=== PATIENT | female | born 1950 | race Caucasian/White ===

== ENCOUNTER 2017-09-18 09:45 | Outpatient (RCR) | payer MEDICARE, OTHER, SELFPAY ==
--- NOTE | 2017-08-26 16:11 | PT.OTN ---
Current Diagnoses Pain in right shoulder (08/27/17) Pain in unspecified shoulder (08/27/17) Pain in arm, unspecified (08/27/17) Transition note: On August 26, 2017 our therapy services consisting of Speech, Occupational, and Physical Therapy transitioned from the [employer] electronic documentation system to a new [employer] electronic documentation system.?? All documentation prior to August 26 can be found under [employer] saved data. From August 26 forward all medical record documentation will be in [employer] 6.1.
--- NOTE | 2017-08-29 12:21 | PT.OTN ---
Current Diagnoses Pain in right shoulder (08/29/17) Pain in unspecified shoulder (08/29/17) Pain in arm, unspecified (08/29/17) Physical Therapy Treatment Note PT-OP-A Visit Information Start: 08/29/17 12:01 Freq: Status: Active Protocol: Activity Type Activity Date Activity User E-Sign Co-Sign Detail Recorded Client Recorded Date Recorded By Document 08/29/17 09:02 GGD [email or web address] 08/29/17 12:16 [facility] 08/29/17 09:02 Out-Patient Physical Therapy Visit Information [Visit Information] -Visit Type Treatment Note -Visit Start Time 09:00 -Visit Stop Time 09:42 -Total Visit Minutes 42 -Visit Number 4 -Number of WOODWIND REEDS CUTTER Visits 1 [Evaluation Information] -Evaluation Date 08/05/17 PT-OP-C Subjective Start: 08/29/17 12:01 Freq: Status: Active Protocol: Activity Type Activity Date Activity User E-Sign Co-Sign Detail Recorded Client Recorded Date Recorded By Document 08/29/17 09:02 GGD [email or web address] 08/29/17 12:16 [facility] 08/29/17 09:02 OP-PT Subjective [Patient Comments] -Patient Comments Pt states that she having muscle tightness in top of shoulder that she feels that is causing bad head aches and increase in pain. She been canceling due to pain. PT-OP-Q Treatments Start: 08/29/17 12:01 Freq: Status: Active Protocol: Activity Type Activity Date Activity User E-Sign Co-Sign Detail Recorded Client Recorded Date Recorded By Document 08/29/17 09:02 GGD [email or web address] 08/29/17 12:16 [facility] 08/29/17 09:02 Therapeutic Exercises [Supine Exercises] 2 -Supine Exercise Name Supine punch -Side bilateral -Resistance 2# -Equipment Used hand weight -Reps/Minutes 10 1 -Supine Exercise Name AA Flexion -Side bilateral -Equipment Used wand -Reps/Minutes 10 [Sidelying Exercises] 1 -Sidelying Exercise Name Roll and reach -Side bilateral -Reps/Minutes 5 [Sitting Exercises] 5 -Sitting Exercise Name scap squeezes -Side bilateral -Reps/Minutes 5 x 5 sec hold 4 -Sitting Exercise Name Levator scap stretch -Side bilateral -Reps/Minutes 2 3 -Sitting Exercise Name upper trap stretch -Side bilateral -Reps/Minutes 2 2 -Sitting Exercise Name [place] flexion -Side left -Equipment Used wall [place] -Reps/Minutes 10 1 -Sitting Exercise Name [place] scap Abd -Side left -Equipment Used wall [place] -Reps/Minutes 10 Manual Therapy Treatment [Soft Tissue Mobilization] 1 -Body Location Upper trap and levator scap -Mobilization Type Myofascial Release Rolling Sustained Pressure -Intensity/Depth Moderate -Body Position Supine PT-OP-T Assessment and Plan Start: 08/29/17 12:01 Freq: Status: Active Protocol: Activity Type Activity Date Activity User E-Sign Co-Sign Detail Recorded Client Recorded Date Recorded By Document 08/29/17 09:02 GGD [email or web address] 08/29/17 12:16 GGD 08/29/17 09:02 Physical Therapy Assessment [Assessment Summary] -Assessment Pt had decrease in pain after STM. Her shoulder ROM is improving. Pt encouraged to keep appointment even when having increase in pain. Physical Therapy Plan [Frequency and Duration] -Frequency of Treatment 2x/Week -Duration of Treatment 8 weeks -Plan of Care Start Date 08/05/17 -Plan of Care End Date 09/29/17 [Next Visit Focus/Plan] -Next Visit Plan Progress under current plan of care. Increase shoulder strengthening, active ROM, posture and stretching.
--- NOTE | 2017-09-01 11:30 | PT.OTN ---
Current Diagnoses Pain in right shoulder (09/01/17) Pain in unspecified shoulder (09/01/17) Pain in arm, unspecified (09/01/17) Physical Therapy Treatment Note PT-OP-A Visit Information Start: 08/29/17 12:01 Freq: Status: Active Protocol: Activity Type Activity Date Activity User E-Sign Co-Sign Detail Recorded Client Recorded Date Recorded By Document 09/01/17 10:35 [facility] [id number] 09/01/17 11:30 [facility] 09/01/17 10:35 Out-Patient Physical Therapy Visit Information [Visit Information] -Visit Type Treatment Note -Visit Start Time 10:30 -Visit Stop Time 11:15 -Total Visit Minutes 45 -Visit Number 5 -Number of MASONRY CONTRACTOR Visits 0 PT-OP-C Subjective Start: 08/29/17 12:01 Freq: Status: Active Protocol: Activity Type Activity Date Activity User E-Sign Co-Sign Detail Recorded Client Recorded Date Recorded By Document 09/01/17 10:35 [facility] [id number] 09/01/17 11:30 [facility] 09/01/17 10:35 OP-PT Subjective [Patient Comments] -Patient Comments Reports her exercises make her more sore & reports pain lasts a couple hours after. PT-OP-Q Treatments Start: 08/29/17 12:01 Freq: Status: Active Protocol: Activity Type Activity Date Activity User E-Sign Co-Sign Detail Recorded Client Recorded Date Recorded By Document 09/01/17 10:35 [facility] [id number] 09/01/17 11:30 [facility] 09/01/17 10:35 Therapeutic Exercises [Sidelying Exercises] 1 -Sidelying Exercise Name Roll and reach -Reps/Minutes 10 [Sitting Exercises] 5 -Sitting Exercise Name scap squeezes -Side bilateral -Reps/Minutes 5 x 5 sec hold 4 -Sitting Exercise Name Levator scap stretch -Side bilateral -Reps/Minutes 2x30 sec 3 -Sitting Exercise Name upper trap stretch -Side bilateral -Reps/Minutes 2x 30 sec 2 -Sitting Exercise Name [place] flexion -Side left -Equipment Used wall [place] -Reps/Minutes 10 1 -Sitting Exercise Name [place] scap Abd -Side left -Equipment Used wall [place] -Reps/Minutes 10 [Standing Exercises] 1 -Standing Exercise Name wall roll up w/ shoulder ext -Reps/Minutes 10 Manual Therapy Treatment [Soft Tissue Mobilization] 1 -Body Location Upper trap and levator scap & c spine paraspinals -Mobilization Type Myofascial Release Rolling Sustained Pressure -Intensity/Depth Moderate -Body Position Supine [Joint Mobilizations] 1 -Joint GH -Direction distraction, inf, post -Grade II -Body Position Supine PT-OP-T Assessment and Plan Start: 08/29/17 12:01 Freq: Status: Active Protocol: Activity Type Activity Date Activity User E-Sign Co-Sign Detail Recorded Client Recorded Date Recorded By Document 09/01/17 10:35 [facility] [id number] 09/01/17 11:30 [facility] 09/01/17 10:35 Physical Therapy Assessment [Assessment Summary] -Assessment Pt had improved PROM without pain after joint mobilizations. Pt had pain only with pullys and wall posture after mult reps. Dec pain after proper form for roll & reach re- taught. Physical Therapy Plan [Frequency and Duration] -Frequency of Treatment 2x/Week -Duration of Treatment 8 weeks -Plan of Care Start Date 08/05/17 -Plan of Care End Date 09/29/17 [Next Visit Focus/Plan] -Next Visit Plan Shoulder strengthening with Tbands
--- NOTE | 2017-09-08 11:17 | PT.OTN ---
Current Diagnoses Pain in right shoulder (09/08/17) Pain in unspecified shoulder (09/08/17) Pain in arm, unspecified (09/08/17) Physical Therapy Treatment Note PT-OP-A Visit Information Start: 08/29/17 12:01 Freq: Status: Active Protocol: Document 09/08/17 10:35 [facility] (Rec: 09/08/17 11:16 [facility] [id number]) Out-Patient Physical Therapy Visit Information Visit Information Visit Type Treatment Note Visit Start Time 10:30 Visit Stop Time 11:15 Total Visit Minutes 45 Visit Number 6 Number of SHEET HEATER HELPER Visits 0 PT-OP-C Subjective Start: 08/29/17 12:01 Freq: Status: Active Protocol: Document 09/08/17 10:35 [facility] (Rec: 09/08/17 11:16 [facility] [id number]) OP-PT Subjective Patient Comments Patient Comments Pt reports she was sore from shoulder to elbow after last session. PT-OP-Q Treatments Start: 08/29/17 12:01 Freq: Status: Active Protocol: Document 09/08/17 10:35 [facility] (Rec: 09/08/17 11:16 [facility] [id number]) Therapeutic Exercises Sitting Exercises 5 Sitting Exercise Name scap squeezes Side bilateral Reps/Minutes 5 x 5 sec hold 2 Sitting Exercise Name [place] flexion Side left Equipment Used wall [place] Reps/Minutes 10 1 Sitting Exercise Name [place] scap Abd Side left Equipment Used wall [place] Reps/Minutes 10 Standing Exercises 2 Standing Exercise Name B ext w/tband Resistance L1 Reps/Minutes 20 Manual Therapy Treatment Soft Tissue Mobilization 2 Body Location infraspinatus & rhomboids Mobilization Type Rolling Intensity/Depth Moderate Body Position Sidelying 1 Body Location Upper trap and levator scap & c spine paraspinals Mobilization Type Myofascial Release Rolling Sustained Pressure Intensity/Depth Superficial Body Position Supine Self-Care/Home Management Treatment Education Other Education self massage w/home theracane PT-OP-T Assessment and Plan Start: 08/29/17 12:01 Freq: Status: Active Protocol: Document 09/08/17 10:35 [facility] (Rec: 09/08/17 11:16 [facility] [id number]) Physical Therapy Assessment Assessment Summary Assessment Pt able to tolerate shoulder ext with tband. Dec pressure used w/STM to prevent inc soreness. Physical Therapy Plan Frequency and Duration Frequency of Treatment 2x/Week Duration of Treatment 8 weeks Plan of Care Start Date 08/05/17 Plan of Care End Date 09/29/17 Next Visit Focus/Plan Next Visit Plan Cont to advance scapular strengthening.
--- NOTE | 2017-09-16 16:31 | PT.OTN ---
Current Diagnoses Pain in right shoulder (09/16/17) Pain in unspecified shoulder (09/16/17) Pain in arm, unspecified (09/16/17) Physical Therapy Treatment Note PT-OP-A Visit Information Start: 08/29/17 12:01 Freq: Status: Active Protocol: Document 09/16/17 11:15 GGD (Rec: 09/16/17 16:31 GGD [email or web address]) Out-Patient Physical Therapy Visit Information Visit Information Visit Type Treatment Note Visit Start Time 11:15 Visit Stop Time 11:55 Total Visit Minutes 40 Visit Number 7 Number of SHELLS INSPECTOR Visits 1 PT-OP-C Subjective Start: 08/29/17 12:01 Freq: Status: Active Protocol: Document 09/16/17 11:15 [facility]GD (Rec: 09/16/17 16:31 GGD [email or web address]) OP-PT Subjective Patient Comments Patient Comments Pt states that the pain has not change and having to cancel appointments due to pain levels. Patient Reported Progress Same PT-OP-Q Treatments Start: 08/29/17 12:01 Freq: Status: Active Protocol: Document 09/16/17 11:15 GGD (Rec: 09/16/17 16:31 GGD [email or web address]) Therapeutic Exercises Sitting Exercises 5 Sitting Exercise Name scap squeezes Side bilateral Reps/Minutes 5 x 5 sec hold 2 Sitting Exercise Name [place] flexion Side left Equipment Used wall [place] Reps/Minutes 10 1 Sitting Exercise Name [place] scap Abd Side left Equipment Used wall [place] Reps/Minutes 10 Standing Exercises 3 Standing Exercise Name Rows Side bilateral Resistance Level 1 Reps/Minutes 20 2 Standing Exercise Name B ext w/tband Resistance L1 Reps/Minutes 20 Manual Therapy Treatment Soft Tissue Mobilization 2 Body Location infraspinatus & rhomboids Mobilization Type Rolling Intensity/Depth Moderate Body Position Sidelying 1 Body Location Upper trap and levator scap & c spine paraspinals Mobilization Type Myofascial Release Rolling Sustained Pressure Intensity/Depth Superficial Body Position Supine PT-OP-T Assessment and Plan Start: 08/29/17 12:01 Freq: Status: Active Protocol: Document 09/16/17 11:15 GGD (Rec: 09/16/17 16:31 GGD [email or web address]) Physical Therapy Assessment Assessment Summary Assessment Pt had decrease pain and muscle tension with treatment. She had improve shoulder flexion ROM. Physical Therapy Plan Frequency and Duration Frequency of Treatment 2x/Week Duration of Treatment 8 weeks Plan of Care Start Date 08/05/17 Plan of Care End Date 09/29/17 Next Visit Focus/Plan Next Visit Plan Progress under current plan of care. Increase shoulder strengthening, posture and stretching.
--- NOTE | 2017-09-18 13:44 | PT.OTN ---
Current Diagnoses Pain in right shoulder (09/18/17) Pain in unspecified shoulder (09/18/17) Pain in arm, unspecified (09/18/17) Physical Therapy Treatment Note PT-OP-A Visit Information Start: 08/29/17 12:01 Freq: Status: Active Protocol: Document 09/18/17 09:43 [facility] (Rec: 09/18/17 10:08 [facility] [id number]) Out-Patient Physical Therapy Visit Information Visit Information Visit Type Treatment Note Visit Start Time 09:45 Visit Stop Time 10:30 Total Visit Minutes 45 Visit Number 8 Number of SALESPERSON DRIVER Visits 0 Evaluation Information Evaluation Date 08/05/17 PT-OP-C Subjective Start: 08/29/17 12:01 Freq: Status: Active Protocol: Document 09/18/17 09:43 [facility] (Rec: 09/18/17 10:08 [facility] [id number]) OP-PT Subjective Patient Comments Patient Comments Saw neurologist got medication helping migraines. shoulder pain persists but ROM improved . Soft tissue work helpful short term for pain. PT-OP-Q Treatments Start: 08/29/17 12:01 Freq: Status: Active Protocol: Document 09/18/17 09:43 [facility] (Rec: 09/18/17 10:08 [facility] [id number]) Therapeutic Exercises Sidelying Exercises 2 Sidelying Exercise Name shoulder abduction Side bilateral 1 Sidelying Exercise Name Roll and reach Side bilateral Reps/Minutes 5 Comments manual guidance Sitting Exercises 2 Sitting Exercise Name [place] flexion Side left Equipment Used wall [place] Reps/Minutes 10 1 Sitting Exercise Name [place] scap Abd Side left Equipment Used wall [place] Reps/Minutes 10 Standing Exercises 4 Standing Exercise Name Shld ER, ad, IR Resistance L1 TB Reps/Minutes 10 3 Standing Exercise Name Rows Side bilateral Resistance Level 1 Reps/Minutes 20 2 Standing Exercise Name B ext w/tband Resistance L1 Reps/Minutes 20 1 Standing Exercise Name wall posture Reps/Minutes 5 Manual Therapy Treatment Soft Tissue Mobilization 1 Body Location Upper trap and levator scap & c spine paraspinals Mobilization Type Myofascial Release Rolling Sustained Pressure Intensity/Depth Superficial Body Position Supine Taping 1 Body Location left anterior chest, axilla Treatment Focus edema reduction Type of Tape Kinesio Tape Comments 2 fan strips base at supraclavicular fossa crossing to axilla PT-OP-T Assessment and Plan Start: 08/29/17 12:01 Freq: Status: Active Protocol: Document 09/18/17 09:43 [facility] (Rec: 09/18/17 10:08 [facility] [id number]) Physical Therapy Assessment Assessment Summary Assessment Patient tolerated taping well, requires frequent cues for postural alignment and correct form with exercises. Physical Therapy Plan Frequency and Duration Frequency of Treatment 2x/Week Duration of Treatment 8 weeks Plan of Care Start Date 08/05/17 Plan of Care End Date 09/29/17 Next Visit Focus/Plan Next Note Type Treatment Note Next Visit Plan Assess response to kinesiotape , continue PT per POC. Please Sign and Return: I have reviewed this Plan of Care and certify that the skilled therapy services above are required to meet the patient???s needs. Physician Signature Date Printed Name and Credentials Clinical Instructor Signature Printed Name and Credentials
--- NOTE | 2017-12-23 11:38 | PT.OPDS ---
Current Diagnoses Pain in right shoulder (09/18/17) Pain in unspecified shoulder (09/18/17) Pain in arm, unspecified (09/18/17) Provider Visit Care Team Role Provider Type Freddy Dalton MD Family Provider Physician Primary Care Provider Specialty: Family Practice Address: [facility] [place], [address] Email: [email or web address] Elena Garsia MD Attending Provider Physician Specialty: General Surgery Address: [address] [place] [address], [address] Email: [email or web address] Visit Number Visit Number 8 Discharge Summary PT-OP-C Subjective Start: 08/29/17 12:01 Freq: Status: Active Protocol: Document 09/18/17 09:43 [facility] (Rec: 09/18/17 10:08 [facility] [id number]) OP-PT Subjective Patient Comments Patient Comments Saw neurologist got medication helping migraines. shoulder pain persists but ROM improved . Soft tissue work helpful short term for pain. PT-OP-T Assessment and Plan Start: 08/29/17 12:01 Freq: Status: Active Protocol: Document 12/23/17 11:36 [facility]AK (Rec: 12/23/17 11:37 [facility] [id number]) Physical Therapy Plan Discharge Physical Therapy Discharge Reasons No Longer Attending PT Discharge Comments Not seen since 09/17/17 prior to PT on vacation then out with extended illness. Phone calls to check on patient status not returned. Patient will be discharged. Unable to perform discharge reassesment
== END 2017-09-19 10:51 ==
LOC: PHYS 09:45
PROVIDERS: Family Provider Family Medicine; PCP Family Medicine; Visit Provider Surgery
DX: M79.603 Pain in arm, unspecified (principal); M25.519 Pain in unspecified shoulder; M25.511 Pain in right shoulder
CPT/HCPCS: 97110; 97140

== ENCOUNTER → 2017-10-06 11:46 | Outpatient (CLI) | payer MEDICARE, OTHER, SELFPAY ==
--- NOTE | 2017-10-06 | DI.MRI.S_ITS ---
PROCEDURE: MR HEAD/BRAIN WO/W CON INDICATIONS: CHRONIC MIGRAINE WITHOUT AURA TECHNIQUE: Noncontrast axial T1 spin echo, axial T2 fast spin echo, sagittal and axial FLAIR, coronal T2 fast spin echo, axial gradient echo, axial diffusion and ADC through the brain. After the administration of contrast, axial and coronal T1 spin echo with fat saturation through the brain. COMPARISON: [facility], CT, HEAD WITHOUT CONTRAST, 11/01/2014, 18:13. [facility], CT, HEAD WITHOUT CONTRAST, 11/25/2014, 11:09. FINDINGS: Image quality: Excellent. CSF spaces: Basal cisterns are patent. No extra-axial fluid collections. Ventricles stable, with ex vacuo dilatation of the left lateral ventricle. Brain: No midline shift. No intracranial masses. No abnormal intracranial enhancement. There is cerebral volume loss for age. There is periventricular white matter chronic small vessel ischemic change. The brainstem appears normal. Diffusion-weighted images demonstrate no acute ischemic insults. There is a remote left frontal lobe infarction seen, as previously demonstrated. There is brain parenchymal volume loss and gliotic change. Mild hemosiderin deposition can be seen along the margins of infarction. Normal intravascular flow voids are present. Skull and face: Calvarial marrow is normal in signal. Orbits appear normal. Note is made of bilateral lens replacements. Sinuses: Sinuses and mastoids appear clear. IMPRESSION: No acute abnormality is seen. 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 Dictated by: Pj Mcdaniels M.D. on 10/06/2017 at 12:27 Approved by: Pj Mcdaniels M.D. on 10/06/2017 at 12:29
== END ==
PROVIDERS: Family Provider Family Medicine; PCP Family Medicine; Visit Provider Psychiatry & Neurology Neurology
DX: G43.709 Chronic migraine without aura, not intractable, without status migrainosus (principal)
CPT/HCPCS: 70553; A9579

== ENCOUNTER → 2017-11-14 13:15 | Outpatient (CLI) | payer MEDICARE, OTHER, SELFPAY | PROVIDERS: Family Provider Family Medicine; PCP Family Medicine; Visit Provider Family Medicine | DX: Z78.0 Asymptomatic menopausal state (principal) | CPT/HCPCS: 77080 ==

== ENCOUNTER 2018-03-27 18:17 | Inpatient (IN) | payer MEDICARE, OTHER, SELFPAY ==
[2018-03-27] VITALS (18 sets, daily range): BP systolic 98–137; BP diastolic 61–96; PULSE 72–92; RESP 7–22; TEMP 36.3–36.6; O2SAT 90–98; BMI 32.5
--- NOTE | 2018-03-27 | DI.RAD.S_ITS ---
PROCEDURE: XR ANKLE LT 2V INDICATIONS: POST REDUCTION TECHNIQUE: 3 views of the ankle were acquired. COMPARISON: [facility], , XR ANKLE LT MIN 3V, 03/27/2018, 18:30. FINDINGS: Bones: There is improved alignment of the tri-malleolar ankle fracture. There is significant residual posterior dislocation of the talus, measured at roughly 27 mm. There is roughly 8 mm of lateral subluxation of the talus. Soft tissues: No tibiotalar joint effusion. Achilles tendon appears normal. IMPRESSION: Decreased, moderate displacement of trimalleolar ankle fracture. Dictated by: Lukas Corral M.D. on 03/27/2018 at 20:33 Approved by: Lukas Corral M.D. on 03/27/2018 at 20:34
--- NOTE | 2018-03-27 18:22 | DI.RAD.S_ITS ---
PROCEDURE: XR ANKLE LT MIN 3V INDICATIONS: fall pain TECHNIQUE: 3 views of the ankle were acquired. COMPARISON: None. FINDINGS: Bones: Moderate lateral talar subluxation. Moderately displaced medial malleolar fracture. Moderately displaced and angulated distal fibular fracture, which is comminuted. Moderately displaced posterior malleolar fracture. Soft tissues: No tibiotalar joint effusion. Achilles tendon appears normal. IMPRESSION: Moderately displaced trimalleolar ankle fracture dislocation. Dictated by: Lukas Corral M.D. on 03/27/2018 at 18:49 Approved by: Lukas Corral M.D. on 03/27/2018 at 18:50
--- NOTE | 2018-03-27 18:31 | ED_ITS ---
HPI - Extremity Injury (Lower) General Chief Complaint: Extremity Injury, Lower Stated Complaint: left ankle fracture Time Seen by Provider: 03/27/18 18:22 Source: patient and EMS Mode of arrival: EMS History of Present Illness HPI Narrative: patient is a 68-year-old female who presents with left ankle pain. She tripped over a rug and her home when she fell. She denies numbness or tingling she is able to move her toes. No knee or hip pain. No other injury. She received fentanyl by EMS for pain control Related Data Home Medications Medication Instructions Recorded Confirmed gabapentin [Neurontin] 1,200 mg PO TID #0 08/07/17 03/28/18 metformin [Glucophage XR] 500 mg PO QDAY #0 08/07/17 03/28/18 Previous Rx's Medication Instructions Recorded hydrocodone-acetaminophen [[place]] 1 tab PO Q6HP PRN #30 tab 02/07/16 Allergies Allergy/AdvReac Type Severity Reaction Status Date / Time cefazolin [From Anc] Allergy Verified 03/27/18 19:12 Review of Systems Review of Systems GENERAL: Denies chills,fever HEENT: Denies throat pain RESPIRATORY: Denies dyspnea, cough, wheezing CARDIOVASCULAR: Denies chest pain, palpitations GASTROINTESTINAL: Denies nausea, vomiting MUSCULOSKELETAL: See HPI SKIN: No rash, no laceration, no pruritus NEUROLOGIC: Denies weakness, dizziness, headache, numbness 8 point review of systems is negative except for those stated above and HPI [facility] Medical History Breast cancer (Acute) Family History: Reviewed 03/27/18 by Donis Euceda MD Social History household members: spouse Smoking Status: Former smoker Exam Initial Vital Signs Initial Vital Signs: Vital Signs Temperature 97.8 F 03/27/18 18:22 Pulse Rate 80 03/27/18 18:22 Respiratory Rate 18 03/27/18 18:22 Blood Pressure 120/76 03/27/18 18:22 Pulse Oximetry 93 03/27/18 18:22 GENERAL: Overweight female awake alert oriented CARDIOVASCULAR: peripheral pulses in tact, cap refill <2 sec RESPIRATORY: No respiratory distress, speaks in full sentences without difficulty EXTREMITIES: Normal range of motion, no clubbing or edema. Neurovascularly intact Left lower extremity: Obvious deformity at ankle is peripheral pulses intact no knee pain or deformity pelvis is stable. no open fracture. Neurovascularly intact NEUROLOGICAL: Cranial nerves II through XII grossly intact. Normal speech, gait not tested SKIN: Warm, dry, no petechiae, no rashes or lesions. Procedures Orthopedic Fracture Reduction Fracture #1: Time Out Performed: Yes Side: left Fracture Reduction Location: tibia and fibula Analgesia: procedural sedation Technique: direct manipulation Post Reduction X-rays Demonstrate: other (Not acceptable reduction) Post-reduction neuro exam: intact and no change Post-reduction vascular exam: intact and no change Splint Applied: Yes Patient Tolerated Procedure: Well Procedural Sedation Patient Age: Patient is 5yrs or older Indication: fracture/dislocation reduction ASA Class: II Mallampati Airway Classification: Class I Time of Last PO Intake: 12:00 Preparation: pulse oximeter, capnometry used, supplemental O2 applied, suction/ airway equipment at bedside and IV secured IV Etomidate dose (mg): 10 Time of Sedation (Min): 15 ED Sedation Level: Moderate (Concious) Patient Tolerated Procedure: Well Complications: none Course Orders Ordered: ED Orders 03/27/18 18:22 XR ankle LT min 3V Stat 03/27/18 21:03 Basic Metabolic Panel Stat Complete Blood Count AUTO DIFF Stat 03/28/18 00:00 Consult to Physical Therapy Evaluate & Treat Consult to Respiratory Therapy Evaluate & Treat Hydrocodone Bitart/Acetaminophen ([place] 5/325) 1 tab PO Q6H PRN PRN Reason: Pain, Moderate (4-6) Last Admin: 03/28/18 01:45 Dose: 1 tab Aspirin (Aspirin Ec) 81 mg PO BID [facility] Gabapentin (Neurontin) 1,200 mg PO TID [facility] Hydroxyzine Pamoate (Vistaril) 25 mg PO Q6HR PRN PRN Reason: Spasms Lactated Ringer's (Lactated Ringers) 1,000 mls @ 125 mls/hr IV CONT ANG Last Admin: 03/28/18 01:46 Dose: 125 mls/hr Metformin HCl (Glucophage Xr) 500 mg PO DAILY ANG Ondansetron HCl (Zofran Odt) 4 mg PO Q4HR PRN PRN Reason: Nausea Ondansetron HCl (Zofran) 4 mg IV Q4HR PRN PRN Reason: Nausea And Vomiting Discontinued Medications Bupivacaine HCl/Epinephrine Bitart (Sensorcaine 0.5% W/ Epi (Pf)) 30 ml INJ NOW ONE Stop: 03/27/18 23:06 Last Admin: 03/27/18 23:07 Dose: 20 ml Diphtheria/Tetanus/Acell Pertussis (Adacel) 0.5 ml IM .ONCE ONE Stop: 03/27/18 21:07 Last Admin: 03/27/18 21:08 Dose: 0.5 ml Etomidate (Amidate) 10 mg IV NOW ONE Stop: 03/27/18 19:34 Last Admin: 03/27/18 20:06 Dose: 10 mg Fentanyl (Sublimaze) 50 mcg IV Q5MIN PRN PRN Reason: Pain, Moderate (4-6) Stop: 03/28/18 00:00 Hydromorphone HCl (Dilaudid) 1 mg IV NOW ONE Stop: 03/27/18 20:10 Last Admin: 03/27/18 20:13 Dose: 1 mg Hydromorphone HCl (Dilaudid) 1 mg IV NOW ONE Stop: 03/27/18 20:16 Last Admin: 03/27/18 20:18 Dose: 1 mg Hydromorphone HCl (Dilaudid) 0.5 mg IV NOW ONE Stop: 03/27/18 21:08 Last Admin: 03/27/18 21:09 Dose: 0.5 mg Hydromorphone HCl (Dilaudid) 0.5 mg IV Q5MIN PRN PRN Reason: Pain, Moderate (4-6) Sodium Chloride (Normal Saline 0.9%) 1,000 mls @ 1,000 mls/hr IV BOLUS ONE Stop: 03/27/18 20:32 Last Infusion: 03/27/18 21:34 Dose: 0 mls/hr Admin: 03/27/18 19:50 Dose: 1,000 mls/hr Lactated Ringer's (Lactated Ringers) 1,000 mls @ 42 mls/hr IV CONT ANG Last Admin: 03/27/18 22:02 Dose: 42 mls/hr Clindamycin Phosphate (Cleocin) 900 mg in 50 mls @ 50 mls/hr IV NOW ONE Stop: 03/28/18 00:04 Last Infusion: 03/27/18 22:10 Dose: 0 mls/hr Admin: 03/27/18 22:00 Dose: 50 mls/hr Ondansetron HCl (Zofran) 4 mg IV NOW PRN PRN Reason: Nausea And Vomiting Oxycodone/Acetaminophen (Percocet 5/325) 1 tab PO Q30MIN PRN PRN Reason: Mild or moderate pain Propofol (Diprivan) 100 mg IV NOW ONE Stop: 03/27/18 19:05 Last Admin: 03/27/18 20:06 Dose: Vital Signs - 8 hr 03/27/18 19:00 03/27/18 19:12 03/27/18 19:52 Temperature 97.8 F 97.8 F Pulse Rate 80 80 88 Respiratory Rate 18 18 19 Blood Pressure 101/72 Blood Pressure [Left Arm] 131/94 H Pulse Oximetry 93 93 93 03/27/18 19:58 03/27/18 20:01 03/27/18 20:08 Temperature Pulse Rate 83 76 74 Respiratory Rate 20 19 17 Blood Pressure Blood Pressure [Left Arm] 123/78 121/71 Pulse Oximetry 97 98 97 03/27/18 20:10 03/27/18 20:15 03/27/18 20:20 Temperature Pulse Rate 72 84 77 Respiratory Rate 17 22 19 Blood Pressure Blood Pressure [Left Arm] 126/91 H 136/80 98/63 Pulse Oximetry 96 94 95 03/27/18 20:30 03/27/18 21:00 03/27/18 21:44 Temperature 97.7 F Pulse Rate 72 79 83 Respiratory Rate 10 L 9 L 15 Blood Pressure 125/73 Blood Pressure [Left Arm] 113/61 114/68 Pulse Oximetry 95 90 L 90 L 03/27/18 23:32 03/27/18 23:37 03/27/18 23:42 Temperature 97.3 F L Pulse Rate 92 H 91 H 87 Respiratory Rate 10 L 9 L 9 L Blood Pressure 137/77 124/94 H 130/96 H Blood Pressure [Left Arm] Pulse Oximetry 94 95 94 03/27/18 23:47 03/27/18 23:55 03/28/18 00:25 Temperature 97.3 F L 97.2 F L Pulse Rate 86 83 Respiratory Rate 10 L 7 L 8 L Blood Pressure 130/79 103/79 Blood Pressure [Left Arm] Pulse Oximetry 96 96 96 03/28/18 00:55 03/28/18 02:00 Temperature 97.4 F L 97.4 F L Pulse Rate 85 83 Respiratory Rate 7 L 8 L Blood Pressure 98/73 114/64 Blood Pressure [Left Arm] Pulse Oximetry 95 99 MDM - Extremity Injury (Lower) Lab Data Result diagrams: 03/28/18 02:01 03/28/18 02:01 Lab Results 03/28/18 03/28/18 Range/Units 02:01 02:01 WBC 7.5 (4.5-11.0) X10^3/uL RBC 4.07 (4.0-5.2) X10^6/uL Hgb 12.4 (12.0-16.0) g/dL Hct 37.0 (36-46) % MCV 91.0 (80-100) fL MCH 30.5 (26-34) PG MCHC 33.5 (30-36) % RDW 14.7 (11.6-14.8) % Plt Count 384 (150-400) X10^3/uL Neut % (Auto) 63.1 (50-75) % Lymph % (Auto) 28.5 (25-40) % [place] % (Auto) 5.4 (3-14) % Eos % (Auto) 2.5 (2-4) % Baso % (Auto) 0.5 (0-2) % Neut # (Auto) 4700 (6672-0430) /uL Sodium 144 (137-145) mmol/L Potassium 3.7 (3.4-5.1) mmol/L Chloride 101 (98-107) mmol/L Carbon Dioxide 30 (22-32) mmol/L BUN 27 H (7-17) mg/dL Creatinine 1.10 H (0.52-1.04) mg/dL Estimated GFR 49.7 L (>60) mL/min BUN/Creatinine Ratio 24.5 H (6-22) Glucose 130 H (80-110) mg/dL Calcium 8.4 (8.4-10.2) mg/dL Point of Care Testing Test Results Not applicable Glucose POC 123 Imaging Data Ankle x-ray#1: Radiologist's impression: [address] [address] XRay Report Signed Patient: MarcoArabellaval TAYR#: [id number] : 2Acct:[id number] Age/Sex: 68 / FDate of Service: 03/27/18 Loc: ED Accession Number: [id number] Procedure: XR ankle LT min 3V Ordering Provider: Ketty Arvizu D.O. PROCEDURE: XR ANKLE LT MIN 3V INDICATIONS: fall pain TECHNIQUE: 3 views of the ankle were acquired. COMPARISON: None. FINDINGS: Bones: Moderate lateral talar subluxation. Moderately displaced medial malleolar fracture. Moderately displaced and angulated distal fibular fracture, which is comminuted. Moderately displaced posterior malleolar fracture. Soft tissues: No tibiotalar joint effusion. Achilles tendon appears normal. IMPRESSION: Moderately displaced trimalleolar ankle fracture dislocation. Dictated by: Lukas Corral M.D. on 03/27/2018 at 18:49 Approved by: Lukas Corral M.D. on 03/27/2018 at 18:50 Ankle x-ray#2: Radiologist's impression: [place] [address] XRay Report Signed Patient: Wilber Lara JMR#: [id number] : 2Acct:[id number] Age/Sex: 68 / FDate of Service: 03/27/18 Loc: ED Accession Number: [id number] Procedure: XR ankle LT 2V Ordering Provider: Ketty Arvizu D.O. PROCEDURE: XR ANKLE LT 2V INDICATIONS: POST REDUCTION TECHNIQUE: 3 views of the ankle were acquired. COMPARISON: [facility], , XR ANKLE LT MIN 3V, 03/27/2018, 18:30. FINDINGS: Bones: There is improved alignment of the tri-malleolar ankle fracture. There is significant residual posterior dislocation of the talus, measured at roughly 27 mm. There is roughly 8 mm of lateral subluxation of the talus. Soft tissues: No tibiotalar joint effusion. Achilles tendon appears normal. IMPRESSION: Decreased, moderate displacement of trimalleolar ankle fracture. Dictated by: Lukas Corral M.D. on 03/27/2018 at 20:33 Approved by: Lukas Corral M.D. on 03/27/2018 at 20:34 MDM Narrative Medical decision making narrative: The patient did not have a successful reduction. I have called and spoken with Dr. Euceda who has reviewed x-rays. She will be going to the OR this evening. Dr. Euceda in the ED. Discharge Plan Departure Patient Disposition: Admitted as Observation Clinical Impression: Ankle fracture, left Discharge Date/Time: 03/27/18 21:34 Interventions: ED Discharge Assessment Last Done: 03/27/18 21:33 Admit Date/Time: 03/27/18 21:17 Admit Provider: Donis Euceda
[2018-03-27] MEDS: SODIUM CHLORIDE 0.9% 1,000 ML 1000 ML IV (19:50)
[2018-03-27] MEDS: ETOMIDATE 2 MG/ML VIAL 10 MG IV (20:06)
[2018-03-27] MEDS: HYDROMORPHONE 2 MG INJ 1 MG IV ×2 (20:13→20:18)
--- NOTE | 2018-03-27 20:24 | RT ---
Assisted with concious sedation on patient. Jaw thrust used after sedation in effect. ETCO2 running 35-44 for most of sedation till patient more awake and moaning and blowing down her CO2 to low 30's. SPO2 running 98% on 2 lnc. Patient awake and interactive at end of sedation.
--- NOTE | 2018-03-27 20:33 | PC.NURSE ---
Pt tolerated sedation well. needed jaw lift to maintain airway. 2 attempts were made to reduce ankle injury. 1mg of dilaudid given twice for the second attempt to reduce. Provider placed splint, cap refill < 2sec on toes.
[2018-03-27] MEDS: TET,DIPH,PERTUSS(ACELL),VAC/PF 0.5 ML SYRINGE IM (21:08)
[2018-03-27] MEDS: HYDROMORPHONE 1 MG INJ 0.5 MG IV (21:09)
--- NOTE | 2018-03-27 21:20 | PC.NURSE ---
Pt alert and calm, talking to Ortho provider at bedside.
--- NOTE | 2018-03-27 21:34 | PM.PREOP ---
Pre-operative Note Interval Note Pre-op Check: Yes History & Physical Reviewed by Physician Changes: No
--- NOTE | 2018-03-27 21:34 | PC.NURSE ---
NS to continue in OR
--- NOTE | 2018-03-27 21:34 | PM.HP.1 ---
History of Present Illness Date Patient Seen: 03/27/18 Time Patient Seen: 21:35 Chief complaint: left ankle fracture Narrative: 68-year-old female status post ground level fall with twisting injury to her left ankle. Brought to [facility] Emergency room where she was noted to have a severely displaced trimalleolar ankle fracture dislocation. Attempts at closed reduction were unsuccessful in terms of maintaining the position of the ankle mortise and the talus directly under the tibia. Consultation requested. Patient History Medical History Breast cancer (Acute) Family & Social History Family History: Reviewed 03/27/18 by Donis Euceda MD Safety & Behavioral: Feels Safe in Current Yes Environment Tobacco & Substance use: Smoking Status Never smoker alcohol intake frequency 3 or more drinks per day Substance Use Type does not use Meds Home Medications Medication Instructions Recorded Confirmed Type hydrocodone-acetaminophen [[place]] 1 tab PO Q6HP PRN #30 tab 02/07/16 Rx gabapentin [Neurontin] 1,200 mg PO TID #0 08/07/17 History metformin [Glucophage XR] 500 mg PO QDAY #0 08/07/17 History Allergies Allergy/AdvReac Type Severity Reaction Status Date / Time cefazolin [From Ancef] Allergy Verified 03/27/18 19:12 Review of Systems Review of Systems All systems reviewed & are unremarkable except as noted in HPI and below Exam Vital Signs (past 8 hours): - 03/27/18 18:22 03/27/18 19:00 03/27/18 19:12 Temperature 97.8 F 97.8 F 97.8 F Pulse Rate 80 80 80 Respiratory Rate 18 18 18 Blood Pressure 101/72 Blood Pressure [Left Arm] 120/76 Pulse Oximetry 93 93 93 03/27/18 19:52 03/27/18 19:58 03/27/18 20:01 Temperature Pulse Rate 88 83 76 Respiratory Rate 19 20 19 Blood Pressure Blood Pressure [Left Arm] 131/94 H 123/78 Pulse Oximetry 93 97 98 03/27/18 20:08 03/27/18 20:10 03/27/18 20:15 Temperature Pulse Rate 74 72 84 Respiratory Rate 17 17 22 Blood Pressure Blood Pressure [Left Arm] 121/71 126/91 H 136/80 Pulse Oximetry 97 96 94 03/27/18 20:20 03/27/18 20:30 03/27/18 21:00 Temperature Pulse Rate 77 72 79 Respiratory Rate 19 10 L 9 L Blood Pressure Blood Pressure [Left Arm] 98/63 113/61 114/68 Pulse Oximetry 95 95 90 L Oxygen Delivery Method Room Air Oxygen Flow Rate 2 Narrative Exam Narrative: Generally healthy 68-year-old female and minimal distress due to left ankle pain/injury. No other apparent injury. The left ankle is elevated in a posterior splint. Patient is afebrile and awake alert and conversant. HEENT normocephalic atraumatic, lungs clear auscultation, heart regular rate and rhythm, abdomen benign, extremities benign with the exception of left lower extremity which is in a well-padded posterior splint toes exposed demonstrating intact sensation and circulation movement of all toes is intact. Objective Labs Labs: X-rays demonstrate displaced trimalleolar ankle fracture dislocation with significant comminution of the distal fibula Assessment & Plan Plan: Assessment/Plan Narrative: 68-year-old female with a displaced trimalleolar ankle fracture dislocation which is not fully reducible nor is the reduction maintained able in the emergency room. Discussed nature of condition, differential diagnosis, prognosis, and options. Recommend ORIF this evening. The patient understands, agrees, and gives informed consent. Time Spent With Patient Time with patient: 25 - 35 minutes
[2018-03-27] MEDS: CLINDAMYCIN 900 MG/50 ML PIGGYBACK 50 MG IV (22:00)
[2018-03-27] MEDS: LACTATED RINGERS 1,000 ML 42 ML IV (22:02)
--- NOTE | 2018-03-27 22:21 | SUR.OPER ---
Supine on padded OR bed, head on pillow, arms secured on padded arm boards at <90 degrees abduction, legs uncrossed, safety belt at thigh, tape over blanket over right leg.
[2018-03-27] MEDS: BUPIVACAINE 0.5% W/ EPI (PF) VIAL 30 ML INJ (23:07)
--- NOTE | 2018-03-27 23:43 | PM.OP.1 ---
Operative Date/Time/Diagnoses Date of procedure: 03/27/18 Time of procedure: 23:43 Pre-op diagnosis: Left trimalleolar ankle fracture dislocation Post-op diagnosis: same Procedure & Clinicians Procedure: ORIF left trimalleolar ankle fracture dislocation (CPT code 21760) Same procedure as scheduled: Yes Indications: 68-year-old female status post fall with moderately comminuted and displaced trimalleolar left ankle fracture with dislocation of the talus. Attempted closed reduction in the emergency room was unsuccessful and on stable and therefore immediate orthopedic consultation was requested. We discussed the nature of condition, treatment options, risks, and benefits and the patient gives informed consent to proceed with ORIF. Surgeon: Donis Euceda Click Yes if Unassisted: Yes Anesthesia Type: General Operative Notes Closure Type: primary Specimen(s): none sent Implants & Drains: Eight 8 hole 1/3 tubular plate and malleolar screws Estimated Blood Loss (mL): 5 Blood products transfused: none Tourniquet time (min): 60 Procedure in detail: Patient brought to the operating room and after satisfactory induction of general anesthetic and administration of intravenous antibiotics, a tourniquet was placed high on the left thigh and left lower extremity was prepped and draped in the usual sterile fashion. Leg was exsanguinated with an Esmarch bandage. Tourniquet inflated to 325 mm of mercury. Longitudinal incision created over the distal fibula and carried sharply through the skin and subcutaneous tissues down to the periosteal level. Fracture was identified and debrided. Moderate comminution of a high distal fibular fracture was noted with a large anterior and anteromedial butterfly fragment. Stable anatomical reduction obtained with towel clip reduction clamps then an 8 hole 1/3 tubular plate was affixed to the lateral cortex of the fibula with a single interfragmentary bicortical lag screw placed through the midportion of the plate. Intraoperative fluoroscopic images demonstrated satisfactory reduction of the fibular fracture and placement of hardware as well as reduction of the ankle mortise, posterior malleolar fragment, and near anatomical reduction of the medial malleolus. The lateral plate was then further fixed to the distal fibula with bicortical screws in the standard fashion. Medial incision then created in the medial malleolar fracture was debrided then reduced anatomically and held in place with a towel clip reduction clamp while 2 malleolar screws were placed from distal to proximal. Intraoperative fluoroscopic images in AP lateral and mortise planes demonstrated satisfactory anatomical reduction of fractures and ankle mortise, and satisfactory placement of hardware. The wounds were then irrigated and closed in 2 layers of 2 0 Vicryl and the skin closed with yvette. The wounds were infiltrated with Marcaine then sterile dressings and a well-padded posterior splint were applied. Tourniquet deflated, anesthetic admitted, and patient taken to post anesthetic recovery in satisfactory condition. Complications: none Condition: stable Disposition: PACU Plan for aftercare: Routine postoperative fracture care with rest and elevation. Nonweightbearing left lower extremity. Probable discharge home in the morning and follow up in 7-10 days for wound check as well as repeat x-rays to assure satisfactory maintenance of the reduction. Because of the nature of the fracture and fixation I recommend cast stabilization for 6 weeks postop.
[2018-03-28] VITALS (7 sets, daily range): BP systolic 98–131; BP diastolic 64–79; PULSE 75–100; RESP 7–20; TEMP 36.2–37.2; O2SAT 91–99; BMI 32.5
--- NOTE | 2018-03-28 | DI.RAD.S_ITS ---
PROCEDURE: XR ANKLE LT MIN 3V INDICATIONS: postop left ankle ORIF TECHNIQUE: 3 views of the ankle were acquired. COMPARISON: [facility], CR, XR ANKLE LT MIN 3V, 03/27/2018, 18:30. FINDINGS: Bones: Patient is status post ORIF of trimalleolar left ankle fracture dislocation. There is anatomic alignment of fracture fragments following ORIF. There is normal association of the distal tibia and the talus. Soft tissues: No tibiotalar joint effusion. Achilles tendon appears normal. IMPRESSION: Status post ORIF of left ankle fracture dislocation. Dictated by: Lata León MD, PhD on 03/28/2018 at 12:11 Approved by: Lata León MD, PhD on 03/28/2018 at 12:13
[2018-03-28] MEDS: HYDROCODONE/ACET 5/325 TABLET 1 TAB PO ×3 (01:45→19:03)
[2018-03-28] MEDS: LACTATED RINGERS 1,000 ML 125 ML IV (01:46)
[2018-03-28 02:14] LABS: Add Manual Diff / Slide Review NO; Basophils Percent Auto 0.5 % (0-2); Eosinophils Percent Auto 2.5 % (2-4); Hemoglobin 12.4 g/dL (12.0-16.0); Lymphocytes Percent Auto 28.5 % (25-40); Mean Corpuscular HGB Conc 33.5 % (30-36); Mean Corpuscular Hemoglobin 30.5 PG (26-34); Monocytes Percent Auto 5.4 % (3-14); Neutrophils Absolute Auto 4700 /uL (3000-5900); Neutrophils Percent Auto 63.1 % (50-75); Platelet Count 384 X10^3/uL (150-400); Red Blood Cell Count 4.07 X10^6/uL (4.0-5.2); Red Cell Distribution Width 14.7 % (11.6-14.8); White Blood Cell Count 7.5 X10^3/uL (4.5-11.0)
[2018-03-28 02:22] LABS: BUN Creatinine Ratio 24.5 (6-22); Blood Urea Nitrogen 27 mg/dL (7-17); Calcium 8.4 mg/dL (8.4-10.2); Carbon Dioxide 30 mmol/L (22-32); Chloride 101 mmol/L (98-107); Estimated Glomerular Filt Rate 49.7 mL/min (>60); Glucose 130 mg/dL (80-110); HEMOLYSIS < 15 (0-50); Potassium 3.7 mmol/L (3.4-5.1); Sodium 144 mmol/L (137-145)
--- NOTE | 2018-03-28 04:29 | PC.NURSE ---
Pt arrived on unit at approx 0000. She was on 4L O2 NC due to slow to rouse and de sat to high 80's. O2 currently at high 90's on 1L NC. Other VS all stable. C/o pain 11/04 and received one 5/325 mg Norce with good relief, able to sleep. Denies nausea.
[2018-03-28] MEDS: GABAPENTIN 600 MG TABLET 1200 MG PO ×3 (09:24→21:47)
[2018-03-28] MEDS: METFORMIN XR 500 MG TABLET PO (09:24)
[2018-03-28] MEDS: ASPIRIN EC 81 MG TABLET PO ×2 (09:24→21:47)
--- NOTE | 2018-03-28 10:00 | PT.IIE ---
Surgery Performed Operation Date: 03/27/18 21:25 Actual Procedures p ORIF Ankle Fracture(Left) - Donis Euceda MD Medical History (Last Reviewed 03/27/18 @ 21:35 by Donis Euceda MD) Breast cancer (Acute) Physical Therapy Inpatient Evaluation/Re-Eval M1 PT/OT-IP Prior Functional Status Start: 03/28/18 11:38 Freq: NEEDED Status: Active Protocol: Document 03/28/18 10:00 RCC (Rec: 03/28/18 11:50 [facility] [id number]) Medical Review Prior Functional Status Medical History Reviewed Yes Mobility and Gait indep. community ambulator without device Activities of Daily Living and IADL's indep. I/ADLs Social History Household Members spouse Living Arrangements House Number of Floors (Floors) Two Floors Number of Stairs To Enter/Railing? power lift chair up/down stairs available Home Environment High Toilet Walk in Shower Home Equipment Front Wheel Walker Straight Cane Additional Social History Comment is able to assist upon d/c. Home is disabled accessible). Pt with fall, sustained a L trimalleolar fx and talar dislocation, unable to be reduced closed. Underwent ORIF L ankle on 03/27/18. Orders for NWB LLE M2 PT-IP Current Condition Start: 03/28/18 11:38 Freq: NEEDED Status: Active Protocol: Document 03/28/18 10:00 RCC (Rec: 03/28/18 11:50 [facility] [id number]) Physical Therapy Current Condition Current Condition Evaluation Date 03/28/18 Treatment Diagnosis L ankle ORIF, impaired mobility Precautions Other Precautions NWB LLE Weight Bearing Status Weight Bearing Status Non-Weight Bearing M3 PT-IP Subjective Start: 03/28/18 11:38 Freq: NEEDED Status: Active Protocol: Document 03/28/18 10:00 RCC (Rec: 03/28/18 11:50 [facility] [id number]) Subjective Physical Therapy Visit Type Type Initial Evaluation Visit Start Time 09:30 Visit Stop Time 10:00 Total Visit Minutes 30 Notes in room during session Number of STRIPPING SHOVEL OILER Visits 0 Physical Therapy Visit Comments Patient Comments pt wants to be able to go home today. Patient Goals to go home. Therapy Pain Assessment Pain Present Pain Present Pain Reported Location Left Ankle Intensity 8 Scale Used Numeric (1 - 10) M4 PT-IP Mobility and Gait Start: 03/28/18 11:38 Freq: NEEDED Status: Active Protocol: Document 03/28/18 10:00 [facility] (Rec: 03/28/18 11:50 [facility] [id number]) PT-Bed Mobility Assessment Supine to Sit Supine to Sit Standby Assistance Scooting Scooting to Edge of Bed Standby Assistance PT-Transfer Assessment Sit to and From Stand Sit to and from Stand Contact Guard Assistance Equipment Transfer Assistive Device Gait Belt Front Wheeled Walker Transfers Transfer Destination Chair Transfer Technique Stand Pivot Transfer Ability Level of Assist Minimal Assistance 1 Person Assistance Use of Upper Extremities Comments Mobility Comments poor compliance with NWB LLE, multiple cues and reminders NWB. Attempted crutches after rest transfer to chair with FWW, unable to move at all with crutches. Gait Assessment Comments Gait Comments unable PT-Balance Assessment Sitting Balance and Reactions Static Sitting Balance Ability Good Dynamic Sitting Balance Ability Good Standing Balance and Reactions Static Standing Balance Ability Poor Dynamic Standing Balance Ability Poor Device Used FWW M5 PT-IP Objective Assessments Start: 03/28/18 11:38 Freq: NEEDED Status: Active Protocol: Document 03/28/18 10:00 [facility] (Rec: 03/28/18 11:50 [facility] [id number]) Orientation Orientation/Cognition Level of Alertness Alert Orientation Name Age Birthday Month Date Year Day of Week Place Situation Gross Range of Motion Lower Extremity ROM Assessment Left Impaired Strength Lower Extremity Strength Assessment Left Impaired Hip L hip flexion 3+/5 Sensation Assessment Sensation Gross Sensation WNL M6 PT-IP Treatment Start: 03/28/18 11:38 Freq: NEEDED Status: Active Protocol: Document 03/28/18 10:00 [facility] (Rec: 03/28/18 11:50 [facility] [id number]) Physical Therapy Treatment Education Education Provided Precautions Weight Bearing Status Safety Other Treatments Other Treatment Performed given DME list for w/c options (renting vs. loan vs. purchase) M7 PT-IP Assessment and Plan Start: 03/28/18 11:38 Freq: NEEDED Status: Active Protocol: Document 03/28/18 10:00 RCC (Rec: 03/28/18 11:50 [facility] [id number]) PT Summary Assessment and Plan Potential Rehabilitation Potential Good Status of Condition at Evaluation Stable Summary Impairments Pain ROM Strength Balance Transfers Gait Activity Tolerance Assessment Summary POD #1 L ankle ORIF. Pt unable to safely transfer or mobilize without assistance, and required multiple reminders and cues to maintain NWB LLE (pt compliance variable). Pt is not cleared to d/c home at this time due to impaired mobility and safety concerns with poor compliance to NWB. Will need to see pt later this date for another session to determine safety for d/c home vs. at least one more day of PT. Pt will need a manual w/c prior to d/c for home use, recommended elevating leg rest for the LLE. Goals Bed Mobility Goal Standby Assistance Transfer Goal Standby Assistance Gait Goal Standby Assistance Front Wheel Walker Gait Distance 5 Days to Meet Goals 2 Frequency of Treatment Frequency Of Treatment Twice a Day Treatment Plan Physical Therapy Treatment Plan Bed Mobility Training Transfer Training Gait Training Other Recommendations and Next Treatment transfers with FWW, cont. to Focus reinforce NWB LLE Recommendations To Nursing Amount of Assist Needed 1 Person Assist Discharge Recommendations PT Discharge Recommendations Home with Assistance Home Health Other Discharge Recommendations PT and OT Equipment Needed for Home Before manual w/c Discharge
--- NOTE | 2018-03-28 10:42 | P.DS_ITS ---
History of Present Illness Date Patient Seen: 03/28/18 Time Patient Seen: 10:37 Chief complaint: left ankle fracture Narrative: Alert, oriented no acute distress resting in bed. Patient brought to the hospital last night after fall at home fracturing dislocating her left ankle. She was seen by Dr. Euceda and taken the OR last night for ORIF of left trimalleolar fracture. She has remained stable postoperatively. She has not been out of bed yet with physical therapy. Has been getting Erie 1 tablet without complete pain relief. Discharge Providers Date of admission: 03/27/18 21:17 Primary care physician: Freddy Dalton MD Consults: 03/28/18 00:00 Consult to Physical Therapy Evaluate & Treat Comment: Physician Instructions: post op ORIF ankle protocol Consult to Respiratory Therapy Evaluate & Treat Comment: Physician Instructions: Evaluate and treat Discharge provider: Bartolome Brown PA-C Discharge Date: 03/28/18 Summary Discharge Diagnosis: Status post left ankle trimalleolar fracture/dislocation ORIF Hospital Course: Patient brought into the hospital on 03/27/2018 after fall at home 5 causing fracture dislocation of left ankle. Attempt was done to relocate the ankle in the ER without completely take 6s. Dr. Euceda was called to see patient and taken to the OR. Patient underwent ORIF of trimalleolar fracture. She remained stable overnight. She was ready for discharge home once she was cleared by physical therapy. Status at Discharge Cognitive/behavioral status at discharge: Alert, oriented no acute distress. Functional status at discharge: uses cane/walker Overall status at discharge: patient is progressing back to baseline Time Spent with Patient Less than 30 minutes Exam Vital Signs (past 8 hours): - 03/28/18 03:12 03/28/18 08:00 Temperature 97.5 F L 97.2 F L Pulse Rate 78 75 Respiratory Rate 7 L 16 Blood Pressure 113/72 108/67 Pulse Oximetry 98 97 Oxygen Delivery Method Nasal Cannula Oxygen Flow Rate 3 Narrative Exam Narrative: Left leg lower leg postop splint in place without signs of drainage. Good blanching and sensation to all toes and good movement. Objective Labs Result Diagrams: 03/28/18 02:01 03/28/18 02:01 Labs: Laboratory Results - last 24 hr 03/28/18 03/28/18 02:01 02:01 WBC 7.5 RBC 4.07 Hgb 12.4 Hct 37.0 MCV 91.0 MCH 30.5 MCHC 33.5 RDW 14.7 Plt Count 384 Neut % (Auto) 63.1 Lymph % (Auto) 28.5 [place] % (Auto) 5.4 Eos % (Auto) 2.5 Baso % (Auto) 0.5 Neut # (Auto) 4700 Sodium 144 Potassium 3.7 Chloride 101 Carbon Dioxide 30 BUN 27 H Creatinine 1.10 H Estimated GFR 49.7 L BUN/Creatinine Ratio 24.5 H Glucose 130 H Calcium 8.4 Discharge Plan Discharge Plan Discharge Problem: Ankle fracture, left Patient Disposition: Home Transportation: Private vehicle Discharge Med Rec/Prescriptions Prescriptions: New hydrocodone-acetaminophen 10-325 mg Tablet 1 tab PO Q4HR PRN (Reason: Pain, Severe (7-10)) Qty: 30 RF: 0 aspirin 81 mg Tablet,Delayed Release (Dr/Ec) 81 mg PO BID Qty: 30 RF: 0 Continue hydrocodone-acetaminophen [Erie] 5 MG/325 MG tablet 1 tab PO Q6HP PRNQty: 30 RF: 0 gabapentin [Neurontin] 300 MG capsule 1,200 mg PO TID Qty: 0 RF: 0 metformin [Glucophage XR] 500 MG tablet extended release 24 hr 500 mg PO QDAY Qty: 0 RF: 0 Follow up/Referrals: Freddy Dalton MD [Primary Care Provider] - (Follow-up at [facility] office in [place] 10 days postop. Call [phone] for appointment.) Provider Discharge Instructions Diet: Diet as Tolerated Activity: Nonweightbearing left leg x6 weeks postop. Cold/Heat Therapy: Ice to left ankle area as needed. Skin/Wound/Dressing Care Report to your healthcare provider any signs of infection, such as:: chills, fever, night sweats, increased pain, unusual drainage and unusual redness Visit Report/Discharge Packet Instructions: DI for Open Reduction Internal Fixation Surgery Discharge Data Primary Care Provider: Freddy Dalton Attending Provider: Donis Euceda Admit Date/Time: 03/27/18 21:17 Quality VTE Deep Vein Thrombosis/Pulmonary Embolism Present on Admission: No
[2018-03-28] MEDS: HYDROCODONE/ACET 10/325 TABLET 1 TAB PO ×2 (10:49→14:56)
--- NOTE | 2018-03-28 11:19 | CM.DANOTE ---
Discharge Planning/Care Management CM Discharge Assessment Start: 03/28/18 11:17 Freq: Status: Active Protocol: Document 03/28/18 11:17 BF (Rec: 03/28/18 11:19 BF [id number]) Discharge Planning Assessment Assigned Lead Shipper BENSON Souaz DPOA/Assigned Designee Name spouse Reno Contact Information [phone] Advance Directives? Yes Advance Directives on File No: Spouse Reno is aware History Provided By Patient Medical Record Has Patient been admitted in last 30 No days? Prior Living Arrangements House Household Members spouse Type of transporation used prior to Relies on Others admit Comment Independent with ADL's at baseline Independent with ADL's Yes Is patient alert and oriented? Yes Caregiver for Another No Comment House is ADA compliant including a lift for the stairs at home Comment Patient and spouse anticipate home at d/c. Barriers to Discharge No Discharge Plan Home Community Services Physical Therapy Transportation Arrangement Spouse can provide transport at d/c Referrals Initiated None needed Whiteboard Updated in Patient Room with Yes name and ext. # of Lead Shipper Review Status In Process Please Provide Date Initial DC 03/28/18 Assessment Was Performed Next Review Type Continued Stay Review
--- NOTE | 2018-03-28 11:20 | CM.DANOTE ---
Addendum entered by BENSON Walker 03/28/18 14:04: ADD: Per PT, recommending that pt remain in the hospital overnight and participate in PT in the morning prior to safe d/c home tomorrow. Possible need for HH at d/c. Plan: SW to follow tomorrow for likely pt d/c home with spouse after further PT and possible need for HH prior to discharge. BENSON Walker Original Note: Patient is a 68 year old female who was admitted on 03/27/18 for left ankle fx. Pt has [facility] and [employer] for insurance and her PCP is Dr. Dalton. EMR was reviewed. Per Ortho PA, pt may be stable for d/c home later today after further PT. Per PT, pt is non weight baring on her ankle and recommend further PT this afternoon prior to discharge. SW met bedside with pt and explained role and pt confirmed that she lives at home with her in [place] in a two story house but it is ADA compliant and even includes a lift for their stairs. Pt is Independent with ADL's at baseline and states that her is her DPOA. Pt denies any hx of SNF and states that her preference is to d/c home later today after further PT. Pt states her is out getting her medications filled, a w/c for home use, and can provide transport home. Pt states that she is very motivated to d/c home today and doesn't want to stay another night in the hospital. Pt does not anticipate any SW needs at d/c. Plan: SW to follow for likely pt d/c home this evening via spouse POV after further PT CG training. BENSON Walker Discharge Planning/Care Management CM Discharge Assessment Start: 03/28/18 11:17 Freq: Status: Active Protocol: Document 03/28/18 11:17 BF (Rec: 03/28/18 11:19 BF [id number]) Discharge Planning Assessment Assigned Horticulture/Floriculture Teacher BENSON Souza DPOA/Assigned Designee Name spouse Reno Contact Information [phone] Advance Directives? Yes Advance Directives on File No: Spouse Reno is aware History Provided By Patient Medical Record Has Patient been admitted in last 30 No days? Prior Living Arrangements House Household Members spouse Type of transporation used prior to Relies on Others admit Comment Independent with ADL's at baseline Independent with ADL's Yes Is patient alert and oriented? Yes Caregiver for Another No Comment House is ADA compliant including a lift for the stairs at home Comment Patient and spouse anticipate home at d/c. Barriers to Discharge No Discharge Plan Home Community Services Physical Therapy Transportation Arrangement Spouse can provide transport at d/c Referrals Initiated None needed Whiteboard Updated in Patient Room with Yes name and ext. # of Horticulture/Floriculture Teacher Review Status In Process Please Provide Date Initial DC 03/28/18 Assessment Was Performed Next Review Type Continued Stay Review
--- NOTE | 2018-03-28 13:00 | PT.IPTN ---
Surgery Performed Operation Date: 03/27/18 21:25 Actual Procedures p ORIF Ankle Fracture(Left) - Donis Euceda MD Physical Therapy Treatment Note M2 PT-IP Current Condition Start: 03/28/18 11:38 Freq: NEEDED Status: Active Protocol: Document 03/28/18 13:00 RCC (Rec: 03/28/18 13:14 [facility] [id number]) Physical Therapy Current Condition Current Condition Evaluation Date 03/28/18 Treatment Diagnosis L ankle ORIF, impaired mobility Precautions Other Precautions NWB LLE Weight Bearing Status Weight Bearing Status Non-Weight Bearing M3 PT-IP Subjective Start: 03/28/18 11:38 Freq: NEEDED Status: Active Protocol: Document 03/28/18 13:00 RCC (Rec: 03/28/18 13:14 RCC [id number]) Subjective Physical Therapy Visit Type Type Treatment Note Visit Start Time 12:44 Visit Stop Time 13:00 Total Visit Minutes 16 Number of WATER TENDER Visits 0 Physical Therapy Visit Comments Patient Comments pt really wants to go home today Therapy Pain Assessment Location Left Ankle Intensity 4 Scale Used Numeric (1 - 10) M4 PT-IP Mobility and Gait Start: 03/28/18 11:38 Freq: NEEDED Status: Active Protocol: Document 03/28/18 13:00 RCC (Rec: 03/28/18 13:14 RCC [id number]) PT-Bed Mobility Assessment Sit to Supine Sit to Supine Standby Assistance Scooting Scooting to Edge of Bed Standby Assistance PT-Transfer Assessment Sit to and From Stand Sit to and from Stand Contact Guard Assistance Equipment Transfer Assistive Device Gait Belt Front Wheeled Walker Transfers Transfer Destination Bed Transfer Ability Level of Assist Contact Guard Assistance Comments Mobility Comments VC NWB LLE and FWW management. Gait Assessment Comments Gait Comments unable to perform gait due to extensive training and difficulty with transfers. M5 PT-IP Objective Assessments Start: 03/28/18 11:38 Freq: NEEDED Status: Active Protocol: Document 03/28/18 10:00 RCC (Rec: 03/28/18 11:50 RCC [id number]) Orientation Orientation/Cognition Level of Alertness Alert Orientation Name Age Birthday Month Date Year Day of Week Place Situation Gross Range of Motion Lower Extremity ROM Assessment Left Impaired Strength Lower Extremity Strength Assessment Left Impaired Hip L hip flexion 3+/5 Sensation Assessment Sensation Gross Sensation WNL M6 PT-IP Treatment Start: 03/28/18 11:38 Freq: NEEDED Status: Active Protocol: Document 03/28/18 13:00 RCC (Rec: 03/28/18 13:14 [facility] [id number]) Physical Therapy Treatment Education Education Provided Precautions Weight Bearing Status Safety Other Treatments Other Treatment Performed LAQ x5 sitting on EOB M7 PT-IP Assessment and Plan Start: 03/28/18 11:38 Freq: NEEDED Status: Active Protocol: Document 03/28/18 13:00 RCC (Rec: 03/28/18 13:14 [facility] [id number]) PT Summary Assessment and Plan Summary Progress Towards Goals Slow Progress due to Activity Tolerance Assessment Summary POD #1 L ankle ORIF. Pt at this time requires continued extensive cuing for safe transfers, as well as reminders of NWB on the LLE. Pt is not safe to return home at this point due to impaired, but improving compliance with NWB LLE and slight improvements with transfers. Pt is at risk for falls, and further injury at this time due to the amount of cuing required for mobility, and the burden of care is too high at this point for the spouse to be able to manage the pt at home. Goals Bed Mobility Goal Standby Assistance Transfer Goal Standby Assistance Gait Goal Standby Assistance Front Wheel Walker Gait Distance 5 Other Goals STG: gait with FWW x2 ft, SBA, NWB LLE. Days to Meet Goals 2 Frequency of Treatment Frequency Of Treatment Twice a Day Treatment Plan Other Recommendations and Next Treatment transfers with FWW, cont. to Focus reinforce NWB LLE; short forward/backward gait if able. Recommendations To Nursing Amount of Assist Needed 1 Person Assist Discharge Recommendations PT Discharge Recommendations Home with Assistance Home Health Other Discharge Recommendations PT and OT Equipment Needed for Home Before manual w/c Discharge
[2018-03-28] MEDS: hydrOXYzine pamoate 25 MG CAPSULE PO (19:03)
--- NOTE | 2018-03-28 22:37 | PC.NURSE ---
SHIFT NOTE LLE dressing intact. pt denies any numbness/tingling, cap refill to toes WNL. LLE elevated and ice pack applied. c/o 6-810 pain to L ankle area. pt's reports concern of increasing expressive aphasia and confusion after pt had received extra strength norco. pt given regular norco and vistaril, still with some complaints of pain but pt seems less forgetful. bed alarm for safety. call light within reach.
[2018-03-29 00:50] VITALS: BP 126/66; PULSE 99; RESP 20; TEMP 37.6; O2SAT 95
[2018-03-29] MEDS: HYDROCODONE/ACET 5/325 TABLET 1 TAB PO ×2 (00:55→09:30)
[2018-03-29 04:30] VITALS: BP 125/66; PULSE 111; RESP 18; TEMP 36.8; O2SAT 97
--- NOTE | 2018-03-29 04:44 | PC.NURSE ---
Pt is A and O x 4, cooperative and anxious when transferring to BSC. Voiding qs, dark urine, encourage to drink more water. Rates pain 6/10 gets good relief with 5 mg [place] and 25 mg Visteril po. LS clear, S1, S2. Able to sleep.
[2018-03-29 08:00] VITALS: BP 131/75; PULSE 106; RESP 20; TEMP 37; O2SAT 96
[2018-03-29] MEDS: hydrOXYzine pamoate 25 MG CAPSULE PO (09:30)
[2018-03-29] MEDS: GABAPENTIN 600 MG TABLET 1200 MG PO (09:31)
[2018-03-29] MEDS: METFORMIN XR 500 MG TABLET PO (09:31)
[2018-03-29] MEDS: ASPIRIN EC 81 MG TABLET PO (09:31)
--- NOTE | 2018-03-29 09:40 | PT.IPTN ---
Current Diagnoses Displaced trimalleolar fracture of left lower leg, initial encounter for closed fracture (03/27/18) Surgery Performed Operation Date: 03/27/18 21:25 Actual Procedures p ORIF Ankle Fracture(Left) - Donis Euceda MD Physical Therapy Treatment Note M2 PT-IP Current Condition Start: 03/28/18 11:38 Freq: NEEDED Status: Active Protocol: Document 03/29/18 09:40 RCC (Rec: 03/29/18 11:47 RCC [id number]) Physical Therapy Current Condition Current Condition Evaluation Date 03/28/18 Treatment Diagnosis L ankle ORIF, impaired mobility Precautions Other Precautions NWB LLE Weight Bearing Status Weight Bearing Status Non-Weight Bearing M3 PT-IP Subjective Start: 03/28/18 11:38 Freq: NEEDED Status: Active Protocol: Document 03/29/18 09:40 RCC (Rec: 03/29/18 11:47 RCC [id number]) Subjective Physical Therapy Visit Type Type Treatment Note Visit Start Time 09:16 Visit Stop Time 09:40 Total Visit Minutes 24 Number of PREPARATION DEPARTMENT SUPERVISOR Visits 0 Physical Therapy Visit Comments Patient Comments pt ready to go home, states she had a good night. Pain is present but manageable. M4 PT-IP Mobility and Gait Start: 03/28/18 11:38 Freq: NEEDED Status: Active Protocol: Document 03/29/18 09:40 RCC (Rec: 03/29/18 11:47 RCC [id number]) PT-Bed Mobility Assessment Supine to Sit Supine to Sit Standby Assistance Sit to Supine Sit to Supine 1 Person Assistance Scooting Scooting to Edge of Bed Standby Assistance PT-Transfer Assessment Sit to and From Stand Sit to and from Stand Standby Assistance Equipment Transfer Assistive Device Gait Belt Front Wheeled Walker Transfers Transfer Destination Bed Transfer Technique Lateral Scoot Transfer Ability Level of Assist Contact Guard Assistance Use of Upper Extremities Comments Mobility Comments mod VC for NWB LLE, technique with transfer L and R, posterior gait. Gait Assessment Gait Gait Assistance Required: Contact Guard Assist Distance (Feet) 5 Assistive Devices Assistive Device Gait Belt 4 Wheeled Walker Gait Deviations General Gait Pattern Decreased Stride Length Decreased Feet Clearance Flexed Trunk Factors Limiting Gait Function Factors Limiting Gait Function Decreased Activity Tolerance Decreased Strength Pain Poor Balance Comments Gait Comments Backward gait with FWW and mod VC for NWB LLE. M5 PT-IP Objective Assessments Start: 03/28/18 11:38 Freq: NEEDED Status: Active Protocol: Document 03/28/18 10:00 RCC (Rec: 03/28/18 11:50 RCC [id number]) Orientation Orientation/Cognition Level of Alertness Alert Orientation Name Age Birthday Month Date Year Day of Week Place Situation Gross Range of Motion Lower Extremity ROM Assessment Left Impaired Strength Lower Extremity Strength Assessment Left Impaired Hip L hip flexion 3+/5 Sensation Assessment Sensation Gross Sensation WNL M6 PT-IP Treatment Start: 03/28/18 11:38 Freq: NEEDED Status: Active Protocol: Document 03/29/18 09:40 RCC (Rec: 03/29/18 11:47 [facility] [id number]) Physical Therapy Treatment Exercises Exercises Straight Leg Raises Education Education Provided Precautions Weight Bearing Status M7 PT-IP Assessment and Plan Start: 03/28/18 11:38 Freq: NEEDED Status: Active Protocol: Document 03/29/18 09:40 RCC (Rec: 03/29/18 11:47 [facility] [id number]) PT Summary Assessment and Plan Summary Progress Towards Goals Safe For Discharge Assessment Summary POD #2 L ankle ORIF. Pt is able to transfer both L and R, verbal cuing required to maintain NWB LLE. Pt has a supportive spouse, and home is handicap accessible. Pt's spouse to obtain a BSC for home use, as well as w/c. Pt is cleared to d/c home when medically stable. Recommend HH PT/OT for safety assessment in home and further treatment if deemed medically necessary. Goals Bed Mobility Goal Standby Assistance Transfer Goal Standby Assistance Gait Goal Standby Assistance Front Wheel Walker Gait Distance 5 Other Goals STG: gait with FWW x2 ft, SBA, NWB LLE. Days to Meet Goals 2 Frequency of Treatment Frequency Of Treatment Twice a Day Treatment Plan Other Recommendations and Next Treatment transfers with FWW Focus Recommendations To Nursing Amount of Assist Needed 1 Person Assist Discharge Recommendations PT Discharge Recommendations Home with Assistance Home Health Other Discharge Recommendations PT and OT Equipment Needed for Home Before manual w/c, BSC (obtained by Discharge spouse)
== END 2018-03-29 12:10 | disposition home or self-care (01) | DRG 494 ==
LOC: ED 20:42 → AC 03-28 10:37
PROVIDERS: Admitting Provider Orthopaedic Surgery; Emergency Provider Emergency Medicine; PCP Family Medicine; Visit Provider Orthopaedic Surgery
PROC: 0QSK04Z Reposition Left Fibula with Internal Fixation Device, Open Approach (ICD-10-PCS; principal; 2018-03-27 21:25)
DX: S82.852A Displaced trimalleolar fracture of left lower leg, initial encounter for closed fracture (principal); W18.31XA Fall on same level due to stepping on an object, initial encounter; Y92.009 Unspecified place in unspecified non-institutional (private) residence as the place of occurrence of the external cause; Z87.891 Personal history of nicotine dependence; Z96.653 Presence of artificial knee joint, bilateral
CPT/HCPCS: 27752; 29515; 36415; 73600; 73610; 80048; 85025; 90471; 96361; 96374; 96376; 97161; 97530; 99152; 99284; 99285; 90715; J1170; J2250; J2405; J2704; J2765

== ENCOUNTER → 2018-04-09 10:00 | Outpatient (REF) | payer MEDICARE, OTHER, SELFPAY ==
[2018-03-28 01:02] VITALS: BMI 32.5
[2018-04-09 10:16] LABS: Hemoglobin A1C% w Est Avg Glu 6.2 % (4.0-6.0)
== END ==
LOC: LAB 10:00
PROVIDERS: PCP Family Medicine; Visit Provider Family Medicine
DX: E11.21 Type 2 diabetes mellitus with diabetic nephropathy (principal)
CPT/HCPCS: 83036

== ENCOUNTER 2018-04-19 11:54 | Emergency (ER) | payer MEDICARE, OTHER, SELFPAY ==
[2018-03-28 01:02] VITALS: BMI 32.5
[2018-04-19 12:06] VITALS: BP 124/94; PULSE 132; RESP 20; TEMP 36.8; O2SAT 95; BMI 32.5
--- NOTE | 2018-04-19 12:14 | PC.NURSE ---
Pt notes right sided jaw pain for approx 2 days. Denies any hx of similar episodes. Denies pain in any of her teeth.
--- NOTE | 2018-04-19 12:27 | ED.DENTAL ---
HPI - Dental/Oral <CHRIS Moseley-BC - Last Filed: 04/19/18 20:59> General Chief complaint: Dental/Oral Stated complaint: Swollen jaw Time Seen by Provider: 04/19/18 12:13 Source: patient Mode of arrival: ambulatory Limitations: no limitations History of Present Illness HPI Narrative: Patient is a 68-year-old female former smoker presents with a chief complaint of swelling of the right side of her face and jaw. States has been present for a few days. She denies any fever, chest pain, shortness of breath, nausea vomiting diarrhea. She states that her right jaw is painful to palpation. She has taken 2 ibuprofen once for the pain. She denies any recent dental work or broken teeth. Related Data Home Medications Medication Instructions Recorded Confirmed gabapentin [Neurontin] 1,200 mg PO TID #0 08/07/17 03/28/18 metformin [Glucophage XR] 500 mg PO QDAY #0 08/07/17 03/28/18 Previous Rx's Medication Instructions Recorded hydrocodone-acetaminophen [El[place]] 1 tab PO Q6HP PRN #30 tab 02/07/16 aspirin 81 mg PO BID #30 tab 03/28/18 hydrocodone-acetaminophen 1 tab PO Q4HR PRN #30 tab 03/28/18 wheelchair #1 each 03/29/18 Allergies Allergy/AdvReac Type Severity Reaction Status Date / Time cefazolin [From [facility]] Allergy Verified 04/19/18 12:32 Review of Systems <CHRIS Moseley- - Last Filed: 04/19/18 20:59> Constitutional Denies chills, Denies fever(s), Denies lethargy and Denies weakness Eyes Denies change in vision, Denies eye discharge, Denies irritation and Denies loss of vision ENT Ears, Nose, Mouth, and Throat: Reports as per HPI Cardiovascular Denies chest pain, Denies irregular heart rhythm, Denies lightheadedness, Denies palpitations, Denies dyspnea, Denies dyspnea on exertion and Denies orthopnea Respiratory Denies cough, Denies dyspnea, Denies dyspnea on exertion and Denies wheezing Gastrointestinal Gastrointestinal: Denies abdominal pain, Denies change in bowel habits, Denies diarrhea, Denies nausea and Denies vomiting Genitourinary Denies hematuria, Denies flank pain, Denies urinary incontinence and Denies urinary urgency Musculoskeletal Denies back pain, Denies muscle weakness, Denies numbness and Denies tingling Integumentary/Breasts Denies pruritus, Denies erythema, Denies rash and Denies wounds Neurologic Denies confusion, Denies loss of vision, Denies numbness, Denies tingling and Denies weakness Psychiatric Denies anxiety, Denies confusion, Denies depression, Denies homicidal ideation and Denies suicidal ideation Endocrine Denies palpitations Allergic/Immunologic Denies wheezing Exam <CHRIS Moseley-BC - Last Filed: 04/19/18 20:59> Narrative Exam Narrative: GENERAL: This is a well-nourished, well-developed patient, in no acute distress HEAD: Atraumatic. Normocephalic. No temporal or scalp tenderness. EYES: Pupils equal round and reactive. Extraocular motions intact. No scleral icterus. No injection or drainage. ENT: Nose without bleeding, purulent drainage or septal hematoma. Throat without erythema, tonsillar hypertrophy or exudate. Uvula midline. Airway patent. No noted broken teeth or palpable dental abscess. Slight swelling noted in front of right ear. No erythema. No palpable abscess. NECK: Trachea midline. No JVD or lymphadenopathy. Supple, nontender, no meningeal signs. CARDIOVASCULAR: Tachycardic low 100s, regular rhythm. without murmurs, gallops, or rubs. RESPIRATORY: Clear to auscultation. Breath sounds equal bilaterally. No wheezes, rales, or rhonchi. GASTROINTESTINAL: Abdomen soft, non-tender, nondistended. No hepato-splenomegaly, or palpable masses. No guarding. EXTREMITIES: Cast in place right lower extremity BACK: Nontender without deformity or crepitance. No flank tenderness. NEURO: AOx3. SKIN: No rash or erythema. Initial Vital Signs Initial Vital Signs: Vital Signs Temperature 98.3 F 04/19/18 12:06 Pulse Rate 132 H 04/19/18 12:06 Respiratory Rate 20 04/19/18 12:06 Blood Pressure 124/94 H 04/19/18 12:06 Pulse Oximetry 95 04/19/18 12:06 <Juan Francisco Chew DO - Last Filed: 04/21/18 20:19> Initial Vital Signs Initial Vital Signs: Vital Signs Temperature 98.3 F 04/19/18 12:06 Pulse Rate 132 H 04/19/18 12:06 Respiratory Rate 20 04/19/18 12:06 Blood Pressure 124/94 H 04/19/18 12:06 Pulse Oximetry 95 04/19/18 12:06 Course <JESSICA MoseleyP-BC - Last Filed: 04/19/18 20:59> Course Narrative: I checked on the patient several times throughout her stay. Given that the patient's heart rate was consistently above 100 combined with her recent surgery, I discussed as I do lab work as well as imaging to evaluate for possible PE or clot. Patient declined lab work and did not want to wait for imaging study. However her heart rate did decrease below 100 and she was oxygenating appropriately throughout her stay in the emergency department. I discussed at length with her that we did not do a through evaluation due to lack of imaging and patient elected to leave. Orders Ordered: Discontinued Medications Hydrocodone Bitart/Acetaminophen ([place] 5/325) 1 tab PO NOW ONE Stop: 04/19/18 12:28 Last Admin: 04/19/18 12:40 Dose: 1 tab Sodium Chloride (Normal Saline 0.9%) 500 mls @ 1,000 mls/hr IV BOLUS ONE Stop: 04/19/18 14:06 Last Admin: 04/19/18 13:56 Dose: Not Given Reevaluation(s) Reevaluation #1: Vital Signs - 8 hr 04/19/18 13:30 04/19/18 13:58 Pulse Rate 104 H 99 H Respiratory Rate 17 18 Blood Pressure [Left Arm] 122/70 126/70 Pulse Oximetry 96 95 <Juan Francisco Chew DO - Last Filed: 04/21/18 20:19> Orders Ordered: Discontinued Medications Hydrocodone Bitart/Acetaminophen ([place] 5/325) 1 tab PO NOW ONE Stop: 04/19/18 12:28 Last Admin: 04/19/18 12:40 Dose: 1 tab Sodium Chloride (Normal Saline 0.9%) 500 mls @ 1,000 mls/hr IV BOLUS ONE Stop: 04/19/18 14:06 Last Admin: 04/19/18 13:56 Dose: Not Given Vital Signs - 8 hr 04/19/18 13:30 04/19/18 13:58 Pulse Rate 104 H 99 H Respiratory Rate 17 18 Blood Pressure [Left Arm] 122/70 126/70 Pulse Oximetry 96 95 MDM - Dental/Oral <Hyun Cueva, DIGITAL CARTOGRAPHER-BC - Last Filed: 04/19/18 20:59> ECG Data Attestation: I personally reviewed and interpreted this ECG as follows: Interpretation: Sinus tachycardia. Ventricular rate 108. No ectopy noted. No ST elevation or depression. [facility] Narrative Medical decision making narrative: Patient presents with chief complaint of swelling in front of her right jaw. Exam is consistent with parotitis as she did does not have any indication of abscess as there is no overlying erythema. On exam she is tender to palpation. She does not have any evidence of a dental abscess. Throughout her stay in the emergency department patient's heart rate was elevated consistently above 100. Given that combined with her postoperative status I wanted to do lab work and imaging to rule out a blood clot however the patient declined to wait for lab work declined imaging. Discussed at length return precautions including chest pain, shortness of breath or any acute concerns. Encouraged the patient to follow up with her primary care provider use [id number] pain medications as needed and able. Patient has no questions or concerns upon discharge. Discharge Plan Departure Patient Disposition: Home Clinical Impression: Acute parotitis Discharge Date/Time: 04/19/18 14:14 Interventions: ED Discharge Assessment Last Done: 04/19/18 14:13 Instructions: DI for Parotitis-Adult Activity Restrictions/Additional Instructions: Please use [id number] pain medications as well as warm compresses as needed and able. Please suck on lemon candies. Please remember that you left today prior to us completing the workup that we desire to do. If you're not feeling better feeling worse please come back to the emergency department for any acute concerns such as heart attack stroke or blood clot or follow up with primary care provider. Prescriptions: No Action hydrocodone-acetaminophen [[place]] 5 MG/325 MG tablet 1 tab PO Q6HP PRNQty: 30 RF: 0 gabapentin [Neurontin] 300 MG capsule 1,200 mg PO TID Qty: 0 RF: 0 metformin [Glucophage XR] 500 MG tablet extended release 24 hr 500 mg PO QDAY Qty: 0 RF: 0 hydrocodone-acetaminophen 10-325 mg Tablet 1 tab PO Q4HR PRN (Reason: Pain, Severe (7-10)) Qty: 30 RF: 0 aspirin 81 mg Tablet,Delayed Release (Dr/Ec) 81 mg PO BID Qty: 30 RF: 0 wheelchair device .ROUTE .MEDSUPPLY Qty: 1 RF: 0 Referrals: Freddy Dalton MD [Primary Care Provider] - <Juan Francisco Chew DO - Last Filed: 04/21/18 20:19> Cosign ED Attending Arturo Attestation: I was immediately available in the department for consultation. Documentation has been reviewed. I agree with assessment and plan.
[2018-04-19 12:37] VITALS: BP 129/89; PULSE 110; RESP 11; O2SAT 94
[2018-04-19] MEDS: HYDROCODONE/ACET 5/325 TABLET 1 TAB PO (12:40)
[2018-04-19 13:30] VITALS: BP 122/70; PULSE 104; RESP 17; O2SAT 96
--- NOTE | 2018-04-19 13:56 | PC.NURSE ---
Pt wishing to go home. Her caregiver has to leave and she wants to be discharged. Provider notified.
[2018-04-19 13:58] VITALS: BP 126/70; PULSE 99; RESP 18; O2SAT 95
== END 2018-04-19 14:14 | disposition home or self-care (01) ==
PROVIDERS: Emergency Provider Nurse Practitioner Family; PCP Family Medicine
DX: K11.21 Acute sialoadenitis (principal)
CPT/HCPCS: 93005; 99283

== ENCOUNTER 2018-06-30 11:15 | Outpatient (RCR) | payer MEDICARE, OTHER, SELFPAY ==
[2018-03-28 01:02] VITALS: BMI 32.5
--- NOTE | 2018-05-20 18:20 | PT.OPPOC ---
Current Diagnoses Displaced trimalleolar fracture of left lower leg, subsequent encounter for closed fracture with routine healing (05/20/18) Presence of other bone and tendon implants (05/20/18) Provider Visit Care Team Role Provider Type Freddy Dalton MD Primary Care Provider Physician Specialty: Family Practice Address: [address] [place], [address] Email: [email or web address] Amanda Rolon PA-C Attending Provider Physician Specialty: Orthopedic Surgery Address: [address] [place] [address], [id number] Fax: Email: Plan Of Care PT-OP-T Assessment and Plan Start: 05/20/18 17:28 Freq: Status: Active Protocol: Document 05/20/18 14:30 HH (Rec: 05/20/18 18:20 HH [email or web address]) Physical Therapy Assessment Rehab Potential Rehabilitation Potential Good Evaluation Complexity Number of Personal Factors/Comorbidities 3 or More Number of Body Systems Impaired 3 Clinical Presentation at Evaluation Evolving Impairments Impairments Activity Tolerance Balance Edema Functional Activities Functional Mobility Gait Pain ROM Sensation Soft Tissue Mobility Strength Tone Other Concerns Barriers to Rehabilitation hx of CVA Goals stair climbing Impairment stair climbing Government Property Inspector Goal (LTG) able to negotiate her 14 BRAYDON at home independently without AD LTG Duration 8 weeks FAAM score Impairment FAAM Half-Way Goal (LTG) to reach FAAM score to 50-66 ( 20-39 %) impairements to improve overall functional mobility. LTG Duration 8 weeks LEFS score Impairment LEFS Half-Way Goal (LTG) To reach LEFS score 48-62(20- 39 % impairments) to improve overall functional mobility LTG Duration 8 weeks ROM Impairment ROM Short Term Goal (STG) increase overall L ankle ROM by 5 degrees to improve foot clearance during ambulation and stair climbing STG Duration 4 Half-Way Goal (LTG) increase overall L ankle ROM by 10 degrees to improve foot clearance during ambulation and stair climbing LTG Duration 8 pain Impairment pain Short Term Goal (STG) reduce 2/10 L ankle pain to increase activity tolerance for walking at home and community STG Duration 4 Government Property Inspector Goal (LTG) reduce 4/10 L ankle pain to increase activity tolerance for walking at home and community LTG Duration 8 Assessment Summary Assessment Pt is a 68yo pleasant female who had ORIF at L ankle. MD's current prescription states : HEP, gentle ROM and modalities until further notice. Pt demonstrates difficulty in walking and significant loss of ankle ROM and strength after surgery. Pt currently amb with her walker boot and FWW and does not need help for overall transfer and mobility except stair climbing. Pt has been using her mechanical lift outside of the house. Upon assessment, pt presents significant hypersensitive to touch and pressure around surgical site and moderate edema to her L foot and ecchymosis inferior to her lateral maleoli. Pt states her ankle always feels like bloated. Pt states she feels relieved and less stiff after manual therapy. HEP is given with towel curls, ankle pumps and PF stretch to improve overall ankle mobility and flexibility. Pt will benefit from skilled PT including manual therapy therex, gait training address aforementioned impairments. Physical Therapy Plan Frequency and Duration Frequency of Treatment 2x/Week Duration of Treatment 8 weeks Plan of Care Start Date 05/20/18 Plan of Care End Date 07/18/18 Therapeutic Interventions Therapeutic Interventions Aquatic Therapy Balance Training Coordination Training Gait Training Home Exercise Program Joint Mobilizations Manual Therapy Neuromuscular Re-education Patient/Caregiver Education Self-Care/Home Management Soft Tissue Mobilization Taping Therapeutic Activities Therapeutic Exercises Modalities Cold Pack/Ice Massage Electric Stimulation Hot Packs Next Visit Focus/Plan Next Note Type Treatment Note Next Visit Plan reassess edema toe curls rom as vianca, might begin iso exercises manual therapy stm around surgical site Plan of Care Dates Plan of Care Start Date 05/20/18 Plan of Care End Date 07/18/18 Please Sign and Return: I have reviewed this Plan of Care and certify that the skilled therapy services above are required to meet the patient?s needs. Physician Signature Date Printed Name and Credentials Clinical Instructor Signature Printed Name and Credentials
--- NOTE | 2018-05-20 18:20 | PT.OIE ---
Current Diagnoses Displaced trimalleolar fracture of left lower leg, subsequent encounter for closed fracture with routine healing (05/20/18) Presence of other bone and tendon implants (05/20/18) Past Medical History (Last Reviewed 04/19/18 @ 12:55 by Hyun Cueva [facility]) Breast cancer (Acute) CVA (cerebral vascular accident) (Acute) Provider Visit Care Team Role Provider Type Freddy Dalton MD Primary Care Provider Physician Specialty: [facility] Address: [address] [place] [address], [id number] Email: [email or web address] Amanda Rolon PA-C Attending Provider Physician Specialty: Orthopedic Surgery Address: [address] [place] [address], [phone] Fax: Email: Physical Therapy Initial Evaluation PT-OP-A Visit Information Start: 05/20/18 17:28 Freq: Status: Active Protocol: Document 05/20/18 14:30 HH (Rec: 05/20/18 18:20 [email or web address]) Out-Patient Physical Therapy Visit Information Visit Information Visit Type Initial Evaluation Visit Note Pt presents to clinic amb with fww and her L walker boot. Pt was with her as well. pt will visit surgeon for follow up on 05/25/18. Expect to wean off with her walker boot. Visit Start Time 14:30 Visit Stop Time 15:15 Total Visit Minutes 45 Visit Number 1 Number of WIG DRESSER Visits 0 Evaluation Information Evaluation Date 05/20/18 PT-OP-B Current Condition Start: 05/20/18 17:28 Freq: Status: Active Protocol: Document 05/20/18 14:30 HH (Rec: 05/20/18 18:20 [email or web address]) Current Condition History of Current Condition Onset Date 03/27/18 Current Complaints post op L ORIF ankle due to displaced trimalleolar fx History of Current Condition Pt is a pleasant 68 yo female who had ORIF on her L ankle due to a fall. Pt states she tripped over her rub at home on the same day and broke her L foot. She was then admitted to ER and had an emergency surgery. Pt reports she was on a cast and NWB for first 5 weeks. She is now FWB with her L walker boot on at all times since 3 weeks ago. Pt also reports she has been getting physical therapy since sx but she was d/c last week. They have been focusing on functional mobility such as transfer and amb but not much ankle rehab. Pt currently takes hydrocodone 325mg as needed. Treatment Goals Patient/Caregiver Goals pt states I want to walk without boot in pain free, return to my hobby which is sailing and able to climb stairs at home independently. Prior Functional Status Baseline Function- ADL's Independent Baseline Function- Mobility Independent Baseline Function- Gait without AD Baseline Function- Work/School without AD Baseline Function- Recreation/Hobbies without AD Baseline Function- Other without AD Current Functional Impairments (Reported) Functional Limitations- ADL's Her is primary milling supervisor. Pt is able to transfer independently and her could help as needed. Functional Limitations- Mobility/Gait Pt has approx 40 steps in total inside and outside of the house. 2 story home with 13 steps (R handrail) to get into the main floor, but she has mechanical lift. She also has 20 steps to get down to basement. Pt primarily lives on the main floor at this point with access to bathroom, living room, bedroom and kitchen. She amb with fww and walker boot. 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 PT-OP-C Subjective Start: 05/20/18 17:28 Freq: Status: Active Protocol: Document 05/20/18 14:30 (Rec: 05/20/18 18:20 [email or web address]) OP-PT Subjective Patient Comments Patient Comments Pt states My ankle is very sensitive and stiff since i was in a cast and boot for almost 2 months Patient Questionnaires Foot & Ankle Ability Measure- ADL and Sports FAAM-ADL Score 30 FAAM-ADL Impairment 60 to 79% Impaired (Score 16- 32) FAAM-Sport Score 3 FAAM-Sport Impairment 80 to 99% Impaired (Score 1-5) Lower Extremity Functional Scale LEFS Score 20 LEFS Impairment 60 to 79% Impaired (Score 17- 31) PT-OP-G Mobility & Gait Start: 05/20/18 17:28 Freq: Status: Active Protocol: Document 05/20/18 14:30 HH (Rec: 05/20/18 18:20 [email or web address]) OP Gait Assessment Gait Gait Assistance Required: Independent Able to Maintain Weight Bearing Status Yes During Gait Assistive Devices Assistive Device Front Wheeled Walker Orthotic/Prosthetic Devices or Brace: Yes Gait Deviations General Gait Pattern Antalgic Decreased Stride Length Decreased Feet Clearance Factors Limiting Gait Function Factors Limiting Gait Function Decreased Activity Tolerance Decreased Strength Limited Range of Motion Pain Comments Gait Comments mild L hip hike during swing phase on L due to elevated walker boot compared to R LE PT-OP-J Posture/Palpation/Skin Start: 05/20/18 17:28 Freq: Status: Active Protocol: Document 05/20/18 14:30 HH (Rec: 05/20/18 18:20 [email or web address]) Posture Evaluation Position Standing Pelvis Posture (L) Iliac Crest Superior Weight Distribution Weight Shifted Right Palpation Assessment Location L ankle Palpation Location peroneal, lateral malleoli, medial malleoli Palpation Findings Edema Soft Tissue Tightness Tenderness Trigger Point Palpation Details moderate edema inferior to medial and lateral malleoli Hypersensitive to touch and pressure to both surgical site Skin Assessment Edema Assessment Left Ankle Edema Degree 2+ Subjective Edema Description Tightness Comments ecchymosis at lateral maleoli PT-OP-K Range of Motion Start: 05/20/18 17:28 Freq: Status: Active Protocol: Document 05/20/18 14:30 HH (Rec: 05/20/18 18:20 [email or web address]) Ankle and Foot Goniometric Range of Motion Ankle and Foot Measured in Degrees Right Active Ankle/Foot ROM WFL Yes Testing Position Supine Dorsiflexion with Knee Flexed 15 Plantarflexion 50 Inversion 25 Eversion 20 Left Ankle/Foot ROM WFL No Testing Position Supine Dorsiflexion with Knee Extended 3 Plantarflexion 40 Inversion 17 Eversion 5 Ankle and Foot ROM Limitations ROM Limitations Soft Tissue Tightness Muscle Weakness Pain Swelling Comments significant tightness at achilles and gastro PT-OP-M Strength Start: 05/20/18 17:28 Freq: Status: Active Protocol: Document 05/20/18 14:30 HH (Rec: 05/20/18 18:20 [email or web address]) Hip Strength Hip Manual Muscle Testing Right Flexion (L2) 4+ Good+ Extension (S1) 4+ Good+ Abduction 5 Normal Adduction 4+ Good+ Left Flexion (L2) 4- Good- Extension (S1) 4- Good- Abduction 4- Good- Adduction 4+ Good+ Ankle/Foot Strength Ankle and Foot Manual Muscle Testing Right Dorsiflexion (L4) 4+ Good+ Plantarflexion (S1) 4+ Good+ Inversion 4+ Good+ Eversion (S1) 4+ Good+ Left Dorsiflexion (L4) 3- Fair- Plantarflexion (S1) 4- Good- Inversion 3- Fair- Eversion (S1) 3- Fair- PT-OP-Q Treatments Start: 05/20/18 17:28 Freq: Status: Active Protocol: Document 05/20/18 14:30 HH (Rec: 05/20/18 18:20 [email or web address]) Therapeutic Exercises Supine Exercises ankle pumps Side left Reps/Minutes 20 x 3 Sitting Exercises calf stretch with towels Side left Equipment Used towel toe towel hairspring staker Side left Equipment Used towel on floor Manual Therapy Treatment Soft Tissue Mobilization STM Body Location L achilles, gastro and soleus Mobilization Type Cross-Friction Myofascial Release Sustained Pressure Trigger Point Release Intensity/Depth Moderate Body Position Supine IASTM Body Location both surgical site Mobilization Type Cross-Friction Instrument Assisted Intensity/Depth Superficial Body Position Supine Comments parallel and perpendicular PT-OP-T Assessment and Plan Start: 05/20/18 17:28 Freq: Status: Active Protocol: Document 05/20/18 14:30 HH (Rec: 05/20/18 18:20 [email or web address]) Physical Therapy Assessment Rehab Potential Rehabilitation Potential Good Evaluation Complexity Number of Personal Factors/Comorbidities 3 or More Number of Body Systems Impaired 3 Clinical Presentation at Evaluation Evolving Impairments Impairments Activity Tolerance Balance Edema Functional Activities Functional Mobility Gait Pain ROM Sensation Soft Tissue Mobility Strength Tone Other Concerns Barriers to Rehabilitation hx of CVA Goals stair climbing Impairment stair climbing Traffic Lieutenant Goal (LTG) able to negotiate her 14 B[address] at home independently without AD LTG Duration 8 weeks FAAM score Impairment FAAM Fci Goal (LTG) to reach FAAM score to 50-66 ( 20-39 %) impairements to improve overall functional mobility. LTG Duration 8 weeks LEFS score Impairment LEFS Traffic Lieutenant Goal (LTG) To reach LEFS score 48-62(20- 39 % impairments) to improve overall functional mobility LTG Duration 8 weeks ROM Impairment ROM Short Term Goal (STG) increase overall L ankle ROM by 5 degrees to improve foot clearance during ambulation and stair climbing STG Duration 4 Traffic Lieutenant Goal (LTG) increase overall L ankle ROM by 10 degrees to improve foot clearance during ambulation and stair climbing LTG Duration 8 pain Impairment pain Short Term Goal (STG) reduce 2/10 L ankle pain to increase activity tolerance for walking at home and community STG Duration 4 Traffic Lieutenant Goal (LTG) reduce 4/10 L ankle pain to increase activity tolerance for walking at home and community LTG Duration 8 Assessment Summary Assessment Pt is a 68yo pleasant female who had ORIF at L ankle. MD's current prescription states : HEP, gentle ROM and modalities until further notice. Pt demonstrates difficulty in walking and significant loss of ankle ROM and strength after surgery. Pt currently amb with her walker boot and FWW and does not need help for overall transfer and mobility except stair climbing. Pt has been using her mechanical lift outside of the house. Upon assessment, pt presents significant hypersensitive to touch and pressure around surgical site and moderate edema to her L foot and ecchymosis inferior to her lateral maleoli. Pt states her ankle always feels like bloated. Pt states she feels relieved and less stiff after manual therapy. HEP is given with towel curls, ankle pumps and PF stretch to improve overall ankle mobility and flexibility. Pt will benefit from skilled PT including manual therapy therex, gait training address aforementioned impairments. Physical Therapy Plan Frequency and Duration Frequency of Treatment 2x/Week Duration of Treatment 8 weeks Plan of Care Start Date 05/20/18 Plan of Care End Date 05/20/18 Therapeutic Interventions Therapeutic Interventions Aquatic Therapy Balance Training Coordination Training Gait Training Home Exercise Program Joint Mobilizations Manual Therapy Neuromuscular Re-education Patient/Caregiver Education Self-Care/Home Management Soft Tissue Mobilization Taping Therapeutic Activities Therapeutic Exercises Modalities Cold Pack/Ice Massage Electric Stimulation Hot Packs Next Visit Focus/Plan Next Note Type Treatment Note Next Visit Plan reassess edema toe curls rom as vianca, might begin iso exercises manual therapy stm around surgical site
--- NOTE | 2018-05-20 18:21 | PT.OPPOC ---
Addendum entered and electronically signed by Killian Vazquez PT 05/22/18 11:25: Wrong entry for POC end date Original Note: Current Diagnoses Displaced trimalleolar fracture of left lower leg, subsequent encounter for closed fracture with routine healing (05/20/18) Presence of other bone and tendon implants (05/20/18) Provider Visit Care Team Role Provider Type Freddy Dalton MD Primary Care Provider Physician Specialty: [facility] Practice Address: [address] [place] [address], [id number] Email: [email or web address] Amanda Rolon PA-C Attending Provider Physician Specialty: Orthopedic Surgery Address: [address] [place] [address], [id number] Fax: Email: Plan Of Care PT-OP-T Assessment and Plan Start: 05/20/18 17:28 Freq: Status: Active Protocol: Document 05/20/18 14:30 HH (Rec: 05/20/18 18:20 HH [email or web address]) Physical Therapy Assessment Rehab Potential Rehabilitation Potential Good Evaluation Complexity Number of Personal Factors/Comorbidities 3 or More Number of Body Systems Impaired 3 Clinical Presentation at Evaluation Evolving Impairments Impairments Activity Tolerance Balance Edema Functional Activities Functional Mobility Gait Pain ROM Sensation Soft Tissue Mobility Strength Tone Other Concerns Barriers to Rehabilitation hx of CVA Goals stair climbing Impairment stair climbing Clinic Assistant Goal (LTG) able to negotiate her 14 BRAYDON at home independently without AD LTG Duration 8 weeks FAAM score Impairment FAAM Snf Goal (LTG) to reach FAAM score to 50-66 ( 20-39 %) impairements to improve overall functional mobility. LTG Duration 8 weeks LEFS score Impairment LEFS Snf Goal (LTG) To reach LEFS score 48-62(20- 39 % impairments) to improve overall functional mobility LTG Duration 8 weeks ROM Impairment ROM Short Term Goal (STG) increase overall L ankle ROM by 5 degrees to improve foot clearance during ambulation and stair climbing STG Duration 4 Snf Goal (LTG) increase overall L ankle ROM by 10 degrees to improve foot clearance during ambulation and stair climbing LTG Duration 8 pain Impairment pain Short Term Goal (STG) reduce 2/10 L ankle pain to increase activity tolerance for walking at home and community STG Duration 4 Snf Goal (LTG) reduce 4/10 L ankle pain to increase activity tolerance for walking at home and community LTG Duration 8 Assessment Summary Assessment Pt is a 68yo pleasant female who had ORIF at L ankle. MD's current prescription states : HEP, gentle ROM and modalities until further notice. Pt demonstrates difficulty in walking and significant loss of ankle ROM and strength after surgery. Pt currently amb with her walker boot and FWW and does not need help for overall transfer and mobility except stair climbing. Pt has been using her mechanical lift outside of the house. Upon assessment, pt presents significant hypersensitive to touch and pressure around surgical site and moderate edema to her L foot and ecchymosis inferior to her lateral maleoli. Pt states her ankle always feels like bloated. Pt states she feels relieved and less stiff after manual therapy. HEP is given with towel curls, ankle pumps and PF stretch to improve overall ankle mobility and flexibility. Pt will benefit from skilled PT including manual therapy therex, gait training address aforementioned impairments. Physical Therapy Plan Frequency and Duration Frequency of Treatment 2x/Week Duration of Treatment 8 weeks Plan of Care Start Date 05/20/18 Plan of Care End Date 05/20/18 Therapeutic Interventions Therapeutic Interventions Aquatic Therapy Balance Training Coordination Training Gait Training Home Exercise Program Joint Mobilizations Manual Therapy Neuromuscular Re-education Patient/Caregiver Education Self-Care/Home Management Soft Tissue Mobilization Taping Therapeutic Activities Therapeutic Exercises Modalities Cold Pack/Ice Massage Electric Stimulation Hot Packs Next Visit Focus/Plan Next Note Type Treatment Note Next Visit Plan reassess edema toe curls rom as vianca, might begin iso exercises manual therapy stm around surgical site Plan of Care Dates Plan of Care Start Date 05/20/18 Plan of Care End Date 05/20/18 Please Sign and Return: I have reviewed this Plan of Care and certify that the skilled therapy services above are required to meet the patient?s needs. Physician Signature Date Printed Name and Credentials Clinical Instructor Signature Printed Name and Credentials
--- NOTE | 2018-05-22 12:44 | PT.OTN ---
Current Diagnoses Displaced trimalleolar fracture of left lower leg, subsequent encounter for closed fracture with routine healing (05/22/18) Presence of other bone and tendon implants (05/22/18) Physical Therapy Treatment Note PT-OP-A Visit Information Start: 05/20/18 17:28 Freq: Status: Active Protocol: Document 05/22/18 12:00 DCW (Rec: 05/22/18 12:42 DCW [email or web address]) Out-Patient Physical Therapy Visit Information Visit Information Visit Type Treatment Note Visit Start Time 12:00 Visit Stop Time 12:45 Total Visit Minutes 45 Visit Number 2 Number of EMBOSSING TOOL SETTER Visits 0 Evaluation Information Evaluation Date 05/20/18 PT-OP-B Current Condition Start: 05/20/18 17:28 Freq: Status: Active Protocol: Document 05/20/18 14:30 HH (Rec: 05/20/18 18:20 HH [email or web address]) Current Condition History of Current Condition Onset Date 03/27/18 Current Complaints post op L ORIF ankle due to displaced trimalleolar fx History of Current Condition Pt is a pleasant 68 yo female who had ORIF on her L ankle due to a fall. Pt states she tripped over her rub at home on the same day and broke her L foot. She was then admitted to ER and had an emergency surgery. Pt reports she was on a cast and NWB for first 5 weeks. She is now FWB with her L walker boot on at all times since 3 weeks ago. Pt also reports she has been getting physical therapy since sx but she was d/c last week. They have been focusing on functional mobility such as transfer and amb but not much ankle rehab. Pt currently takes hydrocodone 325mg as needed. Treatment Goals Patient/Caregiver Goals pt states I want to walk without boot in pain free, return to my hobby which is sailing and able to climb stairs at home independently. Prior Functional Status Baseline Function- ADL's Independent Baseline Function- Mobility Independent Baseline Function- Gait without AD Baseline Function- Work/School without AD Baseline Function- Recreation/Hobbies without AD Baseline Function- Other without AD Current Functional Impairments (Reported) Functional Limitations- ADL's Her is primary slot machine key person. Pt is able to transfer independently and her could help as needed. Functional Limitations- Mobility/Gait Pt has approx 40 steps in total inside and outside of the house. 2 story home with 13 steps (R handrail) to get into the main floor, but she has mechanical lift. She also has 20 steps to get down to basement. Pt primarily lives on the main floor at this point with access to bathroom, living room, bedroom and kitchen. She amb with fww and walker boot. 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 PT-OP-C Subjective Start: 05/20/18 17:28 Freq: Status: Active Protocol: Document 05/22/18 12:00 DCW (Rec: 05/22/18 12:42 DCW [id number]) OP-PT Subjective Patient Comments Patient Comments Pt reports she is feeling wonderful today, but is still getting used to walking with her cane. PT-OP-G Mobility & Gait Start: 05/20/18 17:28 Freq: Status: Active Protocol: Document 05/20/18 14:30 HH (Rec: 05/20/18 18:20 HH [email or web address]) OP Gait Assessment Gait Gait Assistance Required: Independent Able to Maintain Weight Bearing Status Yes During Gait Assistive Devices Assistive Device Front Wheeled Walker Orthotic/Prosthetic Devices or Brace: Yes Gait Deviations General Gait Pattern Antalgic Decreased Stride Length Decreased Feet Clearance Factors Limiting Gait Function Factors Limiting Gait Function Decreased Activity Tolerance Decreased Strength Limited Range of Motion Pain Comments Gait Comments mild L hip hike during swing phase on L due to elevated walker boot compared to R LE PT-OP-J Posture/Palpation/Skin Start: 05/20/18 17:28 Freq: Status: Active Protocol: Document 05/20/18 14:30 HH (Rec: 05/20/18 18:20 HH [email or web address]) Posture Evaluation Position Standing Pelvis Posture (L) Iliac Crest Superior Weight Distribution Weight Shifted Right Palpation Assessment Location L ankle Palpation Location peroneal, lateral malleoli, medial malleoli Palpation Findings Edema Soft Tissue Tightness Tenderness Trigger Point Palpation Details moderate edema inferior to medial and lateral malleoli Hypersensitive to touch and pressure to both surgical site Skin Assessment Edema Assessment Left Ankle Edema Degree 2+ Subjective Edema Description Tightness Comments ecchymosis at lateral maleoli PT-OP-K Range of Motion Start: 05/20/18 17:28 Freq: Status: Active Protocol: Document 05/20/18 14:30 HH (Rec: 05/20/18 18:20 HH [email or web address]) Ankle and Foot Goniometric Range of Motion Ankle and Foot Measured in Degrees Right Active Ankle/Foot ROM WFL Yes Testing Position Supine Dorsiflexion with Knee Flexed 15 Plantarflexion 50 Inversion 25 Eversion 20 Left Ankle/Foot ROM WFL No Testing Position Supine Dorsiflexion with Knee Extended 3 Plantarflexion 40 Inversion 17 Eversion 5 Ankle and Foot ROM Limitations ROM Limitations Soft Tissue Tightness Muscle Weakness Pain Swelling Comments significant tightness at achilles and gastro PT-OP-M Strength Start: 05/20/18 17:28 Freq: Status: Active Protocol: Document 05/20/18 14:30 HH (Rec: 05/20/18 18:20 HH [email or web address]) Hip Strength Hip Manual Muscle Testing Right Flexion (L2) 4+ Good+ Extension (S1) 4+ Good+ Abduction 5 Normal Adduction 4+ Good+ Left Flexion (L2) 4- Good- Extension (S1) 4- Good- Abduction 4- Good- Adduction 4+ Good+ Ankle/Foot Strength Ankle and Foot Manual Muscle Testing Right Dorsiflexion (L4) 4+ Good+ Plantarflexion (S1) 4+ Good+ Inversion 4+ Good+ Eversion (S1) 4+ Good+ Left Dorsiflexion (L4) 3- Fair- Plantarflexion (S1) 4- Good- Inversion 3- Fair- Eversion (S1) 3- Fair- PT-OP-Q Treatments Start: 05/20/18 17:28 Freq: Status: Active Protocol: Document 05/22/18 12:00 DCW (Rec: 05/22/18 12:42 DCW [id number]) Therapeutic Exercises Sitting Exercises calf stretch with towels Side left Equipment Used towel 2 Sitting Exercise Name BAPS board - PF/DF, In/Ev, CW/ CCW Side left Resistance Lv 2 1 Sitting Exercise Name [place] pick-up Side left Manual Therapy Treatment Soft Tissue Mobilization Scar Massage Body Location Surgical Incision Body Position Sitting Comments Warm oil STM Body Location L achilles, gastro and soleus Mobilization Type Cross-Friction Myofascial Release Sustained Pressure Trigger Point Release Intensity/Depth Moderate Body Position Supine Other Other Manual Treatments PROM - In/Eversion, PF/DF PT-OP-T Assessment and Plan Start: 05/20/18 17:28 Freq: Status: Active Protocol: Document 05/22/18 12:00 DCW (Rec: 05/22/18 12:42 DCW [id number]) Physical Therapy Assessment Impairments Impairments Activity Tolerance Balance Edema Functional Activities Functional Mobility Gait Pain ROM Sensation Soft Tissue Mobility Strength Tone Goals stair climbing Impairment stair climbing Mcfp Goal (LTG) able to negotiate her 14 BRAY[address] at home independently without AD LTG Duration 8 weeks FAAM score Impairment FAAM Bookkeeping Manager Goal (LTG) to reach FAAM score to 50-66 ( 20-39 %) impairements to improve overall functional mobility. LTG Duration 8 weeks LEFS score Impairment LEFS Bookkeeping Manager Goal (LTG) To reach LEFS score 48-62(20- 39 % impairments) to improve overall functional mobility LTG Duration 8 weeks ROM Impairment ROM Short Term Goal (STG) increase overall L ankle ROM by 5 degrees to improve foot clearance during ambulation and stair climbing STG Duration 4 Bookkeeping Manager Goal (LTG) increase overall L ankle ROM by 10 degrees to improve foot clearance during ambulation and stair climbing LTG Duration 8 pain Impairment pain Short Term Goal (STG) reduce 2/10 L ankle pain to increase activity tolerance for walking at home and community STG Duration 4 Mcfp Goal (LTG) reduce 4/10 L ankle pain to increase activity tolerance for walking at home and community LTG Duration 8 Assessment Summary Assessment PT tolerated treatment well today, complained of mild tenderness with scar massage, but reported the PROM felt good. Physical Therapy Plan Frequency and Duration Frequency of Treatment 2x/Week Duration of Treatment 8 weeks Plan of Care Start Date 05/20/18 Plan of Care End Date 07/18/18 Therapeutic Interventions Therapeutic Interventions Aquatic Therapy Balance Training Coordination Training Gait Training Home Exercise Program Joint Mobilizations Manual Therapy Neuromuscular Re-education Patient/Caregiver Education Self-Care/Home Management Soft Tissue Mobilization Taping Therapeutic Activities Therapeutic Exercises Modalities Cold Pack/Ice Massage Electric Stimulation Hot Packs Next Visit Focus/Plan Next Note Type Treatment Note Next Visit Plan reassess edema toe curls rom as vianca, might begin iso exercises manual therapy stm around surgical site
--- NOTE | 2018-05-27 17:47 | PT.OTN ---
Current Diagnoses Displaced trimalleolar fracture of left lower leg, subsequent encounter for closed fracture with routine healing (05/27/18) Presence of other bone and tendon implants (05/27/18) Physical Therapy Treatment Note PT-OP-A Visit Information Start: 05/20/18 17:28 Freq: Status: Active Protocol: Document 05/27/18 16:45 HH (Rec: 05/27/18 17:47 HH [email or web address]) Out-Patient Physical Therapy Visit Information Visit Information Visit Type Treatment Note Visit Start Time 16:45 Visit Stop Time 17:30 Total Visit Minutes 45 Visit Number 3 Number of SHERIFF DETECTIVE Visits 0 PT-OP-B Current Condition Start: 05/20/18 17:28 Freq: Status: Active Protocol: Document 05/20/18 14:30 HH (Rec: 05/20/18 18:20 HH [email or web address]) Current Condition History of Current Condition Onset Date 03/27/18 Current Complaints post op L ORIF ankle due to displaced trimalleolar fx History of Current Condition Pt is a pleasant 68 yo female who had ORIF on her L ankle due to a fall. Pt states she tripped over her rub at home on the same day and broke her L foot. She was then admitted to ER and had an emergency surgery. Pt reports she was on a cast and NWB for first 5 weeks. She is now FWB with her L walker boot on at all times since 3 weeks ago. Pt also reports she has been getting physical therapy since sx but she was d/c last week. They have been focusing on functional mobility such as transfer and amb but not much ankle rehab. Pt currently takes hydrocodone 325mg as needed. Treatment Goals Patient/Caregiver Goals pt states I want to walk without boot in pain free, return to my hobby which is sailing and able to climb stairs at home independently. Prior Functional Status Baseline Function- ADL's Independent Baseline Function- Mobility Independent Baseline Function- Gait without AD Baseline Function- Work/School without AD Baseline Function- Recreation/Hobbies without AD Baseline Function- Other without AD Current Functional Impairments (Reported) Functional Limitations- ADL's Her is primary nanny caregiver. Pt is able to transfer independently and her could help as needed. Functional Limitations- Mobility/Gait Pt has approx 40 steps in total inside and outside of the house. 2 story home with 13 steps (R handrail) to get into the main floor, but she has mechanical lift. She also has 20 steps to get down to basement. Pt primarily lives on the main floor at this point with access to bathroom, living room, bedroom and kitchen. She amb with fww and walker boot. 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 PT-OP-C Subjective Start: 05/20/18 17:28 Freq: Status: Active Protocol: Document 05/27/18 16:45 HH (Rec: 05/27/18 17:47 HH [email or web address]) OP-PT Subjective Patient Comments Patient Comments pt is now cleared for all restrictions after followed up with surgeon 05/25/18. pt states her surgeon said the medial surgical site is healing slowly and gave pt a medium duty ankle bracke with lateral ankle support for home ambulation but cont to keep her walker boot on at all times for community amb. He does state her fibular site is almost fully healed. Pt also states towel toe curl has been challenging and quite uncomfortable but other HEP are doing good. She noticed her swelling has gone down as well. Patient Reported Progress Improving PT-OP-G Mobility & Gait Start: 05/20/18 17:28 Freq: Status: Active Protocol: Document 05/20/18 14:30 HH (Rec: 05/20/18 18:20 HH [email or web address]) OP Gait Assessment Gait Gait Assistance Required: Independent Able to Maintain Weight Bearing Status Yes During Gait Assistive Devices Assistive Device Front Wheeled Walker Orthotic/Prosthetic Devices or Brace: Yes Gait Deviations General Gait Pattern Antalgic Decreased Stride Length Decreased Feet Clearance Factors Limiting Gait Function Factors Limiting Gait Function Decreased Activity Tolerance Decreased Strength Limited Range of Motion Pain Comments Gait Comments mild L hip hike during swing phase on L due to elevated walker boot compared to R LE PT-OP-J Posture/Palpation/Skin Start: 05/20/18 17:28 Freq: Status: Active Protocol: Document 05/20/18 14:30 HH (Rec: 05/20/18 18:20 HH [email or web address]) Posture Evaluation Position Standing Pelvis Posture (L) Iliac Crest Superior Weight Distribution Weight Shifted Right Palpation Assessment Location L ankle Palpation Location peroneal, lateral malleoli, medial malleoli Palpation Findings Edema Soft Tissue Tightness Tenderness Trigger Point Palpation Details moderate edema inferior to medial and lateral malleoli Hypersensitive to touch and pressure to both surgical site Skin Assessment Edema Assessment Left Ankle Edema Degree 2+ Subjective Edema Description Tightness Comments ecchymosis at lateral maleoli PT-OP-K Range of Motion Start: 05/20/18 17:28 Freq: Status: Active Protocol: Document 05/20/18 14:30 HH (Rec: 05/20/18 18:20 [email or web address]) Ankle and Foot Goniometric Range of Motion Ankle and Foot Measured in Degrees Right Active Ankle/Foot ROM WFL Yes Testing Position Supine Dorsiflexion with Knee Flexed 15 Plantarflexion 50 Inversion 25 Eversion 20 Left Ankle/Foot ROM WFL No Testing Position Supine Dorsiflexion with Knee Extended 3 Plantarflexion 40 Inversion 17 Eversion 5 Ankle and Foot ROM Limitations ROM Limitations Soft Tissue Tightness Muscle Weakness Pain Swelling Comments significant tightness at achilles and gastro PT-OP-M Strength Start: 05/20/18 17:28 Freq: Status: Active Protocol: Document 05/20/18 14:30 HH (Rec: 05/20/18 18:20 [email or web address]) Hip Strength Hip Manual Muscle Testing Right Flexion (L2) 4+ Good+ Extension (S1) 4+ Good+ Abduction 5 Normal Adduction 4+ Good+ Left Flexion (L2) 4- Good- Extension (S1) 4- Good- Abduction 4- Good- Adduction 4+ Good+ Ankle/Foot Strength Ankle and Foot Manual Muscle Testing Right Dorsiflexion (L4) 4+ Good+ Plantarflexion (S1) 4+ Good+ Inversion 4+ Good+ Eversion (S1) 4+ Good+ Left Dorsiflexion (L4) 3- Fair- Plantarflexion (S1) 4- Good- Inversion 3- Fair- Eversion (S1) 3- Fair- PT-OP-Q Treatments Start: 05/20/18 17:28 Freq: Status: Active Protocol: Document 05/27/18 16:45 HH (Rec: 05/27/18 17:47 HH [email or web address]) Cardio Equipment Recumbent Bicycle Duration (Minutes) 6 Other with boot on Therapeutic Exercises Supine Exercises ankle [place] Side left Comments df,Pf,INv,Ev Iso ankle strengthening Side left Resistance isometric Comments ankle DF, PF ,INV and EV at neutral Sitting Exercises ankle [place] on ilya disk Side left Equipment Used ilya disk Comments with WB Manual Therapy Treatment Soft Tissue Mobilization Scar Massage Body Location Surgical Incision Body Position Supine Comments Warm oil STM Body Location L achilles, gastro and soleus Mobilization Type Cross-Friction Myofascial Release Sustained Pressure Trigger Point Release Intensity/Depth Moderate Body Position Supine IASTM Body Location both surgical site Mobilization Type Cross-Friction Instrument Assisted Intensity/Depth Superficial Body Position Supine Comments parallel and perpendicular PT-OP-T Assessment and Plan Start: 05/20/18 17:28 Freq: Status: Active Protocol: Document 05/27/18 16:45 HH (Rec: 05/27/18 17:47 HH [email or web address]) Physical Therapy Assessment Assessment Summary Assessment Pt is now cleared for restrictions but cont to wear walker boot for community amb and ankle brace for home amb at all times due to slow healing process at medial surgical site. However, pt vianca tx very well with report i ankle feel less tight and swollen now. Pt cont presents slight edema at medial maleoli and proximal gastro. Pt's active df also passed 90 today and introduced ankle [place] on ilya disk and recumbent bike today. Pt denies pain / discomfort. Physical Therapy Plan Next Visit Focus/Plan Next Note Type Treatment Note Next Visit Plan reassess edema at ankle and proxmial gastro cont gentle ankle ROM ex iso strengthening cardio ex with boot
--- NOTE | 2018-06-03 17:21 | PT.OTN ---
Current Diagnoses Displaced trimalleolar fracture of left lower leg, subsequent encounter for closed fracture with routine healing (06/03/18) Presence of other bone and tendon implants (06/03/18) Physical Therapy Treatment Note PT-OP-A Visit Information Start: 05/20/18 17:28 Freq: Status: Active Protocol: Document 06/03/18 16:00 HH (Rec: 06/03/18 17:21 HH [email or web address]) Out-Patient Physical Therapy Visit Information Visit Information Visit Type Treatment Note Visit Start Time 16:00 Visit Stop Time 16:55 Total Visit Minutes 55 Visit Number 4 Number of MASKING MACHINE FEEDER Visits 0 PT-OP-B Current Condition Start: 05/20/18 17:28 Freq: Status: Active Protocol: Document 05/20/18 14:30 HH (Rec: 05/20/18 18:20 HH [email or web address]) Current Condition History of Current Condition Onset Date 03/27/18 Current Complaints post op L ORIF ankle due to displaced trimalleolar fx History of Current Condition Pt is a pleasant 68 yo female who had ORIF on her L ankle due to a fall. Pt states she tripped over her rub at home on the same day and broke her L foot. She was then admitted to ER and had an emergency surgery. Pt reports she was on a cast and NWB for first 5 weeks. She is now FWB with her L walker boot on at all times since 3 weeks ago. Pt also reports she has been getting physical therapy since sx but she was d/c last week. They have been focusing on functional mobility such as transfer and amb but not much ankle rehab. Pt currently takes hydrocodone 325mg as needed. Treatment Goals Patient/Caregiver Goals pt states I want to walk without boot in pain free, return to my hobby which is sailing and able to climb stairs at home independently. Prior Functional Status Baseline Function- ADL's Independent Baseline Function- Mobility Independent Baseline Function- Gait without AD Baseline Function- Work/School without AD Baseline Function- Recreation/Hobbies without AD Baseline Function- Other without AD Current Functional Impairments (Reported) Functional Limitations- ADL's Her is primary investigator. Pt is able to transfer independently and her could help as needed. Functional Limitations- Mobility/Gait Pt has approx 40 steps in total inside and outside of the house. 2 story home with 13 steps (R handrail) to get into the main floor, but she has mechanical lift. She also has 20 steps to get down to basement. Pt primarily lives on the main floor at this point with access to bathroom, living room, bedroom and kitchen. She amb with fww and walker boot. 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 PT-OP-C Subjective Start: 05/20/18 17:28 Freq: Status: Active Protocol: Document 06/03/18 16:00 HH (Rec: 06/03/18 17:21 HH [email or web address]) OP-PT Subjective Patient Comments Patient Comments My inside of the L ankle has been hurting lately once i wear my ankle brace at home. I usually wear the brace for the whole day and it gets quite painful sometimes. Emma been doing all my HEP as well. Patient Reported Progress Same PT-OP-G Mobility & Gait Start: 05/20/18 17:28 Freq: Status: Active Protocol: Document 05/20/18 14:30 HH (Rec: 05/20/18 18:20 HH [email or web address]) OP Gait Assessment Gait Gait Assistance Required: Independent Able to Maintain Weight Bearing Status Yes During Gait Assistive Devices Assistive Device Front Wheeled Walker Orthotic/Prosthetic Devices or Brace: Yes Gait Deviations General Gait Pattern Antalgic Decreased Stride Length Decreased Feet Clearance Factors Limiting Gait Function Factors Limiting Gait Function Decreased Activity Tolerance Decreased Strength Limited Range of Motion Pain Comments Gait Comments mild L hip hike during swing phase on L due to elevated walker boot compared to R LE PT-OP-J Posture/Palpation/Skin Start: 05/20/18 17:28 Freq: Status: Active Protocol: Document 05/20/18 14:30 HH (Rec: 05/20/18 18:20 HH [email or web address]) Posture Evaluation Position Standing Pelvis Posture (L) Iliac Crest Superior Weight Distribution Weight Shifted Right Palpation Assessment Location L ankle Palpation Location peroneal, lateral malleoli, medial malleoli Palpation Findings Edema Soft Tissue Tightness Tenderness Trigger Point Palpation Details moderate edema inferior to medial and lateral malleoli Hypersensitive to touch and pressure to both surgical site Skin Assessment Edema Assessment Left Ankle Edema Degree 2+ Subjective Edema Description Tightness Comments ecchymosis at lateral maleoli PT-OP-K Range of Motion Start: 05/20/18 17:28 Freq: Status: Active Protocol: Document 05/20/18 14:30 HH (Rec: 05/20/18 18:20 [email or web address]) Ankle and Foot Goniometric Range of Motion Ankle and Foot Measured in Degrees Right Active Ankle/Foot ROM WFL Yes Testing Position Supine Dorsiflexion with Knee Flexed 15 Plantarflexion 50 Inversion 25 Eversion 20 Left Ankle/Foot ROM WFL No Testing Position Supine Dorsiflexion with Knee Extended 3 Plantarflexion 40 Inversion 17 Eversion 5 Ankle and Foot ROM Limitations ROM Limitations Soft Tissue Tightness Muscle Weakness Pain Swelling Comments significant tightness at achilles and gastro PT-OP-M Strength Start: 05/20/18 17:28 Freq: Status: Active Protocol: Document 05/20/18 14:30 HH (Rec: 05/20/18 18:20 [email or web address]) Hip Strength Hip Manual Muscle Testing Right Flexion (L2) 4+ Good+ Extension (S1) 4+ Good+ Abduction 5 Normal Adduction 4+ Good+ Left Flexion (L2) 4- Good- Extension (S1) 4- Good- Abduction 4- Good- Adduction 4+ Good+ Ankle/Foot Strength Ankle and Foot Manual Muscle Testing Right Dorsiflexion (L4) 4+ Good+ Plantarflexion (S1) 4+ Good+ Inversion 4+ Good+ Eversion (S1) 4+ Good+ Left Dorsiflexion (L4) 3- Fair- Plantarflexion (S1) 4- Good- Inversion 3- Fair- Eversion (S1) 3- Fair- PT-OP-Q Treatments Start: 05/20/18 17:28 Freq: Status: Active Protocol: Document 06/03/18 16:00 HH (Rec: 06/03/18 17:21 HH [email or web address]) Cardio Equipment Recumbent Bicycle Duration (Minutes) 6 Resistance 3 Other with boot on Therapeutic Exercises Supine Exercises Iso ankle strengthening Supine Exercise Name concentric Side left Resistance concentric Equipment Used green band on B forefoot Comments ankle DF, PF ,INV and EV at neutral Sitting Exercises ankle [place] on ilya disk Side left Equipment Used ilya disk Comments with 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 towel 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 Sitting Exercise Name marble ball to cup Side left Standing Exercises ankle roll in standing Side left Comments pronation and supination in standing position Gait Training Gait Activity R step over Description R LE step over, WB on L LE Comments yoga mat on floor; small step over with R LE Manual Therapy Treatment Soft Tissue Mobilization Scar Massage Body Location Surgical Incision Body Position Supine Comments Warm oil STM Body Location L achilles, gastro and soleus Mobilization Type Cross-Friction Myofascial Release Sustained Pressure Trigger Point Release Intensity/Depth Moderate Body Position Supine IASTM Body Location both surgical site Mobilization Type Cross-Friction Instrument Assisted Intensity/Depth Superficial Body Position Supine Comments parallel and perpendicular PT-OP-T Assessment and Plan Start: 05/20/18 17:28 Freq: Status: Active Protocol: Document 06/03/18 16:00 HH (Rec: 06/03/18 17:21 [email or web address]) Physical Therapy Assessment Assessment Summary Assessment Pt presented slight increase of swelling and soreness at medial ankle. She did show improvements in overall ankle ROM and denied of pain. Pt's active DF passed neutral. Educated pt to wear her ankle brace as tolerated at home. New HEP with ankle resistive ex with green band and R step over to facilitate WB. Physical Therapy Plan Next Visit Focus/Plan Next Note Type Treatment Note Next Visit Plan reassess edema at ankle and proxmial gastro cont gentle ankle ROM ex iso/ conc strengthening cardio ex with boot
--- NOTE | 2018-06-15 14:28 | PT.OTN ---
Current Diagnoses Displaced trimalleolar fracture of left lower leg, subsequent encounter for closed fracture with routine healing (06/15/18) Presence of other bone and tendon implants (06/15/18) Physical Therapy Treatment Note PT-OP-A Visit Information Start: 05/20/18 17:28 Freq: Status: Active Protocol: Document 06/15/18 13:45 DCW (Rec: 06/15/18 14:28 DCW [id number]) Out-Patient Physical Therapy Visit Information Visit Information Visit Type Treatment Note Visit Start Time 13:45 Visit Stop Time 14:30 Total Visit Minutes 45 Visit Number 5 Number of PHARMACOGNOSY TEACHER Visits 0 Evaluation Information Evaluation Date 05/20/18 PT-OP-B Current Condition Start: 05/20/18 17:28 Freq: Status: Active Protocol: Document 05/20/18 14:30 HH (Rec: 05/20/18 18:20 HH [email or web address]) Current Condition History of Current Condition Onset Date 03/27/18 Current Complaints post op L ORIF ankle due to displaced trimalleolar fx History of Current Condition Pt is a pleasant 68 yo female who had ORIF on her L ankle due to a fall. Pt states she tripped over her rub at home on the same day and broke her L foot. She was then admitted to ER and had an emergency surgery. Pt reports she was on a cast and NWB for first 5 weeks. She is now FWB with her L walker boot on at all times since 3 weeks ago. Pt also reports she has been getting physical therapy since sx but she was d/c last week. They have been focusing on functional mobility such as transfer and amb but not much ankle rehab. Pt currently takes hydrocodone 325mg as needed. Treatment Goals Patient/Caregiver Goals pt states I want to walk without boot in pain free, return to my hobby which is sailing and able to climb stairs at home independently. Prior Functional Status Baseline Function- ADL's Independent Baseline Function- Mobility Independent Baseline Function- Gait without AD Baseline Function- Work/School without AD Baseline Function- Recreation/Hobbies without AD Baseline Function- Other without AD Current Functional Impairments (Reported) Functional Limitations- ADL's Her is primary belt turner. Pt is able to transfer independently and her could help as needed. Functional Limitations- Mobility/Gait Pt has approx 40 steps in total inside and outside of the house. 2 story home with 13 steps (R handrail) to get into the main floor, but she has mechanical lift. She also has 20 steps to get down to basement. Pt primarily lives on the main floor at this point with access to bathroom, living room, bedroom and kitchen. She amb with fww and walker boot. 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 PT-OP-C Subjective Start: 05/20/18 17:28 Freq: Status: Active Protocol: Document 06/15/18 13:45 DCW (Rec: 06/15/18 14:28 DCW [id number]) OP-PT Subjective Patient Comments Patient Comments Pt reports that she has an appointment tomorrow, and is hoping at that time to be released from wearing her boot , which she reports is really killing my foot. PT-OP-G Mobility & Gait Start: 05/20/18 17:28 Freq: Status: Active Protocol: Document 05/20/18 14:30 HH (Rec: 05/20/18 18:20 HH [email or web address]) OP Gait Assessment Gait Gait Assistance Required: Independent Able to Maintain Weight Bearing Status Yes During Gait Assistive Devices Assistive Device Front Wheeled Walker Orthotic/Prosthetic Devices or Brace: Yes Gait Deviations General Gait Pattern Antalgic Decreased Stride Length Decreased Feet Clearance Factors Limiting Gait Function Factors Limiting Gait Function Decreased Activity Tolerance Decreased Strength Limited Range of Motion Pain Comments Gait Comments mild L hip hike during swing phase on L due to elevated walker boot compared to R LE PT-OP-J Posture/Palpation/Skin Start: 05/20/18 17:28 Freq: Status: Active Protocol: Document 05/20/18 14:30 HH (Rec: 05/20/18 18:20 HH [email or web address]) Posture Evaluation Position Standing Pelvis Posture (L) Iliac Crest Superior Weight Distribution Weight Shifted Right Palpation Assessment Location L ankle Palpation Location peroneal, lateral malleoli, medial malleoli Palpation Findings Edema Soft Tissue Tightness Tenderness Trigger Point Palpation Details moderate edema inferior to medial and lateral malleoli Hypersensitive to touch and pressure to both surgical site Skin Assessment Edema Assessment Left Ankle Edema Degree 2+ Subjective Edema Description Tightness Comments ecchymosis at lateral maleoli PT-OP-K Range of Motion Start: 05/20/18 17:28 Freq: Status: Active Protocol: Document 05/20/18 14:30 HH (Rec: 05/20/18 18:20 HH [email or web address]) Ankle and Foot Goniometric Range of Motion Ankle and Foot Measured in Degrees Right Active Ankle/Foot ROM WFL Yes Testing Position Supine Dorsiflexion with Knee Flexed 15 Plantarflexion 50 Inversion 25 Eversion 20 Left Ankle/Foot ROM WFL No Testing Position Supine Dorsiflexion with Knee Extended 3 Plantarflexion 40 Inversion 17 Eversion 5 Ankle and Foot ROM Limitations ROM Limitations Soft Tissue Tightness Muscle Weakness Pain Swelling Comments significant tightness at achilles and gastro PT-OP-M Strength Start: 05/20/18 17:28 Freq: Status: Active Protocol: Document 05/20/18 14:30 HH (Rec: 05/20/18 18:20 HH [email or web address]) Hip Strength Hip Manual Muscle Testing Right Flexion (L2) 4+ Good+ Extension (S1) 4+ Good+ Abduction 5 Normal Adduction 4+ Good+ Left Flexion (L2) 4- Good- Extension (S1) 4- Good- Abduction 4- Good- Adduction 4+ Good+ Ankle/Foot Strength Ankle and Foot Manual Muscle Testing Right Dorsiflexion (L4) 4+ Good+ Plantarflexion (S1) 4+ Good+ Inversion 4+ Good+ Eversion (S1) 4+ Good+ Left Dorsiflexion (L4) 3- Fair- Plantarflexion (S1) 4- Good- Inversion 3- Fair- Eversion (S1) 3- Fair- PT-OP-Q Treatments Start: 05/20/18 17:28 Freq: Status: Active Protocol: Document 06/15/18 13:45 DCW (Rec: 06/15/18 14:28 DCW [id number]) Cardio Equipment Recumbent Bicycle Duration (Minutes) 3 Resistance 3 Other with boot on Therapeutic Exercises Supine Exercises ankle [place] Supine Exercise Name Ankle Alphabet Side left Sitting Exercises ankle [place] on ilya disk Side left Equipment Used ilya disk Comments weight-shifting calf stretch with towels Side left Equipment Used towel 2 Sitting Exercise Name BAPS board - PF/DF, In/Ev, CW/ CCW Side left Resistance Lv 3 1 Sitting Exercise Name [place] pick-up Side left Manual Therapy Treatment Soft Tissue Mobilization Scar Massage Body Location Surgical Incision Body Position Sitting Comments Warm oil STM Body Location L achilles, gastro and soleus Mobilization Type Cross-Friction Myofascial Release Sustained Pressure Trigger Point Release Intensity/Depth Moderate Body Position Supine Other Other Manual Treatments PROM - In/Eversion, PF/DF PT-OP-T Assessment and Plan Start: 05/20/18 17:28 Freq: Status: Active Protocol: Document 06/15/18 13:45 DCW (Rec: 06/15/18 14:28 DCW [id number]) Physical Therapy Assessment Impairments Impairments Activity Tolerance Balance Edema Functional Activities Functional Mobility Gait Pain ROM Sensation Soft Tissue Mobility Strength Tone Goals stair climbing Impairment stair climbing Group Home Goal (LTG) able to negotiate her 14 [address] at home independently without AD LTG Duration 8 weeks FAAM score Impairment FAAM Group Home Goal (LTG) to reach FAAM score to 50-66 ( 20-39 %) impairements to improve overall functional mobility. LTG Duration 8 weeks LEFS score Impairment LEFS Group Home Goal (LTG) To reach LEFS score 48-62(20- 39 % impairments) to improve overall functional mobility LTG Duration 8 weeks ROM Impairment ROM Short Term Goal (STG) increase overall L ankle ROM by 5 degrees to improve foot clearance during ambulation and stair climbing STG Duration 4 Baggagemaster Goal (LTG) increase overall L ankle ROM by 10 degrees to improve foot clearance during ambulation and stair climbing LTG Duration 8 pain Impairment pain Short Term Goal (STG) reduce 2/10 L ankle pain to increase activity tolerance for walking at home and community STG Duration 4 Group Home Goal (LTG) reduce 4/10 L ankle pain to increase activity tolerance for walking at home and community LTG Duration 8 Assessment Summary Assessment Pt reported significant tenderness with STM of left calf, therapist recommended she work more on calf stretching with a towel as part of her HEP Physical Therapy Plan Frequency and Duration Frequency of Treatment 2x/Week Duration of Treatment 8 weeks Plan of Care Start Date 05/20/18 Plan of Care End Date 07/18/18 Therapeutic Interventions Therapeutic Interventions Aquatic Therapy Balance Training Coordination Training Gait Training Home Exercise Program Joint Mobilizations Manual Therapy Neuromuscular Re-education Patient/Caregiver Education Self-Care/Home Management Soft Tissue Mobilization Taping Therapeutic Activities Therapeutic Exercises Modalities Cold Pack/Ice Massage Electric Stimulation Hot Packs Next Visit Focus/Plan Next Note Type Treatment Note Next Visit Plan toe curls rom as vianca, might begin iso exercises manual therapy stm around surgical site
--- NOTE | 2018-06-17 15:36 | PT.OTN ---
Current Diagnoses Displaced trimalleolar fracture of left lower leg, subsequent encounter for closed fracture with routine healing (06/17/18) Presence of other bone and tendon implants (06/17/18) Physical Therapy Treatment Note PT-OP-A Visit Information Start: 05/20/18 17:28 Freq: Status: Active Protocol: Document 06/17/18 14:30 HH (Rec: 06/17/18 15:35 HH [email or web address]) Out-Patient Physical Therapy Visit Information Visit Information Visit Type Treatment Note Visit Note pt presents to clinic with regular shoes and amb with SPC Visit Start Time 14:30 Visit Stop Time 15:15 Total Visit Minutes 45 Visit Number 6 Number of WIRELESS SALES ASSOCIATE Visits 0 PT-OP-B Current Condition Start: 05/20/18 17:28 Freq: Status: Active Protocol: Document 05/20/18 14:30 HH (Rec: 05/20/18 18:20 HH [email or web address]) Current Condition History of Current Condition Onset Date 03/27/18 Current Complaints post op L ORIF ankle due to displaced trimalleolar fx History of Current Condition Pt is a pleasant 68 yo female who had ORIF on her L ankle due to a fall. Pt states she tripped over her rub at home on the same day and broke her L foot. She was then admitted to ER and had an emergency surgery. Pt reports she was on a cast and NWB for first 5 weeks. She is now FWB with her L walker boot on at all times since 3 weeks ago. Pt also reports she has been getting physical therapy since sx but she was d/c last week. They have been focusing on functional mobility such as transfer and amb but not much ankle rehab. Pt currently takes hydrocodone 325mg as needed. Treatment Goals Patient/Caregiver Goals pt states I want to walk without boot in pain free, return to my hobby which is sailing and able to climb stairs at home independently. 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 Pt is able to transfer independently and her could help as needed. Functional Limitations- Mobility/Gait Pt has approx 40 steps in total inside and outside of the house. 2 story home with 13 steps (R handrail) to get into the main floor, but she has mechanical lift. She also has 20 steps to get down to basement. Pt primarily lives on the main floor at this point with access to bathroom, living room, bedroom and kitchen. She amb with fww and walker boot. 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 PT-OP-C Subjective Start: 05/20/18 17:28 Freq: Status: Active Protocol: Document 06/17/18 14:30 HH (Rec: 06/17/18 15:35 HH [email or web address]) OP-PT Subjective Patient Comments Patient Comments My doctor said my medial ankle has been healing well and im cleared for my walker boot without restrictions anymore. Patient Reported Progress Improving PT-OP-G Mobility & Gait Start: 05/20/18 17:28 Freq: Status: Active Protocol: Document 05/20/18 14:30 HH (Rec: 05/20/18 18:20 HH [email or web address]) OP Gait Assessment Gait Gait Assistance Required: Independent Able to Maintain Weight Bearing Status Yes During Gait Assistive Devices Assistive Device Front Wheeled Walker Orthotic/Prosthetic Devices or Brace: Yes Gait Deviations General Gait Pattern Antalgic Decreased Stride Length Decreased Feet Clearance Factors Limiting Gait Function Factors Limiting Gait Function Decreased Activity Tolerance Decreased Strength Limited Range of Motion Pain Comments Gait Comments mild L hip hike during swing phase on L due to elevated walker boot compared to R LE PT-OP-J Posture/Palpation/Skin Start: 05/20/18 17:28 Freq: Status: Active Protocol: Document 05/20/18 14:30 HH (Rec: 05/20/18 18:20 HH [email or web address]) Posture Evaluation Position Standing Pelvis Posture (L) Iliac Crest Superior Weight Distribution Weight Shifted Right Palpation Assessment Location L ankle Palpation Location peroneal, lateral malleoli, medial malleoli Palpation Findings Edema Soft Tissue Tightness Tenderness Trigger Point Palpation Details moderate edema inferior to medial and lateral malleoli Hypersensitive to touch and pressure to both surgical site Skin Assessment Edema Assessment Left Ankle Edema Degree 2+ Subjective Edema Description Tightness Comments ecchymosis at lateral maleoli PT-OP-K Range of Motion Start: 05/20/18 17:28 Freq: Status: Active Protocol: Document 05/20/18 14:30 HH (Rec: 05/20/18 18:20 [email or web address]) Ankle and Foot Goniometric Range of Motion Ankle and Foot Measured in Degrees Right Active Ankle/Foot ROM WFL Yes Testing Position Supine Dorsiflexion with Knee Flexed 15 Plantarflexion 50 Inversion 25 Eversion 20 Left Ankle/Foot ROM WFL No Testing Position Supine Dorsiflexion with Knee Extended 3 Plantarflexion 40 Inversion 17 Eversion 5 Ankle and Foot ROM Limitations ROM Limitations Soft Tissue Tightness Muscle Weakness Pain Swelling Comments significant tightness at achilles and gastro PT-OP-M Strength Start: 05/20/18 17:28 Freq: Status: Active Protocol: Document 05/20/18 14:30 HH (Rec: 05/20/18 18:20 [email or web address]) Hip Strength Hip Manual Muscle Testing Right Flexion (L2) 4+ Good+ Extension (S1) 4+ Good+ Abduction 5 Normal Adduction 4+ Good+ Left Flexion (L2) 4- Good- Extension (S1) 4- Good- Abduction 4- Good- Adduction 4+ Good+ Ankle/Foot Strength Ankle and Foot Manual Muscle Testing Right Dorsiflexion (L4) 4+ Good+ Plantarflexion (S1) 4+ Good+ Inversion 4+ Good+ Eversion (S1) 4+ Good+ Left Dorsiflexion (L4) 3- Fair- Plantarflexion (S1) 4- Good- Inversion 3- Fair- Eversion (S1) 3- Fair- PT-OP-Q Treatments Start: 05/20/18 17:28 Freq: Status: Active Protocol: Document 06/17/18 14:30 HH (Rec: 06/17/18 15:35 [email or web address]) Gym Equipment Shuttle Balance 1 Details yellow hook Comments ankle strategy and lateral weight shift Therapeutic Exercises Supine Exercises ankle [place] Supine Exercise Name Ankle Alphabet Side left Iso ankle strengthening Supine Exercise Name concentric Side left Resistance concentric Equipment Used green band on B forefoot Comments ankle DF, PF ,INV and EV at neutral Standing Exercises standing on blue foam pad Equipment Used blue foam pad JOANN board Standing Exercise Name heel touch on ground Side bilateral Comments cues to keep foot point forward not sideways Gait Training Gait Activity L step over Description L LE step over Comments yoga mat on floor; emphasize on heel strike small step over with L LE R step over Description R LE step over, WB on L LE Comments yoga mat on floor; small step over with R LE Manual Therapy Treatment Soft Tissue Mobilization Scar Massage Body Location Surgical Incision Body Position Sitting Comments Warm oil STM Body Location L achilles, gastro and soleus Mobilization Type Cross-Friction Myofascial Release Sustained Pressure Trigger Point Release Intensity/Depth Moderate Body Position Supine Neuro Re-Education Treatment Balance Activities standing balance on blue ilya disk Equipment blue ilya disk Comments with UE support as needed PT-OP-T Assessment and Plan Start: 05/20/18 17:28 Freq: Status: Active Protocol: Document 06/17/18 14:30 HH (Rec: 06/17/18 15:35 HH [email or web address]) Physical Therapy Assessment Assessment Summary Assessment Pt is now cleared for walker boot and restrictions free. Pt vianca tx very well today. She reports reduced swelling, tenderness at surgical site and musculatures. today's tx focused on manual therapy, ankle ROM, static balance ex on shuttle board and ilya disk , and gait training with emphasis on SLS and weight acceptance. Pt was able to demonstrates proper L heel strike and even stride length towards the end of session. Recommended pt to carry her SPC for support as needed. Physical Therapy Plan Next Visit Focus/Plan Next Note Type Treatment Note Next Visit Plan gait training (L foot weight acceptance, heel strike) static and dynamic balance ex rom as vianca, strengthening exercises as vianca manual therapy stm around surgical site
--- NOTE | 2018-06-24 16:33 | PT.OTN ---
Current Diagnoses Displaced trimalleolar fracture of left lower leg, subsequent encounter for closed fracture with routine healing (06/24/18) Presence of other bone and tendon implants (06/24/18) Physical Therapy Treatment Note PT-OP-A Visit Information Start: 05/20/18 17:28 Freq: Status: Active Protocol: Document 06/24/18 14:30 HH (Rec: 06/24/18 16:33 HH [email or web address]) Out-Patient Physical Therapy Visit Information Visit Information Visit Type Treatment Note Visit Note Progress note today Visit Start Time 14:30 Visit Stop Time 15:15 Total Visit Minutes 45 Visit Number 7 Number of UNIT CLERK Visits 0 PT-OP-B Current Condition Start: 05/20/18 17:28 Freq: Status: Active Protocol: Document 05/20/18 14:30 HH (Rec: 05/20/18 18:20 HH [email or web address]) Current Condition History of Current Condition Onset Date 03/27/18 Current Complaints post op L ORIF ankle due to displaced trimalleolar fx History of Current Condition Pt is a pleasant 68 yo female who had ORIF on her L ankle due to a fall. Pt states she tripped over her rub at home on the same day and broke her L foot. She was then admitted to ER and had an emergency surgery. Pt reports she was on a cast and NWB for first 5 weeks. She is now FWB with her L walker boot on at all times since 3 weeks ago. Pt also reports she has been getting physical therapy since sx but she was d/c last week. They have been focusing on functional mobility such as transfer and amb but not much ankle rehab. Pt currently takes hydrocodone 325mg as needed. Treatment Goals Patient/Caregiver Goals pt states I want to walk without boot in pain free, return to my hobby which is sailing and able to climb stairs at home independently. 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 Pt is able to transfer independently and her could help as needed. Functional Limitations- Mobility/Gait Pt has approx 40 steps in total inside and outside of the house. 2 story home with 13 steps (R handrail) to get into the main floor, but she has mechanical lift. She also has 20 steps to get down to basement. Pt primarily lives on the main floor at this point with access to bathroom, living room, bedroom and kitchen. She amb with fww and walker boot. 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 PT-OP-C Subjective Start: 05/20/18 17:28 Freq: Status: Active Protocol: Document 06/24/18 14:30 HH (Rec: 06/24/18 16:33 HH [email or web address]) OP-PT Subjective Patient Comments Patient Comments Emma been walking without AD but my inner ankle has been hurting on and off if i walk a lot. PT-OP-G Mobility & Gait Start: 05/20/18 17:28 Freq: Status: Active Protocol: Document 05/20/18 14:30 HH (Rec: 05/20/18 18:20 HH [email or web address]) OP Gait Assessment Gait Gait Assistance Required: Independent Able to Maintain Weight Bearing Status Yes During Gait Assistive Devices Assistive Device Front Wheeled Walker Orthotic/Prosthetic Devices or Brace: Yes Gait Deviations General Gait Pattern Antalgic Decreased Stride Length Decreased Feet Clearance Factors Limiting Gait Function Factors Limiting Gait Function Decreased Activity Tolerance Decreased Strength Limited Range of Motion Pain Comments Gait Comments mild L hip hike during swing phase on L due to elevated walker boot compared to R LE PT-OP-J Posture/Palpation/Skin Start: 05/20/18 17:28 Freq: Status: Active Protocol: Document 05/20/18 14:30 HH (Rec: 05/20/18 18:20 HH [email or web address]) Posture Evaluation Position Standing Pelvis Posture (L) Iliac Crest Superior Weight Distribution Weight Shifted Right Palpation Assessment Location L ankle Palpation Location peroneal, lateral malleoli, medial malleoli Palpation Findings Edema Soft Tissue Tightness Tenderness Trigger Point Palpation Details moderate edema inferior to medial and lateral malleoli Hypersensitive to touch and pressure to both surgical site Skin Assessment Edema Assessment Left Ankle Edema Degree 2+ Subjective Edema Description Tightness Comments ecchymosis at lateral maleoli PT-OP-K Range of Motion Start: 05/20/18 17:28 Freq: Status: Active Protocol: Document 05/20/18 14:30 HH (Rec: 05/20/18 18:20 [email or web address]) Ankle and Foot Goniometric Range of Motion Ankle and Foot Measured in Degrees Right Active Ankle/Foot ROM WFL Yes Testing Position Supine Dorsiflexion with Knee Flexed 15 Plantarflexion 50 Inversion 25 Eversion 20 Left Ankle/Foot ROM WFL No Testing Position Supine Dorsiflexion with Knee Extended 3 Plantarflexion 40 Inversion 17 Eversion 5 Ankle and Foot ROM Limitations ROM Limitations Soft Tissue Tightness Muscle Weakness Pain Swelling Comments significant tightness at achilles and gastro PT-OP-M Strength Start: 05/20/18 17:28 Freq: Status: Active Protocol: Document 05/20/18 14:30 HH (Rec: 05/20/18 18:20 [email or web address]) Hip Strength Hip Manual Muscle Testing Right Flexion (L2) 4+ Good+ Extension (S1) 4+ Good+ Abduction 5 Normal Adduction 4+ Good+ Left Flexion (L2) 4- Good- Extension (S1) 4- Good- Abduction 4- Good- Adduction 4+ Good+ Ankle/Foot Strength Ankle and Foot Manual Muscle Testing Right Dorsiflexion (L4) 4+ Good+ Plantarflexion (S1) 4+ Good+ Inversion 4+ Good+ Eversion (S1) 4+ Good+ Left Dorsiflexion (L4) 3- Fair- Plantarflexion (S1) 4- Good- Inversion 3- Fair- Eversion (S1) 3- Fair- PT-OP-Q Treatments Start: 05/20/18 17:28 Freq: Status: Active Protocol: Document 06/24/18 14:30 HH (Rec: 06/24/18 16:33 [email or web address]) Therapeutic Exercises Supine Exercises ankle [place] Supine Exercise Name Ankle Alphabet Side left Equipment Used pink band Sitting Exercises ankle [place] on ilya disk Sitting Exercise Name standing Side left Equipment Used ilya disk Comments lateral and sagittal weight shift Standing Exercises single leg stance Side bilateral Comments within bilateral bars march Side bilateral Comments within // bars foot slide Standing Exercise Name stand on R LE Side left Equipment Used foot slider Comments star directions toe tap Standing Exercise Name stand on R LE Side left Comments star directions Gait Training Gait Activity heel toe tandem walk Comments within parallel bar PT-OP-T Assessment and Plan Start: 05/20/18 17:28 Freq: Status: Active Protocol: Document 06/24/18 14:30 HH (Rec: 06/24/18 16:33 HH [email or web address]) Physical Therapy Assessment Impairments Impairments Activity Tolerance Balance Edema Functional Activities Functional Mobility Gait Pain ROM Sensation Soft Tissue Mobility Strength Tone Goals stair climbing Impairment stair climbing Amusement Machine Mechanic Goal (LTG) goal met: able to negotiate her 14 B[address] at home independently without AD FAAM score Impairment FAAM Amusement Machine Mechanic Goal (LTG) Cont to monitor LTG Duration 8 weeks LEFS score Impairment LEFS Amusement Machine Mechanic Goal (LTG) cont to monitor LTG Duration 4 weeks ROM Nursing Home Goal (LTG) increase overall L ankle ROM by 10 degrees to improve foot clearance during ambulation and stair climbing LTG Duration 4 weeks pain Short Term Goal (STG) Goal met: reduce 2/10 L ankle pain to increase activity tolerance for walking at home and community Progress Towards Goals Progress Towards Goals Progressing Toward Goals Assessment Summary Assessment Pt cont progress very well with therapy. Pt currently does not use AD for amb anymore and she was able to amb as vianca. She does c/o increased dull ankle pain with increased activity level. However, pt demonstrates her single leg balance for B LE . 15s and she was able to amb with heel strikes. Pt's next visit will be on 07/17/18. New HEP given with marches, tandem walk, star balance toe tap. Physical Therapy Plan Next Visit Focus/Plan Next Note Type Re-Evaluation Next Visit Plan POC ends next visit Cont POC/ DC cont balance training/ gait training as vianca
--- NOTE | 2018-06-30 13:03 | PT.OTN ---
Current Diagnoses Displaced trimalleolar fracture of left lower leg, subsequent encounter for closed fracture with routine healing (06/30/18) Presence of other bone and tendon implants (06/30/18) Physical Therapy Treatment Note PT-OP-A Visit Information Start: 05/20/18 17:28 Freq: Status: Active Protocol: Document 06/30/18 11:20 HH (Rec: 06/30/18 13:03 [email or web address]) Out-Patient Physical Therapy Visit Information Visit Information Visit Type Discharge Summary Visit Start Time 11:20 Visit Stop Time 12:00 Total Visit Minutes 40 Visit Number 8 Number of BROADCAST DIRECTOR OPERATIONS Visits 0 PT-OP-B Current Condition Start: 05/20/18 17:28 Freq: Status: Active Protocol: Document 05/20/18 14:30 HH (Rec: 05/20/18 18:20 HH [email or web address]) Current Condition History of Current Condition Onset Date 03/27/18 Current Complaints post op L ORIF ankle due to displaced trimalleolar fx History of Current Condition Pt is a pleasant 68 yo female who had ORIF on her L ankle due to a fall. Pt states she tripped over her rub at home on the same day and broke her L foot. She was then admitted to ER and had an emergency surgery. Pt reports she was on a cast and NWB for first 5 weeks. She is now FWB with her L walker boot on at all times since 3 weeks ago. Pt also reports she has been getting physical therapy since sx but she was d/c last week. They have been focusing on functional mobility such as transfer and amb but not much ankle rehab. Pt currently takes hydrocodone 325mg as needed. Treatment Goals Patient/Caregiver Goals pt states I want to walk without boot in pain free, return to my hobby which is sailing and able to climb stairs at home independently. 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 Pt is able to transfer independently and her could help as needed. Functional Limitations- Mobility/Gait Pt has approx 40 steps in total inside and outside of the house. 2 story home with 13 steps (R handrail) to get into the main floor, but she has mechanical lift. She also has 20 steps to get down to basement. Pt primarily lives on the main floor at this point with access to bathroom, living room, bedroom and kitchen. She amb with fww and walker boot. 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 PT-OP-C Subjective Start: 05/20/18 17:28 Freq: Status: Active Protocol: Document 06/30/18 11:20 HH (Rec: 06/30/18 13:03 HH [email or web address]) OP-PT Subjective Patient Comments Patient Comments I've been doing all my HEP especially those balance exercises. I think im 100 5 recovered and ready to be d/c. Patient Reported Progress Improving PT-OP-G Mobility & Gait Start: 05/20/18 17:28 Freq: Status: Active Protocol: Document 05/20/18 14:30 HH (Rec: 05/20/18 18:20 [email or web address]) OP Gait Assessment Gait Gait Assistance Required: Independent Able to Maintain Weight Bearing Status Yes During Gait Assistive Devices Assistive Device Front Wheeled Walker Orthotic/Prosthetic Devices or Brace: Yes Gait Deviations General Gait Pattern Antalgic Decreased Stride Length Decreased Feet Clearance Factors Limiting Gait Function Factors Limiting Gait Function Decreased Activity Tolerance Decreased Strength Limited Range of Motion Pain Comments Gait Comments mild L hip hike during swing phase on L due to elevated walker boot compared to R LE PT-OP-J Posture/Palpation/Skin Start: 05/20/18 17:28 Freq: Status: Active Protocol: Document 05/20/18 14:30 HH (Rec: 05/20/18 18:20 [email or web address]) Posture Evaluation Position Standing Pelvis Posture (L) Iliac Crest Superior Weight Distribution Weight Shifted Right Palpation Assessment Location L ankle Palpation Location peroneal, lateral malleoli, medial malleoli Palpation Findings Edema Soft Tissue Tightness Tenderness Trigger Point Palpation Details moderate edema inferior to medial and lateral malleoli Hypersensitive to touch and pressure to both surgical site Skin Assessment Edema Assessment Left Ankle Edema Degree 2+ Subjective Edema Description Tightness Comments ecchymosis at lateral maleoli PT-OP-K Range of Motion Start: 05/20/18 17:28 Freq: Status: Active Protocol: Document 05/20/18 14:30 HH (Rec: 05/20/18 18:20 [email or web address]) Ankle and Foot Goniometric Range of Motion Ankle and Foot Measured in Degrees Right Active Ankle/Foot ROM WFL Yes Testing Position Supine Dorsiflexion with Knee Flexed 15 Plantarflexion 50 Inversion 25 Eversion 20 Left Ankle/Foot ROM WFL No Testing Position Supine Dorsiflexion with Knee Extended 3 Plantarflexion 40 Inversion 17 Eversion 5 Ankle and Foot ROM Limitations ROM Limitations Soft Tissue Tightness Muscle Weakness Pain Swelling Comments significant tightness at achilles and gastro PT-OP-M Strength Start: 05/20/18 17:28 Freq: Status: Active Protocol: Document 05/20/18 14:30 HH (Rec: 05/20/18 18:20 [email or web address]) Hip Strength Hip Manual Muscle Testing Right Flexion (L2) 4+ Good+ Extension (S1) 4+ Good+ Abduction 5 Normal Adduction 4+ Good+ Left Flexion (L2) 4- Good- Extension (S1) 4- Good- Abduction 4- Good- Adduction 4+ Good+ Ankle/Foot Strength Ankle and Foot Manual Muscle Testing Right Dorsiflexion (L4) 4+ Good+ Plantarflexion (S1) 4+ Good+ Inversion 4+ Good+ Eversion (S1) 4+ Good+ Left Dorsiflexion (L4) 3- Fair- Plantarflexion (S1) 4- Good- Inversion 3- Fair- Eversion (S1) 3- Fair- PT-OP-Q Treatments Start: 05/20/18 17:28 Freq: Status: Active Protocol: Document 06/30/18 11:20 HH (Rec: 06/30/18 13:03 [email or web address]) Therapeutic Exercises Supine Exercises ankle three affiliated Supine Exercise Name Ankle Alphabet Side left Equipment Used pink band Sitting Exercises ankle three affiliated on ilya disk Sitting Exercise Name standing Side left Equipment Used ilya disk Comments lateral and sagittal weight shift Standing Exercises single leg stance Side bilateral Comments within bilateral bars march Side bilateral Comments within // bars foot slide Standing Exercise Name stand on R LE Side left Equipment Used foot slider Comments star directions JOANN board Standing Exercise Name heel touch on ground Side bilateral Comments cues to keep foot point forward not sideways Neuro Re-Education Treatment Balance Activities standing balance on blue ilya disk Equipment blue ilya disk Comments with UE support as needed PT-OP-T Assessment and Plan Start: 05/20/18 17:28 Freq: Status: Active Protocol: Document 06/30/18 11:20 (Rec: 06/30/18 13:03 [email or web address]) Physical Therapy Assessment Goals FAAM score Reheater Goal (LTG) D/C today due to good progress reported by patient LEFS score Reheater Goal (LTG) D/C today due to good progress reported by patient ROM Assisted Goal (LTG) D/C today due to good progress reported by patient pain Reheater Goal (LTG) goal met : no pain recently Progress Towards Goals Progress Towards Goals Goals Met Assessment Summary Assessment Pt states she is 100% recovered at this point. Denies pain and discomfort at the L ankle but more from her L knee now. Pt will get injections from doctor next week. Pt has been compliant to HEP and cont improve overall mobility without symptoms. Went through all HEP today and pt demonstrated very good understanding of safety awareness and her HEP. D/C from PT today. Physical Therapy Plan Discharge Physical Therapy Discharge Reasons Goals Met Discharge Comments Pt states she is 100% recovered at this point. Denies pain and discomfort at the L ankle but more from her L knee now. Pt will get injections from doctor next week. Pt has been compliant to HEP and cont improve overall mobility without symptoms. Went through all HEP today and pt demonstrated very good understanding of safety awareness and her HEP. D/C from PT today.
== END 2018-06-30 14:20 ==
LOC: PHYS 11:15
PROVIDERS: PCP Family Medicine; Visit Provider Physician Assistant
DX: Z96.7 Presence of other bone and tendon implants (principal); S82.852D Displaced trimalleolar fracture of left lower leg, subsequent encounter for closed fracture with routine healing
CPT/HCPCS: 97110; 97112; 97116; 97140; 97162

== ENCOUNTER → 2019-05-18 10:59 | Outpatient (CLI) | payer MEDICARE, OTHER, SELFPAY ==
[2018-03-28 01:02] VITALS: BMI 32.5
--- NOTE | 2019-05-18 | DI.RAD.S_ITS ---
PROCEDURE: XR CHEST 2V INDICATIONS: Chest pain, unspecified TECHNIQUE: 2 views of the chest were acquired. COMPARISON: [facility], , CHEST 2 VIEW, 01/13/2014, 9:25. FINDINGS: Surgical changes and devices: Scattered left sided surgical clips. Lungs and pleura: Scattered subsegmental atelectasis and/or scarring. No focal consolidation. No pleural effusions or pneumothorax. Hiatal hernia as before. Mediastinum: Mediastinal contours are normal. Heart size is normal. Bones and chest wall: No suspicious bony abnormalities. Soft tissues appear unremarkable. IMPRESSION: Scattered subsegmental atelectasis and/or scarring. No acute consolidation. Hiatal hernia as before Dictated by: Loy Eaton M.D. on 05/18/2019 at 15:21 Approved by: Loy Eaton M.D. on 05/18/2019 at 15:22
== END ==
PROVIDERS: PCP Student in an Organized Health Care Education/Training Program; Visit Provider Student in an Organized Health Care Education/Training Program
DX: R07.9 Chest pain, unspecified (principal); K44.9 Diaphragmatic hernia without obstruction or gangrene
CPT/HCPCS: 71046

== ENCOUNTER → 2019-05-24 07:26 | Outpatient (CLI) | payer MEDICARE, OTHER, SELFPAY ==
[2018-03-28 01:02] VITALS: BMI 32.5
--- NOTE | 2019-05-24 | DI.MRI.S_ITS ---
PROCEDURE: MR HEAD/BRAIN WO CON INDICATIONS: Cerebral infarction, unspecified TECHNIQUE: Noncontrast axial T1 spin echo, axial T2 fast spin echo, sagittal and axial FLAIR, coronal T2 fast spin echo, axial gradient echo, axial diffusion and ADC through the brain. COMPARISON: [facility], CT, HEAD WITHOUT CONTRAST, 11/01/2014, 18:13. [facility], MR, MR HEAD/BRAIN WO/W CON, 10/06/2017, 11:57. FINDINGS: Image quality: Excellent. CSF Spaces: Basal cisterns are patent. No extra-axial fluid collections. Ventricles are stable in size and shape, asymmetrically enlarged on the left especially anteriorly, related to chronic encephalomalacia from a prior presumed stroke or traumatic injury to the left frontal-parietal region. Brain: No intracranial masses or hemorrhage. Rivera/white matter interface is normal. Brainstem appears normal. Diffusion-weighted images demonstrate no acute ischemic insult. No chronic ischemic insults. Normal intravascular flow voids are present. Skull and face: Calvarium has normal marrow signal. Orbits appear normal. Sinuses: Sinuses and mastoids are clear. IMPRESSION: Chronic stroke or prior trauma with encephalomalacia to the left frontal-parietal region, no new stroke or evidence of other source of altered mental status is found. Dictated by: Fernando Osorio M.D. on 05/24/2019 at 9:55 Approved by: Fernando Osorio M.D. on 05/24/2019 at 9:59
[2019-05-24 10:28] LABS: Troponin I < 0.012 ng/mL (0.01-0.034)
== END ==
PROVIDERS: PCP Student in an Organized Health Care Education/Training Program; Visit Provider Student in an Organized Health Care Education/Training Program
DX: I63.9 Cerebral infarction, unspecified (principal); G93.89 Other specified disorders of brain
CPT/HCPCS: 70551; 84484

== ENCOUNTER → 2019-06-24 09:51 | Outpatient (CLI) | payer MEDICARE, OTHER, SELFPAY ==
[2018-03-28 01:02] VITALS: BMI 32.5
--- NOTE | 2019-06-24 17:35 | DI.NM.S_ITS ---
DATE OF SERVICE: 06/24/2019 PROCEDURE PERFORMED:: Pharmacologic vasodilator stress and rest myocardial perfusion imaging with gating to assess ejection fraction and regional wall motion using a one day protocol. ORDERING PROVIDER:: Dr. Titus Heart. INDICATIONS:: The patient is a 69-year-old diabetic hypertensive female with a history of stroke and atypical chest pain. CARDIAC STRESS:: Per protocol, 0.4 mg of regadenoson was infused with some brief flushing and dyspnea but no chest discomfort. Her resting ECG shows sinus rhythm without significant ST-segment abnormalities and there are no significant ST-segment shifts or arrhythmias. Per protocol, she was injected with 25.2 mCi of technetium-99m Myoview and was imaged 20 minutes later using a gated SPECT acquisition protocol. Earlier in the day, at rest, she had been injected with 14.0 mCi of technetium-99m Myoview and was imaged 30 minutes later using a gated SPECT acquisition protocol. FINDINGS:: 1. Raw Data: There is marginal image quality with clear body wall attenuation, particularly inferolaterally. Lung-heart ratio is normal at 0.35 with a TID ratio of 0.75. The patient was unable to lay prone due to limited mobility. 2. Quantitated gated SPECT: Post-stress ejection fraction is estimated at 81% without any focal wall motion abnormality and specifically the inferior wall appears to have normal contractility. The resting ejection fraction is also 81% with an end-diastolic volume of 58 mL.. 3. Myocardial perfusion imaging: Post-stress supine images shows a fairly normal myocardial perfusion pattern although with mildly reduced tracer activity in the proximal to mid inferior wall in a pattern that would be consistent with diaphragmatic attenuation. Unfortunately, there are no prone images to assess for this. The resting images show an identical perfusion pattern without any areas of improvement.. CONCLUSION:: 1. Probable normal myocardial perfusion study. 2. Mild fixed proximal to mid inferior wall perfusion defect that likely reflects attenuation artifact given the absence of any regional wall motion abnormality in this distribution but prone imaging was not available to assess for this. There is no evidence for any myocardial ischemia. 3. Normal left ventricular systolic function without any focal wall motion abnormalities. 4. No angina or ECG evidence of ischemia with pharmacologic vasodilator stress. Wilber Lara - CELESTINO/glory/sara doc#: [id number]/job#: [id number] dd: 06/24/2019 16:51:00 dt: 06/24/2019 17:21:00 DICTATING MD/COPIES TO: Octavio Shay MD; Kacie Heart MD COPIES MNE: ALEXSANDRA;
== END ==
PROVIDERS: PCP Student in an Organized Health Care Education/Training Program; Referring Provider Internal Medicine Cardiovascular Disease; Visit Provider Internal Medicine Cardiovascular Disease
DX: R07.89 Other chest pain (principal); E11.9 Type 2 diabetes mellitus without complications; I10 Essential (primary) hypertension; Z86.73 Personal history of transient ischemic attack (TIA), and cerebral infarction without residual deficits
CPT/HCPCS: 78452; 93017; A9502; J2785

== ENCOUNTER → 2019-09-14 13:50 | Outpatient (CLI) | payer MEDICARE, OTHER, SELFPAY ==
[2018-03-28 01:02] VITALS: BMI 32.5
[2019-09-14 15:15] LABS: Add Manual Diff / Slide Review NO; Basophils Absolute Auto 0 /uL (0-100); Basophils Percent Auto 0.5 % (0-2); Eosinophils Absolute Auto 400 /uL (0-450); Eosinophils Percent Auto 4.5 % (2-4); Hematocrit 37.9 % (36-46); Hemoglobin 12.9 g/dL (12.0-16.0); Lymphocytes Absolute Auto 1400 /uL (1100-4500); Lymphocytes Percent Auto 16.6 % (25-40); Mean Corpuscular HGB Conc 34.1 % (30-36); Mean Corpuscular Hemoglobin 31.6 PG (26-34); Mean Corpuscular Volume 92.7 fL (80-100); Monocytes Absolute Auto 400 /uL (0-900); Monocytes Percent Auto 4.7 % (3-14); Neutrophils Absolute Auto 6200 /uL (1500-7000); Neutrophils Percent Auto 73.7 % (50-75); Platelet Count 501 X10^3/uL (150-400); Red Blood Cell Count 4.09 X10^6/uL (4.0-5.2); White Blood Cell Count 8.4 X10^3/uL (4.5-11.0)
[2019-09-14 15:35] LABS: Appearance Urine UA CLOUDY; Bilirubin Urine UA NEGATIVE (NEGATIVE); Color Urine UA YELLOW; Glucose Urine UA NEGATIVE (Negative); Ketones Urine UA NEGATIVE (NEGATIVE); Leukocyte Esterase Urine UA 3+ (NEGATIVE); Nitrite Urine UA NEGATIVE (Negative); Occult Blood Urine UA 3+ (Negative); Protein Urine UA 2+ (Negative); Urobilinogen Urine UA 0.2 E.U./dL (0.2)
[2019-09-14 15:49] LABS: Alanine Aminotransferase 16 IU/L (<35); Albumin 4.3 g/dL (3.5-5.0); Albumin Globulin Ratio 1.2 (1.0-2.8); Alkaline Phosphatase 135 U/L (38-126); Aspartate Aminotransferase 20 IU/L (14-36); BUN Creatinine Ratio 13.2 (6-22); Bilirubin Total 0.3 mg/dL (0.2-1.3); Blood Urea Nitrogen 18 mg/dL (7-17); Calcium 9.3 mg/dL (8.4-10.2); Carbon Dioxide 21 mmol/L (22-32); Chloride 107 mmol/L (98-107); Estimated Glomerular Filt Rate 38.8 mL/min (>60); Globulin 3.7 g/dL (1.7-4.1); Glucose 89 mg/dL (80-110); HEMOLYSIS < 15 (0-50); Potassium 4.6 mmol/L (3.4-5.1); Sodium 140 mmol/L (137-145)
[2019-09-14 15:51] LABS: Bacteria Urine Many (>30); Culture Indicated Urine Specimen Cultured; RBC Urine 10-30/HPF (0-5/HPF); Squamous Epithelial Cell Urine 1-5 /HPF (0-5/HPF); WBC Urine >100/HPF (0-5/HPF)
== END ==
PROVIDERS: PCP Student in an Organized Health Care Education/Training Program; Referring Provider Psychiatry & Neurology Neurology; Visit Provider Psychiatry & Neurology Neurology
DX: Z51.81 Encounter for therapeutic drug level monitoring (principal)
CPT/HCPCS: 36415; 80053; 81001; 85025; 87077; 87086; 87186

== ENCOUNTER → 2020-08-08 14:48 | Outpatient (CLI) | payer MEDICARE, OTHER, SELFPAY ==
[2018-03-28 01:02] VITALS: BMI 32.5
--- NOTE | 2020-08-08 | DI.RAD.S_ITS ---
PROCEDURE: XR CHEST 2V INDICATIONS: COUGH FOR 3 MONTHS TECHNIQUE: 2 views of the chest were acquired. COMPARISON: [facility], , CHEST 2 VIEW, 01/13/2014, 9:25. [facility], , XR CHEST 2V, 05/18/2019, 11:05. FINDINGS: Surgical changes and devices: Surgical clips in the left breast and epigastrium. Lungs and pleura: There is chronic interstitial prominence. Left basilar opacity is most likely atelectasis. No pleural effusions or pneumothorax. Mediastinum: Mediastinal contours are normal. Heart size is normal. There is a large hiatal hernia. Aorta is tortuous and calcified. Bones and chest wall: No suspicious bony abnormalities. Soft tissues appear unremarkable. IMPRESSION: 1. Large hiatal hernia. 2. Left basilar opacities most likely atelectasis. Dictated by: Heydi Negron M.D. on 08/08/2020 at 15:24 Approved by: Heydi Negron M.D. on 08/08/2020 at 15:27
== END ==
PROVIDERS: PCP Student in an Organized Health Care Education/Training Program; Referring Provider Nurse Practitioner Family; Visit Provider Nurse Practitioner Family
DX: R05 Cough (principal); K44.9 Diaphragmatic hernia without obstruction or gangrene
CPT/HCPCS: 71046

== ENCOUNTER → 2020-09-06 11:19 | Outpatient (CLI) | payer MEDICARE, OTHER, SELFPAY ==
[2018-03-28 01:02] VITALS: BMI 32.5
--- NOTE | 2020-09-06 | DI.US.S_ITS ---
PROCEDURE: US RENAL COMPLETE INDICATIONS: Chronic kidney disease, stage 3 unspecified TECHNIQUE: Real-time scanning was performed of the kidneys and bladder, with image documentation. COMPARISON: None. FINDINGS: Kidneys: Kidneys are normal in size. Right kidney measures 10.2 cm long; left kidney measures 10.1 cm long. Right renal cortical thickness is 1.5 cm; left renal cortical thickness is 1.2 cm. Renal cortical echotexture is normal. No hydronephrosis or nephrolithiasis. No suspicious solid mass lesions. There is a finding of several cysts at the right kidney, the largest as at the right mid kidney simple in appearance and measuring 2.8 x 2.3 x 2.8 cm. There also is a single small left renal cortical cyst superiorly, measuring 1.2 x 1.0 x 1.0 cm. Bladder: Pre-void bladder volume is 170 mL. Post-void residual is 1.0 mL. Pre-void images demonstrate no intraluminal masses or stones. On pre-void images, bilateral ureteral jets are noted with color Doppler interrogation. (Of note, ureteral jets may not be detectable in up to 25% of cases due to insufficient differences in specific gravity between ureteral and bladder urine). Miscellaneous: No free pelvic fluid. IMPRESSION: No urinary tract stone is found. Several scattered simple right renal cortical cysts are present the largest of which measures up to 2.8 cm. The left kidney contains a single simple cyst measuring up to 1.2 cm. No hydronephrosis found. Normal bladder function. Dictated by: Fernando Osorio M.D. on 09/06/2020 at 15:27 Approved by: Fernando Osorio M.D. on 09/06/2020 at 15:29
== END ==
PROVIDERS: PCP Student in an Organized Health Care Education/Training Program; Referring Provider Internal Medicine Nephrology; Visit Provider Internal Medicine Nephrology
DX: N18.30 Chronic kidney disease, stage 3 unspecified (principal); N28.1 Cyst of kidney, acquired
CPT/HCPCS: 76770

== ENCOUNTER → 2020-10-10 12:38 | Outpatient (ROUT) | payer MEDICARE, OTHER, SELFPAY ==
[2018-03-28 01:02] VITALS: BMI 32.5
[2020-10-10 12:57] LABS: D Dimer 393 ng/mL (<230)
== END ==
PROVIDERS: PCP Student in an Organized Health Care Education/Training Program; Visit Provider Student in an Organized Health Care Education/Training Program
DX: R05 Cough (principal)
CPT/HCPCS: 85379

== ENCOUNTER → 2020-10-11 11:02 | Outpatient (CLI) | payer MEDICARE, OTHER, SELFPAY ==
[2018-03-28 01:02] VITALS: BMI 32.5
--- NOTE | 2020-10-11 | DI.CT.S_ITS ---
PROCEDURE: CT CHEST WO CON INDICATIONS: Cough TECHNIQUE: Noncontrast 5 mm thick sections acquired from the pulmonary apices to the posterior costophrenic angles. 1 mm lung window, 5 mm thick coronal and sagittal and 7 mm axial MIP reformats were then acquired. For radiation dose reduction, the following was used: automated exposure control, adjustment of mA and/or kV according to patient size. COMPARISON: [facility], CT, PE STUDY (CTA CHEST), 10/05/2015, 17:49. FINDINGS: Image quality: Excellent. Lungs and pleura: Subtle ground-glass opacity in the right apex, (3/52), similar to 2016. Left lung base streaky and ground-glass opacity which is increased compared to 2016. Left lower lobe volume loss. Left lower lobe pulmonary nodule measuring at 0.4 cm, (2/24), unchanged since 2016. Left lower lobe pulmonary nodule measuring at 0.5 cm, (2/28), previously 0.7 cm. No pleural effusions or pneumothorax. Central and peripheral airways are patent and normal in caliber. Mediastinum: Heart size is normal. Trace coronary artery calcifications. No pericardial effusion. No mediastinal adenopathy by size criteria. Thoracic aorta and central pulmonary arteries are normal in size. Esophagus is normal in caliber. Suspect prior gastric sleeve and hernia repair. There is small hiatal hernia and moderate herniated fat. Large diaphragmatic hiatus. Overall this appears similar to the 20,016 exam. Bones and chest wall: No suspicious bony lesions. Prior sternal deformity. Suspect prior left-sided rib fractures. No vertebral body compression fractures. No axillary or supraclavicular adenopathy by size criteria. Left axillary clips. Bilateral mastectomy. Thyroid gland is unremarkable. Abdomen: Visualized upper abdominal solid organs and bowel loops appear normal in the absence of contrast. IMPRESSION: 1. Mild ground-glass opacity at the left lower lobe. This is suspicious for infectious/inflammatory etiology. There is also likely a component of since scarring due to prior hernia/gastric surgery. 2. No enlarged lymph nodes seen. 3. Prior bilateral mastectomy. Dictated by: Marvin Camacho M.D. on 10/11/2020 at 12:51 Approved by: Marvin Camacho M.D. on 10/11/2020 at 13:04
== END ==
PROVIDERS: PCP Student in an Organized Health Care Education/Training Program; Referring Provider Student in an Organized Health Care Education/Training Program; Visit Provider Student in an Organized Health Care Education/Training Program
DX: R05 Cough (principal); Z90.13 Acquired absence of bilateral breasts and nipples
CPT/HCPCS: 71250

== ENCOUNTER → 2020-10-12 13:31 | Outpatient (CLI) | payer MEDICARE, OTHER, SELFPAY ==
[2018-03-28 01:02] VITALS: BMI 32.5
--- NOTE | 2020-10-12 | DI.CT.S_ITS ---
PROCEDURE: CT ANGIO CHEST PE PROTOCOL INDICATIONS: Abnormal coagulation profile. Elevated d-dimer TECHNIQUE: After the administration of intravenous contrast, 2 mm thick sections acquired from the pulmonary apices to the posterior costophrenic angles. 3-dimensional maximum intensity projection (MIP) coronal and sagittal reformats were then acquired through the thorax. For radiation dose reduction, the following was used: automated exposure control, adjustment of mA and/or kV according to patient size. COMPARISON: [facility], CT, PE STUDY (CTA CHEST), 10/05/2015, 17:49. FINDINGS: Lungs: 5 mm subpleural left upper lobe pulmonary nodule is unchanged since 2016 therefore benign. Scattered subsegmental atelectasis and/or scarring. No focal consolidation. Patchy and streaky ill-defined opacities seen within the left lower lobe. Airway thickening in keeping with nonspecific bronchitis and/or reactive airways disease. Pleura: No pleural effusion or pneumothorax. Heart: Mildly enlarged. No pericardial effusion. Chest nodes: Normal. Thyroid gland: Negative Aorta: Normal in size. Scattered vascular calcifications are present. Pulmonary arteries: No intraluminal filling defects. Esophagus: Postsurgical changes at stomach. There is a moderate hiatal hernia. Overall unchanged appearance. Upper abdomen: Presumed bilateral exophytic renal cysts Bones: Chronic left rib fracture with callus formation. Spondylitic changes. IMPRESSION: No evidence of pulmonary embolism. No aortic dissection identified. Streaky and patchy ill-defined opacities within the left lower lobe suggestive of mild aspiration/atelectasis versus developing pneumonia. If there is persistent clinical diagnostic uncertainty, continued surveillance with short interval radiographic followup after treatment is recommended. Additional chronic and incidental findings as above. Dictated by: Loy Eaton M.D. on 10/12/2020 at 17:17 Approved by: Loy Eaton M.D. on 10/12/2020 at 17:22
--- NOTE | 2020-10-12 17:43 | PC.NURSE ---
Normal Saline 1000mL over one hour started at 1715 (10/12/2020)
--- NOTE | 2020-10-12 18:43 | PC.NURSE ---
Normal saline 1000mL completed; D/C right upper arm IV - Dressing applied to insertion site;
== END ==
PROVIDERS: PCP Student in an Organized Health Care Education/Training Program; Referring Provider Student in an Organized Health Care Education/Training Program; Visit Provider Student in an Organized Health Care Education/Training Program
DX: R79.1 Abnormal coagulation profile (principal)
CPT/HCPCS: 71275; Q9967

== ENCOUNTER 2020-10-24 09:27 | Inpatient (IN) | payer MEDICARE, OTHER, SELFPAY ==
[2018-03-28 01:02] VITALS: BMI 32.5
[2020-10-24] VITALS (55 sets, daily range): BP systolic 73–123; BP diastolic 46–55; PULSE 61–78; RESP 13–36; TEMP 35.7–36.6; O2SAT 92–99; BMI 28.3
--- NOTE | 2020-10-24 | DI.ECHO.S_ITS ---
[facility] +---------+ : : [address] : : : : [id number] : : : : Phone: [phone]---------+ Echocardiogram Report + + :Name: CISCO APARICIO Study Date: 10/25/2020 Height: 68 in : :[facility] ReadingLocation: Weight: 186 lb: : Gender: Female BSA: 2.0 m2 : :: 1950 Age: 70 yrs BP: 87/53 mmHg: :Reason For Study: SEIZURE X 2 TODAY, H/O CVA 2006, RUE WEAKNESS : :Ordering Physician: ENOCH, : :PEREZ Performed By: Haven Santana : :Referring: PEREZ KENDALL : + + Interpretation Summary The left ventricle is normal in size and wall thickness. The ejection fraction is estimated to be 60-65%. The right ventricle is grossly normal size. The right ventricular systolic function is normal. There is mild to moderate tricuspid regurgitation. Pulmonary artery pressures cannot be estimated because of the lack of a measurable TR jet velocity but the IVC suggests a CVP of around 3 mmHg. Mild atherosclerotic plaque(s) in the aortic arch. Procedure: A two-dimensional transthoracic echocardiogram with color flow and Doppler was performed. The study quality was technically adequate. There is no prior echocardiogram noted for this patient. The subcostal views were difficult to obtain and are suboptimal in quality. The patient had occasional PVCs during the exam. The patient was in sinus rhythm with heart rates between 76-90 bpm during the exam. Left Ventricle: The left ventricle is normal in size and wall thickness. There is no thrombus. The ejection fraction is estimated to be 60-65%. There are no focal wall motion abnormalities. E/E' med: 9.8 Lat Peak E' Jasiel: 8.9 cm/sec E/E' lat: 10.4. Right Ventricle: The right ventricle is grossly normal size. The right ventricular systolic function is normal. Atria: Both atria are normal in size. There is no Doppler evidence for an interatrial shunt. Mitral Valve: There is mild mitral annular calcification. There is trace mitral regurgitation. Aortic Valve: The aortic valve is trileaflet. The aortic valve opens well. The aortic valve is slightly calcified. There is no aortic valve stenosis. No aortic regurgitation is present. Tricuspid Valve: The tricuspid valve is normal. There is mild to moderate tricuspid regurgitation. Pulmonary artery pressures cannot be estimated because of the lack of a measurable TR jet velocity but the IVC suggests a CVP of around 3 mmHg. Pulmonic Valve: The pulmonic valve is not well seen, but is grossly normal. There is mild pulmonic regurgitation. Great Vessels: The aortic root is normal size. The ascending aorta could not be visualized. Mild atherosclerotic plaque(s) in the aortic arch. The IVC is of normal diameter and collapses greater than 50% with a sniff. This suggests a low right atrial pressure of 3 mm Hg. Pericardium/ Pleura There is no pericardial effusion. There is no pleural effusion. MMode/2D Measurements & Calculations LVIDd: 4.4 cm LVOT diam: 2.0 cm LVIDs: 2.8 cm Ao root diam: 3.0 cm FS: 35.1 % Ao Arch Diam (Prox Trans): 3.2 cm IVSd: 0.69 cm LVPWd: 0.61 cm LV edwards. diameter/BSA (cm/m^2): 2.2 LV sys. diameter/BSA (cm/m^2): 1.4 LA A2 area: 19.7 cm2 RA long axis: 5.5 cm LA A4 area: 19.0 cm2 RA area: 18.6 cm2 LA length (vol): 6.0 cm RA vol: 53.6 ml LA vol: 53.3 ml RA : 27.0 ml/m2 LA vol index: 26.9 ml/m2 IVC diam: 1.5 cm RVD1 (basal): 4.1 cm TAPSE: 1.9 cm Doppler Measurements & Calculations Ao V2 max: 143.7 cm/sec LVOT Max Jasiel: 128.5 cm/sec Ao V2 mean: 96.4 cm/sec LV V1 max P.6 mmHg Ao max P.3 mmHg LV V1 VTI: 28.3 cm Ao mean P.1 mmHg ELYSSA(I,D): 3.1 cm2 Ao V2 VTI: 28.2 cm ELYSSA(V,D): 2.7 cm2 sev ratio: 1.0 ELYSSA indexed to BSA (cm^2/m^2): 1.5 MV E max jasiel: 93.4 cm/sec TR max jasiel: 236.4 cm/sec MV A max jasiel: 91.1 cm/sec TR max P.4 mmHg MV E/A: 1.0 PA V2 max: 92.2 cm/sec Med Peak E' Jasiel: 9.5 cm/sec PA V2 mean: 56.5 cm/sec E/E' med: 9.8 PA mean P.5 mmHg Lat Peak E' Jasiel: 8.9 cm/sec PA pr(Accel): 29.3 mmHg E/E' lat: 10.4 E/e' average: 10.1 MV dec time: 0.18 sec SV(LVOT): 86.5 ml Reading Physician:09:58 AM
--- NOTE | 2020-10-24 | DI.CT.S_ITS ---
PROCEDURE: CT HEAD/BRAIN WO CON INDICATIONS: seizure x 2 today, h/o CVA 2006, RUE weakness, speech defici TECHNIQUE: Noncontrast 4.5 mm thick angled axial sections acquired from the foramen magnum to the vertex, with coronal and sagittal reformats. For radiation dose reduction, the following was used: automated exposure control, adjustment of mA and/or kV according to patient size. COMPARISON: [facility], MR, MR HEAD/BRAIN WO CON, 10/24/2020, 14:58. [facility], CT, HEAD WITHOUT CONTRAST, 11/25/2014, 11:09. FINDINGS: Image quality: Excellent. CSF spaces: Basal cisterns are patent. No extra-axial fluid collections. The ventricles are symmetric in size and shape. Brain: There is encephalomalacia with what appears to be dystrophic calcifications in the left frontal lobe. No intracranial bleeds or masses. There is cerebral volume loss for age, with resultant ventricular and sulcal prominence. There are periventricular and deep white matter chronic small vessel ischemic changes. There is intracranial internal carotid artery atherosclerosis. Skull and face: Calvarium and visualized facial bones appear intact, without suspicious lesions. Focus of soft tissue prominence is noted at the left vertex. Sinuses: Visualized sinuses and mastoids are clear. IMPRESSION: 1. No acute intracranial process. 2. Mild to moderate atrophy and chronic microvascular ischemic changes. 3. Left frontal encephalomalacia consistent with old infarction. 4. Vertex soft tissue scalp hematoma. Dictated by: Regi Honeycutt M.D. on 10/24/2020 at 15:32 Approved by: Regi Honeycutt M.D. on 10/24/2020 at 15:34
--- NOTE | 2020-10-24 10:09 | DI.RAD.S_ITS ---
PROCEDURE: XR CHEST 1V INDICATIONS: suspected sepsis TECHNIQUE: One view of the chest was acquired. COMPARISON: [facility], CT, CT CHEST WO CON, 10/11/2020, 11:24. [facility], CR, XR CHEST 2V, 08/08/2020, 15:07. FINDINGS: Surgical changes and devices: Surgical clips are seen projecting over the left chest wall and upper abdomen, and the right breast. Lungs and pleura: Retrocardiac opacity is compatible with the hiatal hernia and adjacent atelectasis as seen on prior CT from 10/11/2020. Superimposed left lower lobe consolidation or aspiration is not excluded. No pleural effusions or pneumothorax. Mediastinum: Mediastinal contours appear normal. Heart size is normal. Mild aortic atherosclerotic calcifications. Bones and chest wall: No suspicious bony lesions. Overlying soft tissues appear unremarkable. IMPRESSION: Retrocardiac opacity in the left lung base is compatible with patient's known hiatal hernia and adjacent atelectasis or consolidation, and superimposed aspiration or infection is not excluded. Dictated by: Chintan Beasley M.D. on 10/24/2020 at 10:23 Approved by: Chintan Beasley M.D. on 10/24/2020 at 10:32
[2020-10-24] MEDS: SODIUM CHLORIDE 0.9% 1,000 ML 1000 ML IV ×2 (10:39→21:51)
[2020-10-24 10:50] LABS: Add Manual Diff / Slide Review NO; Basophils Absolute Auto 100 /uL (0-100); Basophils Percent Auto 0.6 % (0-2); Eosinophils Absolute Auto 400 /uL (0-450); Eosinophils Percent Auto 3.7 % (2-4); Hematocrit 32.7 % (36-46); Hemoglobin 10.6 g/dL (12.0-16.0); Lymphocytes Absolute Auto 1200 /uL (1100-4500); Lymphocytes Percent Auto 11.7 % (25-40); Mean Corpuscular HGB Conc 32.5 % (30-36); Mean Corpuscular Hemoglobin 28.5 PG (26-34); Mean Corpuscular Volume 87.6 fL (80-100); Monocytes Absolute Auto 500 /uL (0-900); Monocytes Percent Auto 4.5 % (3-14); Neutrophils Absolute Auto 8300 /uL (1500-7000); Neutrophils Percent Auto 79.5 % (50-75); Platelet Count 586 X10^3/uL (150-400); Red Blood Cell Count 3.73 X10^6/uL (4.0-5.2); White Blood Cell Count 10.4 X10^3/uL (4.5-11.0)
[2020-10-24 10:57] LABS: Lactate (Lactic Acid) 1.3 mmol/L (0.7-2.1)
[2020-10-24 10:58] LABS: Alanine Aminotransferase 16 IU/L (<35); Albumin 3.6 g/dL (3.5-5.0); Albumin Globulin Ratio 0.8 (1.0-2.8); Alkaline Phosphatase 139 U/L (38-126); Aspartate Aminotransferase 32 IU/L (14-36); BUN Creatinine Ratio 16.9 (6-22); Bilirubin Total 0.4 mg/dL (0.2-1.3); Blood Urea Nitrogen 64 mg/dL (7-17); Calcium 8.8 mg/dL (8.4-10.2); Carbon Dioxide 22 mmol/L (22-32); Chloride 98 mmol/L (98-107); Estimated Glomerular Filt Rate 11.8 mL/min (>60); Globulin 4.4 g/dL (1.7-4.1); Glucose 100 mg/dL (80-110); HEMOLYSIS 20 (0-50); Lipase 52 U/L (23-300); Sodium 136 mmol/L (137-145)
[2020-10-24 11:14] LABS: Procalcitonin 0.21 ng/mL (<0.5)
--- NOTE | 2020-10-24 11:35 | ED.WEAKNESS ---
HPI - Weakness General Chief complaint: Weakness Stated complaint: Not able to eat or drink for several days Time Seen by Provider: 10/24/20 10:59 Source: patient Mode of arrival: Wheelchair Limitations: no limitations History of Present Illness HPI Narrative: patient is a 70-year-old female with history of a stroke with some right-sided weakness she was recently treated for UTI and finished antibiotics last week and is now on Levaquin for a possible pneumonia. Every time she drinks or eats she starts coughing. She has been set up for a swallow evaluation. states that she has progressively gotten weaker. She has been falling to the ground has her legs get weak. She possibly hit her head once but no loss of consciousness no nausea vomiting no visual changes. She denies any abdominal pain. She really has no shortness of breath or chest pain. She really is not eating or drinking anything. He tries to get in 8 oz will glass of water down her but sometimes that is challenging. She is able to watermelon with coughing. Related Data Home Medications Medication Instructions Recorded Confirmed gabapentin 300 mg capsule 1,200 mg PO TID #0 08/07/17 10/24/20 (Neurontin) metformin 500 mg tablet,extended 500 mg PO QDAY #0 08/07/17 10/24/20 release 24 hr (Glucophage XR) atorvastatin 80 mg tablet 80 mg PO DAILY 10/24/20 10/24/20 duloxetine 60 mg capsule,delayed 60 mg PO DAILY 10/24/20 10/24/20 release fluoxetine 20 mg capsule 40 mg PO DAILY 10/24/20 10/24/20 furosemide 40 mg tablet 40 mg PO DAILY 10/24/20 10/24/20 potassium chloride 20 mEq 20 meq PO DAILY 10/24/20 10/24/20 tablet,extended release propranolol 60 mg capsule,24 60 mg PO DAILY 10/24/20 10/24/20 hr,extended release trazodone 100 mg tablet 200 mg PO BEDTIME 10/24/20 10/24/20 Previous Rx's Medication Instructions Recorded wheelchair #1 each 03/29/18 Allergies Allergy/AdvReac Type Severity Reaction Status Date / Time cefazolin [From Anc] Allergy Verified 04/19/18 12:32 Review of Systems Review of Systems ROS Unobtainable: All systems reviewed & are unremarkable except as noted in HPI and below Constitutional Constitutional: Denies chills, Reports fatigue, Reports frequent falls and Reports poor appetite Eyes Eyes: Denies blurry vision and Denies diplopia ENT Ears, Nose, Mouth, and Throat: Denies vertigo and Denies dizziness Cardiovascular Cardiovascular: Denies chest pain, Denies syncope and Denies irregular heart rhythm Respiratory Respiratory: Reports as per HPI, Denies chest congestion and Reports cough (Associated with eating and drinking) Gastrointestinal Gastrointestinal: Denies diarrhea and Denies nausea Genitourinary Genitourinary: Reports as per HPI, Denies urinary incontinence and Denies urinary hesitancy Comments: Had no symptoms for prior UTI Musculoskeletal Musculoskeletal: Denies back pain and Denies myalgias Neurologic Neurologic: Denies vertigo, Denies dizziness, Denies syncope and Reports frequent falls Endocrine Endocrine: Reports fatigue Patient History Medical History (Updated 10/24/20 @ 13:18 by Ketty Arvizu DO) Breast cancer CVA (cerebral vascular accident) Social History household members: spouse Smoking Status: Former smoker Smoking Status: Former smoker alcohol intake frequency: a few times a month Substance Use Type: does not use Exam Initial Vital Signs Initial Vital Signs: Vital Signs Temperature 96.5 F L 10/24/20 10:05 Pulse Rate 76 10/24/20 10:05 Respiratory Rate 18 10/24/20 10:05 Blood Pressure 73/47 L 10/24/20 10:05 Pulse Oximetry 97 10/24/20 10:05 GENERAL: Alert well-appearing 70-year-old female and in [no acute] distress. HEENT: Head atraumatic,EOMI, pupils reactive, face symmetric, [moist] mucous membranes CARDIOVASCULAR: Regular rate and rhythm without murmurs, rubs or gallops. RESPIRATORY: Breath sounds equal bilaterally, no wheezes rales or rhonchi. ABDOMEN: Soft, nontender. Normoactive bowel sounds all 4 quadrants. No guarding or rebound. EXTREMITIES: Normal range of motion, no clubbing or edema. Neurovascularly intact NEUROLOGICAL: Alert and oriented x4.Normal gait and speech. Cranial nerves II through XII grossly intact. [employer] strength equal bilaterally, although her right arm is slightly weaker from prior stroke SKIN: Warm, dry, no laceration, no petechiae, no rashes or lesions. Course Orders Ordered: ED Orders 10/24/20 12:40 Creatinine Urine Random Stat Sodium Urine Random Stat 10/24/20 12:48 US renal complete Stat Acetaminophen (Acetaminophen 325 Mg Tablet) 650 mg PO Q6HR PRN PRN Reason: Fever Diazepam (Diazepam 10 Mg/2 Ml Syringe) 10 mg IM NOW PRN PRN Reason: seizure Docusate Sodium (Docusate 100 Mg Capsule) 100 mg PO BID PRN PRN Reason: constipation Folic Acid (Folic Acid 1 Mg Tablet) 1 mg PO DAILY ANG Sodium Chloride (Normal Saline 0.9%) 1,000 mls @ 150 mls/hr IV CONT ANG Last Infusion: 10/24/20 14:03 Dose: 150 mls/hr Documented by: Admin: 10/24/20 13:33 Dose: 150 mls/hr Documented by: DAYLIN Lorazepam (Lorazepam 2 Mg/Ml Inj) 2 mg IV NOW PRN PRN Reason: seizure Morphine Sulfate (Morphine 2 Mg/Ml Inj) 2 mg IV Q4HR PRN PRN Reason: pain Multivitamins (Multivitamin 1 Tablet) 1 tab PO DAILY ANG Last Admin: 10/24/20 16:53 Dose: 1 tab Documented by: MARTHA Naloxone HCl (Naloxone 0.4 Mg/Ml Vial) 0.2 mg IV Q2MIN PRN PRN Reason: Opiate Reversal Nitroglycerin (Nitroglycerin 0.4 Mg Sl Tab) 0.4 mg SL [id number] PRN PRN Reason: Chest Pain Pantoprazole Sodium (Pantoprazole 40 Mg Vial) 40 mg IV DAILY [facility] Phenytoin Sodium (Phenytoin Er 100 Mg Capsule) 300 mg PO BEDTIME ANG Thiamine HCl (Thiamine 100 Mg Tablet) 100 mg PO DAILY ANG Stop: 10/27/20 09:01 Last Admin: 10/24/20 16:54 Dose: 100 mg Documented by: MARTHA Discontinued Medications Sodium Chloride (Normal Saline 0.9%) 1,000 mls @ 1,000 mls/hr IV BOLUS ONE Stop: 10/24/20 11:07 Last Infusion: 10/24/20 11:52 Dose: 0 mls/hr Documented by: Admin: 10/24/20 10:39 Dose: 1,000 mls/hr Documented by: DEISI Fosphenytoin Sodium 1,500 mg/ (Sodium Chloride) 130 mls @ 260 mls/hr IV NOW ONE Stop: 10/24/20 15:45 Last Admin: 10/24/20 16:26 Dose: 260 mls/hr Documented by: MARTHA Vital Signs Vital signs: Vital Signs - 8 hr 10/24/20 12:00 10/24/20 12:15 10/24/20 12:30 Pulse Rate 73 73 75 Respiratory Rate 14 13 13 Blood Pressure 90/54 L 92/53 L Pulse Oximetry 97 96 96 10/24/20 12:45 10/24/20 13:00 10/24/20 13:15 Pulse Rate 73 72 73 Respiratory Rate 14 14 14 Blood Pressure 94/53 L Pulse Oximetry 98 98 97 MDM - Weakness Lab Data Attestation: I reviewed the patient's lab results. Result diagrams: 10/24/20 10:34 10/24/20 10:34 Labs: Lab Results 10/24/20 10/24/20 10/24/20 Range/Units 10:30 10:30 10:34 WBC 10.4 (4.5-11.0) X10^3/uL RBC 3.73 L (4.0-5.2) X10^6/uL Hgb 10.6 L (12.0-16.0) g/dL Hct 32.7 L (36-46) % MCV 87.6 (80-100) fL MCH 28.5 (26-34) PG MCHC 32.5 (30-36) % RDW 18.0 H (11.6-14.8) % Plt Count 586 H (150-400) X10^3/uL Neut % (Auto) 79.5 H (50-75) % Lymph % (Auto) 11.7 L (25-40) % [place] % (Auto) 4.5 (3-14) % Eos % (Auto) 3.7 (2-4) % Baso % (Auto) 0.6 (0-2) % Neut # (Auto) 8300 H (4063-9451) /uL Lymph # (Auto) 1200 (3099-3680) /uL Good[place] # (Auto) 500 (0-900) /uL Eos # (Auto) 400 (0-450) /uL Baso # (Auto) 100 (0-100) /uL Sodium (137-145) mmol/L Potassium (3.4-5.1) mmol/L Chloride (98-107) mmol/L Carbon Dioxide (22-32) mmol/L BUN (7-17) mg/dL Creatinine (0.52-1.04) mg/dL Estimated GFR (>60) mL/min BUN/Creatinine Ratio (6-22) Glucose (80-110) mg/dL Lactate (0.7-2.1) mmol/L Calcium (8.4-10.2) mg/dL Total Bilirubin (0.2-1.3) mg/dL AST (14-36) IU/L ALT (<35) IU/L Alkaline Phosphatase (38-126) U/L Total Protein (6.3-8.2) g/dL Albumin (3.5-5.0) g/dL Globulin (1.7-4.1) g/dL Albumin/Globulin Ratio (1.0-2.8) Lipase (23-300) U/L Procalcitonin (<0.5) ng/mL TSH 3.17 (0.47-4.68) uIU/mL Prolactin 20.8 H (3.0-18.6) ng/mL Urine Color Urine Appearance Urine pH (4.5-8.0) Ur Specific [place] (1.000-1.035) Urine Protein (Negative) Urine Glucose (UA) (Negative) g/dL Urine Ketones (NEGATIVE) Urine Occult Blood (Negative) Urine Nitrate (Negative) Urine Bilirubin (NEGATIVE) Urine Urobilinogen (0.2) E.U./dL Ur Leukocyte Esterase (NEGATIVE) Urine RBC (0-5/HPF) Urine WBC (0-5/HPF) Ur Squamous Epith Cells (0-5/HPF) Ur Renal Epithelial Cell (0-1/HPF) Amorphous Sediment Urine Bacteria (None) Urine Mucus (Negative) Ur Culture Indicated? Ur Random Sodium (30-90) mmol/L Urine Creatinine mg/dL U Opiates 300ng/mL cut (Negative) Ur Oxycodone Screen (Negative) Urine Methadone Screen (Negative) Ur Barbiturates Screen (Negative) U Tricyclic Antidepress (Negative) Ur Phencyclidine Scrn (Negative) Ur Amphetamines Screen (Negative) U Methamphetamines Scrn (Negative) Ur MDMA Scrn (Ecstasy) (Negative) U Benzodiazepines Scrn (Negative) Urine Cocaine Screen (Negative) U Marijuana (THC) Screen (Negative) Ethyl Alcohol ( - 10) mg/dL 10/24/20 10/24/20 10/24/20 Range/Units 10:34 10:34 10:34 WBC (4.5-11.0) X10^3/uL RBC (4.0-5.2) X10^6/uL Hgb (12.0-16.0) g/dL Hct (36-46) % MCV (80-100) fL MCH (26-34) PG MCHC (30-36) % RDW (11.6-14.8) % Plt Count (150-400) X10^3/uL Neut % (Auto) (50-75) % Lymph % (Auto) (25-40) % Good[place] % (Auto) (3-14) % Eos % (Auto) (2-4) % Baso % (Auto) (0-2) % Neut # (Auto) (9615-9840) /uL Lymph # (Auto) (8297-0717) /uL Good[place] # (Auto) (0-900) /uL Eos # (Auto) (0-450) /uL Baso # (Auto) (0-100) /uL Sodium 136 L (137-145) mmol/L Potassium 4.0 (3.4-5.1) mmol/L Chloride 98 (98-107) mmol/L Carbon Dioxide 22 (22-32) mmol/L BUN 64 H (7-17) mg/dL Creatinine 3.79 H (0.52-1.04) mg/dL Estimated GFR 11.8 L (>60) mL/min BUN/Creatinine Ratio 16.9 (6-22) Glucose 100 (80-110) mg/dL Lactate 1.3 (0.7-2.1) mmol/L Calcium 8.8 (8.4-10.2) mg/dL Total Bilirubin 0.4 (0.2-1.3) mg/dL AST 32 (14-36) IU/L ALT 16 (<35) IU/L Alkaline Phosphatase 139 H (38-126) U/L Total Protein 8.0 (6.3-8.2) g/dL Albumin 3.6 (3.5-5.0) g/dL Globulin 4.4 H (1.7-4.1) g/dL Albumin/Globulin Ratio 0.8 L (1.0-2.8) Lipase 52 (23-300) U/L Procalcitonin 0.21 (<0.5) ng/mL TSH (0.47-4.68) uIU/mL Prolactin (3.0-18.6) ng/mL Urine Color Urine Appearance Urine pH (4.5-8.0) Ur Specific [place] (1.000-1.035) Urine Protein (Negative) Urine Glucose (UA) (Negative) g/dL Urine Ketones (NEGATIVE) Urine Occult Blood (Negative) Urine Nitrate (Negative) Urine Bilirubin (NEGATIVE) Urine Urobilinogen (0.2) E.U./dL Ur Leukocyte Esterase (NEGATIVE) Urine RBC (0-5/HPF) Urine WBC (0-5/HPF) Ur Squamous Epith Cells (0-5/HPF) Ur Renal Epithelial Cell (0-1/HPF) Amorphous Sediment Urine Bacteria (None) Urine Mucus (Negative) Ur Culture Indicated? Ur Random Sodium (30-90) mmol/L Urine Creatinine mg/dL U Opiates 300ng/mL cut (Negative) Ur Oxycodone Screen (Negative) Urine Methadone Screen (Negative) Ur Barbiturates Screen (Negative) U Tricyclic Antidepress (Negative) Ur Phencyclidine Scrn (Negative) Ur Amphetamines Screen (Negative) U Methamphetamines Scrn (Negative) Ur MDMA Scrn (Ecstasy) (Negative) U Benzodiazepines Scrn (Negative) Urine Cocaine Screen (Negative) U Marijuana (THC) Screen (Negative) Ethyl Alcohol < 10 ( - 10) mg/dL 10/24/20 10/24/20 10/24/20 Range/Units 12:40 12:40 12:40 WBC (4.5-11.0) X10^3/uL RBC (4.0-5.2) X10^6/uL Hgb (12.0-16.0) g/dL Hct (36-46) % MCV (80-100) fL MCH (26-34) PG MCHC (30-36) % RDW (11.6-14.8) % Plt Count (150-400) X10^3/uL Neut % (Auto) (50-75) % Lymph % (Auto) (25-40) % [place] % (Auto) (3-14) % Eos % (Auto) (2-4) % Baso % (Auto) (0-2) % Neut # (Auto) (0361-0695) /uL Lymph # (Auto) (6899-8183) /uL Good[place] # (Auto) (0-900) /uL Eos # (Auto) (0-450) /uL Baso # (Auto) (0-100) /uL Sodium (137-145) mmol/L Potassium (3.4-5.1) mmol/L Chloride (98-107) mmol/L Carbon Dioxide (22-32) mmol/L BUN (7-17) mg/dL Creatinine (0.52-1.04) mg/dL Estimated GFR (>60) mL/min BUN/Creatinine Ratio (6-22) Glucose (80-110) mg/dL Lactate (0.7-2.1) mmol/L Calcium (8.4-10.2) mg/dL Total Bilirubin (0.2-1.3) mg/dL AST (14-36) IU/L ALT (<35) IU/L Alkaline Phosphatase (38-126) U/L Total Protein (6.3-8.2) g/dL Albumin (3.5-5.0) g/dL Globulin (1.7-4.1) g/dL Albumin/Globulin Ratio (1.0-2.8) Lipase (23-300) U/L Procalcitonin (<0.5) ng/mL TSH (0.47-4.68) uIU/mL Prolactin (3.0-18.6) ng/mL Urine Color Yellow Urine Appearance Slightly cloudy Urine pH 5.5 (4.5-8.0) Ur Specific [place] 1.010 (1.000-1.035) Urine Protein 1+ H (Negative) Urine Glucose (UA) Negative (Negative) g/dL Urine Ketones Negative (NEGATIVE) Urine Occult Blood Negative (Negative) Urine Nitrate Negative (Negative) Urine Bilirubin Negative (NEGATIVE) Urine Urobilinogen 0.2 (0.2) E.U./dL Ur Leukocyte Esterase Trace H (NEGATIVE) Urine RBC None seen None seen (0-5/HPF) Urine WBC 1-5/hpf 5-10/hpf H (0-5/HPF) Ur Squamous Epith Cells 1-5 /hpf 1-5 /hpf (0-5/HPF) Ur Renal Epithelial Cell 0-1/hpf (0-1/HPF) Amorphous Sediment 1+ Urine Bacteria None seen Few (2-10) H (None) Urine Mucus 1+ H (Negative) Ur Culture Indicated? Specimen cultured Specimen cultured Ur Random Sodium 9 L (30-90) mmol/L Urine Creatinine 86.2 mg/dL U Opiates 300ng/mL cut (Negative) Ur Oxycodone Screen (Negative) Urine Methadone Screen (Negative) Ur Barbiturates Screen (Negative) U Tricyclic Antidepress (Negative) Ur Phencyclidine Scrn (Negative) Ur Amphetamines Screen (Negative) U Methamphetamines Scrn (Negative) Ur MDMA Scrn (Ecstasy) (Negative) U Benzodiazepines Scrn (Negative) Urine Cocaine Screen (Negative) U Marijuana (THC) Screen (Negative) Ethyl Alcohol ( - 10) mg/dL 10/24/20 Range/Units 12:40 WBC (4.5-11.0) X10^3/uL RBC (4.0-5.2) X10^6/uL Hgb (12.0-16.0) g/dL Hct (36-46) % MCV (80-100) fL MCH (26-34) PG MCHC (30-36) % RDW (11.6-14.8) % Plt Count (150-400) X10^3/uL Neut % (Auto) (50-75) % Lymph % (Auto) (25-40) % [place] % (Auto) (3-14) % Eos % (Auto) (2-4) % Baso % (Auto) (0-2) % Neut # (Auto) (2913-9413) /uL Lymph # (Auto) (1891-5086) /uL [place] # (Auto) (0-900) /uL Eos # (Auto) (0-450) /uL Baso # (Auto) (0-100) /uL Sodium (137-145) mmol/L Potassium (3.4-5.1) mmol/L Chloride (98-107) mmol/L Carbon Dioxide (22-32) mmol/L BUN (7-17) mg/dL Creatinine (0.52-1.04) mg/dL Estimated GFR (>60) mL/min BUN/Creatinine Ratio (6-22) Glucose (80-110) mg/dL Lactate (0.7-2.1) mmol/L Calcium (8.4-10.2) mg/dL Total Bilirubin (0.2-1.3) mg/dL AST (14-36) IU/L ALT (<35) IU/L Alkaline Phosphatase (38-126) U/L Total Protein (6.3-8.2) g/dL Albumin (3.5-5.0) g/dL Globulin (1.7-4.1) g/dL Albumin/Globulin Ratio (1.0-2.8) Lipase (23-300) U/L Procalcitonin (<0.5) ng/mL TSH (0.47-4.68) uIU/mL Prolactin (3.0-18.6) ng/mL Urine Color Urine Appearance Urine pH (4.5-8.0) Ur Specific [place] (1.000-1.035) Urine Protein (Negative) Urine Glucose (UA) (Negative) g/dL Urine Ketones (NEGATIVE) Urine Occult Blood (Negative) Urine Nitrate (Negative) Urine Bilirubin (NEGATIVE) Urine Urobilinogen (0.2) E.U./dL Ur Leukocyte Esterase (NEGATIVE) Urine RBC (0-5/HPF) Urine WBC (0-5/HPF) Ur Squamous Epith Cells (0-5/HPF) Ur Renal Epithelial Cell (0-1/HPF) Amorphous Sediment Urine Bacteria (None) Urine Mucus (Negative) Ur Culture Indicated? Ur Random Sodium (30-90) mmol/L Urine Creatinine mg/dL U Opiates 300ng/mL cut Negative (Negative) Ur Oxycodone Screen Negative (Negative) Urine Methadone Screen Negative (Negative) Ur Barbiturates Screen Negative (Negative) U Tricyclic Antidepress Negative (Negative) Ur Phencyclidine Scrn Negative (Negative) Ur Amphetamines Screen Negative (Negative) U Methamphetamines Scrn Negative (Negative) Ur MDMA Scrn (Ecstasy) Negative (Negative) U Benzodiazepines Scrn Negative (Negative) Urine Cocaine Screen Negative (Negative) U Marijuana (THC) Screen Negative (Negative) Ethyl Alcohol ( - 10) mg/dL Imaging Data Chest x-ray: Radiologist Impression: PROCEDURE: XR CHEST 1V INDICATIONS: suspected sepsis TECHNIQUE: One view of the chest was acquired. COMPARISON: [facility], CT, CT CHEST WO CON, 10/11/2020, 11:24. [facility], CR, XR CHEST 2V, 08/08/2020, 15:07. FINDINGS: Surgical changes and devices: Surgical clips are seen projecting over the left chest wall and upper abdomen, and the right breast. Lungs and pleura: Retrocardiac opacity is compatible with the hiatal hernia and adjacent atelectasis as seen on prior CT from 10/11/2020. Superimposed left lower lobe consolidation or aspiration is not excluded. No pleural effusions or pneumothorax. Mediastinum: Mediastinal contours appear normal. Heart size is normal. Mild aortic atherosclerotic calcifications. Bones and chest wall: No suspicious bony lesions. Overlying soft tissues appear unremarkable. IMPRESSION: Retrocardiac opacity in the left lung base is compatible with patient's known hiatal hernia and adjacent atelectasis or consolidation, and superimposed aspiration or infection is not excluded. Dictated by: Chintan Beasley M.D. on 10/24/2020 at 10:23 Approved by: Chintan Beasley M.D. on 10/24/2020 at 10:32 ECG Data Attestation: I personally reviewed and interpreted this ECG as follows: Prior ECG tracings: available for review Interpretation: Normal sinus rhythm rate 74 p.r. interval 194 QRS [address] changes no T-wave inversions similar to previous EKG MDM Narrative Medical decision making narrative: Patient has increased creatinine of 3.79 previous creatinine of 1.36 in 2020. He did get a CT angio on 10/12/2020 1 for elevated D-dimer of 300, and continue to take her metformin. She also has contributing decreased oral intake as well. FeNa=0.3% consistent with pre renal. I spoke with Dr. Aaron nephrology. Quit this time agrees that no emergent dialysis is needed. He recommend hydrating monitoring if no improvement and transfer to hospital. Multiple hospitals are very full and have no beds. Dr. Goodrich updated on patient's symptoms test results and is happy to accept patient and monitor. Discharge Plan Departure Patient Disposition: Admitted as Observation Clinical Impression: Acute kidney injury Admit Date/Time: 10/24/20 13:21 Admit Provider: Aniyah Goodrich
--- NOTE | 2020-10-24 12:48 | DI.US.S_ITS ---
PROCEDURE: US RENAL COMPLETE INDICATIONS: RENAL FAILURE TECHNIQUE: Real-time scanning was performed of the kidneys and bladder, with image documentation. COMPARISON: [facility], , US RENAL COMPLETE, 09/06/2020, 11:32. FINDINGS: Kidneys: Kidneys are normal in size. Right kidney measures 12.2 cm long; left kidney measures 11.4 cm long. Right renal cortical thickness is 1.2 cm; left renal cortical thickness is 1.2 cm. Renal cortical echotexture is normal. No hydronephrosis or nephrolithiasis. No suspicious solid mass lesions. Bilateral renal cyst, largest of which is on the right measuring up to 3.1 cm. Bladder: Pre-void bladder volume is 94 mL. Post-void residual is unable to be assessed as the patient was unable to void.. Pre-void images demonstrate no intraluminal masses or stones. On pre-void images, neither ureteral jets are noted with color Doppler interrogation. (Of note, ureteral jets may not be detectable in up to 25% of cases due to insufficient differences in specific gravity between ureteral and bladder urine). Miscellaneous: No free pelvic fluid. IMPRESSION: Bilateral renal cysts; otherwise grossly normal appearance of the kidneys. Dictated by: Arley Child [facility] Interpreted: Fernando Osorio MD on 10/24/2020 at 14:12 Approved by: Fernando Osorio M.D. on 10/25/2020 at 7:32
[2020-10-24] MEDS: SODIUM CHLORIDE 0.9% 1,000 ML 150 ML IV ×2 (13:33→23:28)
--- NOTE | 2020-10-24 14:28 | PM.HP.1 ---
History of Present Illness History of Present Illness Date Patient Seen: 10/24/20 Time Patient Seen: 14:28 Chief complaint: Not able to eat or drink for several days Narrative: 70 year-old right-handed female presents from the ED with acute renal failure in the setting of passing out this morning while in the bathroom. She has not had much to eat or drink in the past 3-4 days. This is in context of a regional heat wave but reports that they have been staying inside and that they have air conditioning. He has been trying to feed her sips of water and watermelon but she essentially does not eat/drink much and has become severely dehydrated. She is taking her medications. ED workup significant for a normocytic/normochromic anemia with a hemoglobin/hematocrit of 10.6/32.7, new. Platelets elevated at 586, these have been elevated over the 6 months, 515-725. Notably, metabolic panel significant for a creatinine of 3.79 (baseline 0.83). GFR 11.8 (> 60 just 4 months ago). Her BUN is 64. Sodium 136, potassium 4.0. Alkaline phosphatase elevated at 139 (this has been elevated for the last 6 months as well, 123-164). Upon arrival to the floor, she had a witnessed 30 to 60 second seizure with shaking and rigid posturing and rapid response was called. I was called to the bedside at this time. By the time of my arrival, she was not seizing but had a right upper extremity weakness and slurred speech. Bedside EKG showed a normal sinus rhythm with a prolonged QTc of 618 milliseconds and a T-wave abnormality, possible for inferior ischemia. Upon further questioning, reports that the episode this morning was actually a seizure as well with stiffening of her arms and shaking. Patient did not want to go to the emergency room and so refused transport by EMS. eventually brought her to the ED himself after calling the clinic and being advised to do the same. Patient has had a steady decline in the last 4 months with a 25 lb weight loss and a persistent cough with difficulty swallowing. Swallowing has become so difficult, that she has severely limited her oral intake. She has been treated with both prednisone, albuterol, and a Z-Franco in the last 3 months with no improvement. Imaging has shown a large hiatal hernia and atelectasis versus possible consolidation from aspiration in the left lower lobe. Abnormal labs during this same time frame included an elevated D-dimer for which CT angiogram was negative for PE. Outpatient swallow study is pending. She did have a left frontal stroke in 2005 after being on tamoxifen for 2 years due to non invasive breast cancer that was diagnosed in 2001. Stroke caused residual right-sided coordination issues, cognitive deficits, and word-finding difficulties. Due to the stroke, she was taken off tamoxifen after just 2 years of treatment. In 2016, she unfortunately had a recurrence of invasive ductal carcinoma the left breast for which she received a bilateral mastectomy and left axillary node dissection. Patient normally drinks about 1 bottle of wine per day but has recently cut down to approximately 2 oz of wine diluted with water and ice. reports that she has not wanted much alcohol recently. Past medical history: Invasive ductal cancer, left breast CVA, 2005, residual right-sided weakness Migraines Diabetes mellitus type 2 Hyperlipidemia Hypertension Hiatal hernia, large Postmastectomy pain syndrome, chronic pain Chronic kidney disease, labile Hypokalemia Alcohol use Depression Obesity Past surgical history: Gastric bypass Hysterectomy Abdominoplasty Mastectomy, bilateral Total knee arthroplasty with revision Left ankle surgery Achilles tendon repair Caesarean section x2 Family history: Mother: Coronary artery disease, PA, deafness, osteoporosis Father: CVA, depression Social history: to [employer]. Fourteen years of education. Recently cut down from 1 bottle of wine nightly to approximately 2 oz/night. Patient History Medical History (Updated 10/24/20 @ 13:18 by Ketty Arvizu DO) Breast cancer CVA (cerebral vascular accident) Family & Social History Social History: household members spouse Prior Living Arrangements House Safety & Behavioral: Feels Safe in Current Yes Environment Been Physically Hurt or No Threatened By a Person Suicidal Ideation Description None Suicide Plan Description No Plan Tobacco & Substance use: Smoking Status Former smoker alcohol intake frequency a few times a month Substance Use Type does not use Meds Home Medications and Allergies Home Medications Medication Instructions Recorded Confirmed Type gabapentin 300 mg capsule 1,200 mg PO TID #0 08/07/17 10/24/20 History (Neurontin) metformin 500 mg tablet,extended 500 mg PO QDAY #0 08/07/17 10/24/20 History release 24 hr (Glucophage XR) wheelchair #1 each 03/29/18 10/24/20 Rx atorvastatin 80 mg tablet 80 mg PO DAILY 10/24/20 10/24/20 History duloxetine 60 mg capsule,delayed 60 mg PO DAILY 10/24/20 10/24/20 History release fluoxetine 20 mg capsule 40 mg PO DAILY 10/24/20 10/24/20 History furosemide 40 mg tablet 40 mg PO DAILY 10/24/20 10/24/20 History potassium chloride 20 mEq 20 meq PO DAILY 10/24/20 10/24/20 History tablet,extended release propranolol 60 mg capsule,24 60 mg PO DAILY 10/24/20 10/24/20 History hr,extended release trazodone 100 mg tablet 200 mg PO BEDTIME 10/24/20 10/24/20 History Allergies Allergy/AdvReac Type Severity Reaction Status Date / Time cefazolin [From [facility]] Allergy Verified 04/19/18 12:32 Review of Systems Constitutional Comments: 10 point review systems completed and found to be noncontributory except for items mentioned in the history of present illness. Exam Vital Signs (past 8 hours): - 10/24/20 10:05 10/24/20 10:54 10/24/20 11:00 Temperature 96.5 F L Pulse Rate 76 72 75 Respiratory Rate 18 14 15 Blood Pressure 73/47 L 85/50 L Pulse Oximetry 97 97 98 10/24/20 11:17 10/24/20 11:18 10/24/20 11:30 Temperature Pulse Rate 75 74 74 Respiratory Rate 15 16 16 Blood Pressure 97/55 L 93/54 L 86/52 L Pulse Oximetry 98 98 10/24/20 11:45 10/24/20 12:00 10/24/20 12:15 Temperature Pulse Rate 73 73 73 Respiratory Rate 14 14 13 Blood Pressure 90/54 L Pulse Oximetry 97 97 96 10/24/20 12:30 10/24/20 12:45 10/24/20 13:00 Temperature Pulse Rate 75 73 72 Respiratory Rate 13 14 14 Blood Pressure 92/53 L 94/53 L Pulse Oximetry 96 98 98 10/24/20 13:15 10/24/20 13:30 10/24/20 13:45 Temperature Pulse Rate 73 73 74 Respiratory Rate 14 14 13 Blood Pressure 90/51 L Pulse Oximetry 97 97 98 10/24/20 14:21 Temperature 97.5 F L Pulse Rate 75 Respiratory Rate 16 Blood Pressure 123/55 L Pulse Oximetry Oxygen Delivery Method Room Air Narrative Exam Narrative: GENERAL: Alert and oriented, appearing stated age and fatigued. HEENT: Head normocephalic/atraumatic. Pupils equal, round, and reactive to light and accomodation. Extraocular muscles intact. Tympanic membranes clear. Nasal mucosa moist, septum midline. Oral mucosa dry, no lesions. Neck soft and supple, no lymphadenopathy. LUNGS: Diminished inspiratory effort with mild expiratory wheezes, left lower lobe. CV: Normal S1 and S2 with regular rate and rhythm, no audible murmurs, rubs or gallops. ABDOMEN: Soft, non-tender, non-distended, no organomegaly. Positive bowel sounds. EXTREMITIES: No clubbing, cyanosis, or edema. NEURO: Cranial nerves II through XII grossly intact. Right upper extremity pronator drift with decreased finger to nose accuracy. Heel-ospina testing equal in bilateral lower extremities. PSYCH: Alert and oriented x 3. SKIN: No concerning lesions. Objective Labs Result Diagrams: 10/24/20 10:34 10/24/20 10:34 Labs: Laboratory Results - last 24 hr 10/24/20 10/24/20 10/24/20 10:34 10:34 10:34 WBC 10.4 RBC 3.73 L Hgb 10.6 L Hct 32.7 L MCV 87.6 MCH 28.5 MCHC 32.5 RDW 18.0 H Plt Count 586 H Neut % (Auto) 79.5 H Lymph % (Auto) 11.7 L Wilson % (Auto) 4.5 Eos % (Auto) 3.7 Baso % (Auto) 0.6 Neut # (Auto) 8300 H Lymph # (Auto) 1200 Wilson # (Auto) 500 Eos # (Auto) 400 Baso # (Auto) 100 Sodium 136 L Potassium 4.0 Chloride 98 Carbon Dioxide 22 BUN 64 H Creatinine 3.79 H Estimated GFR 11.8 L BUN/Creatinine Ratio 16.9 Glucose 100 Lactate 1.3 Calcium 8.8 Total Bilirubin 0.4 AST 32 ALT 16 Alkaline Phosphatase 139 H Total Protein 8.0 Albumin 3.6 Globulin 4.4 H Albumin/Globulin Ratio 0.8 L Lipase 52 Procalcitonin 0.21 Assessment & Plan Assessment & Plan narrative: 1. Acute renal failure, pre-renal Plan: Patient has had labile renal function for the past 2 years but nothing approaching her levels today. Dr. Aaron, urology, was consulted during ED workup and he advised that emergent dialsysis was not needed but to hydrate overnight for suspected pre-renal failure and trend labs. Has received 1 L NS, will give another and continue with isotonic saline at 150 cc/hour. Repeat labs in am with echo. If no improvement, transfer to tertiary care center. 2. Acute electrolyte derangement, hypokalemia, hyperphosphatemia, and hypermagnesemia secondary to acute renal failure Plan: Please see #1. Continue home oral potassium. 3. Seizure, acute; secondary to encephalomalacia from previous CVA and exacerbated by dehydration and acute renal failure Plan: Dr. Haney neurology consulted. He recommended loading dose of fosphenytoin 18 milligrams/kg followed by Dilantin 300 mg p.o. q.h.s. starting tomorrow night as well as treatment of underlying dehydration. Will trend dilantin levels. 4. QT prolongation and T-wave changes, rule out PA Plan: Dr. Cueva, cardiology consulted. Dr. Cueva recommended treatment of underlying dehydration and acute renal failure. He does not feel that EKG changes are consistent with an acute PA as patient is not having chest pain. He reviewed recent stress test in the last year which was normal. Will treat as noted in #1. Will trend cardiac enzymes. Echo in the morning. Will hold off on stress test as inpatient secondary to IV contrast and need to avoid nephrotoxic agents. Patient is not a good candidate right now for an exercise stress test. Cardiac telemetry and serial EKGs. 5. Right-sided weakness, dysphagia, and dysarthria in setting of history of CVA Plan: MRI incomplete but no evidence of acute stroke. CT head negative for acute stroke. Echo pending. Will consult PT for therapy. ST to provide swallow evaluation and advance diet thereafter. NPO in the meantime. 6. Cough, chronic x4 months Plan: Risk for aspiration pneumonia with dysphagia. Patient has already been treated with antibiotics for suspected aspiration pneumonia. Chest x-ray does show atelectasis versus consolidation in the left lower lobe, will follow this clinically rather than treat with antibiotics tonight as she is currently afebrile, has a normal WBC count and is in renal failure. Will not add antibiotics to the mix until she is better hydrated. Will proceed with barium swallow when kidneys have recovered. 7. Alcohol use Plan: CIWA protocol. 8. Diabetes mellitus type 2 Plan: Routine glucose monitoring while NPO, holding metformin. 9. Hypertension Plan: Holding propranolol as she is currently hypotensive. Will hydrate and reassess in the morning. 10. Hyperlipidemia Plan: Holding statin, plan to restart upon discharge. 11. Chronic pain syndrome secondary to postmastectomy pain syndrome Plan: IV morphine as needed. 12. Migraines, chronic Plan: Supportive therapy, IV morphine as needed. 13. History of breast cancer with elevated alkaline phosphatase Plan: With weight loss and lab abnormalities, may need a CT abdomen/pelvis to look for mass in setting of weight loss and elevated alk phos, d-dimer, and platelets. PE has already been ruled out with no sign of mass on CT chest. Again, will hold on contrast CT until kidneys recover. 14. Unintended weight loss Plan: Possibly secondary to reduced p.o. intake and nothing more, but concerning nontheless due to her cancer history. Please see #13. Will treat kidney failure, address dysphagia, and if still a problem, proceed with further workup. 15. Anemia, normochromic/normocytic, new Plan: Anticipate that this will worsen with dilution tomorrow. Will check Vit B12, folate, and iron indices. 16. Thrombpohillia, chronic Plan: Possibly acute phase reactant due to kidney injury, inflammation, infection, or malignancy. Will trend this lab while treating underlying diseases and proceed with additional workup as needed. 17. Depressoin Plan: holding home medications 18: Obesity, status post gastric bypass Plan: Nutrionally complicated, will consult nutrition once refeeding approved by . Code: Full DVT prophylaxis: SCDs COVID: negative Greater than 69 minutes was spent [id number] with greater than 50% of the time directed towards stabilizing patient during critical care rapid response from 14:19 to 15:18. Greater than 1 hour and 58 minutes was spent in physician prolonged services from 15:19 to 17:17. This included evaluating the status of the patient, communicating with the patient and family, calling cardiology and neurology for acute consultation, and directing the team attending the patient. I was unable to see other patients during this time and left my time unencumberd to care for the patient.
--- NOTE | 2020-10-24 14:30 | DI.MRI.S_ITS ---
PROCEDURE: MR HEAD/BRAIN WO CON INDICATIONS: seizure x 2 today, h/o CVA 2006, RUE weakness, speech defici TECHNIQUE: Non-contrast axial diffusion and ADC images through the brain were acquired. Patient was unable to tolerate the remainder of the exam and it was terminated. COMPARISON: [facility], , MR HEAD/BRAIN WO CON, 05/24/2019, 7:43. FINDINGS: Image quality: Markedly limited. Markedly limited exam as above. There is no restricted diffusion. Encephalomalacia is present within the left frontal lobe. IMPRESSION: 1. Markedly limited exam as above. No acute ischemia. Dictated by: Regi Honeycutt M.D. on 10/24/2020 at 15:35 Approved by: Regi Honyecutt M.D. on 10/24/2020 at 15:36
[2020-10-24 14:43] LABS: COVID19 - ADMIT (NP swab/PCR) Negative (Negative)
[2020-10-24 15:05] LABS: Bacteria Urine None Seen; RBC Urine None Seen (0-5/HPF)
[2020-10-24 15:17] LABS: Ethanol (ETOH) < 10 mg/dL
[2020-10-24 15:21] LABS: Prolactin 20.8 ng/mL (3.0-18.6)
[2020-10-24 15:29] LABS: Culture Indicated Urine Specimen Cultured; Squamous Epithelial Cell Urine 1-5 /HPF (0-5/HPF); WBC Urine 1-5/HPF (0-5/HPF)
[2020-10-24 15:35] LABS: Thyroid Stimulating Hormone 3.17 uIU/mL (0.47-4.68)
[2020-10-24 15:36] LABS: Creatinine Urine Random 86.2 mg/dL; Sodium Urine Random 9 mmol/L (30-90)
[2020-10-24 15:43] LABS: Troponin I < 0.012 ng/mL (0.01-0.034)
[2020-10-24] MEDS: FOSPHENYTOIN IV (16:26)
[2020-10-24] MEDS: SODIUM CHLORIDE 0.9% IV (16:26)
[2020-10-24] MEDS: MULTIVITAMIN 1 TABLET 1 TAB PO (16:53)
[2020-10-24] MEDS: THIAMINE 100 MG TABLET PO (16:54)
[2020-10-24 16:57] LABS: Creatine Kinase 129 U/L (30-135); Magnesium 2.4 mg/dL (1.6-2.3); Phosphorous 5.2 mg/dL (2.8-4.1)
[2020-10-24 17:10] LABS: Troponin I < 0.012 ng/mL (0.01-0.034)
[2020-10-24 17:12] LABS: CKMB % Relative Index 1.2 % (1.5-5.0); Creatine Kinase MB 1.57 ng/mL (<2.37)
[2020-10-24 18:41] LABS: RBC Urine None Seen (0-5/HPF)
[2020-10-24 18:52] LABS: Bilirubin Urine UA NEGATIVE (NEGATIVE); Color Urine UA YELLOW; Glucose Urine UA NEGATIVE (Negative); Ketones Urine UA NEGATIVE (NEGATIVE); Leukocyte Esterase Urine UA TRACE (NEGATIVE); Nitrite Urine UA NEGATIVE (Negative); Occult Blood Urine UA NEGATIVE (Negative); Protein Urine UA 1+ (Negative); Urobilinogen Urine UA 0.2 E.U./dL (0.2)
[2020-10-24 18:57] LABS: UR Morphine/Opiate cutoff 300 Negative (Negative); Ur Creatinine Normal (Normal); Ur Specific Gravity Normal (Normal); Urine Amphetamines Negative (Negative); Urine Barbiturates Negative (Negative); Urine Benzodiazepines Negative (Negative); Urine Cocaine Negative (Negative); Urine MDMA Negative (Negative); Urine Methadone Negative (Negative); Urine Methamphetamines Negative (Negative); Urine Oxycodone Negative (Negative); Urine Phencyclidine Negative (Negative); Urine Tetrahydrocannabinol Negative (Negative); Urine Tricyclic Antidepressant Negative (Negative); Urine pH Normal (Normal)
[2020-10-24 19:00] LABS: Appearance Urine UA Slightly Cloudy; Squamous Epithelial Cell Urine 1-5 /HPF (0-5/HPF); WBC Urine 5-10/HPF (0-5/HPF); pH Urine UA 5.5 (4.5-8.0)
[2020-10-24 19:01] LABS: Amorphous Sediment Urine 1+; Bacteria Urine Few (2-10); Culture Indicated Urine Specimen Cultured; Mucus Urine 1+ (Negative); Renal Epithelial Cells Urine 0-1/HPF (0-1/HPF)
--- NOTE | 2020-10-24 22:10 | PC.NURSE ---
Received patient from floor after MRI. Patient A/Ox4, 98-100% on RA, on 150ml/hr NS. Patient is under Dr. Goodrich's care and is ICU status due to patient having a seizure prior to MRI. Patient has right sided weakness in upper and lower extremities, per patient she has weakness at baseline due to a previous CVA but current weakness is greater than baseline. Patient has some trouble finding words and has slightly mumbled/slurred speech but is still understandable. NIH was graded at 4 due to right sided weakness and some word finding difficulty. Patient is hypotensive with systolic as low as 80's, per Dr. Goodrich this is baseline for patient. Patient was unable to void despite feeling the urge to go. Bladder scan showed >700ml in bladder. Dr. Delacruz, promotions coordinator for [employer], was notified and order to place indwelling catheter received. Patient reluctantly consented and nguyen placed without complications.
[2020-10-25] VITALS (22 sets, daily range): BP systolic 76–102; BP diastolic 48–64; PULSE 72–82; RESP 13–20; TEMP 35.9–36.9; O2SAT 94–98
[2020-10-25 00:03] LABS: Troponin I < 0.012 ng/mL (0.01-0.034)
[2020-10-25 04:33] LABS: Add Manual Diff / Slide Review NO; Basophils Absolute Auto 100 /uL (0-100); Basophils Percent Auto 0.8 % (0-2); Eosinophils Absolute Auto 500 /uL (0-450); Eosinophils Percent Auto 7.8 % (2-4); Hematocrit 26.3 % (36-46); Hemoglobin 8.4 g/dL (12.0-16.0); Lymphocytes Absolute Auto 1300 /uL (1100-4500); Mean Corpuscular Hemoglobin 28.3 PG (26-34); Mean Corpuscular Volume 88.4 fL (80-100); Monocytes Absolute Auto 500 /uL (0-900); Monocytes Percent Auto 7.2 % (3-14); Neutrophils Absolute Auto 4600 /uL (1500-7000); Neutrophils Percent Auto 66.2 % (50-75); Platelet Count 431 X10^3/uL (150-400); Red Blood Cell Count 2.97 X10^6/uL (4.0-5.2); Red Cell Distribution Width 17.9 % (11.6-14.8)
[2020-10-25] MEDS: MORPHINE 2 MG/ML INJ IV (04:41)
[2020-10-25] MEDS: SODIUM CHLORIDE 0.9% 1,000 ML 150 ML IV (04:41)
[2020-10-25 04:46] LABS: Alanine Aminotransferase 12 IU/L (<35); Albumin 2.5 g/dL (3.5-5.0); Albumin Globulin Ratio 0.8 (1.0-2.8); Alkaline Phosphatase 88 U/L (38-126); Aspartate Aminotransferase 23 IU/L (14-36); Bilirubin Total 0.2 mg/dL (0.2-1.3); Blood Urea Nitrogen 52 mg/dL (7-17); Calcium 7.6 mg/dL (8.4-10.2); Carbon Dioxide 18 mmol/L (22-32); Chloride 112 mmol/L (98-107); Estimated Glomerular Filt Rate 17.3 mL/min (>60); Globulin 3.2 g/dL (1.7-4.1); Glucose 83 mg/dL (80-110); HEMOLYSIS < 15 (0-50); Sodium 140 mmol/L (137-145); Total Protein 5.7 g/dL (6.3-8.2)
[2020-10-25 04:49] LABS: Reticulocyte Count, Percent 0.7 % (1.06-2.63)
[2020-10-25 04:53] LABS: Iron 44 ug/dL (37-170)
[2020-10-25 05:04] LABS: Total Iron Binding Capacity 179 ug/dL (265-497); Transferrin 127 mg/dL (206-381)
--- NOTE | 2020-10-25 05:55 | P.PN_ITS ---
Subjective Subjective Date Patient Seen: 10/25/20 Time Patient Seen: 05:56 Interval history: Patient is initially sleeping at time of interview but wakes easily and is pleasantly surprised to find her at her bedside. She denies any pain overnight. Did have a feeling of abdominal fullness ovenright and inability to urinate so Sood catheter was placed, 700 cc of straw-colored urine drained. Sood remains in place. No further seizure activity overnight. She does feel better this morning. She denies any shortness of breath or ankle swelling. Exam Vital Signs (past 8 hours): - 10/24/20 22:00 10/24/20 22:15 10/24/20 22:30 Temperature Pulse Rate 69 70 72 Respiratory Rate 13 13 20 Blood Pressure 79/46 L Pulse Oximetry 10/24/20 22:45 10/24/20 23:00 10/24/20 23:15 Temperature Pulse Rate 71 74 75 Respiratory Rate 13 23 21 Blood Pressure 81/49 L Pulse Oximetry 10/24/20 23:30 10/24/20 23:45 10/25/20 00:00 Temperature 96.7 F L Pulse Rate 78 74 74 Respiratory Rate 23 15 14 Blood Pressure 82/51 L Pulse Oximetry 10/25/20 00:15 10/25/20 00:30 10/25/20 00:45 Temperature Pulse Rate 74 74 74 Respiratory Rate 14 14 14 Blood Pressure Pulse Oximetry 10/25/20 01:00 10/25/20 02:00 10/25/20 03:00 Temperature Pulse Rate 77 76 73 Respiratory Rate 19 16 15 Blood Pressure 77/51 L 84/52 L 82/52 L Pulse Oximetry 95 98 96 10/25/20 04:00 10/25/20 04:04 10/25/20 05:00 Temperature 97.7 F Pulse Rate 73 77 79 Respiratory Rate 13 13 17 Blood Pressure 76/49 L 82/52 L 81/52 L Pulse Oximetry 94 97 95 Oxygen Delivery Method Room Air Oxygen Flow Rate 0 Narrative Exam Narrative: GENERAL: Alert and oriented, appearing stated age and fatigued. HEENT: Head normocephalic/atraumatic. Pupils equal, round, and reactive to light and accomodation. Extraocular muscles intact. Tympanic membranes clear. Nasal mucosa moist, septum midline. Oral mucosa dry, no lesions. Neck soft and supple, no lymphadenopathy. LUNGS: Diminished inspiratory effort with mild expiratory wheezes, left lower lobe. CV: Normal S1 and S2 with regular rate and rhythm, no audible murmurs, rubs or gallops. ABDOMEN: Soft, non-tender, non-distended, no organomegaly. Positive bowel sounds. EXTREMITIES: No clubbing, cyanosis, or edema. NEURO: Cranial nerves II through XII grossly intact. Right upper extremity pronator drift with decreased finger to nose accuracy. Heel-ospina testing equal in bilateral lower extremities. PSYCH: Alert and oriented x 3. SKIN: No concerning lesions. Objective Labs Result Diagrams: 10/25/20 04:15 10/25/20 04:15 Labs: Laboratory Results - last 24 hr 10/24/20 10/24/20 10/24/20 10:30 10:30 10:34 WBC 10.4 RBC 3.73 L Hgb 10.6 L Hct 32.7 L MCV 87.6 MCH 28.5 MCHC 32.5 RDW 18.0 H Plt Count 586 H Neut % (Auto) 79.5 H Lymph % (Auto) 11.7 L F[place] % (Auto) 4.5 Eos % (Auto) 3.7 Baso % (Auto) 0.6 Neut # (Auto) 8300 H Lymph # (Auto) 1200 [place] # (Auto) 500 Eos # (Auto) 400 Baso # (Auto) 100 Percent Retic Sodium Potassium Chloride Carbon Dioxide BUN Creatinine Estimated GFR BUN/Creatinine Ratio Glucose Lactate Calcium Phosphorus Magnesium Iron TIBC Transferrin Total Bilirubin AST ALT Alkaline Phosphatase Total Creatine Kinase CK-MB (CK-2) CK-MB (CK-2) Rel Index Troponin I Total Protein Albumin Globulin Albumin/Globulin Ratio Lipase Procalcitonin TSH 3.17 Prolactin 20.8 H Urine Color Urine Appearance Urine pH Ur Specific [place] Urine Protein Urine Glucose (UA) Urine Ketones Urine Occult Blood Urine Nitrate Urine Bilirubin Urine Urobilinogen Ur Leukocyte Esterase Urine RBC Urine WBC Ur Squamous Epith Cells Ur Renal Epithelial Cell Amorphous Sediment Urine Bacteria Urine Mucus Ur Culture Indicated? Ur Random Sodium Urine Creatinine U Opiates 300ng/mL cut Ur Oxycodone Screen Urine Methadone Screen Ur Barbiturates Screen U Tricyclic Antidepress Ur Phencyclidine Scrn Ur Amphetamines Screen U Methamphetamines Scrn Ur MDMA Scrn (Ecstasy) U Benzodiazepines Scrn Urine Cocaine Screen U Marijuana (THC) Screen Ethyl Alcohol SARS-CoV-2 (PCR) 06/29/21 06/29/21 06/29/21 10:34 10:34 10:34 WBC RBC Hgb Hct MCV MCH MCHC RDW Plt Count Neut % (Auto) Lymph % (Auto) [place] % (Auto) Eos % (Auto) Baso % (Auto) Neut # (Auto) Lymph # (Auto) [place] # (Auto) Eos # (Auto) Baso # (Auto) Percent Retic Sodium 136 L Potassium 4.0 Chloride 98 Carbon Dioxide 22 BUN 64 H Creatinine 3.79 H Estimated GFR 11.8 L BUN/Creatinine Ratio 16.9 Glucose 100 Lactate 1.3 Calcium 8.8 Phosphorus Magnesium Iron TIBC Transferrin Total Bilirubin 0.4 AST 32 ALT 16 Alkaline Phosphatase 139 H Total Creatine Kinase CK-MB (CK-2) CK-MB (CK-2) Rel Index Troponin I Total Protein 8.0 Albumin 3.6 Globulin 4.4 H Albumin/Globulin Ratio 0.8 L Lipase 52 Procalcitonin 0.21 TSH Prolactin Urine Color Urine Appearance Urine pH Ur Specific [place] Urine Protein Urine Glucose (UA) Urine Ketones Urine Occult Blood Urine Nitrate Urine Bilirubin Urine Urobilinogen Ur Leukocyte Esterase Urine RBC Urine WBC Ur Squamous Epith Cells Ur Renal Epithelial Cell Amorphous Sediment Urine Bacteria Urine Mucus Ur Culture Indicated? Ur Random Sodium Urine Creatinine U Opiates 300ng/mL cut Ur Oxycodone Screen Urine Methadone Screen Ur Barbiturates Screen U Tricyclic Antidepress Ur Phencyclidine Scrn Ur Amphetamines Screen U Methamphetamines Scrn Ur MDMA Scrn (Ecstasy) U Benzodiazepines Scrn Urine Cocaine Screen U Marijuana (THC) Screen Ethyl Alcohol < 10 SARS-CoV-2 (PCR) 10/24/20 10/24/20 10/24/20 12:40 12:40 12:40 WBC RBC Hgb Hct MCV MCH MCHC RDW Plt Count Neut % (Auto) Lymph % (Auto) [place] % (Auto) Eos % (Auto) Baso % (Auto) Neut # (Auto) Lymph # (Auto) [place] # (Auto) Eos # (Auto) Baso # (Auto) Percent Retic Sodium Potassium Chloride Carbon Dioxide BUN Creatinine Estimated GFR BUN/Creatinine Ratio Glucose Lactate Calcium Phosphorus Magnesium Iron TIBC Transferrin Total Bilirubin AST ALT Alkaline Phosphatase Total Creatine Kinase CK-MB (CK-2) CK-MB (CK-2) Rel Index Troponin I Total Protein Albumin Globulin Albumin/Globulin Ratio Lipase Procalcitonin TSH Prolactin Urine Color Yellow Urine Appearance Slightly cloudy Urine pH 5.5 Ur Specific [place] 1.010 Urine Protein 1+ H Urine Glucose (UA) Negative Urine Ketones Negative Urine Occult Blood Negative Urine Nitrate Negative Urine Bilirubin Negative Urine Urobilinogen 0.2 Ur Leukocyte Esterase Trace H Urine RBC None seen None seen Urine WBC 1-5/hpf 5-10/hpf H Ur Squamous Epith Cells 1-5 /hpf 1-5 /hpf Ur Renal Epithelial Cell 0-1/hpf Amorphous Sediment 1+ Urine Bacteria None seen Few (2-10) H Urine Mucus 1+ H Ur Culture Indicated? Specimen cultured Specimen cultured Ur Random Sodium 9 L Urine Creatinine 86.2 U Opiates 300ng/mL cut Ur Oxycodone Screen Urine Methadone Screen Ur Barbiturates Screen U Tricyclic Antidepress Ur Phencyclidine Scrn Ur Amphetamines Screen U Methamphetamines Scrn Ur MDMA Scrn (Ecstasy) U Benzodiazepines Scrn Urine Cocaine Screen U Marijuana (THC) Screen Ethyl Alcohol SARS-CoV-2 (PCR) 10/24/20 10/24/20 10/24/20 12:40 13:39 15:10 WBC RBC Hgb Hct MCV MCH MCHC RDW Plt Count Neut % (Auto) Lymph % (Auto) [place] % (Auto) Eos % (Auto) Baso % (Auto) Neut # (Auto) Lymph # (Auto) [place] # (Auto) Eos # (Auto) Baso # (Auto) Percent Retic Sodium Potassium Chloride Carbon Dioxide BUN Creatinine Estimated GFR BUN/Creatinine Ratio Glucose Lactate Calcium Phosphorus Magnesium Iron TIBC Transferrin Total Bilirubin AST ALT Alkaline Phosphatase Total Creatine Kinase CK-MB (CK-2) CK-MB (CK-2) Rel Index Troponin I < 0.012 Total Protein Albumin Globulin Albumin/Globulin Ratio Lipase Procalcitonin TSH Prolactin Urine Color Urine Appearance Urine pH Ur Specific [place] Urine Protein Urine Glucose (UA) Urine Ketones Urine Occult Blood Urine Nitrate Urine Bilirubin Urine Urobilinogen Ur Leukocyte Esterase Urine RBC Urine WBC Ur Squamous Epith Cells Ur Renal Epithelial Cell Amorphous Sediment Urine Bacteria Urine Mucus Ur Culture Indicated? Ur Random Sodium Urine Creatinine U Opiates 300ng/mL cut Negative Ur Oxycodone Screen Negative Urine Methadone Screen Negative Ur Barbiturates Screen Negative U Tricyclic Antidepress Negative Ur Phencyclidine Scrn Negative Ur Amphetamines Screen Negative U Methamphetamines Scrn Negative Ur MDMA Scrn (Ecstasy) Negative U Benzodiazepines Scrn Negative Urine Cocaine Screen Negative U Marijuana (THC) Screen Negative Ethyl Alcohol SARS-CoV-2 (PCR) Negative 10/24/20 10/24/20 10/25/20 16:30 23:30 04:15 WBC 7.0 RBC 2.97 L Hgb 8.4 L Hct 26.3 L MCV 88.4 MCH 28.3 MCHC 32.0 RDW 17.9 H Plt Count 431 H Neut % (Auto) 66.2 Lymph % (Auto) 18.0 L F[place] % (Auto) 7.2 Eos % (Auto) 7.8 H Baso % (Auto) 0.8 Neut # (Auto) 4600 Lymph # (Auto) 1300 [place] # (Auto) 500 Eos # (Auto) 500 H Baso # (Auto) 100 Percent Retic Sodium Potassium Chloride Carbon Dioxide BUN Creatinine Estimated GFR BUN/Creatinine Ratio Glucose Lactate Calcium Phosphorus 5.2 H Magnesium 2.4 H Iron TIBC Transferrin Total Bilirubin AST ALT Alkaline Phosphatase Total Creatine Kinase 129 CK-MB (CK-2) 1.57 CK-MB (CK-2) Rel Index 1.2 L Troponin I < 0.012 < 0.012 Total Protein Albumin Globulin Albumin/Globulin Ratio Lipase Procalcitonin TSH Prolactin Urine Color Urine Appearance Urine pH Ur Specific [place] Urine Protein Urine Glucose (UA) Urine Ketones Urine Occult Blood Urine Nitrate Urine Bilirubin Urine Urobilinogen Ur Leukocyte Esterase Urine RBC Urine WBC Ur Squamous Epith Cells Ur Renal Epithelial Cell Amorphous Sediment Urine Bacteria Urine Mucus Ur Culture Indicated? Ur Random Sodium Urine Creatinine U Opiates 300ng/mL cut Ur Oxycodone Screen Urine Methadone Screen Ur Barbiturates Screen U Tricyclic Antidepress Ur Phencyclidine Scrn Ur Amphetamines Screen U Methamphetamines Scrn Ur MDMA Scrn (Ecstasy) U Benzodiazepines Scrn Urine Cocaine Screen U Marijuana (THC) Screen Ethyl Alcohol SARS-CoV-2 (PCR) 10/25/20 10/25/20 10/25/20 04:15 04:15 04:15 WBC RBC Hgb Hct MCV MCH MCHC RDW Plt Count Neut % (Auto) Lymph % (Auto) [place] % (Auto) Eos % (Auto) Baso % (Auto) Neut # (Auto) Lymph # (Auto) [place] # (Auto) Eos # (Auto) Baso # (Auto) Percent Retic 0.7 L Sodium 140 Potassium 3.0 L Chloride 112 H Carbon Dioxide 18 L BUN 52 H Creatinine 2.73 H Estimated GFR 17.3 L BUN/Creatinine Ratio 19.0 Glucose 83 Lactate Calcium 7.6 L Phosphorus Magnesium Iron 44 TIBC 179 L Transferrin 127 L Total Bilirubin 0.2 AST 23 ALT 12 Alkaline Phosphatase 88 D Total Creatine Kinase CK-MB (CK-2) CK-MB (CK-2) Rel Index Troponin I Total Protein 5.7 L Albumin 2.5 L Globulin 3.2 Albumin/Globulin Ratio 0.8 L Lipase Procalcitonin TSH Prolactin Urine Color Urine Appearance Urine pH Ur Specific [place] Urine Protein Urine Glucose (UA) Urine Ketones Urine Occult Blood Urine Nitrate Urine Bilirubin Urine Urobilinogen Ur Leukocyte Esterase Urine RBC Urine WBC Ur Squamous Epith Cells Ur Renal Epithelial Cell Amorphous Sediment Urine Bacteria Urine Mucus Ur Culture Indicated? Ur Random Sodium Urine Creatinine U Opiates 300ng/mL cut Ur Oxycodone Screen Urine Methadone Screen Ur Barbiturates Screen U Tricyclic Antidepress Ur Phencyclidine Scrn Ur Amphetamines Screen U Methamphetamines Scrn Ur MDMA Scrn (Ecstasy) U Benzodiazepines Scrn Urine Cocaine Screen U Marijuana (THC) Screen Ethyl Alcohol SARS-CoV-2 (PCR) 10/25/20 04:15 WBC RBC Hgb Hct MCV MCH MCHC RDW Plt Count Neut % (Auto) Lymph % (Auto) [place] % (Auto) Eos % (Auto) Baso % (Auto) Neut # (Auto) Lymph # (Auto) [place] # (Auto) Eos # (Auto) Baso # (Auto) Percent Retic Sodium Potassium Chloride Carbon Dioxide BUN Creatinine Estimated GFR BUN/Creatinine Ratio Glucose Lactate Calcium Phosphorus 5.0 H Magnesium Iron TIBC Transferrin Total Bilirubin AST ALT Alkaline Phosphatase Total Creatine Kinase CK-MB (CK-2) CK-MB (CK-2) Rel Index Troponin I Total Protein Albumin Globulin Albumin/Globulin Ratio Lipase Procalcitonin TSH Prolactin Urine Color Urine Appearance Urine pH Ur Specific [place] Urine Protein Urine Glucose (UA) Urine Ketones Urine Occult Blood Urine Nitrate Urine Bilirubin Urine Urobilinogen Ur Leukocyte Esterase Urine RBC Urine WBC Ur Squamous Epith Cells Ur Renal Epithelial Cell Amorphous Sediment Urine Bacteria Urine Mucus Ur Culture Indicated? Ur Random Sodium Urine Creatinine U Opiates 300ng/mL cut Ur Oxycodone Screen Urine Methadone Screen Ur Barbiturates Screen U Tricyclic Antidepress Ur Phencyclidine Scrn Ur Amphetamines Screen U Methamphetamines Scrn Ur MDMA Scrn (Ecstasy) U Benzodiazepines Scrn Urine Cocaine Screen U Marijuana (THC) Screen Ethyl Alcohol SARS-CoV-2 (PCR) [facility] Medical History (Updated 10/24/20 @ 13:18 by Ketty Arvizu DO) Breast cancer CVA (cerebral vascular accident) Social History household members: spouse Smoking Status: Former smoker Assessment & Plan Assessment & Plan narrative: 1. Acute renal failure, pre-renal -BUN: 54 -->52 -Cr: 2.79 --> 2.73 -GFR: 11.8 --> 17.3 Plan: Patient with only a slight improvement in creatinine and GFR this morning. However, she has put out 1400 cc of urine since admission which is r eassuring, 116 cc/hour in the last 6 hours. Will consult nephrology again today for direction. May need transfer. Have changed IVF to D51/2 NS + 40 KCL at 150 cc/hour as sodium/chloride have normalized, potassium has dropped, and patient remains NPO. Will watch output closely to ensure that she is not getting caridac/pulmonary overloaded. Awaiting renal ultrasound results. UPDATE: Renal ultrasound showed bilateral cysts but was otherwise normal. Was able to talk with Dr. Wilkerson, nephrology, who last saw her on 07/17/2020. He did not feel that she needs urgent dialysis but did advise continued hydration and monitoring of labs. He was reassured that she is making urine and that her renal US is normal. If she fails to resolve her acute renal failure and creatinine worsens, he advised transfer to [facility] for higher level of care. Discussed narcotic use and he recommended either fentanyl or Dilaudid. Advised avoiding contrast until her kidneys have recovered except for emergent reasons. Advised continuing D51/2NS + 40 KCl at 150 cc for now, may give lasix 40 mg IV x 1 as needed for fluid overload. 2. Acute electrolyte derangement, hypokalemia, hyperphosphatemia, and hypermagnesemia secondary to acute renal failure K: 4.0 --> 3.0 M.4 --> 2.2 PO4: 5.2 --> 5.0 Plan: Please see #1. 3. Seizure, acute; secondary to encephalomalacia from previous CVA and exacerbated by dehydration and acute renal failure, no repeat occurrence. Plan: Dr. Haney neurology consulted. He recommended loading dose of fosphenytoin 18 milligrams/kg followed by Dilantin 300 mg p.o. q.h.s. starting tonight as well as treatment of underlying dehydration. Will continue to trend dilantin levels. Will appreciate nephrology input on seizure activity as well. UPDATE: Dr. Wilkerson, nephrology, did not feel that her acute renal failure was the underlying reason for her seizure but that it created the setting for lowering her seizure threshold. 4. QT prolongation and T-wave changes, rule out AZ -Troponin negative x 3 Plan: Dr. Cueva, cardiology consulted. Dr. Cueva recommended treatment of underlying dehydration and acute renal failure. He does not feel that EKG changes are consistent with an acute AZ as patient is not having chest pain. He reviewed recent stress test in the last year which was normal. Will treat as noted in #1. Echo pending this the morning. Will hold off on stress test as inpatient secondary to IV contrast and need to avoid nephrotoxic agents. Patient is not a good candidate right now for an exercise stress test. Continue cardiac telemetry and serial EKGs. 5. Right-sided weakness, dysphagia, and dysarthria in setting of history of CVA Plan: MRI incomplete but no evidence of acute stroke. CT head negative for acute stroke. Echo pending. PT/OT consulting. ST to provide swallow evaluation today advance diet thereafter. NPO in the meantime. UDPATE: ST has completed swallow evaluation and patient has failed, must remain NPO, recommended barium swallow. Will coordinate NG tube feeding per nutrition. Barium swallow on hold while patient in ARF. 6. Cough, chronic x4 months, stable Plan: Risk for aspiration pneumonia with dysphagia. Patient has already been treated with antibiotics for suspected aspiration pneumonia. Chest x-ray does show atelectasis versus consolidation in the left lower lobe, will follow this clinically rather than treat with antibiotics tonight as she is currently afebrile, has a normal WBC count and is in renal failure. Will not add antibiotics to the mix until she is better hydrated. Will proceed with barium swallow when kidneys have recovered. 7. Alcohol use Plan: CIWA protocol. 8. Diabetes mellitus type 2 Plan: Routine glucose monitoring while NPO, holding metformin. 9. Hypertension Plan: Holding propranolol as she is currently hypotensive. Will continue to hydrate and restart when appropriate. 10. Hyperlipidemia Plan: Holding statin, plan to restart upon discharge if kidneys have recovered. 11. 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 Will get nephr ology consult on preferred narcotic. UDPATE: Dr. Wilkerson, nephrology, recommended IV dilaudid as needed, ordered. 12. Migraines, chronic Plan: Supportive therapy, IV pain control as needed. 13. History of breast cancer with elevated alkaline phosphatase -Alk phos now normal, possibly dilutional Plan: With weight loss and lab abnormalities, may need a CT abdomen/pelvis to look for mass in setting of weight loss and elevated alk phos, d-dimer, and platelets. PE has already been ruled out with no sign of mass on CT chest. Again, will hold on contrast CT until kidneys recover. 14. Unintended weight loss Plan: Possibly secondary to reduced p.o. intake and nothing more, but concerning nontheless due to her cancer history. Please see #13. Will treat kidney failure, address dysphagia, and if still a problem, proceed with further workup. 15. Anemia, normochromic/normocytic, new -Vit B12/folate within normal limits -Iron studies consistent with anemia of chronic disease. Plan: Will treat underlying diseases. 16. Thrombpohillia, chronic Plan: Possibly acute phase reactant due to kidney injury, inflammation, infection, or malignancy. Levels trending down this morning after being hydrated overnight, certainly some dilution component. Will continue to watch closely. 17. Depression Plan: holding home medications 18: Obesity, status post gastric bypass Plan: Nutrionally complicated, will consult nutrition once re-feeding approved by ST. 19. Protein calorie malnutrition, acute, severe Plan: Please see #5. 20. Urinary retention, acute on chronic Plan: Sood for now, may need urology consult. Code: Full DVT prophylaxis: SCDs COVID: negative
[2020-10-25 05:59] LABS: Vitamin B12 925 pg/mL (239-931)
[2020-10-25 06:28] LABS: Magnesium 2.2 mg/dL (1.6-2.3)
[2020-10-25] MEDS: DEXTROSE 5%-0.45NS W/KCL 40MEQ 1,000 ML 150 MEQ IV ×3 (06:52→19:13)
[2020-10-25 07:04] LABS: Ferritin 72 ng/mL (11-264)
--- NOTE | 2020-10-25 10:20 | DIET.PN ---
Dietary Progress Note Assessment: 70y F admitted for Acute Renal Failure with two witnessed seizures (one prior to admission and one in hospital bed) referred to nutrition for unintentional weight loss secondary to dysphagia and nutrition support reccs. Pt has been NPO awaiting swallow evaluation. Per TABLET MACHINE OPERATOR, pt failed bedside swallow and they recc barium swallow. Pt renal fxn not stable enough for this service per gold cutter. Medical team requests NG placement c tube feeds in the meantime secondary to dysphagia and reported 25# weight loss x4mo (-12% in 4mo, severe). Pt has hx of etoh use (1 bottle wine nightly weaned down to 2oz nightly) and gastric bypass surgery. Pt is overweight (BMI 28) with hx gastric bypass putting her at higher risk for malnutrition and loss of lean body mass. HT: 172.7cm WT: 84.3kg (-12% in 4mo, severe) UBW: 95.6kg BMI: 28 Labs: hgb 8.4 L, K+ 3.0 L, BUN 52 H, Cr 2.73 H, eGFR 17.3 L, phos 5 H MNA: 8 malnourished Malcolm: 20 Nutrition Diagnosis: Severe Acute PCM r/t dysphagia aeb 12% unintentional weight loss in 4mo (severe), pts oral intake severely reduced as dysphagia has worsened x4mo, pt meeting less than 25% EER x4mo, pt failed bedside swallow evaluation c renal fxn not safe for barium swallow. Interventions: 1. Recc continuous TF via NG tube. Begin continuous NG feeding of Jevity 1.2 @ 20mL/h titrating up by 10mL/kg q4h as tolerated until reaching goal of 45mL/h. Goal feed provides 1296kcals (77% needs) and 56g PRO (112% needs) and provides 900mL free water. Acute Renal Failure fluid dosing reccs are urine output +500mL to be managed by medical team. 2. HOB elevated during feeding to protect against aspiration. Diet Order: Tube Feed EER: 1680 kcal (20kcal/kg per overweight PCM), 50g PRO (0.6g/kg per renal) Monitoring/Evaluations: RD to watch renal fxn in order to increase tube feeding goal rate as pt becomes better able to clear protein.
--- NOTE | 2020-10-25 10:30 | PC.NURSE ---
Addendum entered by Azeb Mancia R.N. 10/25/20 18:23: update to Dr. Goodrich re: declination of NGT and she instructed to maintain NPO status other than rx and few ice chips- and she will address in am. Medicated for right arm discomfort with iv dilaudid Original Note: PT DENIES PAIN BUT HAS A CONTINUOUS COUGH (NOTED PREVIOUSLY AT HOME WELL PER SPOUSE)- PT TAKING LARGE AMOUNT OF ICE CHIPS AND HAS SPEECH EVAL AND THE RECOMMENDATION WAS FOR BARIUM SWALLOW TO GET DIAGNOSTIC VIEW OF SWALLOW BUT PER DR. GOODRICH, AFTER CONSULTING WITH PTS LACQUERER- THE THOUGHT IS, THAT KIDNEYS REMAIN IMPAIRED ENOUGH THAT THE SMALL AMOUNT OF CONTRAST FOR BS WILL BE TOO GREAT AT THIS TIME- WAS ORDERED FOR NGT PLACEMENT AND [employer]ER CONSULT FOR ENTERAL FEEDINGS- PT AND SPOUSE DECLINED THIS AT THIS TIME. HOLDING SEVERAL AM RX DUE TO THE HER SWALLOWING DEFICIT. PT WORKING WITH PT/OT/SIDE SHOW ENTERTAINER. LEFT LUNG VERY COARSE
--- NOTE | 2020-10-25 10:41 | OT.IP.EVAL ---
Current Diagnoses Acute kidney failure, unspecified (10/24/20) Past Medical History (Last [facility]19[facility]18 [facility] 12[facility]55 [facility] Breast cancer CVA (cerebral vascular accident) Occupational Therapy Inpatient Evaluation/Re-Eval M1 PT/OT-IP Prior Functional Status Start: 10/25/20 13:13 Freq: NEEDED Status: Active Protocol: Document 10/25/20 11:27 AB (Rec: 10/25/20 13:31 AB [id number]) Medical Review Prior Functional Status Medical History Reviewed Yes Communication able to make needs known Mobility and Gait per spouse: he has been assisting pt at home but pt is able to ambulate using FWW with SBA but occasionally ambulates without AD indoors; spouse stated that pt holds on to him when ambulating outdoors without AD Activities of Daily Living and IADL's spouse stated that pt is able to take a shower by herself and he assists her with dressing Social History Household Members spouse Living Arrangements House Number of Floors (Floors) Two Floors Number of Stairs To Enter/Railing? pt stays on main level of the house and has a chair lift from the outside to get in Home Environment High Toilet,Walk in Shower Home Equipment Front Wheel Walker,Straight Cane,Hand Held Shower,Grab Bars Near Toilet,Grab Bars In Shower Additional Social History Comment pt has an adjustable bed but sleeps on her recliner chair M2 OT-IP Current Condition Start: 10/25/20 14:41 Freq: Status: Active Protocol: Document 10/25/20 09:55 [facility] (Rec: 10/25/20 15:01 [facility] [id number]) Occupational Therapy Current Condition Current Condition Evaluation Date 10/25/20 Treatment Diagnosis Acute renal failure, decreased mobility. Diagnosis Onset Date 10/24/20 M3 OT- IP Subjective and Pain Start: 10/25/20 14:41 Freq: Status: Active Protocol: Document 10/25/20 09:55 [facility] (Rec: 10/25/20 15:01 [facility] [id number]) OT- Subjective Occupational Therapy Visit Type Type Initial Evaluation Visit Start Time 09:55 Visit Stop Time 10:41 Total Visit Minutes 46 Occupational Therapy Visit Comments Patient Comments Pt wiling to try to get up. Patient/Caregiver Goals To go home. M4 OT- IP ADL's Start: 10/25/20 14:41 Freq: Status: Active Protocol: Document 10/25/20 09:55 [facility] (Rec: 10/25/20 15:01 [facility] [id number]) OT [id number] Comments OT Self-Feeding Comments Per LAYOUT MECHANIC, pt just ice chips. Pt noted coughing episodes after having ice chips, nursing notified. OT ADL-Grooming Comments OT Grooming Comments Not performed. OT ADL-Dressing General Eval Lower Body Dressing Ability Maximum Assistance Areas Needing Assistance Shoes Comments OT Dressing Comments MAX A to help get her slippers on. OT ADL-Toileting Comments OT Toileting Comments Not performed. OT ADL-Bathing Comments OT Bathing Comments Not at this time. M5 OT- IP IADL's Start: 10/25/20 14:41 Freq: Status: Active Protocol: Document 10/25/20 09:55 [facility] (Rec: 10/25/20 15:01 [facility] [id number]) OT-Instrumental Activities of Daily Living Home Safety Awareness Awareness of Need for Assistance at Home Decreased Awareness Ability to Problem Solve Emergency Unable to Problem Solve Situations Home Safety Comments Pt tends to correct the pt and talk for her. Medication Management Medication Management Caregiver Administers Money Management Money Management Caregiver Provides Assistance Meal Preparation Meal Preparation Caregiver Provides Assist Office Machine Repair Shop Supervisor Office Machine Repair Shop Supervisor Caregiver Provides Assist M6 OT- IP Functional Cognition Start: 10/25/20 14:41 Freq: Status: Active Protocol: Document 10/25/20 09:55 [facility] (Rec: 10/25/20 15:01 [facility] [id number]) Cognitive Factors Limiting Selfcare Function Cognitive Ability Level of Alertness Alert Patient Orientation Name Attention Span Ability Capable of Focused Attention, Capable of Sustained Attention Ability to Follow Commands Able to Follow One Step Commands Memory Description Short Term Impaired Cognitive Comments Cognitive Assessment Comments Pt's tends to talk for the pt as pt not remembering or recalling prior history of home set-up accurately. OT- Vision and Hearing OT- Hearing Assessment OT- Hearing Assessment WFL OT- Vision Assessment Visual Acuity Glasses All The Time M7 OT- IP Mobility and Balance Start: 10/25/20 14:41 Freq: Status: Active Protocol: Document 10/25/20 09:55 [facility] (Rec: 10/25/20 15:01 [facility] [id number]) OT- Bed Mobility Assessment Rolling Level of Assistance Contact Guard Assistance,Head of Bed Elevated OT-Transfer Assessment Sit to and From Stand Sit to and from Stand Minimal Assistance Transfers Transfer Ability Minimal Assistance Technique Transfer Destination Bed,Chair Comments Mobility Comments Bed mobility with HOB CGA to the edge of the bed. MIGUEL to stand to FWW and transfer to recliner. BP supine 85/56 in bed , sitting 88/56 and after transfer 80/52 and while in the recliner 94/58, nursing notified. Pt not wanting to do anymore at this time. OT- Gait Assessment Comments Gait Ability Comments Transfer only. OT- Balance Assessment Sitting Balance and Reactions Static Sitting Balance Ability Good Standing Balance and Reactions Static Standing Balance Ability Fair M8 OT- IP Objective Assessments Start: 10/25/20 14:41 Freq: Status: Active Protocol: Document 10/25/20 09:55 [facility] (Rec: 10/25/20 15:01 [facility] [id number]) OT Gross Range of Motion Upper Extremity Range of Motion Assessment Right Impaired ROM Impairments RUE 0-45 and LUE grossly WFL. OT Strength Upper Extremity Strength Assessment Bilaterally Impaired Comments Strength Comments RUE 3-/5, LUE 4/5 M9 OT- IP Assessment and Plan Start: 10/25/20 14:41 Freq: Status: Active Protocol: Document 10/25/20 09:55 [facility] (Rec: 10/25/20 15:01 [facility] [id number]) OT Summary Assessment and Plan Potential Rehabilitation Potential Good Analytic Complexity at Evaluation Moderate Summary OT Impairments Range of Motion,Strength, Balance,Functional Cognition, Functional Mobility,Grooming, Dressing,Toileting,Bathing, Toilet Transfers,Shower Transfers,Activity Tolerance Progress Towards Goals Slow Progress due to Medical Issues,Slow Progress due to Activity Tolerance,Slow Progress due to Cognition Assessment Summary Pt MOD Complexity and main barriers are decreased activity tolerance, balance, strength and endurance. Pending medical stability pt would benefit from skilled rehab versus home with 18/11 assist with home health. Pt has a supportive . Goals Grooming Goal Independent Dressing Goal Independent Toileting Goal Independent Bathing Goal Standby Assistance Toilet Transfer Goal Independent Shower Transfer Goal Independent Days to Meet Goals 15 Frequency of Treatment Frequency Of Treatment Once a Day Treatment Plan OT Treatment Plan ADL Training,Functional Cognition Training,Functional Mobility,Patient/Family Education,Discharge Planning Other Treatment Recommendations and Next ductfixing plumber front of sink with Treatment Focus FWW for grooming needs. Discharge Recommendations OT Discharge Recommendations Home vs SNF Transportation Needs at Discharge Private Vehicle,Wheelchair/ Cabulance
[2020-10-25] MEDS: POTASSIUM CHLORIDE 20 MEQ TAB PO (10:49)
[2020-10-25] MEDS: PANTOPRAZOLE 40 MG VIAL IV (10:49)
--- NOTE | 2020-10-25 11:27 | PT.IIE ---
Current Diagnoses Acute kidney failure, unspecified (10/24/20) Medical History (Last Reviewed [facility]18 [facility] 12:55 [facility] Breast cancer CVA (cerebral vascular accident) Physical Therapy Inpatient Evaluation/Re-Eval M1 PT/OT-IP Prior Functional Status Start: 10/25/20 13:13 Freq: NEEDED Status: Active Protocol: Document 10/25/20 11:27 AB (Rec: 10/25/20 13:31 AB [id number]) Medical Review Prior Functional Status Medical History Reviewed Yes Communication able to make needs known Mobility and Gait per spouse: he has been assisting pt at home but pt is able to ambulate using FWW with SBA but occasionally ambulates without AD indoors; spouse stated that pt holds on to him when ambulating outdoors without AD Activities of Daily Living and IADL's spouse stated that pt is able to take a shower by herself and he assists her with dressing Social History Household Members spouse Living Arrangements House Number of Floors (Floors) Two Floors Number of Stairs To Enter/Railing? pt stays on main level of the house and has a chair lift from the outside to get in Home Environment High Toilet,Walk in Shower Home Equipment Front Wheel Walker,Straight Cane,Hand Held Shower,Grab Bars Near Toilet,Grab Bars In Shower Additional Social History Comment pt has an adjustable bed but sleeps on her recliner chair M2 PT-IP Current Condition Start: 10/25/20 13:13 Freq: NEEDED Status: Active Protocol: Document 10/25/20 11:27 AB (Rec: 10/25/20 13:31 AB [id number]) Physical Therapy Current Condition Current Condition Evaluation Date 10/25/20 Treatment Diagnosis acute kidney injury; difficulty in walking Onset Date 10/24/20 Precautions Other Precautions falls; seizures M3 PT-IP Subjective Start: 10/25/20 13:13 Freq: NEEDED Status: Active Protocol: Document 10/25/20 11:27 AB (Rec: 10/25/20 13:31 AB [id number]) Subjective Physical Therapy Visit Type Type Initial Evaluation Visit Start Time 11:27 Visit Stop Time 11:57 Total Visit Minutes 30 Number of BUDGET ENGINEER Visits 0 Physical Therapy Visit Comments Patient Comments pt initially refusing PT; stated that she cannot stand up; spouse in room and encouraged pt Therapy Pain Assessment Pain Present Pain Present Pain Reported Location Right Shoulder Scale Used pain scale not stated Pain Management Techniques Distraction,Re-positioning, Timing of Activity with Medications M4 PT-IP Mobility and Gait Start: 10/25/20 13:13 Freq: NEEDED Status: Active Protocol: Document 10/25/20 11:27 AB (Rec: 10/25/20 13:31 AB [id number]) PT-Bed Mobility Assessment Supine to Sit Supine to Sit Standby Assistance,Head of Bed Elevated Sit to Supine Sit to Supine Maximum Assistance Scooting Scooting Up and Down in Bed Minimal Assistance PT-Transfer Assessment Sit to and From Stand Sit to and from Stand Moderate Assistance,Maximum Assistance,1 Person Assistance Equipment Transfer Assistive Device Gait Belt,Front Wheeled Walker Orthotic/Prosthetic Devices or Brace: No Comments Mobility Comments pt supine in bed. spouse in room. pt initially refusing PT but spouse encouraged pt and agreed. BP monitored. BP in supine: 87/49. spouse stated that BP usually runs low but has been much lower since admission. pt completed supine to sit SBA. pt was able to sit on EOB CGA. BP checked: 93/52. pt completed sit to stand mod to max A and cues and uses FWW for support. was able to stand with min A for ~ 2 -3 min. BP checked: 82/50. pt stated that she needs to sit down. pt with confusion and when asked if she wants to lay back in bed, pt stood up again mod A but has to sit back down again . instructed pt o scoot towards HOB and completed min A and cues. completed sit to supine max A. positioned pt in bed. call light and table placed within reach. BP at end of PT session in supine: 104/54. left pt with spouse in room. Gait Assessment Comments Gait Comments unable at this time PT-Balance Assessment Sitting Balance and Reactions Static Sitting Balance Ability Good Dynamic Sitting Balance Ability Fair Standing Balance and Reactions Static Standing Balance Ability Poor Dynamic Standing Balance Ability Poor Device Used FWW M5 PT-IP Objective Assessments Start: 10/25/20 13:13 Freq: NEEDED Status: Active Protocol: Document 10/25/20 11:27 AB (Rec: 10/25/20 13:31 AB [id number]) Orientation Orientation/Cognition Level of Alertness Confusional State Orientation Name Safety Awareness Decreased Safety Awareness Memory Description Short Term Impaired Gross Range of Motion Lower Extremity ROM Assessment Within Functional Limits Strength Lower Extremity Strength Assessment Bilaterally Impaired Hip 3+/5 Knee 3+/5 Sensation Assessment Comments Sensation Comments c/o RLE numbness but stated that she does not know what specific part of the RLE and also unable to quantify Muscle Tone Muscle Tone WNL Yes M6 PT-IP Treatment Start: 10/25/20 13:13 Freq: NEEDED Status: Active Protocol: Document 10/25/20 11:27 AB (Rec: 10/25/20 13:31 AB [id number]) Physical Therapy Treatment Education Education Provided Safety M7 PT-IP Assessment and Plan Start: 10/25/20 13:13 Freq: NEEDED Status: Active Protocol: Document 10/25/20 11:27 AB (Rec: 10/25/20 13:31 AB [id number]) PT Summary Assessment and Plan Potential Rehabilitation Potential Fair Status of Condition at Evaluation Evolving Summary Impairments Pain,ROM,Strength,Balance, Coordination,Sensation,Tone, Cognition,Bed Mobility, Transfers,Gait,Activity Tolerance Assessment Summary pt requiring mod to max A for sit to stand and unable to ambulate at this time due to decrease activity tolerance. pt's spouse stated that pt has been getting weaker and unable to ambulate much at home. d/c plan depending on progress but at this time will require SNF rehab to improve overall strength and mobility independence. Goals Bed Mobility Goal Standby Assistance Transfer Goal Standby Assistance,Front Wheeled Walker Gait Goal Standby Assistance,Front Wheel Walker Gait Distance 50 Other Goals improve ambulation using FWW 100 ft Days to Meet Goals 10 Frequency of Treatment Frequency Of Treatment Once a Day Treatment Plan Physical Therapy Treatment Plan Bed Mobility Training,Transfer Training,Gait Training, Therapeutic Exercise,Balance Retraining,Discharge Planning, Neuromuscular Re-ed, Coordination Retraining Precautions Other Precautions falls, seizures Recommendations To Nursing Amount of Assist Needed 2 Person Assist Discharge Recommendations PT Discharge Recommendations SNF Rehab Transportation Needs at Discharge Wheelchair/Cabulance
--- NOTE | 2020-10-25 11:30 | ST.IPCSEOM ---
Visit Care Team Role Provider Type Ketty Arvizu DO Emergency Provider Physician Referring Provider Specialty: Emergency Medicine Address: [address] [place] [address], [id number] Email: [email or web address] Aniyah Goodrich MD Admit Provider Physician Attending Provider Primary Care Provider Specialty: Family Practice Address: [address] [place] [address], [address], [place], [address] Email: [email or web address] Past Medical History (Last Reviewed [facility]18 @ 12:55 [facility] Breast cancer (Medical) CVA (cerebral vascular accident) (Medical) some expressive aphasia residual Speech-Language Pathology Swallow Evaluation 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 Aniyah Goodrich Reason for Referral difficulty swallowing Setting Assessment Location Acute Care Visit Type Note Type Initial evaluation Next Note Type Next Note Type Treatment Note Patient Information Identification Type Name Subjective Observations Patient was sitting up in bed brushing her teeth with an electric toothbrush from home. Her [place] was present in the room and involved in the assessment and discussion. When asked how she was thinking, the patient said she was a little foggy. 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 Reported by Patient Other Symptoms Coughing,Weight loss Comment Patient reports she does not eat much because it is not enjoyable to cough through meals. This began ~3 weeks ago worsening as time progressed. Current Diet Nothing by mouth Baseline Feeding Method Independent in self-feeding Objective Assessment Mental Status Alert,Responsive Oral Integrity WFL Dentition Within normal limits Lip Function Within normal limits Observation of Lips at Rest Symmetrical Pucker Within normal limits Lip Retraction Within normal limits Tongue Function Mild impairment Observations of Tongue at Rest Within normal limits Tongue Protrusion Reduced range of motion Tongue Lateralization Reduced range of motion Jaw Function Within normal limits Observations of Jaw at Rest Within normal limits Jaw Opening Within normal limits Jaw Closing Within normal limits Nasality Within normal limits Phonation Hoarse Respiratory Sufficiency Within normal limits Food and Liquid Trials Position During Assessment Upright (90 degrees),In bed Liquids Trialed Ice chips,Thin,[place] Solids Trialed Puree Administration Type Tea spoon,Cup single sip,Self- feeding Oral Impairment Within normal limits Oral Phase Comments No signs of oral dysphagia during trials Pharyngeal Impairment Moderately impaired Pharyngeal Phase Comments Patient coughed throughout entire exam which made it difficult to assess for aspiration at bedside. Patient 's cough was noted to worsen as evaluation went on. Occasional wet sounding voice. Patient did not cough or expectorate anything. Coughing seemed to decreased in frequency and severity with reduction in bolus size. There was no notable change in clinical presentation with implementation of modified textures (nectar thick liquids ) or strategies (effortful swallow). Findings Swallowing Function Dysphagia unspecified Comment Unable to rule out aspiration at bedside with chronic cough present. Patient also has history of reflux and hiatal hernia which may be contributing to symptoms. Impact on Safety and Functioning Risk for aspiration,Risk for inadequate nutrition/hydration Recommendations Instrumental Assessment Yes Swallowing Treatment Yes Recommended Solids Nothing by Mouth Recommended Liquids Ice Chips Only Other Recommendations Stringent oral care, written handout provided to patient and her Medication Recommendations Not Recommended by Mouth Education Patient/Caregiver Education Described results of evaluation,Patient expressed understanding of evaluation, Family/caregivers expressed understanding of evaluation, Family/caregivers expressed agreement with goals & treatment plans,Patient expressed understanding of safety precautions,Patient expressed understanding of feeding recommendations Goals Short-term Goals Patient will participate in MBS in order to guide plan of care.
[2020-10-25] MEDS: HYDROMORPHONE 1 MG INJ IV ×3 (13:24→23:29)
--- NOTE | 2020-10-25 15:42 | CM.DANOTE ---
Patient is a 70 yo female who was admitted for Thrombophilia. Pt has [employer] for insurance and her PCP is Dr. Aniyah Goodrich. EMR was reviewed. Per MD, pt with baseline of R side weakness after CVA hx and Echo and ST ordered. Per ST, recommend barium swallow but pt with poor kidney function and Upsetter Setter Up states no contrast for safety. Therefore pt currently NPO until can be assessed further. Per RN, pt with midline and nguyen and pt and spouse have currently declined NGT for nutrition at this time. SW met bedside with pt and spouse and explained role and they confirm that they lives at home in [place] and spouse is pt's primary CG. Spouse recently retired from [employer] and is available 18/11 but confirms over the past month pt has declined significantly in her health without a clear dx. Spouse has used [facility] in the past when he was working but currently no other services in place. Pt has a hx of HH when she broke her ankle a couple years ago but they cannot remember the HH agency. Pt was using outpt PT but currently too weak and therefore spouse feels HH would be beneficial and no HH preference at this time. POC still unclear at this time and MD to round again with pt this evening to determine next steps. Plan: SW to follow closely towards determining d/c planning needs and possible HH referral based on vendor calendar. BENSON Walker Discharge Planning/Care Management CM Discharge Assessment Start: 10/25/20 15:40 Freq: Status: Active Protocol: Document 10/25/20 15:40 BF (Rec: 10/25/20 15:42 BF [id number]) Discharge Planning Assessment Assigned Dramatic Teacher BENSON Souza DPOA/Assigned Designee Name spouse [place] Contact Information [phone] Advance Directives? Yes Advance Directives on File No: Spouse [place] is aware History Provided By Patient,Significant Other, Medical Record Has Patient been admitted in last 30 No days? Prior Living Arrangements House Household Members spouse Type of transporation used prior to Relies on Others admit Independent with ADL's No Is patient alert and oriented? Yes Needs Assistance With Meal Prep,Managing Medications ,Home Chores / Shopping Caregiver for Another No Comment Has used [facility] in the past when spouse was still working but he is now retired Comment House is ADA compliant including a lift for the stairs at home Barriers to Discharge No Discharge Plan Home Transportation Arrangement Spouse can provide transport at d/c Review Status In Process Please Provide Date Initial DC 10/25/20 Assessment Was Performed Next Review Type Continued Stay Review
[2020-10-25] MEDS: PHENYTOIN ER 100 MG CAPSULE 300 MG PO (20:21)
[2020-10-26] MEDS: DEXTROSE 5%-0.45NS W/KCL 40MEQ 1,000 ML 150 MEQ IV ×2 (01:32→07:37)
[2020-10-26 03:42] VITALS: BP 93/55; PULSE 71; RESP 14; TEMP 36.3; O2SAT 94
[2020-10-26 05:25] LABS: Add Manual Diff / Slide Review NO; Basophils Absolute Auto 100 /uL (0-100); Eosinophils Absolute Auto 600 /uL (0-450); Eosinophils Percent Auto 7.7 % (2-4); Hematocrit 25.4 % (36-46); Hemoglobin 8.1 g/dL (12.0-16.0); Lymphocytes Absolute Auto 1600 /uL (1100-4500); Lymphocytes Percent Auto 19.5 % (25-40); Mean Corpuscular HGB Conc 31.9 % (30-36); Mean Corpuscular Hemoglobin 28.5 PG (26-34); Mean Corpuscular Volume 89.4 fL (80-100); Monocytes Absolute Auto 700 /uL (0-900); Monocytes Percent Auto 8.6 % (3-14); Neutrophils Absolute Auto 5000 /uL (1500-7000); Neutrophils Percent Auto 63.2 % (50-75); Platelet Count 400 X10^3/uL (150-400); Red Blood Cell Count 2.84 X10^6/uL (4.0-5.2); Red Cell Distribution Width 17.8 % (11.6-14.8)
[2020-10-26 05:33] LABS: Alanine Aminotransferase 14 IU/L (<35); Albumin 2.5 g/dL (3.5-5.0); Albumin Globulin Ratio 0.7 (1.0-2.8); Alkaline Phosphatase 80 U/L (38-126); Aspartate Aminotransferase 26 IU/L (14-36); BUN Creatinine Ratio 25.6 (6-22); Bilirubin Total 0.2 mg/dL (0.2-1.3); Blood Urea Nitrogen 34 mg/dL (7-17); Calcium 8.5 mg/dL (8.4-10.2); Carbon Dioxide 19 mmol/L (22-32); Chloride 119 mmol/L (98-107); Estimated Glomerular Filt Rate 39.7 mL/min (>60); Globulin 3.4 g/dL (1.7-4.1); Glucose 126 mg/dL (80-110); HEMOLYSIS 29 (0-50); Potassium 4.6 mmol/L (3.4-5.1); Sodium 143 mmol/L (137-145); Total Protein 5.9 g/dL (6.3-8.2)
[2020-10-26 05:34] LABS: Magnesium 1.8 mg/dL (1.6-2.3); Phosphorous 2.9 mg/dL (2.8-4.1)
[2020-10-26] MEDS: PANTOPRAZOLE 40 MG VIAL IV (07:33)
--- NOTE | 2020-10-26 07:55 | PM.PN.1 ---
Subjective Subjective Date Patient Seen: 10/26/20 Time Patient Seen: 07:56 Interval history: Continues to feel better, nguyen now removed, urinating on her own. Still very weak and tired. PT is difficult for her. Overnight, has started to feel shoulder pain, x-ray orderd and showed no fracture. Has not had a bowel movement since admission. Denies cough. Afebrile. Cough improved now that she is NPO. Exam Vital Signs (past 8 hours): - 10/26/20 03:42 Temperature 97.4 F L Pulse Rate 71 Respiratory Rate 14 Blood Pressure 93/55 L Pulse Oximetry 94 Oxygen Delivery Method Room Air Oxygen Flow Rate 0 Narrative Exam Narrative: GENERAL: Alert and oriented, appearing stated age and fatigued. HEENT: Head normocephalic/atraumatic. LUNGS: Diminished inspiratory effort with mild expiratory wheezes, left lower lobe. CV: Normal S1 and S2 with regular rate and rhythm, no audible murmurs, rubs or gallops. ABDOMEN: Soft, non-tender, non-distended, no organomegaly. Positive bowel sounds. EXTREMITIES: No clubbing, cyanosis, or edema. NEURO: Cranial nerves II through XII grossly intact. PSYCH: Alert and oriented x 3. SKIN: No concerning lesions. Objective Labs Result Diagrams: 10/26/20 04:50 10/26/20 04:50 Labs: Laboratory Results - last 24 hr 10/25/20 10/26/20 10/26/20 16:50 04:50 04:50 WBC 8.0 RBC 2.84 L Hgb 8.1 L Hct 25.4 L MCV 89.4 MCH 28.5 MCHC 31.9 RDW 17.8 H Plt Count 400 Neut % (Auto) 63.2 Lymph % (Auto) 19.5 L Josephine % (Auto) 8.6 Eos % (Auto) 7.7 H Baso % (Auto) 1.0 Neut # (Auto) 5000 Lymph # (Auto) 1600 [place] # (Auto) 700 Eos # (Auto) 600 H Baso # (Auto) 100 Sodium 143 Potassium 4.6 D Chloride 119 H Carbon Dioxide 19 L BUN 34 H Creatinine 1.33 H Estimated GFR 39.7 L BUN/Creatinine Ratio 25.6 H Glucose 126 H Calcium 8.5 Phosphorus Magnesium Total Bilirubin 0.2 AST 26 ALT 14 Alkaline Phosphatase 80 Total Protein 5.9 L Albumin 2.5 L Globulin 3.4 Albumin/Globulin Ratio 0.7 L Nasal Screen MRSA (PCR) Negative for mrsa 10/26/20 10/26/20 04:50 04:50 WBC RBC Hgb Hct MCV MCH MCHC RDW Plt Count Neut % (Auto) Lymph % (Auto) [place] % (Auto) Eos % (Auto) Baso % (Auto) Neut # (Auto) Lymph # (Auto) [place] # (Auto) Eos # (Auto) Baso # (Auto) Sodium Potassium Chloride Carbon Dioxide BUN Creatinine Estimated GFR BUN/Creatinine Ratio Glucose Calcium Phosphorus 2.9 D Magnesium 1.8 Total Bilirubin AST ALT Alkaline Phosphatase Total Protein Albumin Globulin Albumin/Globulin Ratio Nasal Screen MRSA (PCR) [facility] Medical History (Updated 10/24/20 @ 13:18 by Ketty Arvizu DO) Breast cancer CVA (cerebral vascular accident) Social History household members: spouse Smoking Status: Former smoker Assessment & Plan Assessment & Plan narrative: 1. Acute renal failure, pre-renal -BUN: 54 -->52 -->34 -Cr: 2.79 --> 2.73 -->1.33 -GFR: 11.8 --> 17.3 --> 39.7 Plan: Creatinine much improved in the last 24 hours. Now in positive fluid balance. Sodium and chloride trending up. Will change IVF to D51/4NS + 20KCL at 150 cc/hour. Will give lasix 40 mg IV x 1, and trend labs. 2. Acute electrolyte derangement, hypokalemia, hyperphosphatemia, and hypermagnesemia secondary to acute renal failure K: 4.0 --> 3.0 --> 4.6 M.4 --> 2.2 --> 1.8 PO4: 5.2 --> 5.0 --> 2.9 Plan: Please see #1. 3. Seizure, acute; secondary to encephalomalacia from previous CVA and exacerbated by dehydration and acute renal failure, no repeat occurrence. Plan: Dr. Haney neurology consulted. He recommended loading dose of fosphenytoin 18 milligrams/kg followed by Dilantin 300 mg p.o. q.h.s. nightly. Patient did not get PO dose yesterday due to failing swallow evaluation. Will change dilantin to IV dosing, 150 mg IV BID and trend levels. 4. QT prolongation and T-wave changes, rule out [place] -Troponin negative x 3 Plan: Dr. Cueva, cardiology consulted. Dr. Cueva recommended treatment of underlying dehydration and acute renal failure. He does not feel that EKG changes are consistent with an acute IN as patient is not having chest pain. He reviewed recent stress test in the last year which was normal. Will treat as noted in #1. Echo showed normal EF. Will repeat EKG tomorrow. Cotinue telemetry. 5. Right-sided weakness, dysphagia, and dysarthria in setting of history of CVA Plan: MRI incomplete but no evidence of acute stroke. CT head negative for acute stroke. Echo essentially normal. Has failed swallow evaluation, NPO. Waiting on barium swallow until kidneys recover. PT/OT consulting. 6. Cough, chronic x4 months, stable Plan: Risk for aspiration pneumonia with dysphagia. With new UTI, will add linezolid for dual coverage. 7. UTI, new, present on admission -Urine culture today grew staph warneri, resisitant to ciprofloxacin, levofloxacin, moxifloxacin, and oxacillin Plan: IV linezolid for renal protection and dual coverage of lungs. 8. Alcohol use Plan: CIWA protocol. 9. Diabetes mellitus type 2 Plan: Routine glucose monitoring while NPO, holding metformin. 10. Hypertension Plan: Holding propranolol as she is currently hypotensive. Will continue to hydrate and restart when and if appropriate. 11. Hyperlipidemia Plan: Holding statin, plan to restart upon discharge if kidneys have recovered and able to take PO. 12. 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 IV dilaudid as needed. 13. Migraines, chronic Plan: Supportive therapy, IV pain control as needed. 14. History of breast cancer with unintended weight loss Plan: Likely secondary to reduced p.o. intake. 15. Anemia, normochromic/normocytic, new -Vit B12/folate within normal limits -Iron studies consistent with anemia of chronic disease. Plan: Will treat underlying diseases. 16. Thrombpohillia, chronic, now normalized Plan: Likely acute phase reactant due to kidney injury, inflammation, and infection. Will continue to watch closely. 17. Depression Plan: holding home medications 18: Obesity, status post gastric bypass Plan: Nutrionally complicated, nutrition consulting. 19. Protein calorie malnutrition, acute, severe Plan: Patient declines feeding tube via NG today but open to idea. Will discuss again tomorrow. 20. Urinary retention, resolved. Plan: Nguyen removed, urinating on her own, will continue to watch closely. Code: Full DVT prophylaxis: SCDs COVID: negative
[2020-10-26] MEDS: SODIUM CHLORIDE 0.9% FLUSH 10 ML IV ×4 (08:21→20:26)
[2020-10-26] MEDS: FUROSEMIDE 40 MG/4 ML VIAL IV (08:21)
[2020-10-26] MEDS: DEXTROSE IV ×3 (08:21→22:01)
[2020-10-26] MEDS: HYDROMORPHONE 1 MG INJ IV ×4 (08:21→20:24)
[2020-10-26] MEDS: KCL 20 MEQ IV ×3 (08:21→22:01)
[2020-10-26 09:00] VITALS: BP 94/51; PULSE 77; RESP 18; TEMP 35.9; O2SAT 100
--- NOTE | 2020-10-26 10:13 | DI.RAD.S_ITS ---
PROCEDURE: XR SHOULDER RT 1V INDICATIONS: fall and pain TECHNIQUE: 1 views of the shoulder were acquired. COMPARISON: None. FINDINGS: Bones: No fractures or dislocations. No suspicious bony lesions. Visualized ribs appear intact. Severe acromioclavicular degenerative narrowing. Soft tissues: No suspicious soft tissue calcifications. IMPRESSION: No visualized acute fracture or dislocation. However, if clinical concern and/or pain persist, short interval imaging followup in 7-10 days is recommended, as occult injury cannot be definitively excluded. Dictated by: Regi Honeycutt M.D. on 10/26/2020 at 13:53 Approved by: Regi Honeycutt M.D. on 10/26/2020 at 13:54
--- NOTE | 2020-10-26 11:00 | PC.NURSE ---
Addendum entered by Bárbara Zuniga R.N. 10/26/20 11:53: SBA to bathroom with walker, gait steady, denies dizziness. Patient showered. Given 1mg IVP Dilaudid for right shoulder pain. Original Note: Patient alert, oriented, c/o burning to nguyen insertion site. Also c/o pain to right shoulder, 8/10. Dr Goodrich aware and orders received, nguyen removed and IVP dilaudid given for shoulder pain, xray ordered.
[2020-10-26 11:52] VITALS: BP 94/51; PULSE 87; RESP 12; TEMP 35.8; O2SAT 93
[2020-10-26] MEDS: LINEZOLID 600 MG/300 ML IV.SOLN IV (13:12)
--- NOTE | 2020-10-26 14:39 | OT.IP.TRT ---
Current Diagnoses Acute kidney failure, unspecified (10/24/20) Occupational Therapy Treatment Note M2 OT-IP Current Condition Start: 10/25/20 14:41 Freq: Status: Active Protocol: Document 10/25/20 09:55 [facility] (Rec: 10/25/20 15:01 [facility] [id number]) Occupational Therapy Current Condition Current Condition Evaluation Date 10/25/20 Treatment Diagnosis Acute renal failure, decreased mobility. Diagnosis Onset Date 10/24/20 M3 OT- IP Subjective and Pain Start: 10/25/20 14:41 Freq: Status: Active Protocol: Document 10/26/20 14:34 [facility] (Rec: 10/26/20 14:39 [facility] [id number]) OT- Subjective Occupational Therapy Visit Type Type Treatment Note Visit Start Time 14:25 Visit Stop Time 14:34 Total Visit Minutes 9 Occupational Therapy Visit Comments Patient Comments Spoke to pt and regarding OT needs. Patient/Caregiver Goals TO go home. M6 OT- IP Functional Cognition Start: 10/25/20 14:41 Freq: Status: Active Protocol: Document 10/26/20 14:34 [facility] (Rec: 10/26/20 14:39 [facility] [id number]) Cognitive Factors Limiting Selfcare Function Cognitive Ability Level of Alertness Alert Patient Orientation Name Attention Span Ability Capable of Focused Attention, Capable of Sustained Attention Ability to Follow Commands Able to Follow One Step Commands Memory Description Short Term Impaired Cognitive Comments Cognitive Assessment Comments Pt appears more alert and able to engage actively in conversation more today. Spoke at length with pt regarding OT services and pt and not wanting to continue OT at this time and rather focus on PT needs. Able to talk to pt about setting goals for herself to help motivate her to get up and do more for herself. Suggested to start with smaller goal and build up as needed. Pt has been able to walk to the bathroom twice with FWW today per . Pt received x-ray to right shoulder and result were negative for any fracture at this time. M9 OT- IP Assessment and Plan Start: 10/25/20 14:41 Freq: Status: Active Protocol: Document 10/26/20 14:34 [facility] (Rec: 10/26/20 14:39 [facility] [id number]) OT Summary Assessment and Plan Summary Assessment Summary Pt wanting to focus on PT needs at this time and not wanting to continue any OT services at this time while in the hospital. Nursing notified. Frequency of Treatment Frequency Of Treatment Discharge home wit and home health when medically stable. Discharge Recommendations OT Discharge Recommendations Home with / Assist Available,Home Health Transportation Needs at Discharge Private Vehicle
--- NOTE | 2020-10-26 14:41 | OT.IP.TRT ---
Current Diagnoses Acute kidney failure, unspecified (10/24/20) Occupational Therapy Treatment Note M2 OT-IP Current Condition Start: 10/25/20 14:41 Freq: Status: Active Protocol: Document 10/25/20 09:55 [facility] (Rec: 10/25/20 15:01 [facility] [id number]) Occupational Therapy Current Condition Current Condition Evaluation Date 10/25/20 Treatment Diagnosis Acute renal failure, decreased mobility. Diagnosis Onset Date 10/24/20 M3 OT- IP Subjective and Pain Start: 10/25/20 14:41 Freq: Status: Active Protocol: Document 10/26/20 14:34 [facility] (Rec: 10/26/20 14:39 [facility] [id number]) OT- Subjective Occupational Therapy Visit Type Type Treatment Note Visit Start Time 14:25 Visit Stop Time 14:34 Total Visit Minutes 9 Occupational Therapy Visit Comments Patient Comments Spoke to pt and regarding OT needs. Patient/Caregiver Goals TO go home. M6 OT- IP Functional Cognition Start: 10/25/20 14:41 Freq: Status: Active Protocol: Document 10/26/20 14:34 [facility] (Rec: 10/26/20 14:39 [facility] [id number]) Cognitive Factors Limiting Selfcare Function Cognitive Ability Level of Alertness Alert Patient Orientation Name Attention Span Ability Capable of Focused Attention, Capable of Sustained Attention Ability to Follow Commands Able to Follow One Step Commands Memory Description Short Term Impaired Cognitive Comments Cognitive Assessment Comments Pt appears more alert and able to engage actively in conversation more today. Spoke at length with pt regarding OT services and pt and not wanting to continue OT at this time and rather focus on PT needs. Able to talk to pt about setting goals for herself to help motivate her to get up and do more for herself. Suggested to start with smaller goal and build up as needed. Pt has been able to walk to the bathroom twice with FWW today per . Freq: Status: Active Protocol: Document 10/26/20 14:34 [facility] (Rec: 10/26/20 14:39 [facility] [id number]) OT Summary Assessment and Plan Summary Assessment Summary Pt wanting to focus on PT needs at this time and not wanting to continue any OT services at this time while in the hospital. Nursing notified. Frequency of Treatment Frequency Of Treatment Discharge Discharge Recommendations OT Discharge Recommendations Home with 24/7 Assist Available,Home Health Transportation Needs at Discharge Private Vehicle
--- NOTE | 2020-10-26 15:50 | DIET.PN ---
Addendum entered by Demetra Alexander 10/27/20 12:45: Pt sleeping during RD visit. Per pts spouse pt is 12-15y s/p Sabino-en-y gastric bypass and has hiatal hernia. Pt has had some regurgitation with too large PO intake since gastric bypass and does not tolerate acidic tomatoes. If pt to require PEG tube per PCP, care to be taken as stomach pouch likely small and further complicated by hiatal hernia. Feed volume will need to be adjusted based on size of stomach pouch. Original Note: Dietary Progress Note RD Note: Pt remains NPO as pt and spouse declined nutrition support at this time. Pts renal function has improved significantly: BUN 52 -->34 H, Cr 2.73 --> 1.33 H, eGFR 17.3 --> 39.7 L MNA: 8 malnourished Malcolm: 20 Nutrition Diagnosis: Severe Acute PCM r/t dysphagia aeb 12% unintentional weight loss in 4mo (severe), pts oral intake severely reduced as dysphagia has worsened x4mo, pt meeting less than 25% EER x4mo, pt failed bedside swallow evaluation secondary to chronic cough c renal fxn not safe for barium swallow. RD awaiting POC regarding nutrition support vs. barium swallow
--- NOTE | 2020-10-26 16:08 | CM.DPC ---
Addendum entered by Amisha Bernabe LPN 10/26/20 16:13: See that PT did recommend snf stay yesterday, no note in yet for today. She noted that pt may well progress as her medical conditions changes. Will plan to meet with pt and her spouse tomorrow. Original Note: DCP: continued: case received, EMR reviewed, discussed in Team Rounds. Progress note from Dr. Goodrcih today is still in draft so do not have a good idea at this time of the POC going forward and thus am unable to proceed beyond the DCP info that BG Souza outlined yesterday in her DCP assessment notes. Will check in again tomorrow and follow as POC unfolds and d/c issues and options are clearer. PT/OT/DEVELOPER ARCHITECT are ordered.
--- NOTE | 2020-10-26 16:21 | PT-IP ANOTE ---
Pt refused stating she was in pain and didn't want to get up. Pt agreed to ambulate with therapy in the morning.
[2020-10-26 16:44] VITALS: BP 102/66; PULSE 77; RESP 20; TEMP 36.6; O2SAT 92
[2020-10-26 20:00] VITALS: BP 111/58; PULSE 81; RESP 16; TEMP 36.6; O2SAT 99
[2020-10-26] MEDS: PHENYTOIN ER 100 MG CAPSULE 300 MG PO (20:25)
[2020-10-27] MEDS: HYDROMORPHONE 1 MG INJ IV ×6 (00:41→20:55)
[2020-10-27 00:44] VITALS: BP 110/58; PULSE 82; RESP 23; TEMP 36.6; O2SAT 97
[2020-10-27] MEDS: LINEZOLID 600 MG/300 ML IV.SOLN IV ×2 (02:01→17:05)
[2020-10-27 03:52] VITALS: BP 109/59; PULSE 77; RESP 17; TEMP 36.2; O2SAT 99
[2020-10-27] MEDS: DEXTROSE IV ×2 (04:36→11:06)
[2020-10-27] MEDS: KCL 20 MEQ IV ×2 (04:36→11:06)
[2020-10-27 05:33] LABS: Add Manual Diff / Slide Review NO; Basophils Absolute Auto 100 /uL (0-100); Eosinophils Absolute Auto 700 /uL (0-450); Eosinophils Percent Auto 8.4 % (2-4); Hematocrit 26.8 % (36-46); Hemoglobin 8.6 g/dL (12.0-16.0); Lymphocytes Absolute Auto 1800 /uL (1100-4500); Lymphocytes Percent Auto 22.2 % (25-40); Mean Corpuscular HGB Conc 32.1 % (30-36); Mean Corpuscular Hemoglobin 28.6 PG (26-34); Mean Corpuscular Volume 89.1 fL (80-100); Monocytes Absolute Auto 600 /uL (0-900); Monocytes Percent Auto 7.5 % (3-14); Neutrophils Absolute Auto 5000 /uL (1500-7000); Neutrophils Percent Auto 60.9 % (50-75); Platelet Count 424 X10^3/uL (150-400); Red Blood Cell Count 3.01 X10^6/uL (4.0-5.2); Red Cell Distribution Width 17.4 % (11.6-14.8); White Blood Cell Count 8.3 X10^3/uL (4.5-11.0)
[2020-10-27 05:49] LABS: Alanine Aminotransferase 14 IU/L (<35); Albumin 2.6 g/dL (3.5-5.0); Albumin Globulin Ratio 0.7 (1.0-2.8); Alkaline Phosphatase 77 U/L (38-126); Aspartate Aminotransferase 26 IU/L (14-36); BUN Creatinine Ratio 21.8 (6-22); Bilirubin Total 0.4 mg/dL (0.2-1.3); Blood Urea Nitrogen 19 mg/dL (7-17); Calcium 8.6 mg/dL (8.4-10.2); Carbon Dioxide 20 mmol/L (22-32); Chloride 115 mmol/L (98-107); Estimated Glomerular Filt Rate > 60.0 mL/min (>60); Globulin 3.5 g/dL (1.7-4.1); Glucose 104 mg/dL (80-110); Potassium 4.9 mmol/L (3.4-5.1); Sodium 138 mmol/L (137-145); Total Protein 6.1 g/dL (6.3-8.2)
[2020-10-27 05:53] LABS: HEMOLYSIS 60 (0-50)
[2020-10-27 06:21] LABS: Phosphorous 2.9 mg/dL (2.8-4.1)
[2020-10-27 06:22] LABS: Magnesium 1.3 mg/dL (1.6-2.3)
[2020-10-27 07:00] VITALS: BP 100/58; PULSE 77; RESP 20; TEMP 36.1; O2SAT 100
--- NOTE | 2020-10-27 07:05 | P.PN_ITS ---
Subjective Subjective Date Patient Seen: 10/27/20 Time Patient Seen: 07:05 Interval history: Patient's main complaint this morning is shoulder pain, otherwise, she continues to feel better. She remains NPO. She continues to be able to urinate on her own. No further seizure activity. No nausea or vomiting. Exam Vital Signs (past 8 hours): - 10/27/20 00:44 10/27/20 03:52 Temperature 97.9 F 97.1 F L Pulse Rate 82 77 Respiratory Rate 23 17 Blood Pressure 110/58 L 109/59 L Pulse Oximetry 97 99 Oxygen Delivery Method Room Air Oxygen Flow Rate 0 Narrative Exam Narrative: GENERAL: Alert and oriented, appearing stated age and fatigued. HEENT: Head normocephalic/atraumatic. LUNGS: Diminished inspiratory effort with mild expiratory wheezes, left lower lobe. CV: Normal S1 and S2 with regular rate and rhythm, no audible murmurs, rubs or gallops. ABDOMEN: Soft, non-tender, non-distended, no organomegaly. Positive bowel sounds. EXTREMITIES: No clubbing, cyanosis, or edema. Tenderness over right shoulder. NEURO: Cranial nerves II through XII grossly intact. PSYCH: Alert and oriented x 3. SKIN: No concerning lesions. Objective Labs Result Diagrams: 10/27/20 05:00 10/27/20 05:00 Labs: Laboratory Results - last 24 hr 10/25/20 10/27/20 10/27/20 04:15 05:00 05:00 WBC 8.3 RBC 3.01 L Hgb 8.6 L Hct 26.8 L MCV 89.1 MCH 28.6 MCHC 32.1 RDW 17.4 H Plt Count 424 H Neut % (Auto) 60.9 Lymph % (Auto) 22.2 L [place] % (Auto) 7.5 Eos % (Auto) 8.4 H Baso % (Auto) 1.0 Neut # (Auto) 5000 Lymph # (Auto) 1800 [place] # (Auto) 600 Eos # (Auto) 700 H Baso # (Auto) 100 Sodium 138 Potassium 4.9 Chloride 115 H Carbon Dioxide 20 L BUN 19 H Creatinine 0.87 Estimated GFR > 60.0 BUN/Creatinine Ratio 21.8 Glucose 104 Calcium 8.6 Phosphorus Magnesium Total Bilirubin 0.4 AST 26 ALT 14 Alkaline Phosphatase 77 Total Protein 6.1 L Albumin 2.6 L Globulin 3.5 Albumin/Globulin Ratio 0.7 L Phenytoin 8.8 L Free Phenytoin 2.2 H 10/27/20 10/27/20 05:00 05:00 WBC RBC Hgb Hct MCV MCH MCHC RDW Plt Count Neut % (Auto) Lymph % (Auto) [place] % (Auto) Eos % (Auto) Baso % (Auto) Neut # (Auto) Lymph # (Auto) [place] # (Auto) Eos # (Auto) Baso # (Auto) Sodium Potassium Chloride Carbon Dioxide BUN Creatinine Estimated GFR BUN/Creatinine Ratio Glucose Calcium Phosphorus 2.9 Magnesium 1.3 L Total Bilirubin AST ALT Alkaline Phosphatase Total Protein Albumin Globulin Albumin/Globulin Ratio Phenytoin Free Phenytoin [facility] Medical History (Updated 10/24/20 @ 13:18 by Ketty Arvizu DO) Breast cancer CVA (cerebral vascular accident) Social History household members: spouse Smoking Status: Former smoker Assessment & Plan Assessment & Plan narrative: 1. Acute renal failure, pre-renal -BUN: 54 -->52 -->34 --> 19 -Cr: 2.79 --> 2.73 -->1.33 --> 0.87 -GFR: 11.8 --> 17.3 --> 39.7 --> >60 Plan: Creatinine now normal, in positive fluid balance. Chloride still up, will change IVF to D51/4NS + 20KCL to 75 cc/hour, give lasix 40 mg IV x 1, and trend labs. 2. Acute electrolyte derangement, hypokalemia, hyperphosphatemia, and hypermagnesemia secondary to acute renal failure K: 4.0 --> 3.0 --> 4.6 --> 4.9 M.4 --> 2.2 --> 1.8 --> 1.3 PO4: 5.2 --> 5.0 --> 2.9 --> 2.9 Plan: Please see #1. Will replete Mg with 2 g IV bolus. 3. Seizure, acute; secondary to encephalomalacia from previous CVA and ex acerbated by dehydration and acute renal failure, no repeat occurrence. Plan: Dr. Haney neurology consulted. He recommended loading dose of fosphenytoin 18 milligrams/kg followed by Dilantin 300 mg p.o. q.h.s. nightly. Patient did not get PO dose 2 days ago due to failing swallow evaluation. C ontinue dilantin 150 mg IV BID and trend levels. 4. QT prolongation and T-wave changes, rule out [place] -Troponin negative x 3 Plan: Dr. Cueva, cardiology consulted. Dr. Cueva recommended treatment of underlying dehydration and acute renal failure. He does not feel that EKG changes are consistent with an acute WA as patient is not having chest pain. He reviewed recent stress test in the last year which was normal. Will treat as noted in #1. Echo showed normal EF. Will repeat EKG today. Cotinue telemetry. 5. Right-sided weakness, dysphagia, and dysarthria in setting of history of C VA Plan: MRI incomplete but no evidence of acute stroke. CT head negative for acute stroke. Echo essentially normal. Has failed swallow evaluation, NPO. Barium swallow today now that kidneys have recovered. PT/OT consulting. 6. Cough, chronic x4 months, stable Plan: Risk for aspiration pneumonia with dysphagia. With new UTI, linezolid for dual coverage. 7. UTI, new, present on admission -Urine culture grew staph warneri, resisitant to ciprofloxacin, levofloxacin, moxifloxacin, and oxacillin Plan: IV linezolid for renal protection and dual coverage of lungs. 8. Alcohol use Plan: [facility] protocol. 9. Diabetes mellitus type 2 Plan: Routine glucose monitoring while NPO, holding metformin. 10. Hypertension Plan: Holding propranolol as she is currently hypotensive. Will continue to hydrate and restart when and if appropriate. 11. Hyperlipidemia Plan: Holding statin, plan to restart upon discharge if kidneys have recovered and able to take PO. 12. 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 IV dilaudid as needed. 13. Migraines, chronic Plan: Supportive therapy, IV pain control as needed. 14. History of breast cancer with unintended weight loss Plan: Weight loss likely secondary to reduced p.o. intake. 15. Anemia, normochromic/normocytic, new -Vit B12/folate within normal limits -Iron studies consistent with anemia of chronic disease. Plan: Will treat underlying diseases. 16. Thrombpohillia, chronic, now normalized Plan: Likely acute phase reactant due to kidney injury, inflammation, and infection. Will continue to watch closely. 17. Depression Plan: holding home medications 18: Obesity, status post gastric bypass Plan: Nutrionally complicated, nutrition consulting. 19. Protein calorie malnutrition, acute, severe Plan: Patient declines feeding tube via NG today but open to idea. Will discuss again tomorrow after barium swallow study comes back. Anticipate need for PEG tube. 20. Urinary retention, resolved. Plan: Sood removed, urinating on her own, will continue to watch closely. 21. Right shoulder pain, acute, likely from injury during seizure -No fracture identified on x-ray. Plan: IV dilaudid as needed for pain. PT, ice. Code: Full DVT prophylaxis: SCDs COVID: negative
--- NOTE | 2020-10-27 07:08 | DI.RAD.S_ITS ---
PROCEDURE: FL BARIUM SWALLOW W SPEECH INDICATIONS: dyphagia x 4 months, CVA, failed bedside swallow, malnutriti COMPARISON: None. TECHNIQUE: Examination was conducted in conjunction with speech pathology per standard protocol. In the lateral projection, filming was performed of the patient swallowing. AP projection filming may also be performed with patient swallowing. COMPARISON: FINDINGS: Function: The oral preparatory phase appears normal, with proper containment. The subsequent oral propulsive phase, pharyngeal phase, and esophageal phase of swallowing also appear normal with all proffered substances. No laryngotracheal penetration or aspiration. There is mild residue. Morphology: No cricopharyngeal bar is identified. No cervical esophageal webs. No Zenker's diverticulum. No strictures. IMPRESSION: No aspiration identified. Dictated by: Loy Eaton M.D. on 10/27/2020 at 16:28 Approved by: Loy Eaton M.D. on 10/27/2020 at 16:28
[2020-10-27] MEDS: levETIRAcetam 500 MG in SODIUM CHLORIDE 0.9% 100 ML 420 ML IV ×2 (09:34→20:19)
[2020-10-27] MEDS: MAGNESIUM SULFATE 2 GM/50 ML PIGGYBACK IV (09:38)
[2020-10-27] MEDS: SODIUM CHLORIDE 0.9% FLUSH 10 ML IV (09:44)
[2020-10-27] MEDS: FUROSEMIDE 40 MG/4 ML VIAL IV (09:45)
[2020-10-27] MEDS: PANTOPRAZOLE 40 MG VIAL IV (09:45)
[2020-10-27 11:00] VITALS: BP 113/57; PULSE 79; RESP 18; TEMP 36.7; O2SAT 93
--- NOTE | 2020-10-27 11:16 | PT.IPTN ---
Current Diagnoses Acute kidney failure, unspecified (10/24/20) Physical Therapy Treatment Note M2 PT-IP Current Condition Start: 10/25/20 13:13 Freq: NEEDED Status: Active Protocol: Document 10/25/20 11:27 AB (Rec: 10/25/20 13:31 AB [id number]) Physical Therapy Current Condition Current Condition Evaluation Date 10/25/20 Treatment Diagnosis acute kidney injury; difficulty in walking Onset Date 10/24/20 Precautions Other Precautions falls; seizures M3 PT-IP Subjective Start: 10/25/20 13:13 Freq: NEEDED Status: Active Protocol: Document 10/27/20 11:47 CLB (Rec: 10/27/20 13:31 CLB [id number]) Subjective Physical Therapy Visit Type Type Treatment Note Visit Start Time 11:47 Visit Stop Time 12:05 Total Visit Minutes 17 Number of RIGGING FOREMAN Visits 1 Physical Therapy Visit Comments Patient Comments Pt very sleepy but agreeable to ambulate, pt present. Therapy Pain Assessment Pain Present Pain Present Pain Reported Location Right Shoulder Scale Used pain scale not stated Pain Management Techniques Distraction,Re-positioning, Timing of Activity with Medications M4 PT-IP Mobility and Gait Start: 10/25/20 13:13 Freq: NEEDED Status: Active Protocol: Document 10/27/20 11:47 CLB (Rec: 10/27/20 13:31 CLB [id number]) PT-Transfer Assessment Sit to and From Stand Sit to and from Stand Moderate Assistance,1 Person Assistance,Use of Upper Extremities Equipment Transfer Assistive Device Gait Belt,Front Wheeled Walker Orthotic/Prosthetic Devices or Brace: No Comments Mobility Comments Pt in chair asleep but wakes and agrees to ambulate. While waiting for RN to bring in portable heart monitor pt performs seated knee flx/ext, pt requires cues to keep eyes open. Pt able to scoot forward in chair, pt attempts to stand and is unable sitting back down right away. Pt then attempts to stand and is able to stand Mod A x1. Pt assists pt to open right hand to hold walker. Pt continues to require cues to keep eyes open but unable to. Pt requires cues to take step back to safely sit on chair requiring Min A to slow descent. LOFT WORKER HEAD enters room to take vitals, pt left with LOFT WORKER HEAD present in room. Gait Assessment Comments Gait Comments unable at this time M5 PT-IP Objective Assessments Start: 10/25/20 13:13 Freq: NEEDED Status: Active Protocol: Document 10/25/20 11:27 AB (Rec: 10/25/20 13:31 AB [id number]) Orientation Orientation/Cognition Level of Alertness Confusional State Orientation Name Safety Awareness Decreased Safety Awareness Memory Description Short Term Impaired Gross Range of Motion Lower Extremity ROM Assessment Within Functional Limits Strength Lower Extremity Strength Assessment Bilaterally Impaired Hip 3+/5 Knee 3+/5 Sensation Assessment Comments Sensation Comments c/o RLE numbness but stated that she does not know what specific part of the RLE and also unable to quantify Muscle Tone Muscle Tone WNL Yes M6 PT-IP Treatment Start: 10/25/20 13:13 Freq: NEEDED Status: Active Protocol: Document 10/27/20 11:47 CLB (Rec: 10/27/20 13:31 CLB [id number]) Physical Therapy Treatment Education Education Provided Safety M7 PT-IP Assessment and Plan Start: 10/25/20 13:13 Freq: NEEDED Status: Active Protocol: Document 10/27/20 11:47 CLB (Rec: 10/27/20 13:31 CLB [id number]) PT Summary Assessment and Plan Potential Rehabilitation Potential Fair Status of Condition at Evaluation Evolving Summary Impairments Pain,ROM,Strength,Balance, Coordination,Sensation,Tone, Cognition,Bed Mobility, Transfers,Gait,Activity Tolerance Assessment Summary Pt requiring Mod A for sit- stand and Min A for stand-sit. Pt is very sleepy after getting pain meds and is unable ambulate with therapy. Pt either refuses due pain or is unable to ambulate due to being too sleepy. Goals Bed Mobility Goal Standby Assistance Transfer Goal Standby Assistance,Front Wheeled Walker Gait Goal Standby Assistance,Front Wheel Walker Gait Distance 50 Other Goals improve ambulation using FWW 100 ft Days to Meet Goals 10 Frequency of Treatment Frequency Of Treatment Once a Day Treatment Plan Physical Therapy Treatment Plan Bed Mobility Training,Transfer Training,Gait Training, Therapeutic Exercise,Balance Retraining,Discharge Planning, Neuromuscular Re-ed, Coordination Retraining Precautions Other Precautions falls, seizures Recommendations To Nursing Amount of Assist Needed 2 Person Assist Discharge Recommendations PT Discharge Recommendations SNF Rehab Transportation Needs at Discharge Wheelchair/Cabulance
--- NOTE | 2020-10-27 11:27 | SLP.IPNOTE ---
SHAPE CARVER Julieta and SHAPE CARVER Juli checked in with nursing staff yesterday re: NPO status and MBSS recommendation. Pt was put on hold yesterday awaiting doctor orders for next steps re: MBSS. Doctor has put an order as pt is cleared for an MBSS on this day (10/27/2020). The procedure that will take place this afternoon.
--- NOTE | 2020-10-27 14:37 | PC.NURSE ---
Pt with NPO status until barium study later today. A/o x2 RUE continues to be rigid, per baseline, from previous CVA. is at bedside. Dilantin stopped and Keppra given for prolonged QT.
[2020-10-27 15:20] VITALS: BP 115/76; PULSE 102; RESP 20; TEMP 36.6; O2SAT 97
--- NOTE | 2020-10-27 16:41 | CM.DPC ---
Met with pt's spouse Reno as planned and in pt's room. She was undergoing care by the RN so did not participate in the discussion. Reno says the therapists have been trying to see her over the last few days but she always seems to have been medicated and is too groggy to work with them. Pt this afternoon was NPO for a barium swallow with speech: this was done and Reno says they are waiting for the outcome. He says he understands that a PT recommendation has been for snf but she will likely resist this. He does say that she may also really need this and he will participate in any needed conversation about this going forward. DCP team to continue to follow. Pt is INPT status and with Medicare and Appointedd..
--- NOTE | 2020-10-27 16:49 | ST.SWALLOW ---
Visit Care Team Role Provider Type Ketty Arvizu DO Emergency Provider Physician Referring Provider Specialty: Emergency Medicine Address: [address] [place] [address], [id number] Email: [email or web address], [place] Aniyah Goodrich MD Admit Provider Physician Attending Provider Primary Care Provider Specialty: Family Practice Address: [address] [place] [address], [address], [place], [address] Email: [email or web address] Modified Barium Swallow Study CAREER DEVELOPMENT COORDINATOR/TEACHER Modified Barium Swallow Study Start: 10/27/20 15:22 Freq: Status: Active Protocol: Document 10/27/20 15:23 MG (Rec: 10/27/20 16:38 MG [id number]) Modified Barium Swallow Study Total Time Visit Start Time 14:25 Visit Stop Time 15:15 Total Visit Minutes 50 Visit Information Visit Number 2 Setting Setting Acute Care Patient Information Identification Type Name,ID Wristband Patient History 70 year-old right-handed female presents from the ED with acute renal failure in the setting of passing out this morning while in the bathroom. She has not had much to eat or drink in the past 3-4 days. This is in context of a regional heat wave but reports that they have been staying inside and that they have air conditioning. He has been trying to feed her sips of water and watermelon but she essentially does not eat/drink much and has become severely dehydrated. She is taking her medications. ED workup significant for a normocytic/ normochromic anemia with a hemoglobin/hematocrit of 10.6/ 32.7, new. Platelets elevated at 586, these have been elevated over the 6 months, 515-725. Patient has had a steady decline in the last 4 months with a 25 lb weight loss and a persistent cough with difficulty swallowing. Pt reports that swallowing has become so difficult, that she has severely limited her oral intake. She has been treated with both prednisone, albuterol, and a Z-Franco in the last 3 months with no improvement. Imaging has shown a large hiatal hernia and atelectasis versus possible consolidation from aspiration in the left lower lobe. Of note, pt did have a left frontal stroke in 2005 after being on tamoxifen for 2 years due to non invasive breast cancer that was diagnosed in 2001. Stroke caused residual right-sided coordination issues, cognitive deficits, and word-finding difficulties. Subjective Observations Pt arrived on time for the MBSS procedure. Radiologist was running later than expected, so CAREER DEVELOPMENT COORDINATOR/TEACHER conducted interview with the pt. Pt reports that she feels managing saliva is challenging for her. She consistently leans forward, reporting it helps. Of note, pt presented to the MBSS with a wet/gurgly cough prior to any trials being presented. Pt has been NPO after failing a beside swallow evaluation on 2020. Pt appeared tired, as noted by eyes closing. Pt could stay awake throughout evaluation. Patient Positioning Position View Lateral Imaging Lateral View Textures Administered Trials Presented Thin Liquid via Spoon,Thin Liquid via Cup,[place] Liquid via Cup,Honey Liquid via Spoon ,Pudding Thick Liquid via Spoon,Regular Textures Oral Phase Source: MBSIMP (TM) (C) Bolus Specific Scoring Grid Lip Closure WFL Tongue Control During Bolus Hold Moderate Impairment Bolus Prep/Mastication Mild Impairment Bolus Transport/Lingual Motion Mild Impairment A/P Lingual Propulsion Delay Yes Number of Seconds Delayed (seconds) 0.5 seconds Oral Residue Mild Impairment Residue Clearing Mild Impairment Nasal Regurgitation No Additional Oral Phase Observations Mastication of solids on trial appeared to be difficult for the pt at this time. There is some incoordination of bolus movement in the oral cavity. No anterior spillage noted. Mild oral residue noted after all trials. With a double swallow, pt can clear residue. Pharyngeal Phase Source: MBSIMP (TM) (C) Bolus Specific Scoring Grid Delayed Initiation of Pharyngeal Swallow Yes Number of Seconds Delayed (seconds) 1-2 seconds Soft Palate Elevation WFL Tongue Base Strength/Range of Motion Moderate Impairment Residue Along the Tongue Base Yes Clearance of Residue Along Tongue Base Mild Impairment Laryngeal Elevation Minimal Impairment Anterior Hyoid Movement Mild Impairment Epiglottic Range of Motion Mild Impairment Vallecular Residue Yes Clearance of Vallecular Residue WFL Laryngeal Vestibular Closure Mild Impairment Pharyngeal Stripping Wave Mild Impairment Pharyngeal Contraction Mild Impairment Posterior Pharyngeal Wall Residue Yes Clearance of Posterior Pharyngeal Wall WFL Residue Upper Esophageal Sphincter Opening WFL Residue in the Pyriform Sinuses No Esophageal Clearance Upright Position Mild Impairment Pharyngoesophageal Backflow Observed Yes Additional Pharyngeal Phase Observations Pt presents with a delayed swallow, but no instances of aspiration or penetration were noted on any trials at this time. Pharyngeal residue is noted; pt can clear with a double swallow. Esophageal backflow is noted at this time as well. 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 On many trials, it is noted that minimal liquid is not cleared down to the esophagus due to the bar. Clinical Impressions Dysphagia Type Oropharyngeal dysphagia Findings Pt presents with oropharyngeal dysphagia at this time, as noted by oral residue, difficulty masticating solids, and weak base of tongue which led to the bolus escaping into the pharyngeal cavity prior to the initiation of the swallow. With the presence of a cricopharyngeal bar, a GI consult is recommended to rule out possible reflux or any other diagnoses that could be causing the pt to continually produce a wet/gurgly, unproductive cough. Rehabilitation Potential Good Patient Appropriate for Therapy Yes: diet tolerance Recommendations Diet Liquids Order Thin Diet Order Dysphagia Advanced Medication Recommendation As Tolerated Additional Dietary Needs Single Sips,1:1 Supervision Aspiration Precautions Recommended Precautions Upright at 90 Degrees,Frequent Rest Periods,Small Bites/Sips ,Double Swallow Treatment Plan Therapy Recommendations Inpatient Speech Therapy Recommended Referrals GI Consult,Dietary Consult Compensatory Strategies Recommendations Sitting Upright (90 deg), Double Swallow,No Straw,Small Bites and Sips Short Term Goals Pt will get a GI consult to examine esophaguas and rule out possible reflux causing cough Pt will follow safe swallow protocol when eating/drinking with minimal verbal reminders. Marine Structural Designer Goals Pt will tolerate least restrictive diet and report no problems with solids/liquids when eating/drinking. Pt will follow safe swallow protocol when eating/drinking independently. Placement Recommendation After Discharge Long Term Facility
[2020-10-27 19:00] VITALS: BP 123/65; PULSE 92; RESP 18; TEMP 37.5; O2SAT 98
[2020-10-28] VITALS (7 sets, daily range): BP systolic 85–134; BP diastolic 52–71; PULSE 82–115; RESP 16–20; TEMP 36.2–37.2; O2SAT 94–99
[2020-10-28] MEDS: HYDROMORPHONE 1 MG INJ IV (03:05)
[2020-10-28] MEDS: KCL 20 MEQ IV (03:14)
[2020-10-28] MEDS: DEXTROSE IV (03:14)
[2020-10-28] MEDS: LINEZOLID 600 MG/300 ML IV.SOLN IV (04:53)
[2020-10-28 05:31] LABS: Add Manual Diff / Slide Review NO; Basophils Absolute Auto 100 /uL (0-100); Eosinophils Absolute Auto 600 /uL (0-450); Eosinophils Percent Auto 7.3 % (2-4); Hematocrit 26.2 % (36-46); Hemoglobin 8.4 g/dL (12.0-16.0); Lymphocytes Absolute Auto 1400 /uL (1100-4500); Lymphocytes Percent Auto 18.9 % (25-40); Mean Corpuscular HGB Conc 32.2 % (30-36); Mean Corpuscular Hemoglobin 28.6 PG (26-34); Mean Corpuscular Volume 88.6 fL (80-100); Monocytes Absolute Auto 500 /uL (0-900); Monocytes Percent Auto 5.9 % (3-14); Neutrophils Absolute Auto 5100 /uL (1500-7000); Neutrophils Percent Auto 66.9 % (50-75); Platelet Count 355 X10^3/uL (150-400); Red Blood Cell Count 2.95 X10^6/uL (4.0-5.2); Red Cell Distribution Width 17.4 % (11.6-14.8); White Blood Cell Count 7.6 X10^3/uL (4.5-11.0)
[2020-10-28 05:39] LABS: Magnesium 1.5 mg/dL (1.6-2.3); Phosphorous 3.6 mg/dL (2.8-4.1)
[2020-10-28 05:40] LABS: Alanine Aminotransferase 13 IU/L (<35); Albumin 2.6 g/dL (3.5-5.0); Albumin Globulin Ratio 0.7 (1.0-2.8); Alkaline Phosphatase 98 U/L (38-126); Aspartate Aminotransferase 22 IU/L (14-36); BUN Creatinine Ratio 16.3 (6-22); Bilirubin Total 0.3 mg/dL (0.2-1.3); Blood Urea Nitrogen 13 mg/dL (7-17); Calcium 8.6 mg/dL (8.4-10.2); Carbon Dioxide 20 mmol/L (22-32); Chloride 116 mmol/L (98-107); Estimated Glomerular Filt Rate > 60.0 mL/min (>60); Globulin 3.5 g/dL (1.7-4.1); Glucose 97 mg/dL (80-110); HEMOLYSIS 22 (0-50); Potassium 4.3 mmol/L (3.4-5.1); Sodium 140 mmol/L (137-145); Total Protein 6.1 g/dL (6.3-8.2)
--- NOTE | 2020-10-28 09:36 | PT.IPTN ---
Current Diagnoses Acute kidney failure, unspecified (10/24/20) Physical Therapy Treatment Note M2 PT-IP Current Condition Start: 10/25/20 13:13 Freq: NEEDED Status: Active Protocol: Document 10/25/20 11:27 AB (Rec: 10/25/20 13:31 AB [id number]) Physical Therapy Current Condition Current Condition Evaluation Date 10/25/20 Treatment Diagnosis acute kidney injury; difficulty in walking Onset Date 10/24/20 Precautions Other Precautions falls; seizures M3 PT-IP Subjective Start: 10/25/20 13:13 Freq: NEEDED Status: Active Protocol: Document 10/28/20 09:13 CLB (Rec: 10/28/20 14:17 CLB [id number]) Subjective Physical Therapy Visit Type Type Treatment Note Visit Start Time 09:13 Visit Stop Time 09:36 Total Visit Minutes 23 Notes present providing chair follow. Number of DRAFTING TEACHER Visits 2 Physical Therapy Visit Comments Patient Comments Pt alert and willing to ambulate. Therapy Pain Assessment Pain Present Pain Present Pain Reported Location Right Shoulder Scale Used pain scale not stated Pain Management Techniques Distraction,Re-positioning, Timing of Activity with Medications M4 PT-IP Mobility and Gait Start: 10/25/20 13:13 Freq: NEEDED Status: Active Protocol: Document 10/28/20 09:13 CLB (Rec: 10/28/20 14:17 CLB [id number]) PT-Transfer Assessment Sit to and From Stand Sit to and from Stand Moderate Assistance,1 Person Assistance,Use of Upper Extremities Equipment Transfer Assistive Device Gait Belt,Front Wheeled Walker Orthotic/Prosthetic Devices or Brace: No Transfers Transfer Destination Bed,Chair Transfer Technique Stand Step Pivot Transfer Ability Level of Assist Minimal Assistance,1 Person Assistance,Use of Upper Extremities Comments Mobility Comments Pt in chair requiring Mod A sit-stand, pt felt dizzy and sat down BP in sitting 110/66. Pt stood again and stated she was no longer dizzy. Pt ambulated with chair follow ~ 45ftw/FWW/Min A with small step thru gait, pt with low activity tolerance requested to sit and brought back to room in chair. Pt then stood and transferred to bed requiring Min A for sitting on bed with cues for hand placement, pt required CGA for sit-supine. Left pt in bed with alarm on and all needs within reach and present. Gait Assessment Gait Gait Assistance Required: Minimum Assistance,1 Person Assist Distance (Feet) 45 Able to Maintain Weight Bearing Status Yes During Gait Assistive Devices Assistive Device Gait Belt,Front Wheeled Walker Orthotic/Prosthetic Devices or Brace: Yes Gait Deviations General Gait Pattern Antalgic,Decreased Stride Length,Decreased Feet Clearance,Flexed Trunk,Wide Based Gait Factors Limiting Gait Function Factors Limiting Gait Function Decreased Activity Tolerance, Decreased Strength,Difficulty Following Directions,Limited Range of Motion,Pain,Poor Balance,Poor Safety Awareness Comments Gait Comments see mobility coments PT-Balance Assessment Sitting Balance and Reactions Static Sitting Balance Ability Good Dynamic Sitting Balance Ability Fair Standing Balance and Reactions Static Standing Balance Ability Poor Dynamic Standing Balance Ability Poor Device Used FWW M5 PT-IP Objective Assessments Start: 10/25/20 13:13 Freq: NEEDED Status: Active Protocol: Document 10/25/20 11:27 AB (Rec: 10/25/20 13:31 AB [id number]) Orientation Orientation/Cognition Level of Alertness Confusional State Orientation Name Safety Awareness Decreased Safety Awareness Memory Description Short Term Impaired Gross Range of Motion Lower Extremity ROM Assessment Within Functional Limits Strength Lower Extremity Strength Assessment Bilaterally Impaired Hip 3+/5 Knee 3+/5 Sensation Assessment Comments Sensation Comments c/o RLE numbness but stated that she does not know what specific part of the RLE and also unable to quantify Muscle Tone Muscle Tone WNL Yes M6 PT-IP Treatment Start: 10/25/20 13:13 Freq: NEEDED Status: Active Protocol: Document 10/27/20 11:47 CLB (Rec: 10/27/20 13:31 CLB [id number]) Physical Therapy Treatment Education Education Provided Safety M7 PT-IP Assessment and Plan Start: 10/25/20 13:13 Freq: NEEDED Status: Active Protocol: Document 10/28/20 09:13 CLB (Rec: 10/28/20 14:17 CLB [id number]) PT Summary Assessment and Plan Potential Rehabilitation Potential Fair Status of Condition at Evaluation Evolving Summary Impairments Pain,ROM,Strength,Balance, Coordination,Sensation,Tone, Cognition,Bed Mobility, Transfers,Gait,Activity Tolerance Assessment Summary Pt able to ambulate ~45ft w/ FWW/Min A . Pt fatigues quickly due to pain in right shoulder and low activity tolerance. Pt requires Mod A for stand and Min A for sitting. Pt able to perform sit-stand CGA then requiring pillow along right arm for comfort. Pt would benefit from SNF rehab to increase strength for independent mobility. Goals Bed Mobility Goal Standby Assistance Transfer Goal Standby Assistance,Front Wheeled Walker Gait Goal Standby Assistance,Front Wheel Walker Gait Distance 50 Other Goals improve ambulation using FWW 100 ft Days to Meet Goals 10 Frequency of Treatment Frequency Of Treatment Once a Day Treatment Plan Physical Therapy Treatment Plan Bed Mobility Training,Transfer Training,Gait Training, Therapeutic Exercise,Balance Retraining,Discharge Planning, Neuromuscular Re-ed, Coordination Retraining Precautions Other Precautions falls, seizures Recommendations To Nursing Amount of Assist Needed 2 Person Assist Discharge Recommendations PT Discharge Recommendations SNF Rehab Transportation Needs at Discharge Wheelchair/Cabulance
[2020-10-28] MEDS: PANTOPRAZOLE 40 MG VIAL IV (10:02)
[2020-10-28] MEDS: SODIUM CHLORIDE 0.9% FLUSH 10 ML IV ×2 (10:03→20:48)
[2020-10-28] MEDS: levETIRAcetam 500 MG in SODIUM CHLORIDE 0.9% 100 ML 420 ML IV (10:03)
--- NOTE | 2020-10-28 10:20 | PC.NURSE ---
Addendum entered by Azeb Mancia R.N. 10/28/20 14:51: SPOUSE FEELS THAT PT DOING POORLY ON COGNITIVE ASSESSMENT AND HE FEELS THAT PRIOR MEDICATION WITH 1 PO HYDROCONE/APAP APPROX 30 MINUTES PRIOR MAY BE EFFECTING THIS- ALTHOUGH SHE HAS DONEPOORLY IN PAST ON THESE EVALUATIONS Addendum entered by Azeb Mancia R.N. 10/28/20 14:43: SPOUSE UNCOMFORTABLE WITH MENTION OF POTENTIAL DISCHARGE IN NEXT DAY OR 2- HE FELT THERE NEEDED TO BE A SURGICAL OR GI CONSULT PRIOR TO DISCHARGE SECONDARY TO PT'S POOR INTAKE AND PERSISTENT COUGH- NOT ORDERED AT THIS TIME BUT WILL RELAY INFO TO DR DAVE. PT ABLE TO SWALLOW PILLS WHOLE WITH FEW GULPS OF THIN LIQUIDS - RESTARTING PO RX - REPLACEMENT MAGNESIUM ORDERED Original Note: SPOKE WITH CASE - MGMNTAND DR. DAVE RE THIS PT: SHE IS STABLE ON FEET WITH PT BUT REQUIRES MUCH VERBAL ENCOURAGEMENT AND LACKS MOTIVATION. NSR WITHOUT ECTOPY - VOIDING WELL, LIMITED PO INTAKE BUT THIS IS DUE TO PT REFUSAL - PT DID PASS BARIUM SWALLOW WITHOUT PROBLEM- SHE CONTINUES TO COUGH FREQ/PERSISTENTLY WITH MINIMAL SPUTUM PRODUCTION. SNF IS RECOMMENDED FOR REHAB
--- NOTE | 2020-10-28 11:33 | PM.PN.1 ---
Subjective Subjective Date Patient Seen: 10/28/20 Time Patient Seen: 09:30 Interval history: Pt in bed with at bedside sleeping soundly Exam Vital Signs (past 8 hours): - 10/28/20 04:00 10/28/20 08:00 Temperature 97.5 F L 99.0 F Pulse Rate 86 82 Respiratory Rate 18 16 Blood Pressure 111/58 L 85/52 L Pulse Oximetry 99 99 Oxygen Delivery Method Room Air Oxygen Flow Rate 0 Const General: cooperative, healthy appearing and comfortable Resp Effort & Inspection: normal respiratory effort and able to speak in complete sentences Auscultation: clear to auscultation bilaterally Other: intermittent gurgley cough nonproductive Cardio Rate: regular rate Rhythm: regular rhythm Heart Sounds: S1 normal and S2 normal GI Other: NTND normal bowel sounds Skin General: no rashes or lesions noted Psych Other: defers to for any complex thoughts like am I ready to get out of the hospital appears oriented and alert, conversational and interactive, oriented x3 Objective Labs Result Diagrams: 10/28/20 05:00 10/28/20 05:00 Labs: Laboratory Results - last 24 hr 10/28/20 10/28/20 10/28/20 05:00 05:00 05:00 WBC 7.6 RBC 2.95 L Hgb 8.4 L Hct 26.2 L MCV 88.6 MCH 28.6 MCHC 32.2 RDW 17.4 H Plt Count 355 Neut % (Auto) 66.9 Lymph % (Auto) 18.9 L [place] % (Auto) 5.9 Eos % (Auto) 7.3 H Baso % (Auto) 1.0 Neut # (Auto) 5100 Lymph # (Auto) 1400 [place] # (Auto) 500 Eos # (Auto) 600 H Baso # (Auto) 100 Sodium 140 Potassium 4.3 Chloride 116 H Carbon Dioxide 20 L BUN 13 Creatinine 0.80 Estimated GFR > 60.0 BUN/Creatinine Ratio 16.3 Glucose 97 Calcium 8.6 Phosphorus 3.6 Magnesium Total Bilirubin 0.3 AST 22 ALT 13 Alkaline Phosphatase 98 Total Protein 6.1 L Albumin 2.6 L Globulin 3.5 Albumin/Globulin Ratio 0.7 L 10/28/20 05:00 WBC RBC Hgb Hct MCV MCH MCHC RDW Plt Count Neut % (Auto) Lymph % (Auto) [place] % (Auto) Eos % (Auto) Baso % (Auto) Neut # (Auto) Lymph # (Auto) [place] # (Auto) Eos # (Auto) Baso # (Auto) Sodium Potassium Chloride Carbon Dioxide BUN Creatinine Estimated GFR BUN/Creatinine Ratio Glucose Calcium Phosphorus Magnesium 1.5 L Total Bilirubin AST ALT Alkaline Phosphatase Total Protein Albumin Globulin Albumin/Globulin Ratio [facility] Medical History (Updated 10/24/20 @ 13:18 by Ketty Arvizu DO) Breast cancer CVA (cerebral vascular accident) Social History household members: spouse Smoking Status: Former smoker Assessment & Plan Assessment & Plan narrative: #Acute renal failure, pre-renal Plan: Creatinine now normal, in positive fluid balance. IVF to D5 1/4NS + 20KCL to 75 cc/hour #Acute electrolyte derangement, hypokalemia, hyperphosphatemia, hyperchloremia, and hypermagnesemia secondary to acute renal failure Plan: improved 2/2 repletion now coming back to baselines, continue ivf and encourage nutrition #Seizure, acute; secondary to encephalomalacia from previous CVA and exacerbated by dehydration and acute renal failure, no repeat occurrence since admission. Plan: no further seizure activity since admission. keppra 50 bid #QT prolongation and T-wave changes, rule out SC -Troponin negative x 3 Plan: Dr. Cueva, cardiology consulted. Dr. Cueva recommended treatment of underlying dehydration and acute renal failure. He does not feel that EKG changes are consistent with an acute SC as patient is not having chest pain. He reviewed recent stress test in the last year which was normal. Will treat as noted in #1. Echo showed normal EF. continue monitoring specialist. #Right-sided weakness, dysphagia, and dysarthria in setting of history of CVA Plan: MRI incomplete but no evidence of acute stroke. CT head negative for acute stroke. Echo essentially normal. Barium swallow wnl. PT/OT consulting. Home with home health vs SNF? #Cough, chronic x4 months, stable Plan: Risk for aspiration pneumonia with dysphagia. With new UTI, received linezolid for dual coverage. Transitioning to PO doxycycline today. VSS no WBC elevation. Discussed with ST they recommend GI evaluation of esophagus, this can be done as outpt #UTI, new, present on admission -Urine culture grew staph warneri, resisitant to ciprofloxacin, levofloxacin, moxifloxacin, and oxacillin Plan: received IV linezolid now transitioning to doxycycline continue for three days #Alcohol use Plan: Last drink over 3 days ago, has not been drinking heavily lately, [facility] protocol. #Diabetes mellitus type 2 Plan: continue to monitor glucose hold metformin. #Hypertension Plan: Continue to hold propranolol and monitor #Hyperlipidemia Plan: Holding statin, plan to restart upon discharge if kidneys have recovered and able to take PO. 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 #History of breast cancer with unintended weight loss Plan: Weight loss likely secondary to reduced p.o. intake. s/p bilateral mastectomy. #Anemia, normochromic/normocytic, new -Vit B12/folate within normal limits -Iron studies consistent with anemia of chronic disease. Plan: Will treat underlying diseases. #Thrombophilia, chronic, now normalized Plan: Likely acute phase reactant due to kidney injury, inflammation, and infection. Will continue to watch closely. #Depression Plan: Resume home medications #Obesity, status post gastric bypass Plan: Nutritionally complicated, nutrition consulting. #Protein calorie malnutrition, acute, severe Plan: continue assiduous nutrition, resume antidepressants #Urinary retention, resolved. Plan: Sood removed, urinating on her own, will continue to watch closely. #Right shoulder pain, acute, likely from injury during seizure -No fracture identified on x-ray. Plan: PO pain control, work with PT Code: Full DVT prophylaxis: SCDs COVID: negative Dispo: Pending improvement, home with home health vs SNF
--- NOTE | 2020-10-28 13:08 | ST.IPTN ---
Visit Care Team Role Provider Type Ketty Arvizu DO Emergency Provider Physician Referring Provider Address: [address] [place] [address], [place], [address] Aniyah Goodrich MD Admit Provider Physician Attending Provider Primary Care Provider Address: [address] [place] [address], [address], [place], [address] RENTAL BOATS CARETAKER Treatment Note RENTAL BOATS CARETAKER Treatment Note Start: 10/28/20 12:48 Freq: Status: Active Protocol: Document 10/28/20 12:48 MG (Rec: 10/28/20 13:07 MG [id number]) Speech Pathology Treatment Note Session Time Visit Start Time 08:15 Visit Stop Time 08:55 Total Visit Minutes 40 Visit Information Visit Number 3 Setting Treatment Setting Acute Care Visit Type Note Type Treatment Note General Information General Information 70 year-old right-handed female presents from the ED with acute renal failure in the setting of passing out this morning while in the bathroom. She has not had much to eat or drink in the past 3-4 days. This is in context of a regional heat wave but reports that they have been inside and that they have air conditioning. Pt's has been trying to feed her sips of water and watermelon but she essentially does not eat/drink much and has become severely dehydrated . She has been taking her medications. ED workup significant for a normocytic/ normochromic anemia with a hemoglobin/hematocrit of 10. 6/32.7, new. Platelets elevated at 586, these have been elevated over the 6 months, 515-725. Patient has had a steady decline in the last 4 months with a 25 lb weight loss and a persistent cough with difficulty swallowing. Pt reports that swallowing has become so difficult, that she has severely limited her oral intake. She has been treated with both prednisone, albuterol, and a Z-Franco in the last 3 months with no improvement. Imaging has shown a large hiatal hernia and atelectasis versus possible consolidation from aspiration in the left lower lobe. Of note, pt did have a left frontal stroke in 2005 after being on tamoxifen for 2 years due to non invasive breast cancer that was diagnosed in 2001. Stroke caused residual right-sided cordination issues, cognitive deficits, and word-finding difficulties. Pt had a MBSS on 10/27/2020 which indicated there is no aspiration or penetration occurring. Subjective Identification Type Name,ID Wristband Others Present Family Observations/Patient Presentation Pt was getting back into her chair at bedside with and nurse present in the room. Pt was agreeable to RENTAL [employer]ATS CARETAKER entering room and working with her during breakfast. Chief Complaint(s) Swallowing Patient Knowledge/Awareness of RENT[employer]ATS CARETAKER Role Good in Treatment Parent/Caretake Knowledge/Awareness of Good RENTAL [employer]ATS CARETAKER Role in Treatment Patient/Caregiver Compliance with Home Good Exercise Program Objective Short Term Goals Pt will get a GI consult to examine esophaguas and rule out possible reflux causing cough Pt will follow safe swallow protocol when eating/drinking with minimal verbal reminders. All Source Intelligence Technician Goals Pt will tolerate least restrictive diet and report no problems with solids/liquids when eating/drinking. Pt will follow safe swallow protocol when eating/drinking independently. Treatment Activities RENTAL BOATS CARETAKER, pt, and pt's went over any questions/concerns they had re: MBSS results and diet order. RENTAL BOATS CARETAKER discussed base of tongue exercises to practice. Pt practiced and demonstrated accuracy with the exercises. Breakfast arrived and RENTAL BOATS CARETAKER observed pt coughing in between bites of food. Pt reported the food is going down, but she still has the feeling of coughing. RENTAL BOATS CARETAKER reviewed using an effortful swallow and double swallow to help reduce residue in the oral and pharyngeal cavity, which could reduce the amount of coughing the pt is experiencing. RENTAL BOATS CARETAKER also discussed using a liquid wash between bites as another way to clear residue. Pt was agreeable to the new strategies and exercises at this time. No questions/concerns. RENTAL BOATS CARETAKER spoke with doctor java application developer re: discharge status, MBSS results, and GI consult as an outpatient test. Assessment Patient Response to Treatment Good Rehab Potential Good Impairments Identified Dysphagia Progress Towards Goals Good Progress Assessment of Overall Progress Improving Assessment of Improvement Hopeful pt can start to regain strength as she is no longer NPO. SNF may be beneficial for pt at this time to improve weakness and continue working with RENT[employer]ATS CARETAKER. Reviewed with Patient Goals,Progress Being Made,Home Exercise Program Patient/Caregiver Understanding Good Plan Therapeutic Contents Compensatory Swallowing Training,Home Exercise Program ,Oral Motor Training, Swallowing/Feeding Provided Patient/Caregiver Instruction Home Exercise Program,Plan of Care,Questions/Concerns Therapy Recommendations Continue with Current Program Suggested Referral GI
[2020-10-28] MEDS: HYDROCODONE/ACET 5/325 TABLET 1 TAB PO (14:10)
[2020-10-28] MEDS: FLUoxetine 20 MG CAPSULE 40 MG PO (14:10)
[2020-10-28] MEDS: DULOXETINE 30 MG CAPSULE 60 MG PO (14:11)
[2020-10-28] MEDS: DOXYCYCLINE HYCLATE 100 MG TABLET PO ×2 (14:11→20:47)
--- NOTE | 2020-10-28 14:31 | CM.DPC ---
DCP Cont: Met with patient and , [place]. Introduced self and role. This family service caseworker had spoken to Dr. Smith this morning, who indicated that they were going back and forth between skilled and home. He indicated that she most likely would be medically ready for discharge tomorrow. Let him know that this family service caseworker can attempt to locate a facility of acceptance, but not guaranteed that they can accept with short notice. Initially sent referral over to [facility]. Emilie in admissions is reviewing, and stated, they will have no beds until or Fri of next week. Went into room and brought in a Medicare Choice List. Indicated to patient and , [place], that patient may most likely be medically ready for discharge tomorrow. stated, what do you mean, she can't even swallow, and I don't feel comfortable with her going until this is resolved, I know that you just want the bed. Let know that this family service caseworker is wanting to help with discharge, and the intent was to go over plans, skilled versus home. Let him know that he can discuss his concerns with Dr. Smith. Asked him if he was able to see him this morning when he had seen his , and he indicated, he did, but still wants more done. Let him know that if Dr. Smith deems her medically stable, he can appeal discharge if he so wishes. Patient was alert in the room, had some dry coughing. is also asking to talk to manager nursing home about his concerns. Left him a Medicare Choice List with home health agencies and retirement facilities. stated that she has used [facility] before. He would use them again, but doesn't want her coming home unless her swallowing issues are resolved, and that she can walk to the bathroom. Let him also know that this search planner can attempt to look for retirement facilities that can accept. Marley, manager nursing home, will speak to about concerns. Went ahead and faxed ref[facility]. P: DCP to continue to follow. Will be available for any resources. Will attempt to locate a skilled facility if this is what's needed. Have a signed face to face available as well from Dr. Smith. Jill Hollis RN/Crib Attendant
--- NOTE | 2020-10-28 15:00 | OT.IP.EVAL ---
Current Diagnoses Acute kidney failure, unspecified (10/24/20) Past Medical History (Last Reviewed 04/19/18 @ 12:55 [facility] Breast cancer CVA (cerebral vascular accident) Occupational Therapy Inpatient Evaluation/Re-Eval M1 PT/OT-IP Prior Functional Status Start: 10/25/20 13:13 Freq: NEEDED Status: Active Protocol: Document 10/25/20 11:27 AB (Rec: 10/25/20 13:31 AB [id number]) Medical Review Prior Functional Status Medical History Reviewed Yes Communication able to make needs known Mobility and Gait per spouse: he has been assisting pt at home but pt is able to ambulate using FWW with SBA but occasionally ambulates without AD indoors; spouse stated that pt holds on to him when ambulating outdoors without AD Activities of Daily Living and IADL's spouse stated that pt is able to take a shower by herself and he assists her with dressing Social History Household Members spouse Living Arrangements House Number of Floors (Floors) Two Floors Number of Stairs To Enter/Railing? pt stays on main level of the house and has a chair lift from the outside to get in Home Environment High Toilet,Walk in Shower Home Equipment Front Wheel Walker,Straight Cane,Hand Held Shower,Grab Bars Near Toilet,Grab Bars In Shower Additional Social History Comment pt has an adjustable bed but sleeps on her recliner chair M2 OT-IP Current Condition Start: 10/25/20 14:41 Freq: Status: Active Protocol: Document 10/28/20 14:59 [facility] (Rec: 10/28/20 15:33 [facility] [id number]) Occupational Therapy Current Condition Current Condition Evaluation Date 10/28/20 Treatment Diagnosis Acute renal failure, dehydration, right shoulder pain from fall. Diagnosis Onset Date 10/24/20 M3 OT- IP Subjective and Pain Start: 10/25/20 14:41 Freq: Status: Active Protocol: Document 10/28/20 14:59 [facility] (Rec: 10/28/20 15:33 [facility] [id number]) OT- Subjective Occupational Therapy Visit Type Type Initial Evaluation Visit Start Time 14:00 Visit Stop Time 15:00 Total Visit Minutes 60 Occupational Therapy Visit Comments Patient Comments Pt's now wanting to consider skilled rehab for pt . Patient/Caregiver Goals Pt wanting to go home. OT Pain Assessment Pain When Pain Assessed At Rest Pain Present Pain Present Denied Pain M4 OT- IP ADL's Start: 10/25/20 14:41 Freq: Status: Active Protocol: Document 10/28/20 14:59 [facility] (Rec: 10/28/20 15:33 [facility] [id number]) OT [id number] Comments OT Self-Feeding Comments NOt at meal time. Pt will need asist for set-up. OT ADL-Grooming General Evaluation Grooming Ability Minimal Assistance Areas Needing Assistance Combing/Brushing Hair Comments OT Grooming Comments Assist for completeness of her hair due to decreased AROM of RUE. OT ADL-Oral Care General Eval Oral Care Ability Independent OT ADL-Dressing General Eval Lower Body Dressing Ability Standby Assistance Comments OT Dressing Comments Pt needing increased time to mary right sock. VC to incorporated right hand as pt tends to have her right hand close and right thumb tucked under her right index finger. OT ADL-Toileting Comments OT Toileting Comments Pt states has to use the toilet earlier. OT ADL-Bathing Comments OT Bathing Comments Not performed. M5 OT- IP IADL's Start: 10/25/20 14:41 Freq: Status: Active Protocol: Document 10/28/20 14:59 [facility] (Rec: 10/28/20 15:33 [facility] [id number]) OT-Instrumental Activities of Daily Living Home Safety Awareness Home Safety Comments Pt groggy and may be from pain medications given earlier. Prior pt's assisted with all IADL, medications and money management needs. Medication Management Medication Management Caregiver Administers Money Management Money Management Caregiver Provides Assistance Meal Preparation Meal Preparation Caregiver Provides Assist Spool Hauler Spool Hauler Caregiver Provides Assist M6 OT- IP Functional Cognition Start: 10/25/20 14:41 Freq: Status: Active Protocol: Document 10/28/20 14:59 [facility] (Rec: 10/28/20 15:33 [facility] [id number]) Cognitive Factors Limiting Selfcare Function Cognitive Ability Level of Alertness Alert,Confusional State,Drowsy Patient Orientation Name,Year,Place,Situation Attention Span Ability Capable of Focused Attention, Unable to Focus Ability to Follow Commands Able to Follow One Step Commands with Increased Time, Able to Follow One Step Commands with Repetition Memory Description Short Term Impaired,Residential Impaired,Working Impaired Safety Awareness Underestimates Need for Assistance Problem Solving Ability Unable to Identify Errors, Needs Assist to Identify Solutions Cognitive Tests SLUMS Pt had just taken [place] prior to see OT for OT eval which may have effected her score. Pt scored 6/30 and only able to states the year, states we are in, answer 2 out of 4 questions right after a paragraph read. Pt score implies dementia. Pt's feels that pt use to drink and a lot and feels that may also be impacting her thinking as well. Cognitive Comments Cognitive Assessment Comments Pt having difficulty with receptive and expressive aphasia today. Pt having difficulty to express that she wanted a cushion under her feet and also having trouble understanding and following directions for SLUMS. To redo SLUMS again when not on pain medications to see if there is any difference in her score and cognition. OT- Vision and Hearing OT- Hearing Assessment OT- Hearing Assessment WFL OT- Vision Assessment Visual Acuity Glasses All The Time M7 OT- IP Mobility and Balance Start: 10/25/20 14:41 Freq: Status: Active Protocol: Document 10/28/20 14:59 [facility] (Rec: 10/28/20 15:33 [facility] [id number]) OT- Bed Mobility Assessment Rolling Type of Rolling Roll to Right Level of Assistance Standby Assistance Supine to Sit Supine to Sit Assist Standby Assistance,Head of Bed Elevated Sit to Supine Sit to Supine Assist Standby Assistance Scooting Scooting to Edge of Bed Standby Assistance OT-Transfer Assessment Sit to and From Stand Sit to and from Stand Standby Assistance Transfers Transfer Ability Standby Assistance Technique Transfer Destination Bed,Chair Transfer Technique Stand Step Pivot Devices Transfer Assistive Devices Gait Belt,Front Wheeled Walker Comments Mobility Comments SBA for bed mobility needs, vc to use the right hand and keep it open as pt tends to keep her right hand closed with her right thumb tucked under her right index finger. OT- Gait Assessment Comments Gait Ability Comments Close SBA with FWW. OT- Balance Assessment Sitting Balance and Reactions Static Sitting Balance Ability Good Dynamic Sitting Balance Ability Good Standing Balance and Reactions Static Standing Balance Ability Fair M8 OT- IP Objective Assessments Start: 10/25/20 14:41 Freq: Status: Active Protocol: Document 10/28/20 14:59 [facility] (Rec: 10/28/20 15:33 [facility] [id number]) OT Gross Range of Motion Upper Extremity Range of Motion Assessment Right Impaired OT Strength Upper Extremity Strength Assessment Right Impaired Comments Strength Comments RUE shoulder flexion 0-40 due to pain. Strength 3-/5 to 3+/5 form proximal to distal. LUE 4/5 OT Sensation Assessment Edema Edema Comments right arm slightly swollen M9 OT- IP Assessment and Plan Start: 10/25/20 14:41 Freq: Status: Active Protocol: Document 10/28/20 14:59 [facility] (Rec: 10/28/20 15:33 [facility] [id number]) OT Summary Assessment and Plan Potential Rehabilitation Potential Fair Analytic Complexity at Evaluation Moderate Summary OT Impairments Pain,Range of Motion,Strength, Balance,Functional Cognition, Functional Mobility,Grooming, Dressing,Toileting,Bathing, Toilet Transfers,Shower Transfers,Activity Tolerance Progress Towards Goals Slow Progress due to Pain,Slow Progress due to Medical Issues,Slow Progress due to Activity Tolerance,Slow Progress due to Cognition Assessment Summary Pt MOD complexity and main barriers are decreased initiation, strength, endurance, balance, and now needing cues to incorporate her right hand for needs. Pt would benefit from skilled rehab as per has had multiple falls at home and to also help improve AROM with RUE for able to increased ease for ADL needs. Otherwise pt would also benefit from home with 24/7 assist available with home health. Goals Self-Feeding Goal Independent Grooming Goal Independent Dressing Goal Independent Toileting Goal Independent Bathing Goal Independent Toilet Transfer Goal Independent Shower Transfer Goal Independent Days to Meet Goals 15 Frequency of Treatment Frequency Of Treatment Once a Day Treatment Plan OT Treatment Plan ADL Training,Functional Cognition Training,Functional Mobility,Patient/Family Education,Discharge Planning Other Treatment Recommendations and Next ADL tolerance, possibly shower Treatment Focus . Discharge Recommendations OT Discharge Recommendations Home vs SNF Transportation Needs at Discharge Private Vehicle,Wheelchair/ Cabulance
[2020-10-28] MEDS: GABAPENTIN 300 MG CAPSULE PO ×2 (15:51→20:47)
[2020-10-28] MEDS: MAGNESIUM CHLORIDE 64 MG TABLET 128 MG PO (16:30)
--- NOTE | 2020-10-28 18:12 | PC.NURSE ---
Pt resting at intervals Denies discomfort when asked. Midline GISELLE intact/patent. Call light w/in reach, bed alarm on for pt safety.
[2020-10-28] MEDS: levETIRAcetam 250 MG TABLET 500 MG PO (20:47)
[2020-10-29 04:55] LABS: Add Manual Diff / Slide Review NO; Basophils Absolute Auto 100 /uL (0-100); Eosinophils Absolute Auto 500 /uL (0-450); Eosinophils Percent Auto 6.7 % (2-4); Hematocrit 25.6 % (36-46); Hemoglobin 8.2 g/dL (12.0-16.0); Lymphocytes Absolute Auto 1600 /uL (1100-4500); Lymphocytes Percent Auto 22.7 % (25-40); Mean Corpuscular Hemoglobin 28.5 PG (26-34); Mean Corpuscular Volume 89.1 fL (80-100); Monocytes Absolute Auto 400 /uL (0-900); Monocytes Percent Auto 5.7 % (3-14); Neutrophils Absolute Auto 4500 /uL (1500-7000); Neutrophils Percent Auto 63.9 % (50-75); Platelet Count 368 X10^3/uL (150-400); Red Blood Cell Count 2.87 X10^6/uL (4.0-5.2); Red Cell Distribution Width 17.2 % (11.6-14.8); White Blood Cell Count 7.1 X10^3/uL (4.5-11.0)
[2020-10-29 05:00] VITALS: BP 107/60; PULSE 98; RESP 18; TEMP 36.4; O2SAT 97
[2020-10-29 05:03] LABS: Phosphorous 3.6 mg/dL (2.8-4.1)
[2020-10-29 05:04] LABS: Alanine Aminotransferase 13 IU/L (<35); Albumin 2.5 g/dL (3.5-5.0); Albumin Globulin Ratio 0.8 (1.0-2.8); Alkaline Phosphatase 113 U/L (38-126); Aspartate Aminotransferase 18 IU/L (14-36); BUN Creatinine Ratio 12.2 (6-22); Bilirubin Total 0.3 mg/dL (0.2-1.3); Blood Urea Nitrogen 10 mg/dL (7-17); Calcium 8.3 mg/dL (8.4-10.2); Carbon Dioxide 20 mmol/L (22-32); Chloride 117 mmol/L (98-107); Estimated Glomerular Filt Rate > 60.0 mL/min (>60); Globulin 3.2 g/dL (1.7-4.1); Glucose 88 mg/dL (80-110); HEMOLYSIS < 15 (0-50); Potassium 3.9 mmol/L (3.4-5.1); Sodium 143 mmol/L (137-145); Total Protein 5.7 g/dL (6.3-8.2)
[2020-10-29 05:09] LABS: Magnesium 1.2 mg/dL (1.6-2.3)
[2020-10-29 07:45] VITALS: PULSE 81; RESP 20; O2SAT 96
[2020-10-29 08:00] VITALS: BP 103/61; PULSE 106; RESP 18; TEMP 37; O2SAT 100
[2020-10-29] MEDS: DULOXETINE 30 MG CAPSULE 60 MG PO (08:14)
[2020-10-29] MEDS: DOXYCYCLINE HYCLATE 100 MG TABLET PO ×2 (08:14→21:49)
[2020-10-29] MEDS: PANTOPRAZOLE 40 MG VIAL IV (08:15)
[2020-10-29] MEDS: levETIRAcetam 250 MG TABLET 500 MG PO ×2 (08:15→21:49)
[2020-10-29] MEDS: FLUoxetine 20 MG CAPSULE 40 MG PO (08:15)
[2020-10-29] MEDS: GABAPENTIN 300 MG CAPSULE PO ×3 (08:15→21:49)
[2020-10-29] MEDS: SODIUM CHLORIDE 0.9% FLUSH 10 ML IV ×3 (08:16→21:49)
--- NOTE | 2020-10-29 09:04 | CM.DPC ---
DCP Cont: Shirley at [facility], stated that they have no beds until Friday. [facility] has no beds until Friday or Friday. Prateek at [facility], stated that their nurse looked over this patient and had concerns, secondary to her history of alcoholism. She indicated that her director power would need to review patient. Still have the face to face filled out for [facility]. was encouraged to speak to provider about his concerns of her swallowing. P: DCP to continue to follow. Have attempted skilled facilities as stated above, other option is [facility]. Will encourage provider to speak to her regarding his concerns. Jill Hollis RN/Cable Tool Driller
--- NOTE | 2020-10-29 10:51 | P.PN_ITS ---
Subjective Subjective Date Patient Seen: 10/29/20 Time Patient Seen: 10:16 Interval history: I'm tired = reasonable night doing ok says she is looking better on ADs would like to stop giving her hydrocodone which she has been taking for years feels it is fogging her up working with PT. Pt more interactive today. Ate maybe 20% of breakfast. Not very hungry currently. No pain complaints. Exam Vital Signs (past 8 hours): - 10/29/20 05:00 10/29/20 07:45 10/29/20 08:00 Temperature 97.5 F L 98.6 F Pulse Rate 98 H 81 106 H Respiratory Rate 18 20 18 Blood Pressure 107/60 103/61 Pulse Oximetry 97 96 100 Oxygen Delivery Method Room Air Oxygen Flow Rate 0 Narrative Exam Narrative: withdrawn lady sitting comfortably in bed with at bedside. Const General: cooperative, comfortable and No acute distress HENMT Head: normocephalic and atraumatic Eyes General: appearance normal, both eyes and all related structures Resp Effort & Inspection: normal respiratory effort Auscultation: clear to auscultation bilaterally Cardio Other: regular rate and rhythm S1/S2 wnl GI Other: normal bowel sounds nontender all four quadrants Skin Other: no suspicious rashes or lesions noted Neuro General: patient oriented x3 and CN's II-XI intact bilaterally Extrem General: normal to inspection and full ROM Psych Other: withdrawn affect but more interactive more eye contact today compared with yesterday. Objective Labs Result Diagrams: 10/29/20 04:43 10/29/20 05:24 Labs: Laboratory Results - last 24 hr 10/27/20 10/29/20 10/29/20 05:00 04:43 04:43 WBC 7.1 RBC 2.87 L Hgb 8.2 L Hct 25.6 L MCV 89.1 MCH 28.5 MCHC 32.0 RDW 17.2 H Plt Count 368 Neut % (Auto) 63.9 Lymph % (Auto) 22.7 L Harmon % (Auto) 5.7 Eos % (Auto) 6.7 H Baso % (Auto) 1.0 Neut # (Auto) 4500 Lymph # (Auto) 1600 Harmon # (Auto) 400 Eos # (Auto) 500 H Baso # (Auto) 100 Sodium Potassium Chloride Carbon Dioxide BUN Creatinine Estimated GFR BUN/Creatinine Ratio Glucose Calcium Phosphorus 3.6 Magnesium Total Bilirubin AST ALT Alkaline Phosphatase Total Protein Albumin Globulin Albumin/Globulin Ratio Phenytoin 8.6 L Free Phenytoin 1.3 10/29/20 10/29/20 04:43 05:24 WBC RBC Hgb Hct MCV MCH MCHC RDW Plt Count Neut % (Auto) Lymph % (Auto) Harmon % (Auto) Eos % (Auto) Baso % (Auto) Neut # (Auto) Lymph # (Auto) Harmon # (Auto) Eos # (Auto) Baso # (Auto) Sodium 143 Potassium 3.9 Chloride 117 H Carbon Dioxide 20 L BUN 10 Creatinine 0.82 Estimated GFR > 60.0 BUN/Creatinine Ratio 12.2 Glucose 88 Calcium 8.3 L Phosphorus Magnesium 1.2 L Total Bilirubin 0.3 AST 18 ALT 13 Alkaline Phosphatase 113 Total Protein 5.7 L Albumin 2.5 L Globulin 3.2 Albumin/Globulin Ratio 0.8 L Phenytoin Free Phenytoin [facility] Medical History (Updated 10/24/20 @ 13:18 by Ketty Arvizu DO) Breast cancer CVA (cerebral vascular accident) Social History household members: spouse Smoking Status: Former smoker Assessment & Plan Assessment & Plan narrative: #Acute renal failure, pre-renal Plan: Creatinine now normalized, transitioning to PO off IVF today #Acute electrolyte derangement, hypokalemia, hyperphosphatemia, hyperchloremia, and hypermagnesemia secondary to acute renal failure Plan: improved 2/2 repletion now coming back to baselines, encourage PO intake #Seizure, acute; secondary to encephalomalacia from previous CVA and exacerbated by dehydration and acute renal failure, no repeat occurrence since admission. Plan: no further seizure activity since admission. keppra 50 bid #QT prolongation and T-wave changes, rule out CA -Troponin negative x 3 Plan: Dr. Cueva, cardiology consulted. Dr. Cueva recommended treatment of underlying dehydration and acute renal failure. He does not feel that EKG changes are consistent with an acute CA as patient is not having chest pain. He reviewed recent stress test in the last year which was normal. Echo showed normal EF. continue cardiac catheterization technologist. #Right-sided weakness, dysphagia, and dysarthria in setting of history of CVA Plan: MRI incomplete but no evidence of acute stroke. CT head negative for acute stroke. Echo essentially normal. Barium swallow wnl however concern for lower-down esophageal issues. Pt is s/p gastric bypass iwth stomach stapling 12 years ago. #Cough, chronic x4 months, stable Plan: Risk for aspiration pneumonia with dysphagia. With new UTI, received linezolid for dual coverage. Continue PO doxycycline. VSS no WBC elevation. Discussed with ST they recommend GI evaluation of esophagus, this can be done as outpt. ST exercises given continue to work with them #UTI, new, present on admission -Urine culture grew staph warneri, resisitant to ciprofloxacin, levofloxacin, moxifloxacin, and oxacillin Plan: received IV linezolid now on doxycycline continue for three days #Alcohol use Plan: Last drink over 4 days ago, has not been drinking heavily lately, [facility] protocol. #Diabetes mellitus type 2 Plan: continue to monitor glucose hold metformin. #Hypertension Plan: Continue to hold propranolol and monitor #Hyperlipidemia Plan: Holding statin, plan to restart upon discharge if kidneys have recovered and able to take PO. 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 #History of breast cancer with unintended weight loss Plan: Weight loss likely secondary to reduced p.o. intake. s/p bilateral mastectomy. #Anemia, normochromic/normocytic, new -Vit B12/folate within normal limits -Iron studies consistent with anemia of chronic disease. Plan: Will treat underlying diseases. #Thrombophilia, chronic, now normalized Plan: Likely acute phase reactant due to kidney injury, inflammation, and infection. Will continue to watch closely. #Depression Plan: Resumed home medications yesterday pt's says he sees improvement today slight #Obesity, status post gastric bypass Plan: Nutritionally complicated, nutrition consulting. #Protein calorie malnutrition, acute, severe Plan: continue assiduous nutrition, resume antidepressants, encourage constant small feedings #Urinary retention, resolved. Plan: Sood removed, urinating on her own, will continue to watch closely. #Right shoulder pain, acute, likely from injury during seizure -No fracture identified on x-ray. Plan: work with PT, concerned hydrocodone may be fogging her up, s witching to tramadol try to take as last resort Code: Full DVT prophylaxis: SCDs COVID: negative Dispo: ST and PT both recommend SNF, placement exploration is proceeding. Pt still requiring nutritional support see how she does off IVF
[2020-10-29] MEDS: TRAMADOL 50 MG TABLET PO ×2 (11:44→16:39)
[2020-10-29] MEDS: MAGNESIUM SULFATE 2 GM/50 ML PIGGYBACK IV (11:46)
[2020-10-29 12:00] VITALS: BP 113/63; PULSE 98; RESP 19; TEMP 36.8; O2SAT 99
--- NOTE | 2020-10-29 12:16 | CM.DPC ---
DCP Cont: Spoke to Dr. Smith this morning, and encouraged him to speak to [place], about his concerns of his 's swallowing situation. Did encouraged Dr. Smith to discharge patient today if he deemed her medically stable, and spouse can appeal. Let him know this before he entered the room. He is wanting to attempt skilled placwement, due to her increased feeding needs. Let him know that this mental health case manager has been working on this since yesterday morning, and so far, [facility] has no beds until Friday, [facility] until or Fri, [facility] is reviewing, due to alcohol history, but they will run it by their DNS. There is a home plan after longterm for [facility]. Added another facility to the list, left a message with [facility] admissions line to see if they may possibly accept. Have faxed referral to them, but line is continuing to be no answer. Received an [facility] fax number of: [phone]. P: DCP to continue to follow. Will continue to attempt placement, and will also need follow up with these facilities tomorrow. Will refax [facility]. Can also see if [facility] is accepting. Jill Hollis RN/[facility]
[2020-10-29 16:00] VITALS: BP 119/72; PULSE 96; RESP 16; TEMP 36.9; O2SAT 98
[2020-10-29 19:35] VITALS: BP 120/58; PULSE 104; RESP 17; TEMP 37.2; O2SAT 98
--- NOTE | 2020-10-29 23:44 | PC.NURSE ---
Pt. slow to respond due to old CVA residual, but clear and appropriate. Reports pain right shoulder related to previous fall. Has been imaged, no fracture. Pt. reports that Tramadol, acetaminophen, and ice do not work for her. When asked if discontinuing the Innis was her wish or her 's, she reports that it was her 's. She would like to resume Innis for pain, will address with physician in am. Lungs clear but wet rattle noted in upper airway. Weak cough, difficulty clearing. Flutter valve at bedside; pt. encouraged to use. Advanced dysphagia diet followed but pt had very little PO intake, despite encouragement.
[2020-10-30] VITALS (10 sets, daily range): BP systolic 106–126; BP diastolic 64–76; PULSE 94–102; RESP 16–18; TEMP 36.3–37.1; O2SAT 94–99
--- NOTE | 2020-10-30 03:03 | PC.NURSE ---
Patient is oriented to self, birthdate, place and situation. Is slow to respond and has difficulty with word finding. Breath sounds with expiratory rhonchi throughout. Has moist sounding, intermittent, non-productive cough. RA sat is 94%. HRR w/telemetry reading of SR. Denied nausea. BT present and abdomen is soft. Denies dysuria, frequency or urgency with urination. Is able to turn herself in bed. Up to bathroom with walker and SBA. States she has chronic bilateral UE weakness related to hx of CVA. Complains of 7/10 right shoulder pain but declines offer of Tramadol, ice or heat. Refusing SCD's as states she has restless legs and the movement aggravates. Fall risk score is high and bed alarm is activated.
[2020-10-30] MEDS: SODIUM CHLORIDE 0.9% FLUSH 10 ML IV ×3 (05:14→21:12)
[2020-10-30 05:35] LABS: Add Manual Diff / Slide Review NO; Basophils Absolute Auto 100 /uL (0-100); Basophils Percent Auto 1.3 % (0-2); Eosinophils Absolute Auto 600 /uL (0-450); Eosinophils Percent Auto 9.7 % (2-4); Hematocrit 25.5 % (36-46); Hemoglobin 8.4 g/dL (12.0-16.0); Lymphocytes Absolute Auto 1900 /uL (1100-4500); Lymphocytes Percent Auto 30.1 % (25-40); Mean Corpuscular HGB Conc 32.7 % (30-36); Mean Corpuscular Hemoglobin 28.8 PG (26-34); Monocytes Absolute Auto 300 /uL (0-900); Monocytes Percent Auto 5.4 % (3-14); Neutrophils Absolute Auto 3400 /uL (1500-7000); Neutrophils Percent Auto 53.5 % (50-75); Platelet Count 391 X10^3/uL (150-400); Red Cell Distribution Width 17.3 % (11.6-14.8); White Blood Cell Count 6.4 X10^3/uL (4.5-11.0)
[2020-10-30 05:41] LABS: Phosphorous 3.3 mg/dL (2.8-4.1)
[2020-10-30 05:42] LABS: Alanine Aminotransferase 15 IU/L (<35); Albumin 2.5 g/dL (3.5-5.0); Albumin Globulin Ratio 0.7 (1.0-2.8); Alkaline Phosphatase 124 U/L (38-126); Aspartate Aminotransferase 23 IU/L (14-36); BUN Creatinine Ratio 12.7 (6-22); Bilirubin Total 0.3 mg/dL (0.2-1.3); Blood Urea Nitrogen 9 mg/dL (7-17); Calcium 8.1 mg/dL (8.4-10.2); Carbon Dioxide 23 mmol/L (22-32); Chloride 115 mmol/L (98-107); Estimated Glomerular Filt Rate > 60.0 mL/min (>60); Globulin 3.5 g/dL (1.7-4.1); Glucose 85 mg/dL (80-110); HEMOLYSIS 23 (0-50); Potassium 3.8 mmol/L (3.4-5.1); Sodium 143 mmol/L (137-145)
[2020-10-30 05:47] LABS: Magnesium 1.4 mg/dL (1.6-2.3)
[2020-10-30] MEDS: DOXYCYCLINE HYCLATE 100 MG TABLET PO ×2 (08:41→21:07)
[2020-10-30] MEDS: FLUoxetine 20 MG CAPSULE 40 MG PO (08:41)
[2020-10-30] MEDS: DULOXETINE 30 MG CAPSULE 60 MG PO (08:41)
[2020-10-30] MEDS: PANTOPRAZOLE 40 MG VIAL IV (08:41)
[2020-10-30] MEDS: levETIRAcetam 250 MG TABLET 500 MG PO ×2 (08:41→21:07)
[2020-10-30] MEDS: GABAPENTIN 300 MG CAPSULE PO ×3 (08:41→21:07)
--- NOTE | 2020-10-30 10:22 | PM.PN.1 ---
Subjective Subjective Date Patient Seen: 10/30/20 Time Patient Seen: 09:30 Interval history: CC: I want to go home Exam Vital Signs (past 8 hours): - 10/30/20 04:19 10/30/20 07:45 10/30/20 08:08 Temperature 97.3 F L 98.3 F Pulse Rate 95 H 94 H Respiratory Rate 18 18 16 Blood Pressure 111/71 114/69 Pulse Oximetry 94 98 94 Oxygen Delivery Method Room Air Oxygen Flow Rate 0 Narrative Exam Narrative: alert female in bed conversing with at bedside, smiling Const General: cooperative, healthy appearing and comfortable Resp Effort & Inspection: normal respiratory effort and able to speak in complete sentences Auscultation: clear to auscultation bilaterally Cardio Rate: regular rate Rhythm: regular rhythm Heart Sounds: S1 normal and S2 normal GI Other: soft nontender nondistended bowel sounds wnl Skin Other: no suspicious lesions or rashes Extrem General: normal to inspection Other: limited ROM of R shoulder Psych Appearance: grossly normal and well kempt Attitude: cooperative Judgment: fair Other: Mental status much improved today, pt much more conversant and interactive. Now stating clear goal of going home and not looking at to make decisions. Objective Labs Result Diagrams: 10/30/20 05:14 10/30/20 05:14 Labs: Laboratory Results - last 24 hr 10/28/20 10/30/20 10/30/20 05:00 05:14 05:14 WBC 6.4 RBC 2.90 L Hgb 8.4 L Hct 25.5 L MCV 88.0 MCH 28.8 MCHC 32.7 RDW 17.3 H Plt Count 391 Neut % (Auto) 53.5 Lymph % (Auto) 30.1 Collin % (Auto) 5.4 Eos % (Auto) 9.7 H Baso % (Auto) 1.3 Neut # (Auto) 3400 Lymph # (Auto) 1900 Collin # (Auto) 300 Eos # (Auto) 600 H Baso # (Auto) 100 Sodium 143 Potassium 3.8 Chloride 115 H Carbon Dioxide 23 BUN 9 Creatinine 0.71 Estimated GFR > 60.0 BUN/Creatinine Ratio 12.7 Glucose 85 Calcium 8.1 L Phosphorus Magnesium Total Bilirubin 0.3 AST 23 ALT 15 Alkaline Phosphatase 124 Total Protein 6.0 L Albumin 2.5 L Globulin 3.5 Albumin/Globulin Ratio 0.7 L Phenytoin 7.1 L Free Phenytoin 1.1 10/30/20 10/30/20 05:14 05:14 WBC RBC Hgb Hct MCV MCH MCHC RDW Plt Count Neut % (Auto) Lymph % (Auto) Collin % (Auto) Eos % (Auto) Baso % (Auto) Neut # (Auto) Lymph # (Auto) Collin # (Auto) Eos # (Auto) Baso # (Auto) Sodium Potassium Chloride Carbon Dioxide BUN Creatinine Estimated GFR BUN/Creatinine Ratio Glucose Calcium Phosphorus 3.3 Magnesium 1.4 L Total Bilirubin AST ALT Alkaline Phosphatase Total Protein Albumin Globulin Albumin/Globulin Ratio Phenytoin Free Phenytoin [facility] Medical History (Updated 10/24/20 @ 13:18 by Ketty Arvizu DO) Breast cancer CVA (cerebral vascular accident) Social History household members: spouse Smoking Status: Former smoker Assessment & Plan Assessment & Plan narrative: #Acute renal failure, pre-renal Plan: Creatinine normalized, IV is KVO, encouraged assiduous hydration PO, my hope is she can maintain her hydration with PO intake only. #Acute electrolyte derangement, hypokalemia, hyperphosphatemia, hyperchloremia, and hypermagnesemia secondary to acute renal failure Plan: improved 2/2 repletion now coming back to baselines, encourage PO intake #Seizure, acute; secondary to encephalomalacia from previous CVA and exacerbated by dehydration and acute renal failure, no repeat occurrence since admission. Plan: no further seizure activity since admission keppra 500 bid #QT prolongation and T-wave changes, rule out GA, present on admission Plan: Troponins negative x3, Dr. Heart, cardiology consulted. Dr. Heart recommended treatment of underlying dehydration and acute renal failure, does not feel that EKG changes are consistent with an acute GA as patient is not having chest pain. He reviewed recent stress test in the last year which was normal. Echo showed normal EF. manager monitoring. #Right-sided weakness, dysphagia, and dysarthria in setting of history of CVA Plan: MRI incomplete but no evidence of acute stroke. CT head negative for acute stroke. Echo essentially normal. Barium swallow wnl however concern for distal esophageal issues. Pt is s/p gastric bypass with stomach stapling 12 years ago, minimal recent PO intake. Portion size limited. Function improving significantly with no opiates. Working with ST/PO/OT. #Cough, chronic x4 months, stable Plan: Risk for aspiration pneumonia with dysphagia. With new UTI, received linezolid for dual coverage. Continue PO doxycycline to complete 3 day course. VSS no WBC elevation. Discussed with ST they recommend GI evaluation of esophagus, this can be done as outpt. ST exercises given continue to work with them. Improvement in gurgling noted with opiate reduction. #UTI, new, present on admission -Urine culture grew staph warneri, resisitant to ciprofloxacin, levofloxacin, moxifloxacin, and oxacillin Plan: received IV linezolid now on doxycycline continue for three days today is day 3 of 3 #Alcohol use Plan: Last drink over 4 days ago, has not been drinking heavily lately, [facility] protocol in place. #Diabetes mellitus type 2 Plan: continue to monitor glucose hold metformin. fingersticks ACHS w/ low SSI. #Hypertension Plan: Continue to hold propranolol and monitor, BP has been stable #Hyperlipidemia s/p CVA Plan: restarting home statin as her kidney are improved and she is back on PO. 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 #History of breast cancer with unintended weight loss Plan: Weight loss likely secondary to reduced p.o. intake. s/p bilateral mastectomy. #Anemia, normochromic/normocytic, new -Vit B12/folate within normal limits -Iron studies consistent with anemia of chronic disease. Plan: Will treat underlying diseases. #Thrombophilia, chronic, now normalized Plan: Likely acute phase reactant due to kidney injury, inflammation, and infection. Will continue to watch closely. #Depression Plan: Resumed home medications Friday, significant improvement noted #Obesity, status post gastric bypass Plan: Nutritionally complicated, nutrition consulting. #Protein calorie malnutrition, acute, severe Plan: continue assiduous nutrition, resume antidepressants, encourage constant small feedings, work with ST #Urinary retention, resolved. Plan: Sood removed, urinating on her own, will continue to watch closely. #Right shoulder pain, acute, likely from injury during seizure -No fracture identified on x-ray. Plan: work with PT, encouraged gentle ranging, avoid narcotic pain control Code: Full DVT prophylaxis: SCDs, lovenox COVID: negative Dispo: ST and PT both recommend SNF, placement exploration is proceeding. Pt still requiring nutritional support, see how she does off IVF with PO intake only.
--- NOTE | 2020-10-30 11:58 | CM.DPC ---
Addendum entered by BENSON Walker 10/30/20 12:12: ADD: SW spoke to admissions at [facility] with update on possible home plan but requested they keep pt on their list and check in tomorrow just to confirm she can d/c home and does not need SNF. BF Original Note: DCP Home with HH planning Per MD, pt has made some significant progress today likely with being off the narcotics and working with ST but seems closer to baseline now and will talk to pt's PCP Dr. Bueno today to determine if EGD scope should be completed as Inpt or outpt basis. MD anticipates likely d/c tomorrow. Previous SNF plan and referrals are: [facility]- concerns regarding pt's ETOH and feeding recommendations. [facility]- declines due to pt's hx of ETOH [facility]- decline accepting pt, mostly full too [facility]- could likely accept if pt has had her COVID vaccinations as it would be a shared room. SW met bedside with pt and spouse and explained role and updated on above SNF difficulties. Pt and spouse confirm that they feel pt has significantly improved to safely begin working on a home plan of d/c with spouse assist and HH. Pt has a hx of Alpha and this is their preference as long as ST available through [facility]. SW called [facility] and confirmed they are fully staffed with ST for [place] and faxed referral. F2F previously signed by over the weekend but not faxed to [facility] yet. SW updated RN/PT/OT on change of likely home plan and spouse requesting therapies today. Plan: SW to follow for likely plan now of home with spouse assist and [facility] RN/PT/OT/ST and fax the d/c summ, [facility] and orders to [facility] at discharge. BENSON Walker
--- NOTE | 2020-10-30 12:57 | ST.IPTN ---
Visit Care Team Role Provider Type Ketty Arvizu DO Emergency Provider Physician Referring Provider Address: [address] [place] [address], [place], [address] Aniyah Goodrich MD Admit Provider Physician Attending Provider Primary Care Provider Address: [address] [place] [address], [address], [place], [address] BIODIESEL PROCESS CONTROL TECHNICIAN Treatment Note BIODIESEL PROCESS CONTROL TECHNICIAN Treatment Note Start: 10/28/20 12:48 Freq: Status: Active Protocol: Document 10/30/20 12:52 MG (Rec: 10/30/20 12:57 MG [id number]) Speech Pathology Treatment Note Session Time Visit Start Time 12:20 Visit Stop Time 12:40 Total Visit Minutes 20 Visit Information Visit Number 4 Setting Treatment Setting Acute Care Visit Type Note Type Treatment Note General Information General Information 70 year-old right-handed female presents from the ED with acute renal failure in the setting of passing out this morning while in the bathroom. She has not had much to eat or drink in the past 3-4 days. This is in context of a regional heat wave but reports that they have been inside and that they have air conditioning. Pt's has been trying to feed her sips of water and watermelon but she essentially does not eat/drink much and has become severely dehydrated . She has been taking her medications. ED workup significant for a normocytic/ normochromic anemia with a hemoglobin/hematocrit of 10. 6/32.7, new. Platelets elevated at 586, these have been elevated over the 6 months, 515-725. Patient has had a steady decline in the last 4 months with a 25 lb weight loss and a persistent cough with difficulty swallowing. Pt reports that swallowing has become so difficult, that she has severely limited her oral intake. She has been treated with both prednisone, albuterol, and a Z-Franco in the last 3 months with no improvement. Imaging has shown a large hiatal hernia and atelectasis versus possible consolidation from aspiration in the left lower lobe. Of note, pt did have a left frontal stroke in 2005 after being on tamoxifen for 2 years due to non invasive breast cancer that was diagnosed in 2001. Stroke caused residual right-sided cordination issues, cognitive deficits, and word-finding difficulties. Pt had a MBSS on 10/27/2020 which indicated there is no aspiration or penetration occurring. Subjective Identification Type Name,ID Wristband Others Present Family Observations/Patient Presentation Pt was eating lunch, upright in bed with at bedside . Pt and were agreeable to meet with BIODIESEL PROCESS CONTROL TECHNICIAN for treatment session. Chief Complaint(s) Swallowing Patient Knowledge/Awareness of BIODIESEL PROCESS CONTROL TECHNICIAN Role Good in Treatment Parent/Caretake Knowledge/Awareness of Good BIODIESEL PROCESS CONTROL TECHNICIAN Role in Treatment Patient/Caregiver Compliance with Home Good Exercise Program Objective Short Term Goals Pt will get a GI consult to examine esophaguas and rule out possible reflux causing cough Pt will follow safe swallow protocol when eating/drinking with minimal verbal reminders. [facility] Goals Pt will tolerate least restrictive diet and report no problems with solids/liquids when eating/drinking. Pt will follow safe swallow protocol when eating/drinking independently. Treatment Activities BIODIESEL PROCESS CONTROL TECHNICIAN, pt, and pt's went over any questions/concerns they had re: diet order, coughing, GI consult. BIODIESEL PROCESS CONTROL TECHNICIAN discussed base of tongue exercises to practice as well as reenforced following safe swallowing strategies when eating/drinking. Pt practiced and demonstrated accuracy with the exercises during her meal . Pt notes that their coughing has reduced with assistance of a new tool brought by respiratory therapy. BIODIESEL PROCESS CONTROL TECHNICIAN noted less coughing from pt and the pt demonstrated more of an appetite. No other questions/ concerns were noted prior to BIODIESEL PROCESS CONTROL TECHNICIAN exiting the room. Assessment Patient Response to Treatment Good Rehab Potential Good Impairments Identified Dysphagia Progress Towards Goals Good Progress Assessment of Overall Progress Improving Assessment of Improvement Hopeful pt can start to regain strength as she is no longer NPO. SNF may be beneficial for pt at this time to improve weakness and continue working with BIODIESEL PROCESS CONTROL TECHNICIAN. Reviewed with Patient Goals,Progress Being Made,Home Exercise Program Patient/Caregiver Understanding Good Plan Therapeutic Contents Compensatory Swallowing Training,Home Exercise Program ,Oral Motor Training, Swallowing/Feeding Provided Patient/Caregiver Instruction Home Exercise Program,Plan of Care,Questions/Concerns Therapy Recommendations Continue with Current Program Suggested Referral GI
[2020-10-30] MEDS: ENOXAPARIN 40 MG/0.4 ML SYRINGE SUBCUT (14:12)
--- NOTE | 2020-10-30 14:37 | PC.NURSE ---
Day shift note: Patient taking small bites through out day, three bites of sandwich for breakfast, 3 spoonfuls of pasta for lunch with small bowl of ice cream. Per Dr. Lr has a very small stomach and will not eat large meals. Encouraging small bites, frequently. Sporadic congested moist cough noted. Up OOB to BR on SBA with FWW, voiding without any issues. BG check AC lunch 102 mg/dl/ COntinue on RA, declining offered Tylenol for shoulder pain, Spouse at bedside providing supportive care. Appropriately using call light for staff assistance.
--- NOTE | 2020-10-30 14:44 | OT.IP.TRT ---
Current Diagnoses Acute kidney failure, unspecified (10/24/20) Occupational Therapy Treatment Note M2 OT-IP Current Condition Start: 10/25/20 14:41 Freq: Status: Active Protocol: Document 10/28/20 14:59 [facility] (Rec: 10/28/20 15:33 [facility] [id number]) Occupational Therapy Current Condition Current Condition Evaluation Date 10/28/20 Treatment Diagnosis Acute renal failure, dehydration, right shoulder pain from fall. Diagnosis Onset Date 10/24/20 M3 OT- IP Subjective and Pain Start: 10/25/20 14:41 Freq: Status: Active Protocol: Document 10/30/20 16:00 CGR (Rec: 10/30/20 16:12 CGR [id number]) OT- Subjective Occupational Therapy Visit Type Type Progress Note Visit Start Time 14:30 Visit Stop Time 14:44 Total Visit Minutes 14 Notes Pt's present throughout session. OT Pain Assessment Pain When Pain Assessed At Rest Pain Present Pain Present Denied Pain M4 OT- IP ADL's Start: 10/25/20 14:41 Freq: Status: Active Protocol: Document 10/30/20 16:00 CGR (Rec: 10/30/20 16:12 CGR [id number]) OT TQA-Wmoa-Bcbuasy General Evaluation Self-Feeding Ability Independent Comments OT Self-Feeding Comments Pt eating ice cream. OT ADL-Grooming General Evaluation Grooming Ability Standby Assistance Areas Needing Assistance Retrieving/Set-up of Grooming Items,Face Washing Comments OT Grooming Comments Pt performed standing at sink OT ADL-Oral Care General Eval Oral Care Ability Standby Assistance Areas of Assistance Brushing Teeth,Retrieving/Set- Up of Items Comments Oral Care Comments Pt brushed teeth standing at sink OT ADL-Dressing Comments OT Dressing Comments Not performed OT ADL-Toileting General Evaluation Toileting Ability Standby Assistance Areas Needing Assistance Manage Clothing,Perform Perineal Hygiene Comments OT Toileting Comments Pt performed toileting ( although denyed need) with SBA . Needed mod a for sit to stand d/t pain to the R shld and GB on R side. OT ADL-Bathing Comments OT Bathing Comments Not performed M5 OT- IP IADL's Start: 10/25/20 14:41 Freq: Status: Active Protocol: Document 10/28/20 14:59 [facility] (Rec: 10/28/20 15:33 [facility] [id number]) OT-Instrumental Activities of Daily Living Home Safety Awareness Home Safety Comments Pt groggy and may be from pain medicaitons given earlier. Prior tp's assist with all IADL, medications and money management needs. Medication Management Medication Management Caregiver Administers Money Management Money Management Caregiver Provides Assistance Meal Preparation Meal Preparation Caregiver Provides Assist Fire Patrol Fire Patrol Caregiver Provides Assist M6 OT- IP Functional Cognition Start: 10/25/20 14:41 Freq: Status: Active Protocol: Document 10/30/20 16:00 CGR (Rec: 10/30/20 16:12 R [id number]) Cognitive Factors Limiting Selfcare Function Cognitive Ability Level of Alertness Alert Ability to Follow Commands Able to Follow One Step Commands with Increased Time, Able to Follow One Step Commands with Repetition Cognitive Comments Cognitive Assessment Comments Pt's would like repeat cog assessment done. M7 OT- IP Mobility and Balance Start: 10/25/20 14:41 Freq: Status: Active Protocol: Document 10/30/20 16:00 CGR (Rec: 10/30/20 16:12 CGR [id number]) OT- Bed Mobility Assessment Supine to Sit Supine to Sit Assist Standby Assistance Scooting Scooting to Edge of Bed Standby Assistance OT-Transfer Assessment Sit to and From Stand Sit to and from Stand Standby Assistance,Moderate Assistance Transfers Transfer Ability Standby Assistance Technique Transfer Destination Bed,Chair,Toilet Transfer Technique Stand Step Pivot Devices Transfer Assistive Devices Gait Belt,Front Wheeled Walker Comments Mobility Comments SBA for sit to stand from bed. Needed mod a for sit to stand from toilet d/t pain to the R shld and GB on R side. OT- Balance Assessment Sitting Balance and Reactions Static Sitting Balance Ability Good M8 OT- IP Objective Assessments Start: 10/25/20 14:41 Freq: Status: Active Protocol: Document 10/28/20 14:59 [facility] (Rec: 10/28/20 15:33 [facility] [id number]) OT Gross Range of Motion Upper Extremity Range of Motion Assessment Right Impaired OT Strength Upper Extremity Strength Assessment Right Impaired Comments Strength Comments RUE shoulder flexion 0-40 due to pain. Strength 3-/5 to 3+/5 form proximal to distal. LUE 4/5 OT Sensation Assessment Edema Edema Comments right arm slightly swollen M9 OT- IP Assessment and Plan Start: 10/25/20 14:41 Freq: Status: Active Protocol: Document 10/30/20 16:00 CGR (Rec: 10/30/20 16:12 CGR [id number]) OT Summary Assessment and Plan Potential Rehabilitation Potential Fair Analytic Complexity at Evaluation Moderate Summary OT Impairments Pain,Range of Motion,Strength, Balance,Functional Cognition, Functional Mobility,Grooming, Dressing,Toileting,Bathing, Toilet Transfers,Shower Transfers,Activity Tolerance Progress Towards Goals Slow Progress due to Pain,Slow Progress due to Medical Issues,Slow Progress due to Activity Tolerance,Slow Progress due to Cognition Assessment Summary Pt with improved abilities on this date. MOD a off of toilet d/t GB on R where pt hurt her shld. Pt appears in good spirits today with now stating d/c to home given pt' s improvement. Recommend d/c to home with 18/11 care. Goals Self-Feeding Goal Independent Grooming Goal Independent Dressing Goal Independent Toileting Goal Independent Bathing Goal Independent Toilet Transfer Goal Independent Shower Transfer Goal Independent Days to Meet Goals 15 Frequency of Treatment Frequency Of Treatment Once a Day Treatment Plan OT Treatment Plan ADL Training,Functional Cognition Training,Functional Mobility,Patient/Family Education,Discharge Planning Other Treatment Recommendations and Next ADL tolerance, possibly shower Treatment Focus . Discharge Recommendations OT Discharge Recommendations Home with 24/ Assist Available Transportation Needs at Discharge Private Vehicle
--- NOTE | 2020-10-30 15:58 | PT.IPTN ---
Current Diagnoses Acute kidney failure, unspecified (10/24/20) Physical Therapy Treatment Note M2 PT-IP Current Condition Start: 10/25/20 13:13 Freq: NEEDED Status: Active Protocol: Document 10/30/20 16:02 MA (Rec: 10/30/20 16:13 MA [id number]) Physical Therapy Current Condition Current Condition Evaluation Date 10/25/20 Treatment Diagnosis acute kidney injury; difficulty in walking Onset Date 10/24/20 M3 PT-IP Subjective Start: 10/25/20 13:13 Freq: NEEDED Status: Active Protocol: Document 10/30/20 16:02 MA (Rec: 10/30/20 16:13 MA [id number]) Subjective Physical Therapy Visit Type Type Treatment Note Visit Start Time 15:44 Visit Stop Time 15:58 Total Visit Minutes 14 Notes present providing chair follow Number of PROCUREMENT COST COORDINATOR Visits 3 Physical Therapy Visit Comments Patient Comments Pt willing to work with PT Therapy Pain Assessment Pain Present Pain Present Pain Reported Location Right Shoulder Scale Used pain scale not stated Pain Management Techniques Distraction,Re-positioning, Timing of Activity with Medications M4 PT-IP Mobility and Gait Start: 10/25/20 13:13 Freq: NEEDED Status: Active Protocol: Document 10/30/20 16:02 MA (Rec: 10/30/20 16:13 MA [id number]) PT-Bed Mobility Assessment Supine to Sit Supine to Sit Independent Sit to Supine Sit to Supine Independent PT-Transfer Assessment Sit to and From Stand Sit to and from Stand Standby Assistance,Use of Upper Extremities Equipment Transfer Assistive Device Gait Belt,Front Wheeled Walker Orthotic/Prosthetic Devices or Brace: No Transfers Transfer Destination Bed Transfer Technique Stand Step Pivot Transfer Ability Level of Assist Standby Assistance,Use of Upper Extremities Comments Mobility Comments Pt is independent for bed mobility and gets herself up while PT is grabbing chair despite asking pt to stay in bed. is present in room and states she has been able to get up and go to bathroom independently. Pt is SBA for sit<>stand and remains SBA during gait with FWW and gait belt. She is able to complete 212 ft loop around nursing station with decreased stride length and step height and increased fwd flexion requiring cues to stand tall . Gait Assessment Gait Gait Assistance Required: Standby Assistance,1 Person Assist Distance (Feet) 212 Able to Maintain Weight Bearing Status Yes During Gait Assistive Devices Assistive Device Gait Belt,Front Wheeled Walker Orthotic/Prosthetic Devices or Brace: Yes Gait Deviations General Gait Pattern Antalgic,Decreased Stride Length,Decreased Feet Clearance,Flexed Trunk,Narrow Based Gait Factors Limiting Gait Function Factors Limiting Gait Function Decreased Activity Tolerance, Decreased Strength,Difficulty Following Directions,Limited Range of Motion,Pain,Poor Balance,Poor Safety Awareness Comments Gait Comments see mobility section PT-Balance Assessment Sitting Balance and Reactions Static Sitting Balance Ability Good Dynamic Sitting Balance Ability Fair Standing Balance and Reactions Static Standing Balance Ability Poor Dynamic Standing Balance Ability Poor Device Used FWW M5 PT-IP Objective Assessments Start: 10/25/20 13:13 Freq: NEEDED Status: Active Protocol: Document 10/25/20 11:27 AB (Rec: 10/25/20 13:31 AB [id number]) Orientation Orientation/Cognition Level of Alertness Confusional State Orientation Name Safety Awareness Decreased Safety Awareness Memory Description Short Term Impaired Gross Range of Motion Lower Extremity ROM Assessment Within Functional Limits Strength Lower Extremity Strength Assessment Bilaterally Impaired Hip 3+/5 Knee 3+/5 Sensation Assessment Comments Sensation Comments c/o RLE numbness but stated that she does not know what specific part of the RLE and also unable to quantify Muscle Tone Muscle Tone WNL Yes M6 PT-IP Treatment Start: 10/25/20 13:13 Freq: NEEDED Status: Active Protocol: Document 10/27/20 11:47 CLB (Rec: 10/27/20 13:31 [facility] [id number]) Physical Therapy Treatment Education Education Provided Safety M7 PT-IP Assessment and Plan Start: 10/25/20 13:13 Freq: NEEDED Status: Active Protocol: Document 10/30/20 16:02 MA (Rec: 10/30/20 16:13 MA [id number]) PT Summary Assessment and Plan Potential Rehabilitation Potential Fair Status of Condition at Evaluation Evolving Summary Impairments Pain,ROM,Strength,Balance, Coordination,Sensation,Tone, Cognition,Bed Mobility, Transfers,Gait,Activity Tolerance Assessment Summary Pt is able to independently get out of bed. She is SBA for transfers and gait today completing 212 ft with FWW and gait belt. is willing and able to help assist pt at home with all needs. Pt is now safe to d/c home once medically cleared. Goals Bed Mobility Goal Standby Assistance Transfer Goal Standby Assistance,Front Wheeled Walker Gait Goal Standby Assistance,Front Wheel Walker Gait Distance 50 Other Goals improve ambulation using FWW 100 ft Days to Meet Goals 10 Frequency of Treatment Frequency Of Treatment Once a Day Treatment Plan Physical Therapy Treatment Plan Bed Mobility Training,Transfer Training,Gait Training, Therapeutic Exercise,Balance Retraining,Discharge Planning, Neuromuscular Re-ed, Coordination Retraining Precautions Other Precautions falls, seizures Recommendations To Nursing Amount of Assist Needed Standby Assistance Discharge Recommendations PT Discharge Recommendations Home with 18/11 Assist Available Transportation Needs at Discharge Wheelchair/Cabulance
--- NOTE | 2020-10-30 17:28 | PC.NURSE ---
Addendum entered by Jasmina Manley R.N. 10/30/20 21:35: Relatively uneventful evening. Tele showing ST per ICU staff. HS CBG = 99, no coverage required. GISELLE midline remains intact/patent. Condition remains essentially unchanged. Call light w/in reach, bed alarm on for pt safety. Continue w/plan of care. Original Note: Pt watching TV. Denies discomfort @ this time. Lungs clear, SpO2 96% RA GISELLE midline intact/patent. Tele showing NSR per ICU staff. AC CBG = 112, no coverage required. Call light w/in reach, bed alarm on for pt safety.
--- NOTE | 2020-10-31 02:05 | PC.NURSE ---
Patient with much brighter affect tonight and less delayed in responses; alert and oriented. Breath sounds CTA with RA sat of 95%. HRR w/telemetry reading of SR w/BBB. Denied nausea. BT present and is passing flatus. Denies dysuria, frequency or urgency with urination. Evening RN reports improvement with appetite and patient stated she is having less swallowing difficulty. Is able to turn herself in bed. Up to bathroom with walker and SBA. Has weakness in bilateral UE right > left related to prior CVA. Complains of 6/10 right shoulder pain but declines any intervention. Refused to wear SCD's as states they aggravate her restless legs; reminded to ankle wave when awake. Fall risk score is high and bed alarm is activated.
[2020-10-31 05:00] VITALS: BP 115/73; PULSE 96; RESP 18; TEMP 36.9; O2SAT 98
[2020-10-31] MEDS: SODIUM CHLORIDE 0.9% FLUSH 10 ML IV ×2 (05:11→06:45)
[2020-10-31 05:27] LABS: Add Manual Diff / Slide Review NO; Basophils Absolute Auto 100 /uL (0-100); Basophils Percent Auto 1.1 % (0-2); Eosinophils Absolute Auto 500 /uL (0-450); Eosinophils Percent Auto 7.7 % (2-4); Hematocrit 23.2 % (36-46); Hemoglobin 7.6 g/dL (12.0-16.0); Lymphocytes Absolute Auto 1800 /uL (1100-4500); Lymphocytes Percent Auto 27.8 % (25-40); Mean Corpuscular Volume 87.8 fL (80-100); Monocytes Absolute Auto 400 /uL (0-900); Monocytes Percent Auto 6.5 % (3-14); Neutrophils Absolute Auto 3700 /uL (1500-7000); Neutrophils Percent Auto 56.9 % (50-75); Platelet Count 363 X10^3/uL (150-400); Red Blood Cell Count 2.64 X10^6/uL (4.0-5.2); Red Cell Distribution Width 16.9 % (11.6-14.8); White Blood Cell Count 6.5 X10^3/uL (4.5-11.0)
[2020-10-31 05:55] LABS: Magnesium 1.4 mg/dL (1.6-2.3)
[2020-10-31 05:56] LABS: Alanine Aminotransferase 13 IU/L (<35); Albumin 2.2 g/dL (3.5-5.0); Albumin Globulin Ratio 0.7 (1.0-2.8); Alkaline Phosphatase 121 U/L (38-126); Aspartate Aminotransferase 25 IU/L (14-36); Bilirubin Total 0.3 mg/dL (0.2-1.3); Blood Urea Nitrogen 9 mg/dL (7-17); Calcium 7.5 mg/dL (8.4-10.2); Carbon Dioxide 22 mmol/L (22-32); Chloride 116 mmol/L (98-107); Estimated Glomerular Filt Rate > 60.0 mL/min (>60); Globulin 3.1 g/dL (1.7-4.1); Glucose 84 mg/dL (80-110); HEMOLYSIS 24 (0-50); Potassium 3.2 mmol/L (3.4-5.1); Sodium 142 mmol/L (137-145); Total Protein 5.3 g/dL (6.3-8.2)
[2020-10-31] MEDS: MAGNESIUM SULFATE 2 GM/50 ML PIGGYBACK IV (06:37)
[2020-10-31] MEDS: POTASSIUM CHLORIDE IN WATER 10 MEQ/100 ML PIGGYBACK 100 MEQ IV ×4 (06:38→11:29)
[2020-10-31 07:20] VITALS: BP 123/56; PULSE 91; RESP 18; TEMP 36.6; O2SAT 95
--- NOTE | 2020-10-31 07:21 | PM.DS.1 ---
History of Present Illness History of Present Illness Date Patient Seen: 10/31/20 Time Patient Seen: 07:22 Chief complaint: Not able to eat or drink for several days Narrative: 70 year-old right-handed female presents from the ED with acute renal failure in the setting of passing out this morning while in the bathroom. She has not had much to eat or drink in the past 3-4 days. This is in context of a regional heat wave but reports that they have been staying inside and that they have air conditioning. He has been trying to feed her sips of water and watermelon but she essentially does not eat/drink much and has become severely dehydrated. She is taking her medications. ED workup significant for a normocytic/normochromic anemia with a hemoglobin/hematocrit of 10.6/32.7, new. Platelets elevated at 586, these have been elevated over the 6 months, 515-725. Notably, metabolic panel significant for a creatinine of 3.79 (baseline 0.83). GFR 11.8 (> 60 just 4 months ago). Her BUN is 64. Sodium 136, potassium 4.0. Alkaline phosphatase elevated at 139 (this has been elevated for the last 6 months as well, 123-164). Upon arrival to the floor, she had a witnessed 30 to 60 second seizure with shaking and rigid posturing and rapid response was called. I was called to the bedside at this time. By the time of my arrival, she was not seizing but had a right upper extremity weakness and slurred speech. Bedside EKG showed a normal sinus rhythm with a prolonged QTc of 618 milliseconds and a T-wave abnormality, possible for inferior ischemia. Upon further questioning, reports that the episode this morning was actually a seizure as well with stiffening of her arms and shaking. Patient did not want to go to the emergency room and so refused transport by EMS. eventually brought her to the ED himself after calling the clinic and being advised to do the same. Patient has had a steady decline in the last 4 months with a 25 lb weight loss and a persistent cough with difficulty swallowing. Swallowing has become so difficult, that she has severely limited her oral intake. She has been treated with both prednisone, albuterol, and a Z-Franco in the last 3 months with no improvement. Imaging has shown a large hiatal hernia and atelectasis versus possible consolidation from aspiration in the left lower lobe. Abnormal labs during this same time frame included an elevated D-dimer for which CT angiogram was negative for PE. Outpatient swallow study is pending. She did have a left frontal stroke in 2005 after being on tamoxifen for 2 years due to non invasive breast cancer that was diagnosed in 2001. Stroke caused residual right-sided coordination issues, cognitive deficits, and word-finding difficulties. Due to the stroke, she was taken off tamoxifen after just 2 years of treatment. In 2016, she unfortunately had a recurrence of invasive ductal carcinoma the left breast for which she received a bilateral mastectomy and left axillary node dissection. Patient normally drinks about 1 bottle of wine per day but has recently cut down to approximately 2 oz of wine diluted with water and ice. reports that she has not wanted much alcohol recently. Discharge Providers Provider Date of admission: 10/24/20 13:21 Discharge Date: 10/31/20 Primary care physician: Aniyah Goodrich MD Consults: 10/24/20 14:30 Consult to Discharge Planning Routine Comment: Consult to Occupational Therapy Evaluate & Treat Comment: Physician Instructions: Evaluate and treat Consult to Physical Therapy Evaluate & Treat Comment: Physician Instructions: Evaluate and Treat Consult to Speech Therapy Evaluate & Treat Comment: Physician Instructions: Evaluate and treat 10/24/20 14:56 Consult to Dietitian, Adult Routine Comment: dysphagia, alcohol use Reason For Exam: alcohol use, poor PO intake, dysphagia 10/25/20 10:13 Consult to Dietitian, Adult Urgent Comment: Reason For Exam: enteral feeding recommendations 10/27/20 16:47 Consult to Occupational Therapy Evaluate & Treat Comment: Physician Instructions: Evaluate and treat Discharge provider: Aniyah Goodrich MD Summary Hospital Course Discharge Diagnosis: 1. Acute renal failure, pre-renal 2. Acute electrolyte derangement, hypokalemia, hyperphosphatemia, and hypermagnesemia secondary to acute renal failure, improved 3. Seizure, acute; secondary to encephalomalacia from previous CVA and exacerbated by dehydration and acute renal failure, no repeat occurrence. 4. Dysphagia, improved 5. Protein calorie malnutrition, acute, severe with weight loss 6. Anemia, normochromic/normocytic, likely secondary to chronic disease 7. QT prolongation, resolved 8. Right-sided weakness, at baseline 9. Cough, chronic x4 months, stable, risk for aspiration pneumonia 10. UTI, new, treated 11. Alcohol use, chronic 12. Diabetes mellitus type 2 13. Hypertension 14. Hyperlipidemia 15. 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 Migraines, chronic 17. Depression 18: Obesity, status post gastric bypass 19. Right shoulder pain, acute, improved, likely from injury during seizure Hospital Course: Patient had severe, acute renal failure upon presentation, that responded nicely to IVF hydration, Cr: 2.79 --> 2.73 -->1.33 --> 0.87. She initially failed her bedside swallow evaluation but passed her barium swallow and diet was slowly advanced with ST consult. There is concern that she may have a distal esophageal stricture and will need outpatient EGD by GI, referral has been placed. Due to the dyphagia, she has not been eating/drinking well for at least 4 months and has a fairly significant normocytic/normochromic anemia thought to be secondary to chronic disease based on labs. She has not required blood. She also has severe protein calorie malnutrition but is much improved after hydration and nutrition. Metformin has been held throughout and will be held at discharge as well. She has not required her blood pressure medications and those will also be held at time of dishcarge. She did have an acute UTI and concern for aspiration pneumonia, initially treated with IV linezolid and then transitioned to oral doxycycline, she has completed a full course as of yesterday. She did have two seizures on day of admission, one outside the hospital and one on the floor. Neurology was consulted and they thought this was due to her acute dehydration and severe renal failure compounign her encephalomalcia from previous CVA. Acute MRI stroke protocoal and CT Head did not show any new ischemic events. Clinically, NIH stroke scale zero. she was placed on seizure medications with no recurrence. She will need outpatient neurology follow-up. On day of discharge, she is afebrile with stable vital signs throughout. Her magnesium and potassium are being repleted prior to discharge and she will need repeat labs in 1 week. Remaining to-do items at follow-up include: 1. Ensure cardiology, neurology, GI, and nephrology follow-up. 2. BMP, CBC, Mg levels. 3. Ensure home health is going smoothly with ST support. 4. Check UA to test for cure. 5. Repeat CXR if cough persists. Time spent on Discharge and Coordination of post-hospital care: 35 minutes Status at Discharge Cognitive/behavioral status at discharge: at baseline, oriented Functional status at discharge: uses cane/walker Overall status at discharge: patient is progressing back to baseline Exam Vital Signs (past 8 hours): - 10/30/20 23:45 10/31/20 05:00 Temperature 98.2 F 98.4 F Pulse Rate 99 H 96 H Respiratory Rate 18 18 Blood Pressure 110/71 115/73 Pulse Oximetry 95 98 Oxygen Delivery Method Room Air Oxygen Flow Rate 0 Narrative Exam Narrative: GENERAL: Alert and oriented, appearing stated age and fatigued. HEENT: Head normocephalic/atraumatic. LUNGS: CTAB, no w/r/r CV: Normal S1 and S2 with regular rate and rhythm, no audible murmurs, rubs or gallops. ABDOMEN: Soft, non-tender, non-distended, no organomegaly. Positive bowel sounds. EXTREMITIES: No clubbing, cyanosis, or edema. Tenderness over right shoulder. NEURO: Cranial nerves II through XII grossly intact. PSYCH: Alert and oriented x 3. SKIN: No concerning lesions. Objective Labs Result Diagrams: 10/31/20 05:10 10/31/20 05:10 Labs: Laboratory Results - last 24 hr 10/31/20 10/31/20 10/31/20 05:10 05:10 05:10 WBC 6.5 RBC 2.64 L Hgb 7.6 L Hct 23.2 L MCV 87.8 MCH 29.0 MCHC 33.0 RDW 16.9 H Plt Count 363 Neut % (Auto) 56.9 Lymph % (Auto) 27.8 [place] % (Auto) 6.5 Eos % (Auto) 7.7 H Baso % (Auto) 1.1 Neut # (Auto) 3700 Lymph # (Auto) 1800 [place] # (Auto) 400 Eos # (Auto) 500 H Baso # (Auto) 100 Sodium 142 Potassium 3.2 L Chloride 116 H Carbon Dioxide 22 BUN 9 Creatinine 0.60 Estimated GFR > 60.0 BUN/Creatinine Ratio 15.0 Glucose 84 Calcium 7.5 L Phosphorus 3.0 Magnesium Total Bilirubin 0.3 AST 25 ALT 13 Alkaline Phosphatase 121 Total Protein 5.3 L Albumin 2.2 L Globulin 3.1 Albumin/Globulin Ratio 0.7 L 10/31/20 05:10 WBC RBC Hgb Hct MCV MCH MCHC RDW Plt Count Neut % (Auto) Lymph % (Auto) [place] % (Auto) Eos % (Auto) Baso % (Auto) Neut # (Auto) Lymph # (Auto) [place] # (Auto) Eos # (Auto) Baso # (Auto) Sodium Potassium Chloride Carbon Dioxide BUN Creatinine Estimated GFR BUN/Creatinine Ratio Glucose Calcium Phosphorus Magnesium 1.4 L Total Bilirubin AST ALT Alkaline Phosphatase Total Protein Albumin Globulin Albumin/Globulin Ratio [facility] Medical History (Updated 10/24/20 @ 13:18 by Ketty Arvizu DO) Breast cancer CVA (cerebral vascular accident) Social History household members: spouse Smoking Status: Former smoker Discharge Plan Discharge Plan Patient Disposition: Home Health Service Transfer to: [facility] Discharge orders & Medications Prescriptions: Continued gabapentin [Neurontin] 300 MG capsule 1,200 mg PO TID Qty: 0 RF: 0 atorvastatin 80 mg tablet 80 mg PO DAILY RF: 0 potassium chloride 20 mEq tablet extended release 20 meq PO DAILY RF: 0 (DME) wheelchair device See Dose Instructions .ROUTE .MEDSUPPLY Qty: 1 RF: 0 Changed fluoxetine 20 mg capsule 60 mg PO DAILY Qty: 0 RF: 0 Discontinued metformin [Glucophage XR] 500 MG tablet extended release 24 hr 500 mg PO QDAY Qty: 0 RF: 0 furosemide 40 mg tablet 40 mg PO DAILY RF: 0 propranolol 60 mg capsule,extended release 24 hr 60 mg PO DAILY RF: 0 trazodone 100 mg Tablet 200 mg PO BEDTIME RF: 0 duloxetine 60 mg capsule,delayed release(DR/EC) 60 mg PO DAILY RF: 0 Follow up/Referrals: Aniyah Goodrich MD [Primary Care Provider] - Leobardo Robles MD [Physician] - Diet/Activity/Treatments Diet comment: Dysphaga diet, advanced Activity: With 4WW Skin/Wound/Dressing Care Report to your healthcare provider any signs of infection, such as:: chills, fever and increased pain Discharge Data Primary Care Provider: Aniyah Goodrich
[2020-10-31 08:29] VITALS: PULSE 71; RESP 16; O2SAT 96
[2020-10-31] MEDS: PANTOPRAZOLE 40 MG VIAL IV (09:00)
[2020-10-31] MEDS: ATORVASTATIN 20 MG TABLET 80 MG PO (09:22)
[2020-10-31] MEDS: levETIRAcetam 250 MG TABLET 500 MG PO (09:23)
[2020-10-31] MEDS: ENOXAPARIN 40 MG/0.4 ML SYRINGE SUBCUT (09:23)
[2020-10-31] MEDS: DULOXETINE 30 MG CAPSULE 60 MG PO (09:23)
[2020-10-31] MEDS: FLUoxetine 20 MG CAPSULE 40 MG PO (09:23)
[2020-10-31] MEDS: DOXYCYCLINE HYCLATE 100 MG TABLET PO (09:23)
[2020-10-31] MEDS: GABAPENTIN 300 MG CAPSULE PO (09:23)
--- NOTE | 2020-10-31 10:49 | OT.IP.TRT ---
Current Diagnoses Acute kidney failure, unspecified (10/24/20) Occupational Therapy Treatment Note M2 OT-IP Current Condition Start: 10/25/20 14:41 Freq: Status: Active Protocol: Document 10/28/20 14:59 [facility] (Rec: 10/28/20 15:33 [facility] [id number]) Occupational Therapy Current Condition Current Condition Evaluation Date 10/28/20 Treatment Diagnosis Acute renal failure, dehydration, right shoulder pain from fall. Diagnosis Onset Date 10/24/20 M3 OT- IP Subjective and Pain Start: 10/25/20 14:41 Freq: Status: Active Protocol: Document 10/31/20 10:50 [facility] (Rec: 10/31/20 11:02 [facility] [id number]) OT- Subjective Occupational Therapy Visit Type Type Treatment Note Visit Start Time 10:30 Visit Stop Time 10:49 Total Visit Minutes 19 Occupational Therapy Visit Comments Patient Comments Pt's wanting pt to redo the SLUMS today as currently not on any pain medications. Patient/Caregiver Goals TO go home. OT Pain Assessment Pain When Pain Assessed At Rest Pain Present Pain Present Denied Pain M4 OT- IP ADL's Start: 10/25/20 14:41 Freq: Status: Active Protocol: Document 10/30/20 16:00 [facility] (Rec: 10/30/20 16:12 CGR [id number]) OT [id number] General Evaluation Self-Feeding Ability Independent Comments OT Self-Feeding Comments Pt eating ice cream. OT ADL-Grooming General Evaluation Grooming Ability Standby Assistance Areas Needing Assistance Retrieving/Set-up of Grooming Items,Face Washing Comments OT Grooming Comments Pt performed standing at sink OT ADL-Oral Care General Eval Oral Care Ability Standby Assistance Areas of Assistance Brushing Teeth,Retrieving/Set- Up of Items Comments Oral Care Comments Pt brushed teeth standing at sink OT ADL-Dressing Comments OT Dressing Comments Not performed OT ADL-Toileting General Evaluation Toileting Ability Standby Assistance Areas Needing Assistance Manage Clothing,Perform Perineal Hygiene Comments OT Toileting Comments Pt performed toileting ( although denyed need) with SBA . Needed mod a for sit to stand d/t pain to the R shld and GB on R side. OT ADL-Bathing Comments OT Bathing Comments Not performed M6 OT- IP Functional Cognition Start: 10/25/20 14:41 Freq: Status: Active Protocol: Document 10/31/20 10:50 [facility] (Rec: 10/31/20 11:02 [facility] [id number]) Cognitive Factors Limiting Selfcare Function Cognitive Ability Level of Alertness Alert Patient Orientation Name,Year,Day of Week,Place, Situation Attention Span Ability Capable of Focused Attention, Capable of Sustained Attention Ability to Follow Commands Able to Follow One Step Commands Memory Description Short Term Impaired,Working Impaired Problem Solving Ability Needs Assist to Identify Solutions Cognitive Tests SLUMS Pt scored 17/30 today which is much improved but still showing cognitive deficits. Pt still having difficulty to get the words out. Pt not able to subtract 100-23, pt able to recall 6 animals in 1 minute, pt able to recall 2/5 objects after time passes, pt not able to state 3 ro 4 digit numbers backwards, and pt able to answer 2/4 questions right after paragraph read. Cognitive Comments Cognitive Assessment Comments Pt's now aware that pt still has cognitive deficits as SLUMS retested and pt not on any pain meds at this time. Encourage pt to have a routine at home, and to write things down so she can remember. M7 OT- IP Mobility and Balance Start: 10/25/20 14:41 Freq: Status: Active Protocol: Document 10/30/20 16:00 [facility]GR (Rec: 10/30/20 16:12 CGR [id number]) OT- Bed Mobility Assessment Supine to Sit Supine to Sit Assist Standby Assistance Scooting Scooting to Edge of Bed Standby Assistance OT-Transfer Assessment Sit to and From Stand Sit to and from Stand Standby Assistance,Moderate Assistance Transfers Transfer Ability Standby Assistance Technique Transfer Destination Bed,Chair,Toilet Transfer Technique Stand Step Pivot Devices Transfer Assistive Devices Gait Belt,Front Wheeled Walker Comments Mobility Comments SBA for sit to stand from bed. Needed mod a for sit to stand from toilet d/t pain to the R shld and GB on R side. OT- Balance Assessment Sitting Balance and Reactions Static Sitting Balance Ability Good M8 OT- IP Objective Assessments Start: 10/25/20 14:41 Freq: Status: Active Protocol: Document 10/28/20 14:59 [facility] (Rec: 10/28/20 15:33 [facility] [id number]) OT Gross Range of Motion Upper Extremity Range of Motion Assessment Right Impaired OT Strength Upper Extremity Strength Assessment Right Impaired Comments Strength Comments RUE shoulder flexion 0-40 due to pain. Strength 3-/5 to 3+/5 form proximal to distal. LUE 4/5 OT Sensation Assessment Edema Edema Comments right arm slightly swollen M9 OT- IP Assessment and Plan Start: 10/25/20 14:41 Freq: Status: Active Protocol: Document 10/31/20 10:50 [facility] (Rec: 10/31/20 11:02 [facility] [id number]) OT Summary Assessment and Plan Potential Rehabilitation Potential Fair Analytic Complexity at Evaluation Moderate Summary OT Impairments Pain,Range of Motion,Strength, Balance,Functional Cognition, Functional Mobility,Grooming, Dressing,Toileting,Bathing, Toilet Transfers,Shower Transfers,Activity Tolerance Progress Towards Goals Slow Progress due to Pain,Slow Progress due to Activity Tolerance,Slow Progress due to Cognition Assessment Summary Pt looking to go home now when medically stable. Pt's aware to provide 24/7 available assist for pt cognitively and physically as needed. Goals Self-Feeding Goal Independent Grooming Goal Independent Dressing Goal Standby Assistance Toileting Goal Standby Assistance Bathing Goal Standby Assistance Toilet Transfer Goal Independent Shower Transfer Goal Standby Assistance Days to Meet Goals 5 Frequency of Treatment Frequency Of Treatment Once a Day Treatment Plan OT Treatment Plan ADL Training,Functional Cognition Training,Functional Mobility,Patient/Family Education,Discharge Planning Other Treatment Recommendations and Next shower if still here Treatment Focus Discharge Recommendations OT Discharge Recommendations Home with 24/7 Assist Available Transportation Needs at Discharge Private Vehicle
--- NOTE | 2020-10-31 11:17 | PT.IPTN ---
Current Diagnoses Acute kidney failure, unspecified (10/24/20) Physical Therapy Treatment Note M2 PT-IP Current Condition Start: 10/25/20 13:13 Freq: NEEDED Status: Active Protocol: Document 10/30/20 16:02 MA (Rec: 10/30/20 16:13 MA [id number]) Physical Therapy Current Condition Current Condition Evaluation Date 10/25/20 Treatment Diagnosis acute kidney injury; difficulty in walking Onset Date 10/24/20 M3 PT-IP Subjective Start: 10/25/20 13:13 Freq: NEEDED Status: Active Protocol: Document 10/31/20 11:17 AW (Rec: 10/31/20 11:55 AW [id number]) Subjective Physical Therapy Visit Type Type Treatment Note Visit Start Time 11:01 Visit Stop Time 11:17 Total Visit Minutes 16 Notes present throughout session providing encouragement Number of CASING CREW Visits 0 Physical Therapy Visit Comments Patient Comments Pt willing to work with PT Therapy Pain Assessment Pain Present Pain Present Denied Pain Location Right Shoulder Scale Used Numeric (0 - 10) Pain Management Techniques Distraction,Re-positioning, Timing of Activity with Medications M4 PT-IP Mobility and Gait Start: 10/25/20 13:13 Freq: NEEDED Status: Active Protocol: Document 10/31/20 11:17 AW (Rec: 10/31/20 11:55 AW [id number]) PT-Bed Mobility Assessment Supine to Sit Supine to Sit Standby Assistance Sit to Supine Sit to Supine Standby Assistance PT-Transfer Assessment Sit to and From Stand Sit to and from Stand Standby Assistance,Use of Upper Extremities Equipment Transfer Assistive Device Gait Belt,Front Wheeled Walker Orthotic/Prosthetic Devices or Brace: Yes Transfers Transfer Destination Bed Transfer Technique Stand Step Pivot Transfer Ability Level of Assist Standby Assistance,Use of Upper Extremities Comments Mobility Comments Pt was unsteady with bed mobility but needed no more than SBA. She stood from EOB SBA and ambulated around the [facility] with FWW SBA. On return to the room, pt requested return to bed, completing sit to supine SBA. Pt was positioned with call light and tray table in reach, bed alarm on for safet y. Gait Assessment Gait Gait Assistance Required: Standby Assistance,1 Person Assist Distance (Feet) 220 Able to Maintain Weight Bearing Status Yes During Gait Assistive Devices Assistive Device Gait Belt,Front Wheeled Walker Orthotic/Prosthetic Devices or Brace: Yes Gait Deviations General Gait Pattern Antalgic,Decreased Stride Length,Decreased Feet Clearance,Flexed Trunk,Narrow Based Gait Factors Limiting Gait Function Factors Limiting Gait Function Decreased Activity Tolerance, Decreased Strength,Difficulty Following Directions,Pain,Poor Safety Awareness Comments Gait Comments see mobility section PT-Balance Assessment Sitting Balance and Reactions Static Sitting Balance Ability Good Dynamic Sitting Balance Ability Fair Standing Balance and Reactions Static Standing Balance Ability Fair Dynamic Standing Balance Ability Fair Device Used FWW M5 PT-IP Objective Assessments Start: 10/25/20 13:13 Freq: NEEDED Status: Active Protocol: Document 10/25/20 11:27 AB (Rec: 10/25/20 13:31 AB [id number]) Orientation Orientation/Cognition Level of Alertness Confusional State Orientation Name Safety Awareness Decreased Safety Awareness Memory Description Short Term Impaired Gross Range of Motion Lower Extremity ROM Assessment Within Functional Limits Strength Lower Extremity Strength Assessment Bilaterally Impaired Hip 3+/5 Knee 3+/5 Sensation Assessment Comments Sensation Comments c/o RLE numbness but stated that she does not know what specific part of the RLE and also unable to quantify Muscle Tone Muscle Tone WNL Yes M6 PT-IP Treatment Start: 10/25/20 13:13 Freq: NEEDED Status: Active Protocol: Document 10/31/20 11:17 AW (Rec: 10/31/20 11:55 AW [id number]) Physical Therapy Treatment Education Education Provided Safety Other Treatments Other Treatment Performed Quad sets, glute sets, and SLR 10 reps each. Pt agrees to perform independently 2-3 times perday. M7 PT-IP Assessment and Plan Start: 10/25/20 13:13 Freq: NEEDED Status: Active Protocol: Document 10/31/20 11:17 AW (Rec: 10/31/20 11:55 AW [id number]) PT Summary Assessment and Plan Potential Rehabilitation Potential Fair Status of Condition at Evaluation Evolving Summary Impairments Pain,ROM,Strength,Balance, Coordination,Sensation,Tone, Cognition,Bed Mobility, Transfers,Gait,Activity Tolerance Progress Towards Goals Goals Met Assessment Summary Pt needed SBA for all mobility today. She reports essentially baseline gait with FWW, no overt signs of fatigue. When medically stable , pt is safe to discharge with 24/7 assist which her can provide. Updated goals. Goals Bed Mobility Goal Independent Transfer Goal Independent,Front Wheeled Walker Gait Goal Independent,Front Wheel Walker Gait Distance 200 Days to Meet Goals 8 Frequency of Treatment Frequency Of Treatment Once a Day Treatment Plan Physical Therapy Treatment Plan Bed Mobility Training,Transfer Training,Gait Training, Therapeutic Exercise,Balance Retraining,Discharge Planning, Neuromuscular Re-ed, Coordination Retraining Precautions Other Precautions falls, seizures Recommendations To Nursing Amount of Assist Needed 1 Person Assist Discharge Recommendations PT Discharge Recommendations Home with 24/7 Assist Available Transportation Needs at Discharge Private Vehicle
[2020-10-31] MEDS: ACETAMINOPHEN 325 MG TABLET 650 MG PO (11:27)
[2020-10-31 12:45] VITALS: BP 129/83; PULSE 98; RESP 16; TEMP 36.8; O2SAT 99
--- NOTE | 2020-10-31 14:02 | PC.NURSE ---
Addendum entered by Kellie Odom R.N. 10/31/20 15:13: Home via private vehicle accompanied by spouse. [facility] arranged by Amisha in care management. Original Note: Day shift note: Discharge instructions given to both patient and spouse ([place]), discussed importance of F/U with Dr. Goodrich in 1 week, home health, sign of worsening symptoms, and new medication changes. Both verbalized understanding of instructions. Midline to GISELLE, removed per policy.
--- NOTE | 2020-10-31 14:24 | CM.DPNOTE ---
Faxed DC summary to [facility] per Amisha and received fax confirmation. Katiuska June CM Asst.
--- NOTE | 2020-10-31 17:11 | CM.DPC ---
DCP; continued: met with pt and her [place] re the d/c to home and [facility] as ordered by PCP Dr. Goodrich today. Both were agreeable to same. [facility] was alerted to the referral/ accepted pt and with plan to see them on Friday. Face/Face document completed by KAELA Melchor and signed by Dr. Lr earlier this week is faxed now to [facility]. Did go back to room to present IMM #2 but pt and [place] had nevaehady left for home.
--- NOTE | 2020-11-02 12:21 | CM.DPNOTE ---
Late entry: [facility] will accept pt. 11/02/20 at 1218. Katiuska June CM Asst.
== END 2020-10-31 14:00 | disposition home health service (06) | DRG 682 ==
LOC: ED 13:18 → AC 13:22 → ICU 10-25 13:14 → AC 10-27 15:56 → ICU 10-31 08:33
PROVIDERS: Admitting Provider Student in an Organized Health Care Education/Training Program; Emergency Provider Emergency Medicine; PCP Student in an Organized Health Care Education/Training Program; Referring Provider Emergency Medicine; Visit Provider Student in an Organized Health Care Education/Training Program
DX: N17.9 Acute kidney failure, unspecified (principal); E43 Unspecified severe protein-calorie malnutrition; J69.0 Pneumonitis due to inhalation of food and vomit; I69.351 Hemiplegia and hemiparesis following cerebral infarction affecting right dominant side; D68.69 Other thrombophilia; N39.0 Urinary tract infection, site not specified; Z16.23 Resistance to quinolones and fluoroquinolones; E87.6 Hypokalemia; E83.39 Other disorders of phosphorus metabolism; E83.41 Hypermagnesemia; R56.9 Unspecified convulsions; E86.0 Dehydration; R94.31 Abnormal electrocardiogram [ECG] [EKG]; E11.9 Type 2 diabetes mellitus without complications; G89.4 Chronic pain syndrome; G93.89 Other specified disorders of brain; B95.7 Other staphylococcus as the cause of diseases classified elsewhere; M25.511 Pain in right shoulder; F32.9 Major depressive disorder, single episode, unspecified; D64.9 Anemia, unspecified; I69.391 Dysphagia following cerebral infarction; E87.8 Other disorders of electrolyte and fluid balance, not elsewhere classified; I69.322 Dysarthria following cerebral infarction; K22.2 Esophageal obstruction; I10 Essential (primary) hypertension; R13.10 Dysphagia, unspecified; R05 Cough; E78.5 Hyperlipidemia, unspecified; Z68.28 Body mass index [BMI] 28.0-28.9, adult; Z20.822 Contact with and (suspected) exposure to COVID-19; Z79.84 Long term (current) use of oral hypoglycemic drugs
CPT/HCPCS: 36415; 36592; 70450; 70551; 71045; 73020; 74230; 76770; 80053; 80185; 80186; 80305; 80320; 81001; 81003; 81015; 82550; 82553; 82570; 82607; 82728; 82746; 82962; 83540; 83550; 83605; 83690; 83735; 84100; 84145; 84146; 84300; 84443; 84466; 84484; 85025; 85045; 87040; 87077; 87086; 87186; 87635; 87797; 92526; 92610; 92611; 93005; 93306; 96360; 97116; 97162; 97166; 97530; 97535; 99284; C9803; C9113; J1170; J1642; J1650; J1815; J1940; J1953; J2020; J2270; J3475; Q2009

== ENCOUNTER → 2020-11-08 14:02 | Outpatient (CLI) | payer MEDICARE, OTHER, SELFPAY ==
[2020-10-24 14:01] VITALS: BMI 28.3
[2020-11-08 14:54] LABS: Add Manual Diff / Slide Review NO; Basophils Absolute Auto 0 /uL (0-100); Basophils Percent Auto 0.6 % (0-2); Eosinophils Absolute Auto 400 /uL (0-450); Eosinophils Percent Auto 6.1 % (2-4); Hematocrit 29.4 % (36-46); Hemoglobin 9.2 g/dL (12.0-16.0); Lymphocytes Absolute Auto 1200 /uL (1100-4500); Lymphocytes Percent Auto 16.9 % (25-40); Mean Corpuscular HGB Conc 31.4 % (30-36); Mean Corpuscular Hemoglobin 28.5 PG (26-34); Mean Corpuscular Volume 90.6 fL (80-100); Monocytes Absolute Auto 400 /uL (0-900); Monocytes Percent Auto 5.5 % (3-14); Neutrophils Absolute Auto 5000 /uL (1500-7000); Neutrophils Percent Auto 70.9 % (50-75); Platelet Count 722 X10^3/uL (150-400); Red Blood Cell Count 3.25 X10^6/uL (4.0-5.2); Red Cell Distribution Width 17.5 % (11.6-14.8)
[2020-11-08 17:55] LABS: Alanine Aminotransferase 16 IU/L (<35); Albumin 3.5 g/dL (3.5-5.0); Albumin Globulin Ratio 0.9 (1.0-2.8); Alkaline Phosphatase 140 U/L (38-126); Aspartate Aminotransferase 26 IU/L (14-36); BUN Creatinine Ratio 13.5 (6-22); Bilirubin Total 0.5 mg/dL (0.2-1.3); Blood Urea Nitrogen 12 mg/dL (7-17); Calcium 9.1 mg/dL (8.4-10.2); Carbon Dioxide 20 mmol/L (22-32); Chloride 109 mmol/L (98-107); Estimated Glomerular Filt Rate > 60.0 mL/min (>60); Globulin 3.7 g/dL (1.7-4.1); Glucose 94 mg/dL (80-110); HEMOLYSIS 27 (0-50); Magnesium 1.6 mg/dL (1.6-2.3); Phosphorous 4.4 mg/dL (2.8-4.1); Sodium 143 mmol/L (137-145); Total Protein 7.2 g/dL (6.3-8.2)
== END ==
PROVIDERS: PCP Student in an Organized Health Care Education/Training Program; Referring Provider Student in an Organized Health Care Education/Training Program; Visit Provider Student in an Organized Health Care Education/Training Program
DX: N17.9 Acute kidney failure, unspecified (principal); Z79.899 Other long term (current) drug therapy
CPT/HCPCS: 36415; 80053; 83735; 84100; 85025

== ENCOUNTER → 2020-12-19 11:27 | Outpatient (CLI) | payer MEDICARE, OTHER, SELFPAY ==
[2020-10-24 14:01] VITALS: BMI 28.3
[2020-12-19 12:57] LABS: Add Manual Diff / Slide Review NO; Basophils Absolute Auto 0 /uL (0-100); Basophils Percent Auto 0.6 % (0-2); Eosinophils Absolute Auto 500 /uL (0-450); Eosinophils Percent Auto 6.5 % (2-4); Hematocrit 34.6 % (36-46); Hemoglobin 11.1 g/dL (12.0-16.0); Lymphocytes Absolute Auto 1600 /uL (1100-4500); Lymphocytes Percent Auto 20.1 % (25-40); Mean Corpuscular Hemoglobin 27.6 PG (26-34); Mean Corpuscular Volume 86.3 fL (80-100); Monocytes Absolute Auto 300 /uL (0-900); Monocytes Percent Auto 4.4 % (3-14); Neutrophils Absolute Auto 5300 /uL (1500-7000); Neutrophils Percent Auto 68.4 % (50-75); Platelet Count 480 X10^3/uL (150-400); Red Blood Cell Count 4.02 X10^6/uL (4.0-5.2); Red Cell Distribution Width 14.5 % (11.6-14.8); White Blood Cell Count 7.7 X10^3/uL (4.5-11.0)
[2020-12-19 13:09] LABS: Blood Urea Nitrogen 31 mg/dL (7-17); Calcium 9.2 mg/dL (8.4-10.2); Carbon Dioxide 29 mmol/L (22-32); Chloride 98 mmol/L (98-107); Glucose 91 mg/dL (80-110); HEMOLYSIS 20 (0-50); Magnesium 1.9 mg/dL (1.6-2.3); Phosphorous 5.5 mg/dL (2.8-4.1); Potassium 3.8 mmol/L (3.4-5.1); Sodium 138 mmol/L (137-145)
== END ==
PROVIDERS: PCP Student in an Organized Health Care Education/Training Program; Referring Provider Student in an Organized Health Care Education/Training Program; Visit Provider Student in an Organized Health Care Education/Training Program
DX: E87.8 Other disorders of electrolyte and fluid balance, not elsewhere classified (principal); D64.9 Anemia, unspecified
CPT/HCPCS: 36415; 80048; 83735; 84100; 85025

== ENCOUNTER → 2021-01-05 10:58 | Outpatient (CLI) | payer MEDICARE, OTHER, SELFPAY ==
[2020-10-24 14:01] VITALS: BMI 28.3
[2021-01-05 13:07] LABS: Alanine Aminotransferase 14 IU/L (<35); Albumin 4.5 g/dL (3.5-5.0); Albumin Globulin Ratio 1.3 (1.0-2.8); Alkaline Phosphatase 101 U/L (38-126); Aspartate Aminotransferase 20 IU/L (14-36); BUN Creatinine Ratio 27.1 (6-22); Bilirubin Total 0.3 mg/dL (0.2-1.3); Blood Urea Nitrogen 38 mg/dL (7-17); Calcium 9.3 mg/dL (8.4-10.2); Carbon Dioxide 23 mmol/L (22-32); Chloride 102 mmol/L (98-107); Estimated Glomerular Filt Rate 37.4 mL/min (>60); Globulin 3.5 g/dL (1.7-4.1); Glucose 94 mg/dL (80-110); HEMOLYSIS < 15 (0-50); Phosphorous 5.7 mg/dL (2.8-4.1); Potassium 3.9 mmol/L (3.4-5.1); Sodium 140 mmol/L (137-145)
[2021-01-05 13:15] LABS: Add Manual Diff / Slide Review NO; Basophils Absolute Auto 0 /uL (0-100); Basophils Percent Auto 0.3 % (0-2); Eosinophils Absolute Auto 500 /uL (0-450); Eosinophils Percent Auto 6.2 % (2-4); Hematocrit 34.4 % (36-46); Hemoglobin 11.3 g/dL (12.0-16.0); Lymphocytes Absolute Auto 1800 /uL (1100-4500); Lymphocytes Percent Auto 24.1 % (25-40); Mean Corpuscular HGB Conc 32.8 % (30-36); Mean Corpuscular Hemoglobin 27.6 PG (26-34); Mean Corpuscular Volume 83.9 fL (80-100); Monocytes Absolute Auto 400 /uL (0-900); Monocytes Percent Auto 4.9 % (3-14); Neutrophils Absolute Auto 4800 /uL (1500-7000); Neutrophils Percent Auto 64.5 % (50-75); Platelet Count 562 X10^3/uL (150-400); White Blood Cell Count 7.4 X10^3/uL (4.5-11.0)
[2021-01-05 13:20] LABS: Free T4, Direct Thyroxine 1.12 ng/dL (0.78-2.19)
[2021-01-05 13:34] LABS: Thyroid Stimulating Hormone 1.33 uIU/mL (0.47-4.68)
== END ==
PROVIDERS: PCP Student in an Organized Health Care Education/Training Program; Referring Provider Psychiatry & Neurology Psychiatry; Visit Provider Psychiatry & Neurology Psychiatry
DX: E87.8 Other disorders of electrolyte and fluid balance, not elsewhere classified (principal); F32.9 Major depressive disorder, single episode, unspecified; D64.9 Anemia, unspecified
CPT/HCPCS: 36415; 80053; 83735; 84100; 84439; 84443; 85025

== ENCOUNTER → 2021-01-16 11:41 | Outpatient (CLI) | payer MEDICARE, OTHER, SELFPAY ==
[2020-10-24 14:01] VITALS: BMI 28.3
[2021-01-16 13:36] LABS: Albumin 4.3 g/dL (3.5-5.0); BUN Creatinine Ratio 20.1 (6-22); Blood Urea Nitrogen 28 mg/dL (7-17); Calcium 8.9 mg/dL (8.4-10.2); Carbon Dioxide 30 mmol/L (22-32); Chloride 102 mmol/L (98-107); Estimated Glomerular Filt Rate 37.7 mL/min (>60); Glucose 87 mg/dL (80-110); HEMOLYSIS < 15 (0-50); Phosphorous 5.6 mg/dL (2.8-4.1); Potassium 4.9 mmol/L (3.4-5.1); Sodium 142 mmol/L (137-145)
[2021-01-16 14:55] LABS: Appearance Urine UA CLEAR; Bilirubin Urine UA NEGATIVE (NEGATIVE); Color Urine UA YELLOW; Glucose Urine UA NEGATIVE (Negative); Ketones Urine UA NEGATIVE (NEGATIVE); Leukocyte Esterase Urine UA 2+ (NEGATIVE); Nitrite Urine UA NEGATIVE (Negative); Occult Blood Urine UA NEGATIVE (Negative); Protein Urine UA NEGATIVE (Negative); Specific Gravity Urine UA <=1.005 (1.000-1.035); Urobilinogen Urine UA 0.2 E.U./dL (0.2)
[2021-01-16 15:05] LABS: RBC Urine 0-1/HPF (0-5/HPF); Squamous Epithelial Cell Urine 1-5 /HPF (0-5/HPF); Transitional Epi Cells Urine 10-30/HPF (0-5/HPF); WBC Urine 10-30/HPF (0-5/HPF); pH Urine UA 6.5 (4.5-8.0)
[2021-01-16 15:06] LABS: Bacteria Urine Few (2-10); Culture Indicated Urine Specimen Cultured
[2021-01-16 15:48] LABS: Creatinine Urine Random 69.5 mg/dL
[2021-01-16 15:54] LABS: Microalbumin Urine Random < 0.6 mg/dL (0-1.6)
[2021-01-17 05:57] LABS: Parathyroid Hormone Int 151 pg/mL (15-65)
== END ==
PROVIDERS: PCP Student in an Organized Health Care Education/Training Program; Referring Provider Internal Medicine Nephrology; Visit Provider Internal Medicine Nephrology
DX: N18.30 Chronic kidney disease, stage 3 unspecified (principal)
CPT/HCPCS: 36415; 80069; 81001; 82043; 82570; 83970; 87086

== ENCOUNTER → 2021-07-12 10:16 | Outpatient (CLI) | payer MEDICARE, OTHER, SELFPAY ==
[2020-10-24 14:01] VITALS: BMI 28.3
[2021-07-12 11:14] LABS: Add Manual Diff / Slide Review NO; Basophils Absolute Auto 0 /uL (0-100); Basophils Percent Auto 0.8 % (0-2); Eosinophils Absolute Auto 300 /uL (0-450); Eosinophils Percent Auto 5.9 % (2-4); Hematocrit 36.9 % (36-46); Hemoglobin 11.9 g/dL (12.0-16.0); Lymphocytes Absolute Auto 1400 /uL (1100-4500); Lymphocytes Percent Auto 27.8 % (25-40); Mean Corpuscular HGB Conc 32.4 % (30-36); Mean Corpuscular Hemoglobin 26.9 PG (26-34); Mean Corpuscular Volume 83.2 fL (80-100); Monocytes Absolute Auto 300 /uL (0-900); Monocytes Percent Auto 6.8 % (3-14); Neutrophils Absolute Auto 2900 /uL (1500-7000); Neutrophils Percent Auto 58.7 % (50-75); Platelet Count 380 X10^3/uL (150-400); Red Blood Cell Count 4.43 X10^6/uL (4.0-5.2); Red Cell Distribution Width 14.3 % (11.6-14.8)
[2021-07-12 11:18] LABS: Appearance Urine UA CLEAR; Bilirubin Urine UA NEGATIVE (NEGATIVE); Color Urine UA YELLOW; Glucose Urine UA NEGATIVE (Negative); Ketones Urine UA NEGATIVE (NEGATIVE); Leukocyte Esterase Urine UA 3+ (NEGATIVE); Nitrite Urine UA NEGATIVE (Negative); Occult Blood Urine UA TRACE-LYSED (Negative); Protein Urine UA NEGATIVE (Negative); Urobilinogen Urine UA 0.2 E.U./dL (0.2)
[2021-07-12 11:30] LABS: Albumin 3.9 g/dL (3.5-5.0); BUN Creatinine Ratio 13.8 (6-22); Blood Urea Nitrogen 22 mg/dL (7-17); Carbon Dioxide 23 mmol/L (22-32); Chloride 113 mmol/L (98-107); Estimated Glomerular Filt Rate 32.2 mL/min (>60); Glucose 70 mg/dL (80-110); HEMOLYSIS < 15 (0-50); Phosphorous 4.3 mg/dL (2.8-4.1); Sodium 144 mmol/L (137-145)
[2021-07-12 11:31] LABS: Bacteria Urine Few (2-10); Culture Indicated Urine Specimen Cultured; RBC Urine 0-1/HPF (0-5/HPF); Squamous Epithelial Cell Urine 0-1 /HPF (0-5/HPF); WBC Urine 10-30/HPF (0-5/HPF); pH Urine UA 6.5 (4.5-8.0)
[2021-07-12 11:49] LABS: Vitamin D 25 Hydroxy (D3) 53.1 ng/mL (30.0-100.0)
[2021-07-12 11:51] LABS: Microalbumi Creatinin Ratio Ur 11.3 ug/mg CR (<30); Microalbumin Urine Random 0.9 mg/dL (0-1.6)
[2021-07-13 10:19] LABS: Parathyroid Hormone Int 34 pg/mL (15-65)
== END ==
PROVIDERS: PCP Student in an Organized Health Care Education/Training Program; Referring Provider Internal Medicine Nephrology; Visit Provider Internal Medicine Nephrology
DX: E55.9 Vitamin D deficiency, unspecified (principal); N18.32 Chronic kidney disease, stage 3b; D63.1 Anemia in chronic kidney disease; N25.81 Secondary hyperparathyroidism of renal origin
CPT/HCPCS: 36415; 80069; 81001; 82043; 82306; 82570; 83970; 85025; 87086

== ENCOUNTER → 2022-10-16 12:29 | Outpatient (CLI) | payer MEDICARE, OTHER, SELFPAY ==
[2022-09-16 12:46] VITALS: BMI 28.3
[2022-10-16 14:14] LABS: Add Manual Diff / Slide Review NO; Basophils Absolute Auto 0 /uL (0-100); Basophils Percent Auto 0.4 % (0-2); Eosinophils Absolute Auto 200 /uL (0-450); Eosinophils Percent Auto 2.7 % (2-4); Hematocrit 38.8 % (36-46); Hemoglobin 12.7 g/dL (12.0-16.0); Lymphocytes Absolute Auto 1400 /uL (1100-4500); Lymphocytes Percent Auto 21.9 % (25-40); Mean Corpuscular HGB Conc 32.6 % (30-36); Mean Corpuscular Hemoglobin 31.9 PG (26-34); Mean Corpuscular Volume 97.7 fL (80-100); Monocytes Absolute Auto 400 /uL (0-900); Monocytes Percent Auto 6.2 % (3-14); Neutrophils Absolute Auto 4300 /uL (1500-7000); Neutrophils Percent Auto 68.8 % (50-75); Platelet Count 347 X10^3/uL (150-400); Red Blood Cell Count 3.97 X10^6/uL (4.0-5.2); Red Cell Distribution Width 14.9 % (11.6-14.8); White Blood Cell Count 6.2 X10^3/uL (4.5-11.0)
[2022-10-16 14:33] LABS: Alanine Aminotransferase 29 IU/L (<35); Albumin 4.1 g/dL (3.5-5.0); Albumin Globulin Ratio 1.2 (1.0-2.8); Alkaline Phosphatase 110 U/L (38-126); Aspartate Aminotransferase 29 IU/L (14-36); BUN Creatinine Ratio 17.7 (6-22); Bilirubin Total 0.3 mg/dL (0.2-1.3); Blood Urea Nitrogen 23 mg/dL (7-17); Calcium 8.8 mg/dL (8.4-10.2); Carbon Dioxide 23 mmol/L (22-32); Chloride 110 mmol/L (98-107); Estimated Glomerular Filt Rate 44 mL/min (>60); Globulin 3.4 g/dL (1.7-4.1); Glucose 104 mg/dL (80-110); HEMOLYSIS < 15 (0-50); Potassium 4.2 mmol/L (3.4-5.1); Sodium 141 mmol/L (137-145); Total Protein 7.5 g/dL (6.3-8.2)
== END ==
PROVIDERS: PCP Student in an Organized Health Care Education/Training Program; Referring Provider Psychiatry & Neurology Neurology; Visit Provider Psychiatry & Neurology Neurology
DX: Z51.81 Encounter for therapeutic drug level monitoring (principal)
CPT/HCPCS: 36415; 80053; 85025

== ENCOUNTER 2022-10-20 23:44 | Emergency (ER) | payer MEDICARE, OTHER, SELFPAY ==
[2022-09-16 12:46] VITALS: BMI 28.3
[2022-10-20 23:58] VITALS: BP 114/75; PULSE 91; RESP 16; TEMP 36.4; O2SAT 94; BMI 31.6
--- NOTE | 2022-10-21 00:01 | DI.RAD.S_ITS ---
PROCEDURE: XR FOREARM LT 2V INDICATIONS: fall with pain to left forearm with swelling and bruising TECHNIQUE: 2 views of the forearm were acquired. COMPARISON: None. FINDINGS: Bones: No fractures or dislocations. No suspicious bony lesions. Soft tissues: No suspicious soft tissue calcifications or masses. IMPRESSION: No visualized acute fracture or dislocation. However, if clinical concern and/or pain persist, short interval imaging followup in 7-10 days is recommended, as occult injury cannot be definitively excluded. Dictated by: Regi Honeycutt M.D. on 10/21/2022 at 0:38 Approved by: Regi Honeycutt M.D. on 10/21/2022 at 0:39
--- NOTE | 2022-10-21 02:15 | ED.FALL ---
HPI - Fall General Chief Complaint: Fall Stated Complaint: fell and hit left arm Time Seen by Provider: 10/21/22 02:14 Source: patient Mode of arrival: Ambulatory History of Present Illness HPI Narrative: Patient 72-year-old female history of breast cancer with bilateral mastectomy, alcohol use, stroke with right-sided weakness, presenting today with left wrist injury. She admits that she drank alcohol and fell down hitting her rest. She denies any other injury no nausea or vomiting. She has a contusion over the left wrist. She admits that she takes Tylenol for pain but it does not really seem to help. She states that she takes 10 tablets of Tylenol every day all at once. She said that she is not taken it for the last 2 days. She is absolutely no abdominal pain nausea or vomiting. Related Data Home Medications Medication Instructions Recorded Confirmed furosemide 40 mg tablet 40 mg PO DAILY 12/26/20 06/17/22 atorvastatin 80 mg tablet 80 mg PO QPM 01/02/22 06/17/22 gabapentin 600 mg tablet 1,200 mg PO TID PRN 01/02/22 06/17/22 potassium chloride 10 mEq 10 meq PO DAILY 01/02/22 06/17/22 capsule,extended release rimegepant 75 mg disintegrating 75 mg PO DAILY PRN 01/02/22 06/17/22 tablet (Nurtec ODT) topiramate 100 mg tablet 100 mg PO BID 01/02/22 06/17/22 Previous Rx's Medication Instructions Recorded bupropion HCl 150 mg 24 hr tablet, 300 mg PO QAM #180 tabs 09/16/22 extended release clonazepam 1 mg tablet 1 mg PO TID #90 tabs 10/17/22 quetiapine 50 mg tablet 150 mg PO BEDTIME #90 tabs 10/17/22 Allergies Allergy/AdvReac Type Severity Reaction Status Date / Time cefazolin [From Anc] Allergy Intermediate breaks out Verified 06/17/22 10:37 in a rash Review of Systems Review of Systems ROS Unobtainable: All systems reviewed & are unremarkable except as noted in HPI and below Patient History Medical History (Updated 10/21/22 @ 02:37 by Ketty Arvizu DO) Breast cancer CVA (cerebral vascular accident) Social History household members: spouse Smoking Status: Former smoker Smoking Status: Former smoker alcohol intake frequency: 3 or more drinks per day Substance Use Type: does not use Exam Initial Vital Signs Initial Vital Signs: Vital Signs Temperature 97.6 F 10/20/22 23:58 Pulse Rate 91 H 10/20/22 23:58 Respiratory Rate 16 10/20/22 23:58 Blood Pressure 114/75 10/20/22 23:58 Pulse Oximetry 94 10/20/22 23:58 Oxygen Delivery Method Room Air 10/20/22 23:58 GENERAL: Alert confused 72-year-old female CARDIOVASCULAR: peripheral pulses in tact, cap refill <2 sec RESPIRATORY: No respiratory distress, speaks in full sentences without difficulty AB: No tender no distention EXTREMITIES: Normal range of motion, no clubbing or edema. Neurovascularly intact Left wrist no gross bony deformity able to flex and extend distal radial pulse intact mild contusion elbows within normal limits shoulder within normal limits NEUROLOGICAL: Cranial nerves II through XII grossly intact. Normal gait and speech. SKIN: Warm, dry, no petechiae, no rashes or lesions. Course Orders Ordered: ED Orders 10/21/22 00:01 XR forearm LT 2V Stat Discontinued Medications Ketorolac Tromethamine (Ketorolac 30 Mg/Ml Vial) 15 mg IM NOW ONE Stop: 10/21/22 02:29 Last Admin: 10/21/22 02:40 Dose: 15 mg Documented By: ANDREAS Vital Signs Vital signs: Vital Signs - 8 hr 10/20/22 23:58 10/21/22 02:42 Temperature 97.6 F 97.5 F L Pulse Rate 91 H 90 Respiratory Rate 16 16 Blood Pressure 114/75 115/75 Pulse Oximetry 94 97 Oxygen Delivery Method Room Air Room Air MDM - Fall Imaging Data Extremity x-ray #1: Radiologist's Impression: PROCEDURE:? XR FOREARM LT 2V ? INDICATIONS:? fall with pain to left forearm with swelling and bruising ? TECHNIQUE:? 2 views of the forearm were acquired.? ? COMPARISON:? None. ? FINDINGS:? ? Bones:? No fractures or dislocations.? No suspicious bony lesions.? ? Soft tissues:? No suspicious soft tissue calcifications or masses.? ? ? IMPRESSION:? No visualized acute fracture or dislocation. However, if clinical concern and/or pain persist, short interval imaging followup in 7-10 days is recommended, as occult injury cannot be definitively excluded. ? Dictated by: Regi Honeycutt M.D. on 10/21/2022 at 0:38 ? ? Approved by: Regi Honeycutt M.D. on 10/21/2022 at 0:39 ? MDM Narrative Medical decision making narrative: Patient is a 72-year-old female who presents today with left forearm and wrist injury after falling. She admits to drinking alcohol being dizzy and falling. at bedside reports that this happens. We discussed about taking Tylenol appropriately discussed with about how she should not be lifting take the Tylenol. Due to her port capacity and noncompliance I feel any stronger pain medication is not appropriate. Gabriel wrap is placed she is given a small dose of Toradol here in the ED. she does not have any signs or symptoms of Tylenol toxicity however blood work and further workup is offered states that she is at baseline does not need any further workup. She has a small contusion over her left forearm without fracture. Discharge Plan Departure Patient Disposition: Home Clinical Impression: Contusion Instructions: Contusion Activity Restrictions/Additional Instructions: *You have been diagnosed with left forearm contusion *What to do: Elevate and ice 20-30 minutes at a time use Gabriel wrap as needed. *Continue to take medications as directed Avoid Tylenol, if you need Tylenol you can take 650 mg every 4-6 hours if needed *Follow up with your primary care provider in 2-3 days or call [phone] *Return to ER if you should have increasing confusion abdominal pain nausea vomiting or any new, worsening or concerning symptoms Prescriptions: No Action gabapentin 600 mg tablet 1,200 mg PO TID PRN Patient Comments: take 2 tablets by mouth three times a day if needed potassium chloride 10 mEq capsule, extended release 10 meq PO DAILY Patient Comments: take 1 tablet by mouth once daily topiramate 100 mg tablet 100 mg PO BID Patient Comments: take 1 tablet by mouth twice a day Nurtec ODT 75 mg tablet,disintegrating 75 mg PO DAILY PRN Patient Comments: DISSOLVE ONE TABLET (75 MG) BY MOUTH DAILY NEEDED (FOR MIGRAINES) clonazepam 1 mg tablet 1 mg PO TID Qty: 90 1RF quetiapine 50 mg tablet 150 mg PO BEDTIME Qty: 90 3RF furosemide 40 mg tablet 40 mg PO DAILY bupropion HCl 150 mg tablet extended release 24 hr 300 mg PO QAM Qty: 180 3RF atorvastatin 80 mg tablet 80 mg PO QPM Patient Comments: take 1 tablet by mouth at bedtime Referrals: Aniyah Goodrich MD [Primary Care Provider] - Stand Alone Forms: Patient Portal/API
[2022-10-21] MEDS: KETOROLAC 30 MG/ML VIAL 15 MG IM (02:40)
[2022-10-21 02:42] VITALS: BP 115/75; PULSE 90; RESP 16; TEMP 36.4; O2SAT 97
== END 2022-10-21 02:47 | disposition home or self-care (01) ==
PROVIDERS: Emergency Provider Emergency Medicine; PCP Student in an Organized Health Care Education/Training Program
DX: S60.212A Contusion of left wrist, initial encounter (principal); W18.30XA Fall on same level, unspecified, initial encounter
CPT/HCPCS: 73090; 96372; 99283; J1885

== ENCOUNTER 2022-12-03 13:30 | Emergency (ER) | payer MEDICARE, OTHER, SELFPAY ==
[2022-09-16 12:46] VITALS: BMI 28.3
[2022-12-03 14:00] VITALS: BP 124/84; PULSE 88; RESP 16; TEMP 36.6; O2SAT 98; BMI 31.9
[2022-12-03 16:10] VITALS: BP 134/81; PULSE 88; RESP 21; O2SAT 99
[2022-12-03 16:19] LABS: Hematocrit 39.9 % (36-46); Hemoglobin 13.3 g/dL (12.0-16.0); Mean Corpuscular HGB Conc 33.2 % (30-36); Mean Corpuscular Hemoglobin 33.1 PG (26-34); Mean Corpuscular Volume 99.6 fL (80-100); Red Blood Cell Count 4.01 X10^6/uL (4.0-5.2); Red Cell Distribution Width 14.2 % (11.6-14.8); White Blood Cell Count 9.8 X10^3/uL (4.5-11.0)
[2022-12-03 16:38] LABS: Add Manual Diff / Slide Review YES
[2022-12-03 16:43] LABS: Neutrophils Absolute Manual 5096 /uL (3000-5900); RBC Morphology Normal Morphology; Total Cells Counted 100
[2022-12-03 16:45] LABS: Platelet Estimate Adequate on smear
[2022-12-03 17:58] LABS: Alanine Aminotransferase 40 IU/L (<35); Albumin 4.6 g/dL (3.5-5.0); Albumin Globulin Ratio 1.2 (1.0-2.8); Alkaline Phosphatase 152 U/L (38-126); Aspartate Aminotransferase 33 IU/L (14-36); BUN Creatinine Ratio 18.6 (6-22); Bilirubin Total 0.3 mg/dL (0.2-1.3); Blood Urea Nitrogen 24 mg/dL (7-17); Calcium 8.7 mg/dL (8.4-10.2); Carbon Dioxide 23 mmol/L (22-32); Chloride 107 mmol/L (98-107); Estimated Glomerular Filt Rate 45 mL/min (>60); Globulin 3.7 g/dL (1.7-4.1); Glucose 112 mg/dL (80-110); HEMOLYSIS < 15 (0-50); Lipase 119 U/L (23-300); Potassium 3.8 mmol/L (3.4-5.1); Sodium 140 mmol/L (137-145); Total Protein 8.3 g/dL (6.3-8.2)
--- NOTE | 2022-12-03 18:07 | DI.US.S_ITS ---
PROCEDURE: US ABDOMEN LIMITED INDICATIONS: ruq TECHNIQUE: Real-time focused scanning was performed of the abdomen, with image documentation. COMPARISON: None. FINDINGS: The liver demonstrates enlarged size. The liver demonstrates generalized mildly increased echogenicity. This decreases ultrasound sensitivity for detection of hepatic masses. The gallbladder appears distended. No findings of gallstones or sludge are seen. The gallbladder wall is not thickened, measuring 3 mm or less. No specific pericholecystic fluid is seen. The sonographic Salas sign is negative. There is no biliary dilatation, the common bile duct measures 5 mm. No significant pancreatic abnormality is seen on these images. No significant right kidney abnormality is seen. A 3 cm right renal cyst is incidentally noted. IMPRESSION: Distended gallbladder, yet without additional abnormal gallbladder findings. No biliary dilatation. The liver demonstrates increased echogenicity. This finding is nonspecific, yet it is most commonly attributed to fatty infiltration. Dictated by: Pj Mcdaniels M.D. on 12/03/2022 at 18:03 Approved by: Pj Mcdaniels M.D. on 12/03/2022 at 18:05
[2022-12-03 18:46] VITALS: BP 124/73; PULSE 75; RESP 16; O2SAT 99
--- NOTE | 2022-12-03 21:18 | ED.ABDPAIN ---
HPI - Abdominal Pain General Chief Complaint: Abdominal Pain Stated Complaint: R upper ABD pain Time Seen by Provider: 12/03/22 20:40 Source: patient Mode of arrival: Wheelchair History of Present Illness HPI narrative: Patient is 72-year-old female history of CVA with right-sided weakness, hyperlipidemia, alcohol use, breast cancer bilateral mastectomy, who presents with right upper quadrant pain. She reports it has been ongoing for the last 4-5 days. It comes and goes. Sometimes it is positional sometimes not. Denies any nausea or vomiting. No chest pain shortness of breath. She denies fever or chills or any injury. She reports that she is been taking Tylenol no ibuprofen she is not on any aspirin or Plavix she is followed by neurology for her CVA. Related Data Home Medications Medication Instructions Recorded Confirmed furosemide 40 mg tablet 40 mg PO DAILY 12/26/20 06/17/22 atorvastatin 80 mg tablet 80 mg PO QPM 01/02/22 06/17/22 gabapentin 600 mg tablet 1,200 mg PO TID PRN 01/02/22 06/17/22 potassium chloride 10 mEq 10 meq PO DAILY 01/02/22 06/17/22 capsule,extended release rimegepant 75 mg disintegrating 75 mg PO DAILY PRN 01/02/22 06/17/22 tablet (Nurtec ODT) topiramate 100 mg tablet 100 mg PO BID 01/02/22 06/17/22 Previous Rx's Medication Instructions Recorded bupropion HCl 150 mg 24 hr tablet, 300 mg PO QAM #180 tabs 09/16/22 extended release clonazepam 1 mg tablet 1 mg PO TID #90 tabs 10/17/22 quetiapine 50 mg tablet 150 mg PO BEDTIME #90 tabs 10/17/22 Allergies Allergy/AdvReac Type Severity Reaction Status Date / Time cefazolin [From [facility]] Allergy Intermediate breaks out Verified 06/17/22 10:37 in a rash Review of Systems Review of Systems ROS Unobtainable: All systems reviewed & are unremarkable except as noted in HPI and below Patient History Medical History (Updated 12/03/22 @ 23:33 by Ketty Arvizu DO) Breast cancer CVA (cerebral vascular accident) Social History household members: spouse Smoking Status: Former smoker Smoking Status: Former smoker alcohol intake frequency: 3 or more drinks per day Substance Use Type: does not use Exam Initial Vital Signs Initial Vital Signs: Vital Signs Temperature 97.8 F 12/03/22 14:00 Pulse Rate 88 12/03/22 14:00 Respiratory Rate 16 12/03/22 14:00 Blood Pressure 124/84 12/03/22 14:00 Pulse Oximetry 98 12/03/22 14:00 Oxygen Delivery Method Room Air 12/03/22 14:00 GENERAL: Alert pleasant well-appearing 72-year-old female and in no acute distress. HEENT: Head atraumatic,EOMI, pupils reactive, face symmetric, moist mucous membranes CARDIOVASCULAR: Regular rate and rhythm without murmurs, rubs or gallops. RESPIRATORY: Breath sounds equal bilaterally, no wheezes rales or rhonchi. ABDOMEN: Soft, mild right upper quadrant pain negative Salas's sign no guarding no rebound : No CVA tenderness EXTREMITIES: Normal range of motion, no clubbing or edema. Neurovascularly intact NEUROLOGICAL: Alert and oriented x4. SKIN: Warm, dry, no laceration, no petechiae, no rashes or lesions. Course Orders Ordered: ED Orders 12/03/22 21:28 CT abdomen pelvis w con Stat 12/03/22 21:45 Ictotest Urine Stat Urine Microscopic Stat Discontinued Medications Hydrocodone Bitart/Acetaminophen (Hydrocodone/Acet 5/325 Prepack) 1 bottle MISC SEEINSTR ONE Stop: 12/03/22 23:36 Last Admin: 12/03/22 23:40 Dose: 1 bottle Documented By: MARY Ketorolac Tromethamine (Ketorolac 30 Mg/Ml Vial) 15 mg IV NOW ONE Stop: 12/03/22 21:29 Last Admin: 12/03/22 21:36 Dose: 15 mg Documented By: MARY Ondansetron HCl (Ondansetron 4 Mg Odt) 4 mg PO NOW PRN PRN Reason: Nausea And Vomiting Ondansetron HCl (Ondansetron 4 Mg/2 Ml Inj) 4 mg IV NOW PRN PRN Reason: Nausea And Vomiting Vital Signs Vital signs: Vital Signs - 8 hr 12/03/22 23:35 Pulse Rate 89 Respiratory Rate 18 Blood Pressure 151/93 H Pulse Oximetry 96 Oxygen Delivery Method Room Air MDM - Abdominal Pain Lab Data 12/03/22 15:52 12/03/22 16:55 Labs: Lab Results 12/03/22 12/03/22 12/03/22 Range/Units 15:52 16:55 21:45 WBC 9.8 (4.5-11.0) X10^3/uL RBC 4.01 (4.0-5.2) X10^6/uL Hgb 13.3 (12.0-16.0) g/dL Hct 39.9 (36-46) % MCV 99.6 (80-100) fL MCH 33.1 (26-34) PG MCHC 33.2 (30-36) % RDW 14.2 (11.6-14.8) % Plt Count (150-400) X10^3/uL Neut % (Auto) Not Reportable Lymph % (Auto) Not Reportable [place] % (Auto) Not Reportable Eos % (Auto) Not Reportable Baso % (Auto) Not Reportable Lymph # (Auto) Not Reportable [place] # (Auto) Not Reportable Baso # (Auto) Not Reportable Total Counted 100 Seg Neutrophils % 51.0 (38-70) % Band Neutrophils % 1.0 L (3-7) % Lymphocytes % (Manual) 32.0 (25-45) % Monocytes % (Manual) 6.0 (2-11) % Eosinophils % (Manual) 9.0 H (2-4) % Basophils % (Manual) 1.0 (0-1) % Neutrophils # (Manual) 5096 (5479-6698) /uL Platelet Estimate Adequate on smear RBC Morphology Normal morphology Sodium 140 (137-145) mmol/L Potassium 3.8 (3.4-5.1) mmol/L Chloride 107 (98-107) mmol/L Carbon Dioxide 23 (22-32) mmol/L BUN 24 H (7-17) mg/dL Creatinine 1.29 H (0.52-1.04) mg/dL Estimated GFR 45 L (>60) mL/min BUN/Creatinine Ratio 18.6 (6-22) Glucose 112 H (80-110) mg/dL Calcium 8.7 (8.4-10.2) mg/dL Total Bilirubin 0.3 (0.2-1.3) mg/dL AST 33 (14-36) IU/L ALT 40 H (<35) IU/L Alkaline Phosphatase 152 H (38-126) U/L Total Protein 8.3 H (6.3-8.2) g/dL Albumin 4.6 (3.5-5.0) g/dL Globulin 3.7 (1.7-4.1) g/dL Albumin/Globulin Ratio 1.2 (1.0-2.8) Lipase 119 (23-300) U/L Ur Bilirubin Confirm Negative (Negative) Urine RBC 0-1/hpf (0-5/HPF) Urine WBC 0-1/hpf (0-5/HPF) Ur Squamous Epith Cells 5-10 /hpf H (0-5/HPF) Urine Bacteria Occasional (0-1) (None) Ur Culture Indicated? Cult not indicated Point of care testing: Urine Dip Bedside Urine Glucose 250 mg/dl Bedside Urine Bilirubin + 1 Bedside Urine Ketone - Negative Urine Specific [place] 1.015 Bedside Urine Occult Blood - Negative Bedside Urine pH 505 Bedside Urine Protein - Negative Bedside Urine Urobilinogen - Negative Bedside Urine Nitrite - Negative Bedside Urine Leukocytes - Negative Esterase Imaging Data US - abdomen: Radiologist's Impression: PROCEDURE: US ABDOMEN LIMITED ? INDICATIONS:? ruq ? TECHNIQUE:? Real-time focused scanning was performed of the abdomen, with image documentation.? ? COMPARISON:? None. ? FINDINGS:? The liver demonstrates enlarged size. The liver demonstrates generalized mildly increased echogenicity. This decreases ultrasound sensitivity for detection of hepatic masses.? ? The gallbladder appears distended.? No findings of gallstones or sludge are seen.? The gallbladder wall is not thickened, measuring 3 mm or less.? No specific pericholecystic fluid is seen.? The sonographic Salas sign is negative. ? There is no biliary dilatation, the common bile duct measures 5 mm.? ? No significant pancreatic abnormality is seen on these images.? ? No significant right kidney abnormality is seen.? A 3 cm right renal cyst is incidentally noted. ? ? IMPRESSION:? Distended gallbladder, yet without additional abnormal gallbladder findings. ? No biliary dilatation. ? The liver demonstrates increased echogenicity.? This finding is nonspecific, yet it is most commonly attributed to fatty infiltration.? ? ? Dictated by: Pj Mcdaniels M.D. on 12/03/2022 at 18:03 ? ? CT scan - abdomen/pelvis: Radiologist's Impression: PROCEDURE:? CT ABDOMEN PELVIS W CON ? INDICATIONS:? right sided pain ? TECHNIQUE:? After the administration of IV contrast, axial sections were acquired from the lung bases to the pubic symphysis.? Coronal and sagittal reformats were performed.? For radiation dose reduction, the following was used:? automated exposure control, adjustment of mA and/or kV according to patient size. ? COMPARISON:? None. ? FINDINGS:? Image quality:? Excellent.? ? Lung bases:? There is atelectasis medially in the lung bases.? ? Heart:? Heart is normal in size.? There is a large hiatal hernia. ? ? ABDOMEN: Liver:? No mass lesion. Gallbladder:? Within normal limits without calcified gallstones.? ? Biliary ducts:? No biliary ductal dilatation.? ? Pancreas:? Unremarkable.? ? Spleen:? Normal in size.? ? Adrenal Glands:? No adrenal nodules.? ? Kidneys and Ureters:? No hydronephrosis.? There are bilateral renal cysts. ? ? Stomach and Bowel:? Stomach, small bowel loops, and colon are normal in caliber and wall thickness.? The appendix is normal. Peritoneum:? No abnormal intraperitoneal fluid.? No free air.? ? Ventral Wall: ? No hernia.? Abdominal Nodes:? No retroperitoneal or mesenteric adenopathy by size criteria.? Vessels:? Aorta and inferior vena cava are normal in size.? ? PELVIS: Pelvic Organs:? The uterus is surgically absent.? There is a small right ovarian cyst measuring up to 1.7 cm. ? Bladder:? Unremarkable.? ? Pelvic Nodes: No enlarged lymph nodes.? Miscellaneous: No inguinal hernias are seen. ? ? ? Bones:? Visualized osseous structures demonstrate no suspicious focal lesions. ? IMPRESSION:? ? 1. No definite acute intra-abdominal abnormality.? Specifically, no evidence of appendicitis. ? ? Dictated by: Eric So M.D. on 12/03/2022 at 23:11? ECG Data Interpretation: Sinus rhythm rate 79 AR interval 152 QRS [address] changes Q-wave noted in lead 3 only similar to prior MDM Narrative Medical decision making narrative: Patient is 72-year-old female presenting today with ongoing right upper water pain for the last couple of days. Pain is better controlled after Toradol. Pain is times reproduced with movement or palpation but not all the time. Blood work is overall reassuring no evidence of leukocytosis, kidney disease is stable with a stable creatinine of 1.29, she does have mild elevation of ALT at 40 and alk-phos at 1:52 a.m. but no elevation of bilirubin or lipase. Ultrasound of right upper quadrant showed distended gallbladder without evidence of cholecystitis or cholelithiasis. CT did not show any evidence of nephrolithiasis appendicitis bowel obstruction or other etiology. This time patient is awake alert seems to be at baseline. Offered more pain medication however is concerned 2 previously was on long-term opiate medication she is been off for about 2 years concerned about restarting. However both agree that a prepack of 4 tablets is reasonable. At this time no cause of right upper quadrant pain is identified. Discharge Plan Departure Patient Disposition: Home Clinical Impression: Abdominal pain Instructions: DI for Abdominal Pain-Adult Activity Restrictions/Additional Instructions: *You have been diagnosed with abdominal pain *What to do: At this time no cause of abdominal pain is found. Please continue to monitor try ice and heat. *Continue to take medications as directed Tylenol 650 mg every 4-6 hours if needed for [id number]-[id number] pain [place] 1 tablet every 6 hours if needed for severe pain (you were given a prepack in the ED only) *Follow up with your primary care provider in 2-3 days or call [phone] *Return to ER if you should have increasing pain nausea vomiting or any new, worsening or concerning symptoms CONTROLLED SUBSTANCE DISCHARGE (Narcotoic/benzodiazepine/Flexeril/Phenergan) 1. You have been prescribed narcotic medications, it does have acetaminophen/Tylenol/paracetamol in it, DO NOT TAKE MORE THAN 4,00mg in 24 hours of Tylenol. TRAMADOL DOES NOT CONTAIN TYLENOL 2. Please understand that we cannot provide further refills of narcotics, benzodiazepines or controlled substances through the ED and her pain management will need to be through your provider. 3. While on these medications you cannot drive or operate heavy machinery. 4. You cannot sign legal documents or perform any duties such as this. 5. As long as you're taking opiate pain medications he should also be taking a stool softener such as Colace, Dulcolax, MiraLAX or prune juice, to help avoid constipation. Prescriptions: No Action gabapentin 600 mg tablet 1,200 mg PO TID PRN Patient Comments: take 2 tablets by mouth three times a day if needed potassium chloride 10 mEq capsule, extended release 10 meq PO DAILY Patient Comments: take 1 tablet by mouth once daily topiramate 100 mg tablet 100 mg PO BID Patient Comments: take 1 tablet by mouth twice a day Nurtec ODT 75 mg tablet,disintegrating 75 mg PO DAILY PRN Patient Comments: DISSOLVE ONE TABLET (75 MG) BY MOUTH DAILY NEEDED (FOR MIGRAINES) clonazepam 1 mg tablet 1 mg PO TID Qty: 90 1RF quetiapine 50 mg tablet 150 mg PO BEDTIME Qty: 90 3RF furosemide 40 mg tablet 40 mg PO DAILY bupropion HCl 150 mg tablet extended release 24 hr 300 mg PO QAM Qty: 180 3RF atorvastatin 80 mg tablet 80 mg PO QPM Patient Comments: take 1 tablet by mouth at bedtime Referrals: nAiyah Goodrich MD [Primary Care Provider] - Stand Alone Forms: Patient Portal/API
--- NOTE | 2022-12-03 21:28 | DI.CT.S_ITS ---
PROCEDURE: CT ABDOMEN PELVIS W CON INDICATIONS: right sided pain TECHNIQUE: After the administration of IV contrast, axial sections were acquired from the lung bases to the pubic symphysis. Coronal and sagittal reformats were performed. For radiation dose reduction, the following was used: automated exposure control, adjustment of mA and/or kV according to patient size. COMPARISON: None. FINDINGS: Image quality: Excellent. Lung bases: There is atelectasis medially in the lung bases. Heart: Heart is normal in size. There is a large hiatal hernia. ABDOMEN: Liver: No mass lesion. Gallbladder: Within normal limits without calcified gallstones. Biliary ducts: No biliary ductal dilatation. Pancreas: Unremarkable. Spleen: Normal in size. Adrenal Glands: No adrenal nodules. Kidneys and Ureters: No hydronephrosis. There are bilateral renal cysts. Stomach and Bowel: Stomach, small bowel loops, and colon are normal in caliber and wall thickness. The appendix is normal. Peritoneum: No abnormal intraperitoneal fluid. No free air. Ventral Wall: No hernia. Abdominal Nodes: No retroperitoneal or mesenteric adenopathy by size criteria. Vessels: Aorta and inferior vena cava are normal in size. PELVIS: Pelvic Organs: The uterus is surgically absent. There is a small right ovarian cyst measuring up to 1.7 cm. Bladder: Unremarkable. Pelvic Nodes: No enlarged lymph nodes. Miscellaneous: No inguinal hernias are seen. Bones: Visualized osseous structures demonstrate no suspicious focal lesions. IMPRESSION: 1. No definite acute intra-abdominal abnormality. Specifically, no evidence of appendicitis. Dictated by: Eric So M.D. on 12/03/2022 at 23:11 Approved by: Eric So M.D. on 12/03/2022 at 23:15
[2022-12-03] MEDS: KETOROLAC 30 MG/ML VIAL 15 MG IV (21:36)
[2022-12-03 21:58] LABS: Bacteria Urine Occasional (0-1); RBC Urine 0-1/HPF (0-5/HPF); Squamous Epithelial Cell Urine 5-10 /HPF (0-5/HPF); WBC Urine 0-1/HPF (0-5/HPF)
[2022-12-03 21:59] LABS: Culture Indicated Urine Cult Not Indicated
[2022-12-03 22:00] LABS: Ictotest Urine Negative (Negative)
[2022-12-03 23:35] VITALS: BP 151/93; PULSE 89; RESP 18; O2SAT 96
[2022-12-03] MEDS: HYDROCODONE/ACET 5/325 PREPACK 1 BOTTLE MISC (23:40)
== END 2022-12-03 23:49 | disposition home or self-care (01) ==
PROVIDERS: Emergency Medicine; Emergency Provider Emergency Medicine; PCP Student in an Organized Health Care Education/Training Program
DX: R10.11 Right upper quadrant pain (principal); Z79.899 Other long term (current) drug therapy
CPT/HCPCS: 36415; 74177; 76705; 80053; 81003; 81015; 83690; 85007; 85025; 93005; 93010; 96374; 99284; J1885; Q9967

== ENCOUNTER 2023-01-08 21:32 | Emergency (ER) | payer MEDICARE, OTHER, SELFPAY ==
[2022-09-16 12:46] VITALS: BMI 28.3
[2023-01-08 21:40] VITALS: BP 138/84; PULSE 88; RESP 18; TEMP 36.2; O2SAT 97
--- NOTE | 2023-01-08 21:47 | DI.CT.S_ITS ---
PROCEDURE: CT HEAD/BRAIN WO CON INDICATIONS: fell before 2099,large hematoma right forehead.etoh on board TECHNIQUE: Noncontrast 4.5 mm thick angled axial sections acquired from the foramen magnum to the vertex, with coronal and sagittal reformats. For radiation dose reduction, the following was used: automated exposure control, adjustment of mA and/or kV according to patient size. COMPARISON: [facility], CT, CT HEAD/BRAIN WO CON, 10/24/2020, 15:21. FINDINGS: Image quality: Excellent. CSF spaces: Basal cisterns are patent. No extra-axial fluid collections. There is moderate cerebral volume loss, with resultant ventricular and sulcal prominence. Ex vacuole dilatation involving the anterior horn of the left lateral ventricle again noted. Brain: No intracranial hemorrhage, mass, or mass effect. There are subcortical, periventricular and deep white matter hypodensities consistent with moderate chronic small vessel ischemic changes. There is extensive left frontal lobe encephalomalacia redemonstrated consistent with sequelae of prior infarct or trauma. Skull and face: Calvarium and visualized facial bones appear intact, without suspicious lesions. There is right frontal supraorbital soft tissue swelling with a subcutaneous forehead hematoma. Sinuses: Visualized sinuses and mastoids are clear. IMPRESSION: 1. No definite acute intracranial abnormality. 2. Extensive left frontal lobe encephalomalacia redemonstrated consistent with sequelae of a prior infarct or trauma. 3. Right supraorbital soft tissue swelling with a forehead subcutaneous hematoma. No associated calvarial fracture. Dictated by: Eric So M.D. on 01/08/2023 at 22:56 Approved by: Eric So M.D. on 01/08/2023 at 23:00
--- NOTE | 2023-01-08 21:48 | DI.CT.S_ITS ---
PROCEDURE: CT CERVICAL SPINE WO CON INDICATIONS: fall, etoh, head injury TECHNIQUE: Noncontrast 3 mm thick sections acquired from the skull base to the T4 level. Sagittal and coronal reformats were then constructed. For radiation dose reduction, the following was used: automated exposure control, adjustment of mA and/or kV according to patient size. COMPARISON: [facility], CT, CT ANGIO CHEST PE PROTOCOL, 10/12/2020, 16:50. FINDINGS: Image quality: There is slightly increased hepatic echogenicity Bones: No fractures or subluxation. There is minimal anterolisthesis at C5-C6. Minimal superior endplate compression deformity of the T1 vertebral body appears similar to the prior study given differences in technique. There is multilevel degenerative disc disease and facet joint arthropathy. Visualized superior ribs are intact. Soft tissues: Prevertebral soft tissues are normal in thickness. No paravertebral hematomas. No apical pneumothoraces. There is a subpleural nodule posteriorly within the visualized left apex measuring up to 0.5 cm on series 2, image 54. Findings are unchanged from the prior chest CT. IMPRESSION: 1. No acute fracture or subluxation. Dictated by: Eric So M.D. on 01/08/2023 at 23:00 Approved by: Eric So M.D. on 01/08/2023 at 23:05
[2023-01-08 22:42] VITALS: PULSE 81; O2SAT 94
[2023-01-08 22:43] VITALS: BP 108/61; PULSE 81; O2SAT 93
[2023-01-08 23:00] VITALS: BP 119/72; PULSE 77; O2SAT 94
[2023-01-08 23:30] VITALS: BP 114/66; PULSE 77; O2SAT 94
--- NOTE | 2023-01-08 23:39 | ED_ITS ---
HPI - Head Injury General Chief complaint: Trauma Stated complaint: fall, facial injury Time Seen by Provider: 01/08/23 21:48 Source: patient and family Mode of arrival: Wheelchair History of Present Illness HPI Narrative: 72-year-old female with history of stroke with gait disturbance and alcohol abuse presents with her in the chief complaint of a ground level fall resulting in a right frontal head injury. It is unclear she had a loss of consciousness but she did it was short term. She denies the use of blood thinners and has no neck pain or back pain. She has a large hematoma over right eye with associated laceration. She denies any vision change such as blurring or double vision. She denies neck, chest or back pain. She has no shortness of breath. Her tetanus is up-to-date. Related Data Home Medications Medication Instructions Recorded Confirmed furosemide 40 mg tablet 40 mg PO DAILY 12/26/20 06/17/22 atorvastatin 80 mg tablet 80 mg PO QPM 01/02/22 06/17/22 gabapentin 600 mg tablet 1,200 mg PO TID PRN 01/02/22 06/17/22 potassium chloride 10 mEq 10 meq PO DAILY 01/02/22 06/17/22 capsule,extended release rimegepant 75 mg disintegrating 75 mg PO DAILY PRN 01/02/22 06/17/22 tablet (Nurtec ODT) topiramate 100 mg tablet 100 mg PO BID 01/02/22 06/17/22 Previous Rx's Medication Instructions Recorded bupropion HCl 150 mg 24 hr tablet, 300 mg PO QAM #180 tabs 09/16/22 extended release clonazepam 1 mg tablet 1 mg PO TID #90 tabs 10/17/22 quetiapine 50 mg tablet 150 mg PO BEDTIME #90 tabs 10/17/22 Allergies Allergy/AdvReac Type Severity Reaction Status Date / Time cefazolin [From [facility]] Allergy Intermediate breaks out Verified 06/17/22 10:37 in a rash Review of Systems Review of Systems Narrative: GENERAL: Denies chills, fatigue, malaise, fever, sweats. HEENT: Denies sinus pain, ear pain, sore throat, difficulty swallowing, dizziness. RESPIRATORY: Denies dyspnea, cough, wheezing, hemoptysis, sputum. CARDIOVASCULAR: Denies chest pain, palpitations, orthopnea, edema, GASTROINTESTINAL: Denies nausea, vomiting, abdominal pain, diarrhea, constipation, melena. : Denies dysuria, frequency, incontinence, hematuria, urinary retention. MUSCULOSKELETAL: See HPI SKIN: Denies rash, skin lesions, or other NEUROLOGIC: See HPI PSYCHIATRIC: No concerning psychosocial issues. 12 point review of systems is negative except for those stated above Patient History Medical History Breast cancer CVA (cerebral vascular accident) Social History household members: spouse Smoking Status: Former smoker Smoking Status: Former smoker alcohol intake frequency: 3 or more drinks per day Substance Use Type: does not use Exam Narrative Exam Narrative: GENERAL: [72] year old patient appears stated age. Well-developed patient, in mild distress. GCS 15 HEAD: Large hematoma over right eye with some swelling of upper lid, 3 cm laceration with minimal bleeding, superficial, no evidence of depressed skull fracture EYES: Pupils equal round and reactive. No hyphema. Extraocular motions intact. No scleral icterus. No injection or drainage. Swollen, edematous right upper lid lifted and patient has full range of motion and no visual field deficits, no blurring and no evidence of ocular injury ENT: Nose without bleeding, purulent drainage. Throat without erythema, tonsillar hypertrophy or exudate. Airway patent. NECK: Trachea midline. Non tender CARDIOVASCULAR: Regular rate and rhythm without murmurs, gallops, or rubs. RESPIRATORY: Clear to auscultation. Breath sounds equal bilaterally. No wheezes, rales, or rhonchi. GASTROINTESTINAL: Abdomen soft, non-tender, nondistended. EXTREMITIES: No edema or joint tenderness. BACK: Nontender without deformity or crepitance. No flank tenderness. NEURO: AOx3. SKIN: No rash or erythema of visible areas Initial Vital Signs Initial Vital Signs: Vital Signs Temperature 97.2 F L 01/08/23 21:40 Pulse Rate 88 01/08/23 21:40 Respiratory Rate 18 01/08/23 21:40 Blood Pressure 138/84 01/08/23 21:40 Pulse Oximetry 97 01/08/23 21:40 Oxygen Delivery Method Room Air 01/08/23 21:40 Procedures Laceration Repair Laceration 1: Site: face Side (If applicable): right Size (cm): 3 Description: linear Depth: simple, single layer Local Anesthetic: lidocaine 1% Amount of anesthesia used (mL): 4 Pre-repair: wound explored and cleansed with chlorhexadine Skin layer closed with: nylon Skin layer suture size: 6-0 Number of sutures: 6 Technique: simple, interrupted Course Orders Ordered: ED Orders 01/08/23 21:47 CT head/brain wo con Stat 01/08/23 21:48 CT cervical spine wo con Stat Vital Signs Vital signs: Vital Signs - 8 hr 01/08/23 22:42 01/08/23 22:43 01/08/23 22:43 Pulse Rate 81 81 Blood Pressure 108/61 Pulse Oximetry 94 93 Oxygen Delivery Method Room Air Room Air 01/08/23 23:00 01/08/23 23:00 01/08/23 23:30 Pulse Rate 77 Blood Pressure 119/72 114/66 Pulse Oximetry 94 Oxygen Delivery Method Room Air 01/08/23 23:30 01/09/23 00:00 01/09/23 00:00 Pulse Rate 77 79 Blood Pressure 110/62 Pulse Oximetry 94 93 Oxygen Delivery Method Room Air Room Air MDM - Head Injury MDM Narrative Medical decision making narrative: [72] year old patient presents with head injury Multiple etiologies for patient's symptoms considered including, but not limited to: [Contusion versus skull fracture versus intracranial hemorrhage versus other] Prior Charts reviewed in our EMR Primary Historian: patient Imaging reviewed: Head and C-spine without fracture or intracranial hemorrhage Patient's symptoms improved over duration of stay with above-stated therapies. Findings and discharge diagnosis discussed with patient/family followed by verbalization of understanding Return precautions discussed with patient/family whom verbalize understanding of diagnosis and plan Discharge Plan Departure Patient Disposition: Home Clinical Impression: Traumatic hematoma of forehead, Face lacerations Instructions: DI for Laceration Repair, DI for Hematoma (Bruise) Activity Restrictions/Additional Instructions: *You have been diagnosed with [fall with forehead hematoma and facial laceration. As we discussed the remainder of your physical exam is reassuring. The CT scan of your head and cervical spine are unremarkable and there is no evidence of fracture or bleeding in your brain.] *What to do: *Please continue to take your regular medications as directed. [ ] New medication prescriptions sent to your pharmacy: [ ] [ ] New medication written as a paper prescription [ ] No new medications given Please keep the wound clean and dry to the best of your ability. Please monitor for signs of infection such as redness to the skin or increasing pain. Have the sutures/yvette removed by your doctor in about 7 days. If you are unable to get into your doctor, we would be happy to remove the sutures/yvette in that same timeframe. *Return to Emergency Department if you should have any new, worsening or concerning symptoms, such as [fever greater than 101 F, shaking chills, worsening pain, persistent vomiting or other bothersome symptoms] Prescriptions: No Action gabapentin 600 mg tablet 1,200 mg PO TID PRN Patient Comments: take 2 tablets by mouth three times a day if needed potassium chloride 10 mEq capsule, extended release 10 meq PO DAILY Patient Comments: take 1 tablet by mouth once daily topiramate 100 mg tablet 100 mg PO BID Patient Comments: take 1 tablet by mouth twice a day Nurtec ODT 75 mg tablet,disintegrating 75 mg PO DAILY PRN Patient Comments: DISSOLVE ONE TABLET (75 MG) BY MOUTH DAILY NEEDED (FOR MIGRAINES) clonazepam 1 mg tablet 1 mg PO TID Qty: 90 1RF quetiapine 50 mg tablet 150 mg PO BEDTIME Qty: 90 3RF furosemide 40 mg tablet 40 mg PO DAILY bupropion HCl 150 mg tablet extended release 24 hr 300 mg PO QAM Qty: 180 3RF atorvastatin 80 mg tablet 80 mg PO QPM Patient Comments: take 1 tablet by mouth at bedtime Referrals: Aniyah Goodrich MD [Primary Care Provider] - Stand Alone Forms: Patient Portal/API
[2023-01-09] VITALS: BP 110/62; PULSE 79; O2SAT 93
== END 2023-01-09 00:25 | disposition home or self-care (01) ==
PROVIDERS: Emergency Provider Emergency Medicine; PCP Student in an Organized Health Care Education/Training Program
DX: S01.81XA Laceration without foreign body of other part of head, initial encounter (principal); S00.83XA Contusion of other part of head, initial encounter; W18.30XA Fall on same level, unspecified, initial encounter; Z79.899 Other long term (current) drug therapy
CPT/HCPCS: 12013; 70450; 72125; 99284

== ENCOUNTER → 2023-09-30 11:09 | Outpatient (CLI) | payer MEDICARE, OTHER, SELFPAY ==
[2022-09-16 12:46] VITALS: BMI 28.3
[2023-09-30 12:24] LABS: Hematocrit 38.6 % (36-46); Hemoglobin 12.9 g/dL (12.0-16.0); Mean Corpuscular HGB Conc 33.5 % (30-36); Mean Corpuscular Hemoglobin 31.6 PG (26-34); Mean Corpuscular Volume 94.2 fL (80-100); Platelet Count 271 X10^3/uL (150-400); Red Blood Cell Count 4.09 X10^6/uL (4.0-5.2); Red Cell Distribution Width 14.4 % (11.6-14.8); White Blood Cell Count 6.2 X10^3/uL (4.5-11.0)
[2023-09-30 12:59] LABS: HEMOLYSIS < 15 (0-50); Iron 110 ug/dL (37-170)
[2023-09-30 13:05] LABS: Albumin 4.4 g/dL (3.5-5.0); BUN Creatinine Ratio 20.8 (6-22); Blood Urea Nitrogen 25 mg/dL (7-17); Calcium 8.6 mg/dL (8.4-10.2); Carbon Dioxide 24 mmol/L (22-32); Chloride 108 mmol/L (98-107); Estimated Glomerular Filt Rate 48 mL/min (>60); Glucose 108 mg/dL (80-110); HEMOLYSIS < 15 (0-50); Phosphorous 3.9 mg/dL (2.8-4.1); Potassium 4.7 mmol/L (3.4-5.1); Sodium 142 mmol/L (137-145)
[2023-09-30 13:10] LABS: Percent Iron Saturation 31 % (15-50); Total Iron Binding Capacity 354 ug/dL (265-497); Transferrin 299 mg/dL (206-381)
[2023-09-30 13:36] LABS: Ferritin 45 ng/mL (11-264)
[2023-09-30 15:40] LABS: Creatinine Urine Random 57.76 mg/dL; Protein (Total) Urine Random 8 mg/dL (0-12); Protein Creatinine Ratio Urine 0.13 GRAM/24H
[2023-09-30 15:46] LABS: Microalbumin Urine Random < 0.6 mg/dL (0-1.6)
[2023-09-30 15:56] LABS: Vitamin D 25 Hydroxy (D3) 41.8 ng/mL (30.0-100.0)
[2023-10-01 12:14] LABS: Parathyroid Hormone Int 78 pg/mL (15-65)
== END ==
PROVIDERS: PCP Internal Medicine; Referring Provider Internal Medicine Nephrology; Visit Provider Internal Medicine Nephrology
DX: N18.4 Chronic kidney disease, stage 4 (severe) (principal)
CPT/HCPCS: 36415; 80069; 82043; 82306; 82570; 82728; 83540; 83550; 83970; 84156; 85027

== ENCOUNTER 2023-10-23 12:19 | Emergency (ER) | payer MEDICARE, OTHER, SELFPAY ==
[2022-09-16 12:46] VITALS: BMI 28.3
[2023-10-23] VITALS (9 sets, daily range): BP systolic 149–206; BP diastolic 74–115; PULSE 92–105; RESP 12; TEMP 36.9; O2SAT 90–95; BMI 31.9
--- NOTE | 2023-10-23 12:32 | DI.RAD.S_ITS ---
PROCEDURE: XR RIBS RT MIN 3V W CXR 1V INDICATIONS: fall friday, pain ribs, short of breath TECHNIQUE: 3 views of the ribs were acquired, along with a single view chest. COMPARISON: None. FINDINGS: Surgical changes and devices: Clips are present overlying the left upper quadrant. Bones and chest wall: Questionable nondisplaced lateral right 9th rib fracture.. No suspicious bony lesions. Overlying soft tissues appear unremarkable. Lungs and pleura: No pleural effusions or pneumothorax. Mild appearance of increased vascularity suggestive of edema. Mediastinum: Mediastinal contours appear normal. Heart size is mildly prominent. IMPRESSION: Questionable nondisplaced lateral right 9th rib fracture. Dictated by: Regi Honeycutt M.D. on 10/23/2023 at 13:15 Approved by: Regi Honeycutt M.D. on 10/23/2023 at 13:17
--- NOTE | 2023-10-23 13:24 | ED.FALL ---
HPI - Fall General Chief Complaint: Fall Stated Complaint: Fall, right side pain, no blood thinners Time Seen by Provider: 10/23/23 12:29 Source: patient and family Mode of arrival: Family Vehicle Limitations: no limitations History of Present Illness HPI Narrative: 73-year-old female not on blood thinners who is here for evaluation of right-sided rib pain. She states that approximately 3-4 days ago she sustained a fall after tripping on some tree roots where she landed on her right side. She then fell again that evening after leaning over and losing her balance. No loss of consciousness. She has had right-sided rib discomfort and bruising over the area since then. No problems breathing. No other injuries from the event. She has had some balance issues in the past after a CVA. Related Data Home Medications Medication Instructions Recorded Confirmed furosemide 40 mg tablet 40 mg PO DAILY 12/26/20 06/17/22 atorvastatin 80 mg tablet 80 mg PO QPM 01/02/22 06/17/22 gabapentin 600 mg tablet 1,200 mg PO TID PRN 01/02/22 06/17/22 potassium chloride 10 mEq 10 meq PO DAILY 01/02/22 06/17/22 capsule,extended release rimegepant 75 mg disintegrating 75 mg PO DAILY PRN 01/02/22 06/17/22 tablet (Nurtec ODT) topiramate 100 mg tablet 100 mg PO BID 01/02/22 06/17/22 Previous Rx's Medication Instructions Recorded quetiapine 50 mg tablet 150 mg (3 x 50 mg) PO BEDTIME #270 05/12/23 tabs clonazepam 1 mg tablet 1 mg PO TID #90 tabs 09/23/23 bupropion HCl 150 mg 24 hr tablet, 300 mg (2 x 150 mg) PO QAM #180 10/06/23 extended release tabs hydrocodone 5 mg-acetaminophen 325 1 tab PO BID PRN pain #10 tabs 10/23/23 mg tablet Allergies Allergy/AdvReac Type Severity Reaction Status Date / Time cefazolin [From [facility]] Allergy Intermediate breaks out Verified 10/06/23 10:56 in a rash Review of Systems Constitutional Constitutional: Reports system reviewed and no additional complaints, except as documented Respiratory Respiratory: Reports system reviewed and no additional complaints, except as documented Gastrointestinal Gastrointestinal: Reports system reviewed and no additional complaints, except as documented Integumentary/Breasts Skin/Breast: Reports system reviewed and no additional complaints, except as documented Neurologic Neurologic: Reports system reviewed and no additional complaints, except as documented Patient History Medical History (Updated 10/23/23 @ 13:37 by Moreno Cook DO) CVA (cerebral vascular accident) Breast cancer Social History household members: spouse Smoking Status: Former smoker Smoking Status: Former smoker alcohol intake frequency: 3 or more drinks per day Alcohol type: wine Substance Use Type: does not use Exam Initial Vital Signs Initial Vital Signs: Vital Signs Pulse Oximetry 90 L 10/23/23 12:25 Const General: cooperative, comfortable and No ill appearing HENMT Head: normal to inspection Resp Effort & Inspection: normal respiratory effort Auscultation: clear to auscultation bilaterally Cardio Rate: regular rate Rhythm: regular rhythm Skin Other: Patient has a contusion right lower lateral ribs Neuro General: patient alert, patient awake and moves all extremities Course Orders Ordered: ED Orders 10/23/23 12:32 XR ribs RT min 3V w CXR1V Stat Vital Signs Vital signs: Vital Signs - 8 hr 10/23/23 12:25 10/23/23 12:28 10/23/23 12:28 Temperature Pulse Rate 104 H Respiratory Rate Blood Pressure 206/115 H Pulse Oximetry 90 L 94 Oxygen Delivery Method 10/23/23 12:29 10/23/23 12:30 10/23/23 12:31 Temperature 98.5 F Pulse Rate 105 H 98 H Respiratory Rate 12 Blood Pressure 206/115 H 189/102 H Pulse Oximetry 94 94 Oxygen Delivery Method Room Air 10/23/23 12:31 10/23/23 12:57 10/23/23 12:57 Temperature Pulse Rate 99 H 97 H Respiratory Rate Blood Pressure 170/84 H Pulse Oximetry 94 95 Oxygen Delivery Method 10/23/23 13:00 10/23/23 13:00 Temperature Pulse Rate 92 H Respiratory Rate Blood Pressure 159/86 H Pulse Oximetry 94 Oxygen Delivery Method MDM - Fall Imaging Data rib x-ray: Radiologist's Impression: PROCEDURE: XR RIBS RT MIN 3V W CXR 1V INDICATIONS: fall friday, pain ribs, short of breath TECHNIQUE: 3 views of the ribs were acquired, along with a single view chest. COMPARISON: None. FINDINGS: Surgical changes and devices: Clips are present overlying the left upper quadrant. Bones and chest wall: Questionable nondisplaced lateral right 9th rib fracture.. No suspicious bony lesions. Overlying soft tissues appear unremarkable. Lungs and pleura: No pleural effusions or pneumothorax. Mild appearance of increased vascularity suggestive of edema. Mediastinum: Mediastinal contours appear normal. Heart size is mildly prominent. IMPRESSION: Questionable nondisplaced lateral right 9th rib fracture. MDM Narrative Medical decision making narrative: Patient does have a contusion on her right lateral chest wall. X-ray shows right 9th rib fracture. This does correspond where she was having discomfort. No other injuries from the fall. These do sound like mechanical falls. Will discharge patient home with return precautions. She expressed understanding and agreement with plan. Discharge Plan Departure Patient Disposition: Home Clinical Impression: Fractured rib Instructions: DI for Rib Fracture Activity Restrictions/Additional Instructions: Take the pain medication as needed. Continue the rest of your medications as directed. Return to the emergency department for new or worsening symptoms. Prescriptions: New hydrocodone-acetaminophen 5-325 mg tablet 1 tab PO BID PRN (Reason: pain) Qty: 10 0RF No Action gabapentin 600 mg tablet 1,200 mg PO TID PRN Patient Comments: take 2 tablets by mouth three times a day if needed potassium chloride 10 mEq capsule, extended release 10 meq PO DAILY Patient Comments: take 1 tablet by mouth once daily topiramate 100 mg tablet 100 mg PO BID Patient Comments: take 1 tablet by mouth twice a day Nurtec ODT 75 mg tablet,disintegrating 75 mg PO DAILY PRN Patient Comments: DISSOLVE ONE TABLET (75 MG) BY MOUTH DAILY NEEDED (FOR MIGRAINES) bupropion HCl 150 mg tablet extended release 24 hr 300 mg PO QAM Qty: 180 3RF furosemide 40 mg tablet 40 mg PO DAILY quetiapine 50 mg tablet 150 mg PO BEDTIME Qty: 270 3RF clonazepam 1 mg tablet 1 mg PO TID Qty: 90 3RF atorvastatin 80 mg tablet 80 mg PO QPM Patient Comments: take 1 tablet by mouth at bedtime Referrals: Bonnie Dia MD [Primary Care Provider] - Stand Alone Forms: Patient Portal/API
--- NOTE | 2023-10-23 16:48 | PC.NURSE ---
[facility] pharmacy unable to fulfill RX. Cancelled at [facility], Dr Cook submitting new RX to [facility] at patient request.
== END 2023-10-23 14:00 | disposition home or self-care (01) ==
PROVIDERS: Emergency Provider Emergency Medicine; PCP Internal Medicine
DX: S22.31XA Fracture of one rib, right side, initial encounter for closed fracture (principal); W01.0XXA Fall on same level from slipping, tripping and stumbling without subsequent striking against object, initial encounter
CPT/HCPCS: 71101; 99283

== ENCOUNTER → 2024-02-04 16:03 | Outpatient (CLI) | payer MEDICARE, OTHER, SELFPAY ==
[2022-09-16 12:46] VITALS: BMI 28.3
== END ==
PROVIDERS: Referring Provider Physician Assistant; Visit Provider Physician Assistant
DX: F10.29 Alcohol dependence with unspecified alcohol-induced disorder (principal); I63.9 Cerebral infarction, unspecified; K76.0 Fatty (change of) liver, not elsewhere classified
CPT/HCPCS: 82172; 82247; 82465; 82947; 82977; 83010; 83883; 84450; 84460

== ENCOUNTER 2024-12-02 09:57 | Emergency (ER) | payer MEDICARE, OTHER, SELFPAY ==
[2022-09-16 12:46] VITALS: BMI 28.3
[2024-12-02] VITALS (9 sets, daily range): BP systolic 153–218; BP diastolic 88–112; PULSE 99–120; RESP 17–26; TEMP 36.8; O2SAT 93–96; BMI 39.0
--- NOTE | 2024-12-02 10:15 | ED_ITS ---
HPI - Extremity Problem General Chief complaint: Extremity Problem,Nontraumatic Stated complaint: right wrist pain Time Seen by Provider: 12/02/24 10:00 Source: patient Mode of arrival: Ambulatory History of Present Illness HPI Narrative: 74-year-old female history of CVA in 2005 with a residual right-sided weakness presents today with elevated blood pressure and heart rate along with right- sided wrist pain. Patient denies active chest pain, dizziness, lightheadedness, nausea, vomiting, diaphoresis, back pain, or any other radiating symptoms. Other than what is stated 14 point review of system is negative. Related Data Home Medications ?Medication ?Instructions ?Recorded ?Confirmed furosemide 40 mg tablet 40 mg PO DAILY 12/26/2005/30 atorvastatin 80 mg tablet 80 mg PO QPM 01/02/22 potassium chloride 10 mEq 10 meq PO DAILY 01/02/22 capsule,extended release rimegepant 75 mg disintegrating 75 mg PO DAILY PRN 11/1606/17/22 tablet (Nurtec ODT) topiramate 100 mg tablet 100 mg PO BID 01/02/2206/17 gabapentin 600 mg tablet 600 mg PO TID PRN 05/11/24 0 05/11/24 Previous Rx's ?Medication ?Instructions ?Recorded hydrocodone 5 mg-acetaminophen 325 1 tab PO BID PRN pa in #10 tabs 10/23/23 mg tablet hydrocodone 5 mg-acetaminophen 325 1 tab PO Q8H PRN pa in #10 tabs 10/23/23 mg tablet quetiapine 50 mg tablet 150 mg (3 x 50 mg) PO BEDTIM E #270 06/08/24 tabs bupropion HCl 150 mg 24 hr tablet, 450 mg (3 x 150 mg) PO QAM #180 10/28/24 extended release tabs metoprolol tartrate 25 mg tablet 12.5 mg (1/2 x 25 mg) PO BID #30 12/02/24 tabs Allergies Allergy/AdvReac Type Severity Reaction Status Date / Time cefazolin (From [facility]) Allergy Intermediate breaks out Verified 12/02/24 10:10 in a rash Review of Systems Review of Systems ROS Unobtainable: All systems reviewed & are unremarkable except as noted in HPI and below Patient History Medical History (Updated 12/02/24 @ 12:28 by Bud Alexander DO) CVA (cerebral vascular accident) Breast cancer Social History household members: spouse Smoking Status: Unknown if ever smoked Smoking Status: Unknown if ever smoked alcohol intake frequency: 3 or more drinks per day Alcohol type: wine Exam Narrative Exam Narrative: GENERAL: [74] year old patient appears stated age. Well-developed patient, in mild distress. HEAD: Atraumatic. Normocephalic. EYES: Pupils equal round and reactive. Extraocular motions intact. No scleral icterus. No injection or drainage. ENT: Nose without bleeding, purulent drainage. Throat without erythema, tonsillar hypertrophy or exudate. Airway patent. NECK: Trachea midline. Non tender CARDIOVASCULAR: Tachycardic Regular rate and rhythm without murmurs, gallops, or rubs. RESPIRATORY: Clear to auscultation. Breath sounds equal bilaterally. No wheezes, rales, or rhonchi. GASTROINTESTINAL: Abdomen soft, non-tender, nondistended. EXTREMITIES: No edema or joint tenderness. Right-sided closed fist baseline from stroke in 2005, and right lower leg weakness chronic motor sensory intact +2 radial pulse cap refill less than 2secs and +2DP +2PT cap refill <2secs BACK: Nontender without deformity or crepitance. No flank tenderness. NEURO: AOx3. GCS 15 nonfocal neuro exam SKIN: No rash or erythema of visible areas Initial Vital Signs Initial Vital Signs: Vital Signs Pulse Rate 120 H 12/02/24 10:04 Blood Pressure 193/112 H 12/02/24 10:04 Pulse Oximetry 95 12/02/24 10:04 Course Orders Ordered: Discontinued Medications Hydrocodone Bitart/Acetaminophen (Hydrocodone/Acet 5/325 Tablet) 1 tab PO NOW ONE Stop: 12/02/24 12:27 Last Admin: 12/02/24 12:32 Dose: 1 tab Documented By: TRI Furosemide (Furosemide 40 Mg/4 Ml Vial) 40 mg IV NOW ONE Stop: 12/02/24 12:18 Last Admin: 12/02/24 12:25 Dose: 40 mg Documented By: TRI Vital Signs Vital signs: Vital Signs - 8 hr 12/02/24 10:10 Temperature 98.2 F Pulse Rate 120 H Respiratory Rate 20 Blood Pressure 195/112 H Pulse Oximetry 95 Oxygen Delivery Method Room Air MDM - Extremity (Nontraumatic) Lab Data 12/02/24 10:45 12/02/24 10:45 Labs: Lab Results 12/02/24 Range/Units 10:45 WBC 7.2 (4.5-11.0) X10^3/uL RBC 3.48 L (4.0-5.2) X10^6/uL Hgb 12.6 (12.0-16.0) g/dL Hct 36.9 (36-46) % MCV 106.0 H (80-100) fL MCH 36.1 H (26-34) PG MCHC 34.1 (30-36) % RDW 15.2 H (11.6-14.8) % Plt Count 309 (150-400) X10^3/uL Neut % (Auto) 76.3 H (50-75) % Lymph % (Auto) 14.5 L (25-40) % [place] % (Auto) 5.1 (3-14) % Eos % (Auto) 3.4 (2-4) % Baso % (Auto) 0.7 (0-2) % Neut # (Auto) 5500 (5900-1624) /uL Lymph # (Auto) 1000 L (9907-6387) /uL [place] # (Auto) 400 (0-900) /uL Eos # (Auto) 200 (0-450) /uL Baso # (Auto) 100 (0-100) /uL Sodium 141 (137-145) mmol/L Potassium 4.5 (3.4-5.1) mmol/L Chloride 107 (98-107) mmol/L Carbon Dioxide 25 (22-32) mmol/L BUN 21 H (7-17) mg/dL Creatinine 1.20 H (0.52-1.04) mg/dL Estimated GFR 48 L (>60) mL/min BUN/Creatinine Ratio 17.5 (6-22) Glucose 110 H (70-99) mg/dL Calcium 9.1 (8.4-10.2) mg/dL Total Bilirubin 0.5 (0.2-1.3) mg/dL AST 27 (14-36) IU/L ALT 19 (<35) IU/L Alkaline Phosphatase 95 (38-126) U/L Total Creatine Kinase 43 (30-135) U/L Troponin I < 0.012 (0.01-0.034) ng/mL NT-Pro-B Natriuret Pep 73 (<125) pg/mL Total Protein 8.1 (6.3-8.2) g/dL Albumin 4.4 (3.5-5.0) g/dL Globulin 3.7 (1.7-4.1) g/dL Albumin/Globulin Ratio 1.2 (1.0-2.8) Lipase 117 (23-300) U/L Imaging Data Extremity x-ray #1: Radiologist's Impression: [place] [address] XRay Report Signed Patient: Wilber Lara MR#: [id number] : 1950 Acct:[id number] Age/Sex: 74 / F Date of Service: 12/02/24 Loc: ED Accession Number: [id number] Procedure: XR wrist RT min 3V Ordering Provider: Bud Alexander D.O. PROCEDURE: XR WRIST RT MIN 3V INDICATIONS: pain TECHNIQUE: 4 views of the wrist were acquired. COMPARISON: None. FINDINGS: Bones: No fractures or dislocations. No suspicious bony lesions. Soft tissues: No suspicious soft tissue calcifications. IMPRESSION: No acute bony abnormality. CT scan - head: Radiologist's Impression: [place] [address] CT Scan Report Signed Patient: Wilber Lara MR#: [id number] : 1950 Acct:[id number] Age/Sex: 74 / F Date of Service: 12/02/24 Loc: ED Accession Number: [id number] Procedure: CT angio head and neck Ordering Provider: Bud Alexander D.O. PROCEDURE: CT ANGIO HEAD AND NECK INDICATIONS: hx of cva elevated bp/hx of R sided weakness TECHNIQUE: After the administration of intravenous contrast, 1 mm thick sections acquired from the aortic arch through the [place] of [place]. 3-dimensional slpzhwy-tivtwedbb-szeyogbzlq (MIP) and/or volume rendering reformats were acquired of the central intracranial vasculature and neck separately. For radiation dose reduction, the following was used: automated exposure control, adjustment of mA and/or kV according to patient size. COMPARISON: [facility], CT, CT HEAD/BRAIN WO CON, 01/08/2023, 21:51. [facility], CT, CT HEAD/BRAIN WO CON, 12/02/2024, 10:45. [facility], CT, CT ANGIO CHEST PE PROTOCOL, 12/02/2024, 11:24. FINDINGS: Image quality: Diagnostic. Cerebral CT Angiogram: Internal carotid arteries: No acute findings. Intracranial ICA are patent with no significant stenosis. No occlusion. No aneurysm. Anterior cerebral arteries: Unremarkable. No significant stenosis. No occlusion. No aneurysm. Middle cerebral arteries: Unremarkable. No significant stenosis. No occlusion. No aneurysm. Posterior cerebral arteries: There is a prominent left posterior communicating artery seen, with an accompanying diminutive left P1 segment. This is attributed to a type origin of the right posterior cerebral artery, which is considered to be a normal developmental variant of typically no clinical consequence. The flow within the posterior cerebral arteries is normal and symmetric. No aneurysms are seen. Basilar artery: Unremarkable. No significant stenosis. No occlusion. No aneurysm. Vertebral arteries: Unremarkable as visualized. Dural venous sinuses: Unremarkable given phase of enhancement. Other: Prior left frontal infarct is seen, with encephalomalacia and volume loss. There is ex vacuo dilatation seen of the left lateral ventricle, particularly anteriorly Neck CT Angiogram: Internal carotid arteries: Unremarkable. No significant stenosis. No dissection or occlusion. Common carotid arteries: Unremarkable. No significant stenosis. No dissection or occlusion. External carotid arteries: Unremarkable. No occlusion. Vertebral arteries: Unremarkable. No significant stenosis. No dissection or occlusion. Aortic Arch and Mediastinum: Partially visualized aortic arch unremarkable without evidence of aneurysm. Origins of the great vessels unremarkable. Other: Arterial phase soft tissues of the neck and chest are unremarkable. Ckvn-mz-azeyvpch cervical spine degenerative change can be seen. IMPRESSION: No significant intracranial arterial abnormality is seen. No significant abnormality is seen within the arteries of the neck. [address] [address] [address] Scan Report Signed Patient: Wilber Lara MR#: [id number] : 1950 Acct:[id number] Age/Sex: 74 / F Date of Service: 12/02/24 Loc: ED Accession Number: [id number] Procedure: CT head/brain wo con Ordering Provider: Bud Alexander D.O. PROCEDURE: CT HEAD/BRAIN WO CON INDICATIONS: hx of cva elevated bp/hx of R sided weakness TECHNIQUE: Noncontrast 4.5 mm thick angled axial sections acquired from the foramen magnum to the vertex, with coronal and sagittal reformats. For radiation dose reduction, the following was used: automated exposure control, adjustment of mA and/or kV according to patient size. COMPARISON: [facility], MR, MR HEAD/BRAIN WO CON, 10/24/2020, 14:58. [facility], CT, CT ANGIO HEAD AND NECK, 12/02/2024, 10:45. [facility], CT, CT ANGIO CHEST PE PROTOCOL, 12/02/2024, 11:24. [facility], CT, CT HEAD/BRAIN WO CON, 10/24/2020, 15:21. [facility], CT, CT HEAD/BRAIN WO CON, 01/08/2023, 21:51. FINDINGS: Image quality: Diagnostic. CSF spaces: Basal cisterns are patent. No extra-axial fluid collections. The ventricles demonstrate stable asymmetry, with ex vacuo dilatation seen on the left, particularly anteriorly. Brain: There is again seen a remote, stable left frontal lobe infarct. No intracranial bleeds or mass effect. There is cerebral volume loss, with resultant ventricular and sulcal prominence. There are periventricular and deep white matter chronic small vessel ischemic changes. There is intracranial internal carotid artery atherosclerosis. Skull and face: There is a small scalp hematoma seen on the right posteriorly, as on series 4, image 23. No associated fracture can be seen. Calvarium and visualized facial bones appear intact, without suspicious lesions. Sinuses: Visualized sinuses and mastoids are clear. IMPRESSION: No acute intracranial hemorrhage is seen. No acute intracranial pathology. Stable remote left infarct, with associated ex vacuo dilatation of the left lateral ventricle, particularly anteriorly. Mild right posterior scalp hematoma seen, without an associated fracture. Chest x-ray: Radiologist's Impression: [address] [address] XRay Report Signed Patient: Wilber Lara MR#: [id number] : 1950 Acct:[id number] Age/Sex: 74 / F Date of Service: 12/02/24 Loc: ED Accession Number: [id number] Procedure: XR chest 1V Ordering Provider: Bud Alexander D.O. PROCEDURE: XR CHEST 1V INDICATIONS: chest pain TECHNIQUE: One view of the chest was acquired. COMPARISON: [facility], CR, XR CHEST 1V, 10/24/2020, 10:11. [facility], CR, XR CHEST 2V, 08/08/2020, 15:07. FINDINGS: Surgical changes and devices: Surgical clips project over the thorax. Lungs and pleura: Lungs are clear. No pleural effusions or pneumothorax. Mediastinum: Mediastinal contours appear normal. Heart size is enlarged. Bones and chest wall: No suspicious bony lesions. Overlying soft tissues appear unremarkable. IMPRESSION: No acute cardiopulmonary abnormality is seen. CT scan - chest: Radiologist's Impression: [address] [address] [address] Scan Report Signed Patient: Wilber Lara MR#: [id number] : 1950 Acct:[id number] Age/Sex: 74 / F Date of Service: 12/02/24 Loc: ED Accession Number: [id number] Procedure: CT angio chest PE protocol Ordering Provider: Bud Alexander D.O. PROCEDURE: CT ANGIO CHEST PE PROTOCOL INDICATIONS: hx of cva elevated bp/hx of R sided weakness TECHNIQUE: After the administration of intravenous contrast, 2 mm thick sections acquired from the pulmonary apices to the posterior costophrenic angles. 3-dimensional maximum intensity projection (MIP) coronal and sagittal reformats were then acquired through the thorax. For radiation dose reduction, the following was used: automated exposure control, adjustment of mA and/or kV according to patient size. COMPARISON: [facility], CR, XR CHEST 1V, 12/02/2024, 11:18. [facility], CR, XR WRIST RT MIN 3V, 12/02/2024, 11:18. [facility], CT, CT HEAD/BRAIN WO CON, 12/02/2024, 10:45. [facility], CT, CT ANGIO HEAD AND NECK, 12/02/2024, 10:45. [facility], CT, CT ANGIO CHEST PE PROTOCOL, 10/12/2020, 16:50. FINDINGS: Image quality: Diagnostic. Pulmonary arteries: Pulmonary arteries are normal in size, and demonstrate no intraluminal filling defects to suggest central pulmonary embolism. Lower Neck: No enlarged lymph nodes. Thyroid: No thyroid nodules which require sonographic follow up, per consensus guidelines. Axillae: No enlarged lymph nodes. Chest Wall: Bilateral mastectomy change. Bones: Accentuated thoracic kyphosis is seen. Age-appropriate bony degenerative changes are seen. There is a stable remote T6 anterior wedge deformity. Lungs and Pleura: There is a mild focus of consolidation seen involving the subpleural lingula, as on series 5, image 143, measuring 11 mm. This is not seen on the prior examination. Generalized the layering ground-glass opacity can be seen. Mild dependent atelectasis is seen. No pneumothorax or pleural effusions are seen. Heart: Heart size is mildly enlarged. No pericardial effusion. Thoracic Vessels: No aortic aneurysm. Mediastinum and Lety: No enlarged lymph nodes. Esophagus: No wall thickening. There is a moderate to large hiatal hernia. Upper Abdomen: Bariatric surgery can be seen. The visualized portions of the upper abdominal structures are otherwise unremarkable for imaging technique. IMPRESSION: No pulmonary embolus. Within the lingula, there is an avid mm focus of consolidation, which most likely relates to atelectasis. Please consider a follow-up noncontrast chest CT in 6-8 weeks to monitor for resolution. There is mild cardiomegaly. A mild degree of dependent ground-glass opacity can be seen, likely related to pulmonary edema. Please correlate with mild/early CHF. Additional findings: Bilateral mastectomy change Remote T6 anterior wedge deformity, stable Moderate to large hiatal hernia Bariatric surgery t ECG Data Interpretation: Sinus Tach HR 106 TX 176 QRS [address]-t wave change No previous EKG to compare MDM Narrative Medical decision making narrative: Vital signs, nurse triage note, medication list, previous ER visits, and all imaging studies reviewed. CTA chest showed no pulmonary embolus within the lingula there is an avid mm focus of consolidation most likely relates to atelectasis. Follow up noncontrast chest CT in 6-8 weeks to monitor for resolution. Mild cardiomegaly. Mild degree of dependent ground-glass opacity can be seen likely related to pulmonary edema please correlate with mild early CHF. CT head showed stable remote left infarct with associated ex vacuo dilation of the left lateral ventricle part particularly anteriorly. Mild right posterior scalp hematoma with a without associated fracture. Differential diagnosis include PE CVA TIA pneumonia sepsis CHF hypertensive urgency emergency Discharge Plan Departure Patient Disposition: Home Clinical Impression: Hypertensive urgency CHF (congestive heart failure) Qualifiers: Heart failure type: unspecified Heart failure chronicity: acute Qualified Code(s): I50.9 - Heart failure, unspecified Acute wrist pain Qualifiers: Laterality: right Qualified Code(s): M25.531 - Pain in right wrist Instructions: DI for Wrist Pain Activity Restrictions/Additional Instructions: Return with new or worsening symptoms. Take your medicines as directed. Follow up with [facility] referral. Follow up with PCP regarding consolidation in your lungs for a repeat noncontrast chest CT in 6-8 weeks to monitor for resolution Prescriptions: New metoprolol tartrate 25 mg tablet 12.5 mg PO BID Qty: 30 0RF No Action potassium chloride 10 mEq capsule, extended release 10 meq PO DAILY Patient Comments: take 1 tablet by mouth once daily topiramate 100 mg tablet 100 mg PO BID Patient Comments: take 1 tablet by mouth twice a day Nurtec ODT 75 mg tablet,disintegrating 75 mg PO DAILY PRN Patient Comments: DISSOLVE ONE TABLET (75 MG) BY MOUTH DAILY NEEDED (FOR MIGRAINES) gabapentin 600 mg tablet 600 mg PO TID PRN quetiapine 50 mg tablet 150 mg PO BEDTIME Qty: 270 3RF bupropion HCl 150 mg tablet extended release 24 hr 450 mg PO QAM Qty: 180 3RF furosemide 40 mg tablet 40 mg PO DAILY atorvastatin 80 mg tablet 80 mg PO QPM Patient Comments: take 1 tablet by mouth at bedtime hydrocodone-acetaminophen 5-325 mg tablet 1 tab PO BID PRN (Reason: pain) Qty: 10 0RF hydrocodone-acetaminophen 5-325 mg tablet 1 tab PO Q8H PRN (Reason: pain) Qty: 10 0RF Referrals: Miscellaneous,Doctor, MD [Primary Care Provider, Medical] Stand Alone Forms: Patient Portal/API
--- NOTE | 2024-12-02 10:26 | DI.RAD.S_ITS ---
PROCEDURE: XR CHEST 1V INDICATIONS: chest pain TECHNIQUE: One view of the chest was acquired. COMPARISON: [facility], CR, XR CHEST 1V, 10/24/2020, 10:11. [facility], CR, XR CHEST 2V, 08/08/2020, 15:07. FINDINGS: Surgical changes and devices: Surgical clips project over the thorax. Lungs and pleura: Lungs are clear. No pleural effusions or pneumothorax. Mediastinum: Mediastinal contours appear normal. Heart size is enlarged. Bones and chest wall: No suspicious bony lesions. Overlying soft tissues appear unremarkable. IMPRESSION: No acute cardiopulmonary abnormality is seen. Dictated by: Ralph Hernandez M.D. on 12/02/2024 at 11:42 Approved by: Ralph Hernandez M.D. on 12/02/2024 at 11:43
--- NOTE | 2024-12-02 10:26 | DI.CT.S_ITS ---
PROCEDURE: CT ANGIO HEAD AND NECK INDICATIONS: hx of cva elevated bp/hx of R sided weakness TECHNIQUE: After the administration of intravenous contrast, 1 mm thick sections acquired from the aortic arch through the [place] of [place]. 3-dimensional ghbhukp-yrbfjfuux-udtvktbcbn (MIP) and/or volume rendering reformats were acquired of the central intracranial vasculature and neck separately. For radiation dose reduction, the following was used: automated exposure control, adjustment of mA and/or kV according to patient size. COMPARISON: [facility], CT, CT HEAD/BRAIN WO CON, 01/08/2023, 21:51. [facility], CT, CT HEAD/BRAIN WO CON, 12/02/2024, 10:45. [facility], CT, CT ANGIO CHEST PE PROTOCOL, 12/02/2024, 11:24. FINDINGS: Image quality: Diagnostic. Cerebral CT Angiogram: Internal carotid arteries: No acute findings. Intracranial ICA are patent with no significant stenosis. No occlusion. No aneurysm. Anterior cerebral arteries: Unremarkable. No significant stenosis. No occlusion. No aneurysm. Middle cerebral arteries: Unremarkable. No significant stenosis. No occlusion. No aneurysm. Posterior cerebral arteries: There is a prominent left posterior communicating artery seen, with an accompanying diminutive left P1 segment. This is attributed to a type origin of the right posterior cerebral artery, which is considered to be a normal developmental variant of typically no clinical consequence. The flow within the posterior cerebral arteries is normal and symmetric. No aneurysms are seen. Basilar artery: Unremarkable. No significant stenosis. No occlusion. No aneurysm. Vertebral arteries: Unremarkable as visualized. Dural venous sinuses: Unremarkable given phase of enhancement. Other: Prior left frontal infarct is seen, with encephalomalacia and volume loss. There is ex vacuo dilatation seen of the left lateral ventricle, particularly anteriorly Neck CT Angiogram: Internal carotid arteries: Unremarkable. No significant stenosis. No dissection or occlusion. Common carotid arteries: Unremarkable. No significant stenosis. No dissection or occlusion. External carotid arteries: Unremarkable. No occlusion. Vertebral arteries: Unremarkable. No significant stenosis. No dissection or occlusion. Aortic Arch and Mediastinum: Partially visualized aortic arch unremarkable without evidence of aneurysm. Origins of the great vessels unremarkable. Other: Arterial phase soft tissues of the neck and chest are unremarkable. Iyaz-qz-xpctwoea cervical spine degenerative change can be seen. IMPRESSION: No significant intracranial arterial abnormality is seen. No significant abnormality is seen within the arteries of the neck. Additional findings: Remote left frontal lobe infarct Gwrhyb-gr-Emohej developmental anomalies. Any quantitative measurements of stenosis were performed using NASCET criteria. Dictated by: Pj Mcdaniels M.D. on 12/02/2024 at 10:47 Approved by: Pj Mcdaniels M.D. on 12/02/2024 at 10:51
--- NOTE | 2024-12-02 10:26 | DI.CT.S_ITS ---
PROCEDURE: CT HEAD/BRAIN WO CON INDICATIONS: hx of cva elevated bp/hx of R sided weakness TECHNIQUE: Noncontrast 4.5 mm thick angled axial sections acquired from the foramen magnum to the vertex, with coronal and sagittal reformats. For radiation dose reduction, the following was used: automated exposure control, adjustment of mA and/or kV according to patient size. COMPARISON: [facility], MR, MR HEAD/BRAIN WO CON, 10/24/2020, 14:58. [facility], CT, CT ANGIO HEAD AND NECK, 12/02/2024, 10:45. [facility], CT, CT ANGIO CHEST PE PROTOCOL, 12/02/2024, 11:24. [facility], CT, CT HEAD/BRAIN WO CON, 10/24/2020, 15:21. [facility], CT, CT HEAD/BRAIN WO CON, 01/08/2023, 21:51. FINDINGS: Image quality: Diagnostic. CSF spaces: Basal cisterns are patent. No extra-axial fluid collections. The ventricles demonstrate stable asymmetry, with ex vacuo dilatation seen on the left, particularly anteriorly. Brain: There is again seen a remote, stable left frontal lobe infarct. No intracranial bleeds or mass effect. There is cerebral volume loss, with resultant ventricular and sulcal prominence. There are periventricular and deep white matter chronic small vessel ischemic changes. There is intracranial internal carotid artery atherosclerosis. Skull and face: There is a small scalp hematoma seen on the right posteriorly, as on series 4, image 23. No associated fracture can be seen. Calvarium and visualized facial bones appear intact, without suspicious lesions. Sinuses: Visualized sinuses and mastoids are clear. IMPRESSION: No acute intracranial hemorrhage is seen. No acute intracranial pathology. Stable remote left infarct, with associated ex vacuo dilatation of the left lateral ventricle, particularly anteriorly. Mild right posterior scalp hematoma seen, without an associated fracture. Dictated by: Pj Mcdaniels M.D. on 12/02/2024 at 10:51 Approved by: Pj Mcdaniels M.D. on 12/02/2024 at 10:54
--- NOTE | 2024-12-02 10:26 | EKG_ITS ---
[address] [address] Test Date: 2024-12-02 Pat Name: Wilber Lara Department: Room: Gender: Female Direct Response Consultant: SIMBA : 1950 Requested By: Order Number: [id number] Reading MD: Adolph Jeffries Measurements Intervals [place] Rate: 106 P: 27 ME: 176 QRS: -14 QRSD: 88 T: 16 QT: 350 QTc: 464 Interpretive Statements Sinus tachycardia Moderate voltage criteria for LVH, may be normal variant ( R in aVL , [place] product ) Electronically Signed On 12-03-2024 8:39:07 PDT by Adolph Jeffries
--- NOTE | 2024-12-02 10:26 | DI.CT.S_ITS ---
PROCEDURE: CT ANGIO CHEST PE PROTOCOL INDICATIONS: hx of cva elevated bp/hx of R sided weakness TECHNIQUE: After the administration of intravenous contrast, 2 mm thick sections acquired from the pulmonary apices to the posterior costophrenic angles. 3-dimensional maximum intensity projection (MIP) coronal and sagittal reformats were then acquired through the thorax. For radiation dose reduction, the following was used: automated exposure control, adjustment of mA and/or kV according to patient size. COMPARISON: [facility], CR, XR CHEST 1V, 12/02/2024, 11:18. [facility], CR, XR WRIST RT MIN 3V, 12/02/2024, 11:18. [facility], CT, CT HEAD/BRAIN WO CON, 12/02/2024, 10:45. [facility], CT, CT ANGIO HEAD AND NECK, 12/02/2024, 10:45. [facility], CT, CT ANGIO CHEST PE PROTOCOL, 10/12/2020, 16:50. FINDINGS: Image quality: Diagnostic. Pulmonary arteries: Pulmonary arteries are normal in size, and demonstrate no intraluminal filling defects to suggest central pulmonary embolism. [place]ck: No enlarged lymph nodes. Thyroid: No thyroid nodules which require sonographic follow up, per consensus guidelines. [place]illae: No enlarged lymph nodes. Chest Wall: Bilateral mastectomy change. Bones: Accentuated thoracic kyphosis is seen. Age-appropriate bony degenerative changes are seen. There is a stable remote T6 anterior wedge deformity. Lungs and Pleura: There is a mild focus of consolidation seen involving the subpleural lingula, as on series 5, image 143, measuring 11 mm. This is not seen on the prior examination. Generalized the layering ground-glass opacity can be seen. Mild dependent atelectasis is seen. No pneumothorax or pleural effusions are seen. Heart: Heart size is mildly enlarged. No pericardial effusion. Thoracic Vessels: No aortic aneurysm. Mediastinum and Lety: No enlarged lymph nodes. Esophagus: No wall thickening. There is a moderate to large hiatal hernia. Upper Abdomen: Bariatric surgery can be seen. The visualized portions of the upper abdominal structures are otherwise unremarkable for imaging technique. IMPRESSION: No pulmonary embolus. Within the lingula, there is an avid mm focus of consolidation, which most likely relates to atelectasis. Please consider a follow-up noncontrast chest CT in 6-8 weeks to monitor for resolution. There is mild cardiomegaly. A mild degree of dependent ground-glass opacity can be seen, likely related to pulmonary edema. Please correlate with mild/early CHF. Additional findings: Bilateral mastectomy change Remote T6 anterior wedge deformity, stable Moderate to large hiatal hernia Bariatric surgery Dictated by: jP Mcdaniels M.D. on 12/02/2024 at 10:54 Approved by: Pj Mcdaniels M.D. on 12/02/2024 at 10:58
--- NOTE | 2024-12-02 10:28 | DI.RAD.S_ITS ---
PROCEDURE: XR WRIST RT MIN 3V INDICATIONS: pain TECHNIQUE: 4 views of the wrist were acquired. COMPARISON: None. FINDINGS: Bones: No fractures or dislocations. No suspicious bony lesions. Soft tissues: No suspicious soft tissue calcifications. IMPRESSION: No acute bony abnormality. Dictated by: Ralph Hernandez M.D. on 12/02/2024 at 11:42 Approved by: Ralph Hernandez M.D. on 12/02/2024 at 11:42
[2024-12-02 10:56] LABS: Add Manual Diff / Slide Review NO; Hematocrit 36.9 % (36-46); Hemoglobin 12.6 g/dL (12.0-16.0); Lymphocytes Absolute Auto 1000 /uL (1100-4500); Mean Corpuscular HGB Conc 34.1 % (30-36); Mean Corpuscular Hemoglobin 36.1 PG (26-34); Mean Corpuscular Volume 106.0 fL (80-100); Platelet Count 309 X10^3/uL (150-400)
[2024-12-02 11:19] LABS: Alanine Aminotransferase 19 IU/L (<35); Albumin 4.4 g/dL (3.5-5.0); Albumin Globulin Ratio 1.2 (1.0-2.8); Alkaline Phosphatase 95 U/L (38-126); Blood Urea Nitrogen 21 mg/dL (7-17); Calcium 9.1 mg/dL (8.4-10.2); Carbon Dioxide 25 mmol/L (22-32); Chloride 107 mmol/L (98-107); Creatine Kinase 43 U/L (30-135); Estimated Glomerular Filt Rate 48 mL/min (>60); Globulin 3.7 g/dL (1.7-4.1); Glucose 110 mg/dL (70-99); HEMOLYSIS 18 (0-50); Lipase 117 U/L (23-300); Potassium 4.5 mmol/L (3.4-5.1); Sodium 141 mmol/L (137-145); Total Protein 8.1 g/dL (6.3-8.2)
[2024-12-02 11:31] LABS: Troponin I < 0.012 ng/mL (0.01-0.034)
[2024-12-02] MEDS: FUROSEMIDE 40 MG/4 ML VIAL IV (12:25)
[2024-12-02] MEDS: HYDROCODONE/ACET 5/325 TABLET 1 TAB PO (12:32)
[2024-12-02 12:41] LABS: NT-proBNP (BNP-Adult 18+) 73 pg/mL (<125)
== END 2024-12-02 13:15 | disposition home or self-care (01) ==
PROVIDERS: Emergency Provider Family Medicine
DX: I16.0 Hypertensive urgency (principal); M25.531 Pain in right wrist; I50.9 Heart failure, unspecified; S00.03XA Contusion of scalp, initial encounter; X58.XXXA Exposure to other specified factors, initial encounter; I69.351 Hemiplegia and hemiparesis following cerebral infarction affecting right dominant side
CPT/HCPCS: 36415; 70450; 70496; 70498; 71045; 71275; 73110; 80053; 82550; 83690; 83880; 84484; 85025; 93005; 96374; 99284; J1938; Q9967